=== PATIENT | male | born 1955 | race Caucasian/White ===

== ENCOUNTER → 2017-05-25 10:06 | Outpatient (CLI) | payer BC, SELFPAY ==
[2017-05-25 10:15] LABS: Microscopic, Urine URINE MICROSCOPIC (MICROSCOPIC)
[2017-05-25 10:36] LABS: Appearance,Urine CLEAR (Clear); Bilirubin,Urine Negative (Negative); Blood, Urine Negative (Negative); Color,Urine YELLOW (Yellow); Glucose,Urine (UA) Negative (Negative); Ketones,Urine Negative (Negative); Leukocyte Esterase,Urine Negative (Negative); Nitrate,Urine Negative (Negative); Protein,Urine Negative (Negative); Urobilinogen,Urine 0.2 EU/dl (0.2)
[2017-05-25 10:52] LABS: Basophils % 0.6 % (0.1-2.0); Eosinophils # 0.1 K/mm3 (0.0-0.4); Eosinophils % 3.3 % (0.1-12.0); Hematocrit 44.5 % (42.0-52.0); Hemoglobin 15.4 g/dL (14.1-18.0); Lymphocytes # 1.2 K/mm3 (0.7-4.5); Lymphocytes % 27.1 K/mm3 (10-50); Mean Corpuscular HGB Conc 34.7 g/dL (31.8-35.4); Mean Corpuscular Volume 98.1 fl (80-94); Mean Platelet Volume 8.1 fl (7.4-10.4); Monocytes # 0.3 K/mm3 (0.1-1.0); Monocytes % 7.6 % (1.7-9.3); Neutrophils # 2.6 K/mm3 (1.8-7.8); Neutrophils % 61.5 % (37.0-80.0); Platelet Count 156 K/mm3 (142-424); Red Blood Count 4.54 M/mm3 (4.60-6.20); Red Cell Distribution Width 12.3 % (11.5-17.5); White Blood Count 4.3 K/mm3 (4.8-10.8)
[2017-05-25 10:59] LABS: Hemoglobin A1C 5.3 % (0.0-7.0)
[2017-05-25 11:39] LABS: Alanine Aminotransferase 41 U/L (12-78); Albumin Level 4.3 gm/dL (3.4-5.0); Albumin/Globulin Ratio 1.4 (1.1-1.8); Alkaline Phosphatase 67 U/L (46-116); Anion Gap 12.2 mEq/L (5-15); Aspartate Amino Transferase 35 U/L (15-37); Bilirubin,Total 0.7 mg/dL (0.2-1.0); Blood Urea Nitrogen 18 mg/dL (7-18); Calcium 9.1 mg/dL (8.5-10.1); Carbon Dioxide 30 mmol/L (21.0-32.0); Chloride 103 mmol/L (98-107); Creatinine,Serum 0.76 mg/dL (0.70-1.30); Estimated Glomerular Filt Rate 104 ml/min (>60); GFR (African American) 126 ML/MIN (>60); Glucose 99 mg/dL (74-106); Potassium 4.2 mmoL/L (3.5-5.1); Sodium 141 mmol/L (136-145); Thyroid Stimulating Hormone 5.26 uIU/ml (0.358-3.740); Total Protein,Serum 7.3 gm/dL (6.4-8.2)
== END ==
PROVIDERS: PCP Family Medicine; Visit Provider Family Medicine
DX: R19.7 Diarrhea, unspecified (principal); R73.01 Impaired fasting glucose; R63.5 Abnormal weight gain; R10.30 Lower abdominal pain, unspecified
CPT/HCPCS: 36415; 80053; 81001; 83036; 84443; 85025

== ENCOUNTER → 2017-05-27 12:00 | Outpatient (CLI) | payer BC, SELFPAY ==
[2017-05-28 13:45] LABS: Adenovirus F 40/41, stool Not Detected (NotDetected); Astrovirus Not Detected (NotDetected); Campylobacter Not Detected (NotDetected); Clostridium Difficile A/B, PCR Not Detected (NotDetected); Cryptosporidium Not Detected (NotDetected); Cyclospora Cayetanesis Not Detected (NotDetected); Entamoeba histolytica Not Detected (NotDetected); Enteroaggregative E coli Not Detected (NotDetected); Enterotoxigenic E coli Not Detected (NotDetected); Giardia lamblia Not Detected (NotDetected); Norovirus Not Detected (NotDetected); Plesimonas Shigalloides, PCR Not Detected (NotDetected); Rotavirus A Not Detected (NotDetected); Salmonella, PCR Not Detected (NotDetected); Sapovirus Not Detected (NotDetected); Shiga-like toxin E coli Not Detected (NotDetected); Shigella Enterovasive E coli Not Detected (NotDetected); Vibrio Cholerae Not Detected (NotDetected); Vibrio, PCR Not Detected (NotDetected); Yersinia Entercolitica, PCR Not Detected (NotDetected)
[2017-05-28 14:16] LABS: Occult Blood,Stool Negative (Negative)
[2017-05-28 17:53] LABS: Enteropathogenic E coli Detected (NotDetected)
== END ==
PROVIDERS: PCP Family Medicine; Visit Provider Family Medicine
DX: R19.7 Diarrhea, unspecified (principal); R73.01 Impaired fasting glucose; R63.5 Abnormal weight gain; R10.30 Lower abdominal pain, unspecified
CPT/HCPCS: 82272; 87205; 87507; G0328

== ENCOUNTER → 2017-09-03 10:25 | Outpatient (CLI) | payer BC, SELFPAY ==
[2017-09-03 11:39] LABS: Erythrocyte Sedimentation Rate 15 mm/hr (0-20)
[2017-09-05 06:18] LABS: Endomysial IgA Antibody Negative (Negative); RA Latex Turbid. 41.2 IU/mL (0.0-13.9); Tissue Transglutaminase IgA Ab <2 U/mL (0-3)
[2017-09-06 14:48] LABS: Fats, Neutral Normal (.); Fats, Total Increased (.)
== END ==
PROVIDERS: Visit Provider Family Medicine
DX: R19.7 Diarrhea, unspecified (principal); M25.50 Pain in unspecified joint
CPT/HCPCS: 36415; 82705; 83516; 84550; 85651; 86038; 86255; 86431; 87045; 87177

== ENCOUNTER → 2018-11-27 07:01 | Outpatient (CLI) | payer OTHER, SELFPAY ==
[2018-11-27 10:01] LABS: Alanine Aminotransferase 47 U/L (12-78); Albumin Level 4.1 gm/dL (3.4-5.0); Albumin/Globulin Ratio 1.4 (1.1-1.8); Alkaline Phosphatase 63 U/L (46-116); Anion Gap 13.4 mEq/L (5-15); Aspartate Amino Transferase 35 U/L (15-37); Bilirubin,Total 0.8 mg/dL (0.2-1.0); Blood Urea Nitrogen 17 mg/dL (7-18); Calcium 9.5 mg/dL (8.5-10.1); Carbon Dioxide 29 mmol/L (21.0-32.0); Chloride 104 mmol/L (98-107); Chol/HDL Ratio 3.8 (1-3.5); Cholesterol 206 mg/dL (140-200); Creatinine,Serum 0.85 mg/dL (0.70-1.30); Estimated Glomerular Filt Rate 91 ml/min (>60); Free T4 (Free Thyroxine) 0.98 ng/dl (0.76-1.46); GFR (African American) 110 ML/MIN (>60); Glucose 99 mg/dL (74-106); HDL Cholesterol 54 mg/dL (27-67); LDL Cholesterol 125 mg/dL (0-130); Potassium 4.4 mmoL/L (3.5-5.1); Sodium 142 mmol/L (136-145); Total Protein,Serum 7.1 gm/dL (6.4-8.2); Triglycerides 133 mg/dL (30-200); VLDL Cholesterol 27 mg/dL (0-40)
== END ==
PROVIDERS: Visit Provider Family Medicine
DX: E03.9 Hypothyroidism, unspecified (principal); R73.01 Impaired fasting glucose; E78.1 Pure hyperglyceridemia; M54.31 Sciatica, right side
CPT/HCPCS: 36415; 80053; 80061; 83036; 84439; 84443

== ENCOUNTER → 2018-12-13 09:55 | Outpatient (CLI) | payer OTHER, SELFPAY ==
--- NOTE | 2018-12-13 10:06 | XR_ITS ---
EXAM: XR lumbar spine min 4V HISTORY: ITS.REASON: RT SIDE SCIATICA PAIN ORDERING PHYSICIAN: Jr Guevara MD PATIENT AGE: 63 years COMPARISON: None FINDINGS: There is mild lumbar scoliosis convex right. Degenerative disc disease is present from T12 to S1 especially at L3-L4 L4-5 and L5-S1. Normal alignment. No acute fracture or dislocation. Facet sclerosis is present at L3-L4 and L5 and S1. Incidental vascular calcification is noted. There is a calcific density to the right of L1 transverse process measuring 4 mm nonspecific. IMPRESSION: 1. Lumbar scoliosis with degenerative changes 2. Nonspecific right upper quadrant calcification. This is somewhat more medial than what one expected for a renal stone or gallstone.
== END ==
PROVIDERS: PCP Family Medicine; Visit Provider Family Medicine
DX: M54.31 Sciatica, right side (principal); R73.01 Impaired fasting glucose; E78.1 Pure hyperglyceridemia; E03.9 Hypothyroidism, unspecified
CPT/HCPCS: 72110

== ENCOUNTER 2018-12-17 08:30 | Outpatient (RCR) | payer OTHER, SELFPAY ==
--- NOTE | 2018-11-14 09:12 | HMH.PTOPEV ---
PT Outpatient Evaluation Rehab PT Outpatient Evaluation Start: 11/14/18 08:51 Freq: Status: Active Protocol: Document 11/14/18 08:51 AVIVA (Rec: 11/14/18 09:09 AVIVA [id number]) Electronically Signed By Toni Owen, PT 11/14/18 08:51 Outpatient Therapy Subjective History Subjective History Patient is a 63 year old male presenting to outpatient PT with reports of chronic low back with RLE radicular symptoms to the L5 dermatome. Pt reports LBP consistent for approx 1 year that has progressively gotten worse over the past 4 months. Increased radicular symptoms with lumbar extension. Relief noted with lumbar flexion and manual traction. No particular mechanism of injury to report. No recent diagnostics to report. Special tests also indicate L upslip of the innominant. Comorbidities include OA, HTN, Raynauds and hypothyroidism. Chief Complaint Pain,Stiff,Paresthesia Symptom Type Ache,Sharp,Numbness,Tingling Symptoms Relieved By Rest/Positioning Symptoms Aggravated By Standing,Walking,Lifting Prior Functional Limitations None Current Functional Limitations Lifting,Housework Level of pain today (0-10) 3 Pain scale - at its best (0-10) 2 Pain scale - at its worst (0-10) 7 Lumbopelvic Eval Posture Thoracic Spine Posture Standing Position Increased Kyphosis Lumbar Spine Posture Standing Position Decreased Lordosis Assistive device Assistive Devices None / NA Palapation tenderness right paraspinal tenderness Yes: 2/4 buttock tenderness Yes: 3/4 Lumbar/Sacral Palpation Findings Tenderness Lumbar/Sacral Palpation Overall Comment R PSIS 3/4 Accessory Movement L4 right L5 right S1 right Range of Motion Lumbar Spine Active Flexion Range of 66 Motion (degrees) Lumbar Spine Active Extension Range of 25 Motion (degrees) Left Lumbar Spine Lateral Flexion Active 25 Range of Motion (degrees) Right Lumbar Spine Lateral Flexion 33 Active Range of Motion (degrees) Lumbar Spine ROM Limitations Soft Tissue Tightness,Bony Restriction Manual Muscle Test Bilateral Knee Extension Strength Grade 5
== END 2018-12-17 08:35 | disposition home or self-care (01) ==
LOC: PT 08:30
PROVIDERS: Visit Provider Emergency Medicine
DX: M54.31 Sciatica, right side (principal)
CPT/HCPCS: 97010; 97012; 97014; 97035; 97110; 97140; 97163; G0283

== ENCOUNTER → 2018-12-31 14:13 | Outpatient (CLI) | payer OTHER, SELFPAY ==
--- NOTE | 2018-12-31 14:16 | MR_ITS ---
PROCEDURE: MR LUMBAR SPINE WO CON CLINICAL INDICATION: SCIATICA OF RIGHT SIDE Low back pain with right leg pain numbness and tingling radiating into the right foot COMPARISON: No exams were available for comparison TECHNIQUE: Standard multiplanar multiecho sequences are performed without contrast. 3-D MIP and myelographic images are also rendered and reviewed FINDINGS: Normal alignment. The spinal cord ends at the T12-L1 level. There is somewhat heterogeneous T1 and T2 intensity of the generalized bony structures and may be related to red marrow replacement. L1-L2: Unremarkable. L2-L3: Mild facet ligamentum hypertrophy with mild bilateral lateral recess narrowing and mild bilateral foraminal narrowing. L3-L4: Degenerate disc disease with bulging disc along with moderate to severe facet and ligamentum hypertrophy with moderate to severe bilateral lateral recess and foraminal narrowing. There is borderline canal stenosis at this level. L4-5: Degenerate disc disease with bulging disc along with severe facet and ligamentum hypertrophy with severe bilateral lateral recess and foraminal narrowing with canal stenosis. The canal is approximately 9 mm centrally. L5-S1: Degenerate disc disease with bulging disc which is eccentric toward the right with severe facet ligamentum hypertrophy causing severe lateral recess and foraminal narrowing. This is more severe on the right compared to the left. There is canal stenosis at this level. No extruded herniated disc evident. IMPRESSION: 1. L3-L4: Degenerate disc disease with bulging disc along with moderate to severe facet and ligamentum hypertrophy with moderate to severe bilateral lateral recess and foraminal narrowing. There is borderline canal stenosis at this level. 2. L4-5: Degenerate disc disease with bulging disc along with severe facet and ligamentum hypertrophy with severe bilateral lateral recess and foraminal narrowing with canal stenosis. 3. L5-S1: Degenerate disc disease with bulging disc which is eccentric toward the right with severe facet ligamentum hypertrophy causing severe lateral recess and foraminal narrowing. This is more severe on the right compared to the left. There is canal stenosis at this level Dictated by: Diomedes Esteves MD 01/01/2019 07:12 Signed by: <Electronically signed by Diomedes Esteves MD in [place]> 01/01/2019 07:12
== END ==
PROVIDERS: PCP Family Medicine; Visit Provider Family Medicine
DX: M54.31 Sciatica, right side (principal)
CPT/HCPCS: 72148; 76376

== ENCOUNTER → 2019-01-30 09:31 | Outpatient (POV) | payer OTHER, SELFPAY ==
[2019-01-30 09:56] VITALS: BP 183/94; O2SAT 97; BMI 23.7
--- NOTE | 2019-01-30 13:04 | HMH.PMCON ---
Assessment and Plan (1) Lumbar back pain Current visit: Yes Status: Chronic Category: Medical Code(s): M54.5 - Low back pain (2) Degenerative disc disease, lumbar Current visit: Yes Status: Chronic Category: Medical Code(s): M51.36 - Other intervertebral disc degeneration, lumbar region (3) Lumbar radiculopathy Current visit: Yes Status: Chronic Category: Medical Code(s): M54.16 - Radiculopathy, lumbar region (4) Spinal stenosis Current visit: Yes Status: Chronic Category: Medical Code(s): M48.00 - Spinal stenosis, site unspecified - Assessment and plan all Dx Assessment and Plan for all problems:: Patient does have extensive degeneration and disc bulging according to his MRI report. Given his imaging and his symptoms, patient would greatly benefit from a lumbar epidural steroid injection. He has not had injective therapy in the past. He has tried conservative therapies of physical therapy, home stretching program, oral medications, anti-inflammatories, and ice and heat therapies. He has got little to no relief with these therapies. We will schedule the patient for a lumbar epidural steroid injection at L4-L5 and see him back in following his procedure to reassess his symptoms. Patient is not on anticoagulation therapy. He has been encouraged to contact the clinic if he has any concerns. Dr. Cheney has reviewed this note and agrees with this plan of care. This note was dictated using voice recognition software and make contain errors or omissions. HPI - Data of Consult Patient: new to practice Consult date: 01/30/19 Requesting Physician: Susan Liu APRN Primary Care Provider: Jr Guevara MD - Consult Narrative Reason for consult: Back pain History of present illness: Mr. Munroe is a 63 year old male who presents today for consultation for low back pain. Patient was referred by Dr. Guevara. Patient complains of low back pain with radiating pain to his right buttock and into his right leg with severe numbness and tingling to his bilateral lower extremities patient says this pain has been ongoing for greater than a year. He says that he has had physical therapy which is giving him some relief. He says that he currently takes meloxicam which is also giving him some patient was prescribed oral opiates, but he states I did not like how it may be feel so stopped taking it . Patient has had 2 rounds of Medrol Dosepaks in August and September of this year. He said that it gave him about 20% relief. The patient says physical therapy did give him about 20% relief. He is continuing with a home stretching program, as well as his anti-inflammatory. Patient has tried using ice and heat therapies he is got little to no relief. Patient does have MRI imaging with him today. Patient is interested only and interventional therapies as he is not able to tolerate oral opiates. Patient does rate his pain 10 today. CC: Susan Liu APRN [facility] History I have reviewed the patient's past medical history: Yes *Have you ever received a pneumonia vaccine?: No *Have you received a flu vaccine this season?: No Other Medical History: Reports: Hypothyroidism Other Surgeries: Yes: Appendectomy, Hernia Repair - *Social History Smoking Status: Former smoker Alcohol Intake: current Alcohol Intake Frequency:: 3 or more drinks per day *Occupational Status:: other *Travel in the last 8 weeks: None Family Hx:: Unable to obtain Review of Systems - Review of Systems Review of Systems General: No recent weight changes, no fever, no sleep disturbances Respiratory: No cough, no shortness of air, no recurring pulmonary infections Cardiovascular/peripheral vascular: No chest pain, no palpitations, no edema, no shortness of breath Gastrointestinal: No new onset incontinence, normal bowel movements reported Genitourinary: No new onset incontinence Musculoskeletal: Back pain, right buttock pain, right leg
--- NOTE | 2019-01-30 13:08 | P.CONS_ITS ---
Assessment and Plan (1) Lumbar back pain Current visit: Yes Status: Chronic Category: Medical Code(s): M54.5 - Low back pain (2) Degenerative disc disease, lumbar Current visit: Yes Status: Chronic Category: Medical Code(s): M51.36 - Other intervertebral disc degeneration, lumbar region (3) Lumbar radiculopathy Current visit: Yes Status: Chronic Category: Medical Code(s): M54.16 - Radiculopathy, lumbar region (4) Spinal stenosis Current visit: Yes Status: Chronic Category: Medical Code(s): M48.00 - Spinal stenosis, site unspecified - Assessment and plan all Dx Assessment and Plan for all problems:: Patient does have extensive degeneration and disc bulging according to his MRI report. Given his imaging and his symptoms, patient would greatly benefit from a lumbar epidural steroid injection. He has not had injective therapy in the past. He has tried conservative therapies of physical therapy, home stretching program, oral medications, anti-inflammatories, and ice and heat therapies. He has got little to no relief with these therapies. We will schedule the patient for a lumbar epidural steroid injection at L4-L5 and see him back in following his procedure to reassess his symptoms. Patient is not on anticoagulation the rapy. He has been encouraged to contact the clinic if he has any concerns. Dr. Cheney has reviewed this note and agrees with this plan of care. This note was dictated using voice recognition software and make contain errors or omissions. HPI - Data of Consult Patient: new to practice Consult date: 01/30/19 Requesting Physician: Susan Liu APRN Primary Care Provider: Jr Guevara MD - Consult Narrative Reason for consult: Back pain History of present illness: Mr. Munroe is a 63 year old male who presents today for consultation for low back pain. Patient was referred by Dr. Guevara. Patient complains of low back pain with radiating pain to his right buttock and into his right leg with severe numbness and tingling to his bilateral lower extremities patient says this pain has been ongoing for greater than a year. He says that he has had physical therapy which is giving him some relief. He says that he currently takes meloxicam which is also giving him some patient was prescribed oral opiates, but he states I did not like how it may be feel so stopped taking it . Patient has had 2 rounds of Medrol Dosepaks in August and September of this year. He said that it gave him about 20% relief. The patient says physical therapy did give him about 20% relief. He is continuing with a home stretching program, as well as his anti-inflammatory. Patient has tried using ice and heat therapies he is got little to no relief. Patient does have MRI imaging with him today. Patient is interested only and interventional therapies as he is not able to tolerate oral opiates. Patient does rate his pain 10 today. CC: Susan Liu APRN [facility] History I have reviewed the patient's past medical history: Yes *Have you ever received a pneumonia vaccine?: No *Have you received a flu vaccine this season?: No Other Medical History: Reports: Hypothyroidism Other Surgeries: Yes: Appendectomy, Hernia Repair - *Social History Smoking Status: Former smoker Alcohol Intake: current Alcohol Intake Frequency:: 3 or more drinks per day *Occupational Status:: other *Travel in the last 8 weeks: None Family Hx:: Unable to obtain Review of Systems - Review of Systems Review of Systems General: No recent weight changes, no fever, no sleep disturbances Respiratory: No cough,
== END ==
PROVIDERS: PCP Family Medicine; Visit Provider Clinical Nurse Specialist Family Health
DX: M51.16 Intervertebral disc disorders with radiculopathy, lumbar region (principal); M48.00 Spinal stenosis, site unspecified
CPT/HCPCS: 99202

== ENCOUNTER → 2019-08-12 08:37 | Outpatient (CLI) | payer SELFPAY ==
--- NOTE | 2019-08-12 08:42 | CT_ITS ---
PROCEDURE: CT HEART W CALCIUM SCORE CLINICAL HISTORY: FHX CAD The COMPARISON: No exams were available for comparison TECHNIQUE: Axial images obtained with sagittal and coronal reformats. All CT scans at the facility use one or more dose reduction, viz: automated exposure control, ma/kV adjustment per patient size (including targeted exams where dose is matched to indication, i.e. head), or iterative reconstruction technique. FINDINGS: Coronary artery calcium score is 727 indicating extensive calcific plaque burden with very high cardiovascular disease risk. Incidental note is made of mild thickening of the pericardium anteriorly. There is mild fusiform dilatation the celiac artery measuring up to 1.4 cm IMPRESSION: Extensive calcific plaque burden with very high cardiovascular disease risk Dictated by: Diomedes Esteves MD 08/12/2019 11:54 Electronically signed by Diomedes Esteves MD in [place] 08/12/2019 11:54
== END ==
PROVIDERS: PCP Family Medicine; Visit Provider Family Medicine
DX: Z13.6 Encounter for screening for cardiovascular disorders (principal)
CPT/HCPCS: 75571

== ENCOUNTER → 2019-08-12 08:45 | Outpatient (CLI) | payer MEDICARE, OTHER, SELFPAY ==
--- NOTE | 2019-08-12 | CA_ITS ---
APPROVED REPORT Exam: Exercise Treadmill Technologist: Alfreda Nino Ht: 5 ft 10 in Wt: 180 lbs BSA: 2.00 m2 HR: 73 bpm BP: 157/90 mmHg Indications: Chest pain Medical History Medications: Levothyroxine,,,,, MeLOXICAM,,,,, Stress Test Details Test: Sergey HR Resting HR: 79 bpm Max Heart Rate (APMHR): 156 bpm Max HR Achieved: 142 bpm Target HR (85% APMHR): 132 bpm % of APMHR: 91 Recovery HR: 85 bpm BP Resting BP: 157.0/90.0 mmHg Max BP: 184.0/106.0 mmHg Recovery BP: 168.0/92.0 mmHg ECG Clinical Exercise duration: 06:24 min Highest Stage Achieved: Exercise capacity: 7.0 METs Stress ECG Conclusion Resting ECG: Sinus rhythm Sergey protocol completed. Exercised 6:24. Test stopped due to shortness of breath. Symptoms: Shortness of breath at peak exercise. Resolved in recovery. No chest pain. Arrhythmias/Ectopy: Occasional PVC. ST-T Changes: Less than 1.[address] depression. Changes noted in leads II, III, and AvF Conclusion: GXT only. ST changes in leads II, III, and AvF, Occasional PVC, Hypertensive response, Positive shortness of breath, No chest pain. Test Summary RECOVERY 08:00 0.0 0.0 87 . 183/ 97 . . REST 07:19 0.0 0.0 79 . 157/ 90 . . Stage 1 01:00 10.0 1.7 97 . . . . Stage 1 02:00 10.0 1.7 102 . . . . Stage 1 03:00 10.0 1.7 105 . 163/ 96 . . Stage 2 01:00 12.0 2.5 120 . . . . Stage 2 02:00 12.0 2.5 126 . . . . Stage 2 03:00 12.0 2.5 132 . 178/ 92 . . Stage 3 00:24 14.0 3.4 141 . . . Stop exercise at 06:24 RECOVERY 01:00 0.0 0.0 116 . 184/106 . . RECOVERY 02:00 0.0 0.0 109 . 184/106 . . RECOVERY 03:00 0.0 0.0 97 . 184/106 . . RECOVERY 04:00 0.0 0.0 89 . 180/ 96 . . RECOVERY 05:00 0.0 0.0 83 . 180/ 96 . . RECOVERY 06:00 0.0 0.0 87 . 183/ 97 . . RECOVERY 07:00 0.0 0.0 88 . 183/ 97 . . RECOVERY 08:00 0.0 0.0 87 . 183/ 97 . . RECOVERY 08:19 0.0 0.0 89 . 168/ 92 . . Electronically signed by : Pernell Rowell, 08/12/2019 16:22:00
== END ==
PROVIDERS: PCP Family Medicine; Visit Provider Family Medicine
DX: R07.9 Chest pain, unspecified (principal)
CPT/HCPCS: 93017

== ENCOUNTER → 2019-08-20 10:59 | Outpatient (CLI) | payer MEDICARE, OTHER, SELFPAY ==
[2019-08-20 12:11] LABS: Chloride 102 mmol/L (98-107); Sodium 140 mmol/L (136-145)
[2019-08-20 12:14] LABS: Blood Urea Nitrogen 18 mg/dl (9-20); Calcium 9.8 mg/dl (8.4-10.2); Carbon Dioxide 29 mmol/L (22.0-30.0); Estimated Glomerular Filt Rate 85 ml/min (>60); GFR (African American) 103 ML/MIN (>60); Glucose 125 mg/dl (74-100)
== END ==
PROVIDERS: Visit Provider Internal Medicine Cardiovascular Disease
DX: E78.5 Hyperlipidemia, unspecified (principal); I10 Essential (primary) hypertension; I65.23 Occlusion and stenosis of bilateral carotid arteries; K21.9 Gastro-esophageal reflux disease without esophagitis; R07.89 Other chest pain; R93.1 Abnormal findings on diagnostic imaging of heart and coronary circulation; R94.31 Abnormal electrocardiogram [ECG] [EKG]; Z87.891 Personal history of nicotine dependence
CPT/HCPCS: 36415; 80048

== ENCOUNTER → 2019-09-12 08:43 | Outpatient (CLI) | payer MEDICARE, OTHER, SELFPAY ==
--- NOTE | 2019-09-12 08:45 | CA_ITS ---
APPROVED REPORT EXAM: Comprehensive 2D, Doppler, and color-flow Echocardiogram Barker Peeler: Marilyn Gambino RVT Ht: 6 ft 1 in Wt: 192lbs BSA: 2.11 BP: 146/99 mmHg Indications: CP,EX SMOKER,HTN,HLD,INCREASED CALCIUM SCORE ON CT, HX HI,STACIE,ALCOHOL USE 2D Dimensions LVOT 2.14 cm (M/F) 1.5-2.5 M-Mode Dimensions RVDd 3.31 cm (0.9-2.6) LVDd 4.71 cm (3.5-5.7) LVDs 3.38 cm (3.5-5.7) IVSd 1.14 cm (0.6-1.1) PWd 0.80 cm (0.6-1.1) EF (Teich) 54.50% FS 28.20% EDV (Teich) 102.90 mL ESV (Teich) 46.80 mL LV Diastology E/A Ratio 0.62 Mitral Valve MV A Velocity 80.00 (40-130 cm/s) Left Ventricle Left atrium is mildly enlarged, left ventricle is normal size, mild concentric left ventricular hypertrophy, visually estimated ejection fraction 55% with no regional wall motion abnormality, grade 1 diastolic dysfunction seen without tissue Doppler evidence of raise left atrial pressure. Right Ventricle Right atrium and right ventricular normal size and contractility. Aortic Valve Aortic valve is minimally thickened and calcified leaflet chordae display good mobility, there is no aortic stenosis or aortic insufficiency, ascending aorta appears to be mildly enlarged. Mitral Valve Mitral valve leaflets are minimally thickened, there is no mitral stenosis, there is mild mitral regurgitation. Tricuspid Valve Tricuspid valve grossly normal, there is mild tricuspid regurgitation, tricuspid regurgitation jet velocity is inadequate for calculation of the right ventricular systolic pressure. Pulmonic Valve Pulmonic valve is poorly visualized. Great Vessels Aortic root is normal size., Ascending aorta is mildly enlarged. Pericardium No significant pericardial effusion noted. Conclusion 1. Mildly enlarged left atrium, normal left ventricular size, mild concentric left ventricular hypertrophy, visually estimated ejection fraction 55% with no regional wall motion abnormality grade 1 diastolic dysfunction seen without tissue Doppler evidence of raise left atrial pressure. 2. Thickened and calcified aortic valve without aortic stenosis or aortic insufficiency, ascending aorta is mildly enlarged. 3. Mild mitral and tricuspid regurgitation. 4. No significant pericardial effusion noted. Electronically signed by : Sandro Monet, 09/12/2019 13:57:20
== END ==
PROVIDERS: PCP Family Medicine; Visit Provider Internal Medicine Cardiovascular Disease
DX: E78.5 Hyperlipidemia, unspecified (principal); I10 Essential (primary) hypertension; I65.23 Occlusion and stenosis of bilateral carotid arteries; K21.9 Gastro-esophageal reflux disease without esophagitis; R07.89 Other chest pain; R93.1 Abnormal findings on diagnostic imaging of heart and coronary circulation; R94.31 Abnormal electrocardiogram [ECG] [EKG]; Z87.891 Personal history of nicotine dependence
CPT/HCPCS: 93306

== ENCOUNTER → 2019-10-03 11:11 | Outpatient (CLI) | payer MEDICARE, OTHER, SELFPAY ==
[2019-10-03 13:39] LABS: Chloride 104 mmol/L (98-107); Sodium 142 mmol/L (136-145)
[2019-10-03 13:40] LABS: Potassium 4.1 mmoL/L (3.5-5.1)
[2019-10-03 13:42] LABS: Blood Urea Nitrogen 21 mg/dl (9-20)
[2019-10-03 13:43] LABS: Anion Gap 12.1 mEq/L (5-15); Calcium 9.8 mg/dl (8.4-10.2); Carbon Dioxide 30 mmol/L (22.0-30.0); Estimated Glomerular Filt Rate 85 ml/min (>60); GFR (African American) 102 ML/MIN (>60); Glucose 108 mg/dl (74-100)
== END ==
PROVIDERS: Visit Provider Urology
DX: I10 Essential (primary) hypertension (principal); K21.9 Gastro-esophageal reflux disease without esophagitis
CPT/HCPCS: 36415; 80048

== ENCOUNTER 2020-03-30 09:00 | Outpatient (RCR) | payer MEDICARE, OTHER, SELFPAY ==
--- NOTE | 2020-03-10 14:40 | HMH.PTOPEV ---
PT Outpatient Evaluation Rehab PT Outpatient Evaluation Start: 03/10/20 14:07 Freq: Status: Active Protocol: Document 03/10/20 14:30 AVIVA (Rec: 03/10/20 14:39 AVIVA [id number]) Electronically Signed By Toni Owen, PT 03/10/20 14:30 Outpatient Therapy Subjective History Subjective History Patient is a 64 year old male presenting to outpatient PT with reports of chronic LBP with intermittent RLE radicular symptoms. Pain specific to R PSIS to lateral thigh, but often radiates to R foot. Most recent MRI indicates L 3/4,3/4,5S1 DDD/ disc bulges. Previous episode of PT provided some significant relief. Comorbidities include hx of HTN, OA and appendectomy. Chief Complaint Pain,Stiff,Paresthesia Symptom Type Ache,Dull Symptoms Relieved By Rest/Positioning,Ice Symptoms Aggravated By Bending/Stooping,Physical Activity,Lifting Prior Functional Limitations None Current Functional Limitations Reaching,Lifting,Housework, Squatting,Recreation Activity, Bending/Stooping Symptom Description Intermittent Level of pain today (0-10) 1 Pain scale - at its best (0-10) 0 Pain scale - at its worst (0-10) 5 Lumbopelvic Eval Posture Thoracic Spine Posture Standing Position Neutral Lumbar Spine Posture Standing Position Neutral Assistive device Assistive Devices None / NA Palapation tenderness right Lumbar/Sacral Palpation Findings Tenderness Lumbar/Sacral Palpation Overall Comment R PSIS and glute med 2/4 Range of Motion Lumbar Spine ROM Reason Not Measured Within Functional Limits Manual Muscle Test Bilateral Knee Extension Strength Grade 5 Normal Knee Flexion Strength Grade 5 Normal Hip Flexion Strength Grade 5 Normal Extensor Hallucis Longus Strength Grade 5 Normal Ankle Dorsiflexion Strength Grade 5 Normal Gastronemius/Soleus Strength Grade 5 Normal DTR Rt Patellar 2+ Lt Patellar 2+ Rt Gastroc/Soleus 2+ Lt Gastroc/Soleus 2+ Special Tests Lumbar Spine Screen Positive Hip Osmar (AMY) Test Positive Left,Positive Right Hip Ji Test Positive Left,Positive Right Hip Piriformis Test Positive Left,Positive Right Sciatic Nerve Tension Test Negative Left,Negative Right Tyler Test Positive
== END 2020-03-30 09:05 | disposition home or self-care (01) ==
LOC: PT 09:00
PROVIDERS: PCP Family Medicine; Visit Provider Family Medicine
DX: M54.41 Lumbago with sciatica, right side (principal)
CPT/HCPCS: 97012; 97014; 97110; 97163; G0283

== ENCOUNTER → 2020-05-24 10:18 | Outpatient (CLI) | payer MEDICARE, OTHER, SELFPAY ==
[2020-05-24 11:19] LABS: Coronavirus 19 IgG Antibody Negative (Negative); Coronavirus 19 IgM Antibody Negative (Negative)
== END ==
PROVIDERS: Visit Provider Surgery
DX: Z01.812 Encounter for preprocedural laboratory examination (principal); Z11.52 Encounter for screening for COVID-19; Z12.11 Encounter for screening for malignant neoplasm of colon; Z86.010 Personal history of colon polyps
CPT/HCPCS: 36415; 86328

== ENCOUNTER 2020-05-25 06:36 | Day surgery (SDC) | payer MEDICARE, OTHER, SELFPAY ==
[2020-04-27 09:12] VITALS: BMI 27.2
[2020-05-25 06:49] VITALS: BP 176/81; PULSE 81; RESP 18; TEMP 36.6; O2SAT 97
--- NOTE | 2020-05-25 06:57 | HMH.GSHP ---
HPI HPI: Patient presents for follow-up colonoscopy. He is a 64-year-old male. He is primarily under the care of Jr Guevara. I had performed several previous surgeries on the patient. I did perform colonoscopy on him on 01/18/2016. He had a periappendiceal polypoid lesion which required injection of methylene blue submucosally to raise the lesion and then it was removed with hot snare. This returned as tubular adenoma. He did have some random colon biopsies obtained and had a hyperplastic polyp. He also had a tubular adenoma in the sigmoid colon which only measured a few millimeters. I had recommended a repeat colonoscopy within 3 years. Patient has no significant complaints. He does take some fiber supplementation. He asks about prostate examination. [facility] History I have reviewed the patient's past medical history: Yes Medical History: Reports:: Carotid Stenosis, Gastroesophageal Reflux Disease(GERD), Hyperlipidemia, Hypertension Denies:: Cancer, Diabetes Mellitus Type 1, Diabetes Mellitus Type 2, Internal Pacemaker, MRSA *Have you ever received a pneumonia vaccine?: Yes *Have you received a flu vaccine this season?: No Other Medical History: Reports: Hypothyroidism Other Surgeries: Yes: Appendectomy, Colonoscopy, Hernia Repair. No: Pacemaker Amputation: No Fractures: Yes - *Social History Last grade of school completed: Advanced degree Smoking Status: Former smoker Alcohol Intake: current Alcohol Intake Frequency:: 3 or more drinks per day *Occupational Status:: other Housing: house Household Members: spouse *Travel in the last 8 weeks: None Family Hx:: Unable to obtain Review of Systems - Review of Systems Review of systems:: pertinent systems reviewed and negative unless documented below Meds Home Medications Medication Instructions Recorded Confirmed Type levothyroxine 50 mcg capsule 50 mcg PO DAILY 06/24/18 05/24/20 History Losartan/Hydrochlorothiazide 1 tab PO DAILY 04/27/20 05/24/20 History [Losartan-Hctz 100-12.5 mg Tab] Rosuvastatin Calcium 20 mg PO DAILY 04/27/20 05/24/20 History omeprazole 40 mg capsule,delayed 40 mg PO DAILY PRN #90 cap 04/28/20 05/25/20 Rx release Aspirin [Lo-Dose Aspirin EC] 81 mg PO DAILY 05/25/20 05/25/20 History Meloxicam 15 mg PO DAILY 05/25/20 05/25/20 History Allergies Allergy/AdvReac Type Severity Reaction Status Date / Time No Known Allergies Allergy Verified 05/25/20 06:51 Exam - *Routine HEENT Exam Head: Present: normocephalic Eye: Present: EOMI, PERRL ENT: Present: mucous membranes moist - *Routine Neck Exam Present: supple. Absent: lymphadenopathy - *Routine Respiratory Exam Present: CTA bilaterally - *Routine Cardiovascular Exam Present: RRR - *Routine Abdominal Exam Present: soft, normoactive bowel sounds. Absent: tenderness - *Routine Extremities Exam Absent: cyanosis, clubbing, edema - *Routine Skin Exam Present: warm. Absent: rash - *Routine Neurological Exam Present: alert, oriented X3 Assessment and Plan - Assessment and plan all Dx Assessment and Plan for all problems:: Colonoscopy
--- NOTE | 2020-05-25 07:12 | P.PN_ITS ---
[facility] Anesthesia Checklist - Structural Data Admitted From: Home Planned Operative Procedure/s: colonoscopy Consent for Planned Operative Procedure(s) Verified: Yes - Airway Assessment C-Spine Mobility Assessed: Yes TMJ Mobility Assessed: Yes Dentition: Good Dentition - Neurological Assessment Level of Consciousness: Awake, Alert, Appropriate - Anesthesia Plan Anesthesia Risk discussed: Yes Anesthesia Plan: Verified ASA Class: II Anesthesia Type: MAC [facility] History I have reviewed the patient's past medical history: Yes Medical History: Reports:: Carotid Stenosis, Gastroesophageal Reflux Disease(GERD), Hyperlipidemia, Hypertension Denies:: Cancer, Diabetes Mellitus Type 1, Diabetes Mellitus Type 2, Internal Pacemaker, MRSA, Seizures *Have you ever received a pneumonia vaccine?: Yes *Have you received a flu vaccine this season?: No Other Medical History: Reports: Hypothyroidism Anesthesia experience/problems:: none Other Surgeries: Yes: Appendectomy, Colonoscopy, Hernia Repair. No: Pacemaker Amputation: No Fractures: Yes - *Social History Last grade of school completed: Advanced degree Smoking Status: Former smoker Alcohol Intake: current Alcohol Intake Frequency:: 3 or more drinks per day Substance Use Type: denies use *Occupational Status:: other Housing: house Household Members: spouse *Travel in the last 8 weeks: None Family Hx:: Unable to obtain
[2020-05-25 07:17] VITALS: O2SAT 97
[2020-05-25 08:04] VITALS: BP 93/59; PULSE 55; RESP 18; TEMP 36.6; O2SAT 99
--- NOTE | 2020-05-25 08:05 | HMH.SCOPE ---
- Procedure: Date: 05/25/20 Patient Date of :: 1955 Procedure Performed:: Total colonoscopy with polypectomy by snare and biopsy forceps Indications:: Patient presents for follow-up colonoscopy. He is a 64-year-old male. He is primarily under the care of Jr Guevara. I had performed several previous surgeries on the patient. I did perform colonoscopy on him on 01/18/2016. He had a periappendiceal polypoid lesion which required injection of methylene blue submucosally to raise the lesion and then it was removed with hot snare. This returned as tubular adenoma. He did have some random colon biopsies obtained and had a hyperplastic polyp. He also had a tubular adenoma in the sigmoid colon which only measured a few millimeters. I had recommended a repeat colonoscopy within 3 years. Patient has no significant complaints. He does take some fiber supplementation. He asks about prostate examination. Performing Provider:: Luis Villegas MD Referring Provider:: Jr Guevara MD Sedation:: MAC sedation Procedure:: Patient was taken to endoscopy procedure room and positioned in a lateral decubitus position. Adequate intravenous sedation was achieved. Digital examination was performed which revealed normal sphincter tone and no obvious prostate masses or nodules. Variable stiffness Olympus colonoscope was inserted via the anus. It was advanced to the cecum. He did have some floppiness and redundancy of the sigmoid colon. Ileocecal valve and appendiceal orifice were identified. Colonoscope was slowly withdrawn through the colon with careful surveillance. He had a nonbleeding AVM in the cecum. In the transverse colon there was a sessile 8 to 10 mm polyp removed with cold cutting snare. In the sigmoid colon there was a tiny diminutive polyp removed with cold cutting snare. In the rectum he had several hyperplastic appearing polyps removed with cold biopsy forceps. In the distal rectum there was a more adenomatous appearing polyp removed with cold biopsy forceps. Retroflexion revealed no evidence of any pathologic internal hemorrhoids. He did have sigmoid diverticulosis. Colonoscope was withdrawn. Findings:: Sigmoid diverticulosis Nonbleeding AVM in the cecum Polyps, most notable transverse polyp measuring 8 to 10 mm, sessile Recommendations:: Likely repeat colonoscopy 2 to 3 years pending the pathology Complications:: None immediately apparent Estimated blood obtained (mL): 2
[2020-05-25 08:14] VITALS: BP 102/67; PULSE 54; RESP 18; O2SAT 97
[2020-05-25 08:24] VITALS: BP 133/82; PULSE 64; RESP 18; O2SAT 99
[2020-05-25 08:34] VITALS: BP 153/79; PULSE 61; RESP 18; TEMP 36.6; O2SAT 97
== END 2020-05-25 08:34 | disposition home or self-care (01) ==
LOC: OUTP 06:37
PROVIDERS: PCP Family Medicine; Visit Provider Surgery
PROC: 0DJD8ZZ Inspection of Lower Intestinal Tract, Via Natural or Artificial Opening Endoscopic (ICD-10-PCS; CPT 45380; principal; 2020-05-25 07:30)
DX: Z12.11 Encounter for screening for malignant neoplasm of colon (principal); Q27.33 Arteriovenous malformation of digestive system vessel; K57.30 Diverticulosis of large intestine without perforation or abscess without bleeding; K63.5 Polyp of colon; Z87.19 Personal history of other diseases of the digestive system; I65.29 Occlusion and stenosis of unspecified carotid artery; K21.9 Gastro-esophageal reflux disease without esophagitis; E78.5 Hyperlipidemia, unspecified; I10 Essential (primary) hypertension; E03.9 Hypothyroidism, unspecified; Z90.49 Acquired absence of other specified parts of digestive tract; Z87.891 Personal history of nicotine dependence
CPT/HCPCS: 45380; 45385; 88300; 88305

== ENCOUNTER → 2020-08-05 07:41 | Outpatient (CLI) | payer MEDICARE, OTHER, SELFPAY ==
[2020-08-05 08:05] LABS: Hemoglobin A1C 4.9 % (4.0-6.0)
[2020-08-05 08:52] LABS: Chloride 109 mmol/L (98-107)
[2020-08-05 08:53] LABS: Potassium 4.3 mmoL/L (3.5-5.1); Sodium 143 mmol/L (136-145)
[2020-08-05 08:55] LABS: Alanine Aminotransferase 69 U/L (12-78); Anion Gap 12.3 mEq/L (5-15); Aspartate Amino Transferase 68 U/L (17-59); Blood Urea Nitrogen 19 mg/dl (9-20); Carbon Dioxide 26 mmol/L (22.0-30.0); Estimated Glomerular Filt Rate 75 ml/min (>60); GFR (African American) 91 ML/MIN (>60)
[2020-08-05 08:56] LABS: Albumin Level 4.9 g/dl (3.5-5.0); Albumin/Globulin Ratio 1.9 (1.1-1.8); Alkaline Phosphatase 68 U/L (38-126); Bilirubin,Total 0.6 mg/dl (0.2-1.3); Calcium 9.6 mg/dl (8.4-10.2); Chol/HDL Ratio 2.6 (1-3.5); Cholesterol 151 mg/dl (140-200); Globulin 2.6 g/dL (1.3-3.2); Glucose 104 mg/dl (74-100); HDL Cholesterol 59 mg/dl (40-60); Total Protein,Serum 7.5 g/dl (6.3-8.2); Triglycerides 184 mg/dl (30-150); VLDL Cholesterol 37 mg/dL (0-40)
[2020-08-05 09:07] LABS: Direct LDL Cholesterol 57.04 mg/dL (100-129)
[2020-08-05 09:13] LABS: Free T4 (Free Thyroxine) 1.05 ng/dl (0.78-2.19)
[2020-08-05 09:55] LABS: Thyroid Stimulating Hormone 2.97 uIU/mL (0.465-4.68)
== END ==
PROVIDERS: Visit Provider Family Medicine
DX: R73.01 Impaired fasting glucose (principal); E03.9 Hypothyroidism, unspecified; I10 Essential (primary) hypertension; R79.89 Other specified abnormal findings of blood chemistry; E78.1 Pure hyperglyceridemia
CPT/HCPCS: 36415; 80053; 80061; 83036; 84439; 84443

== ENCOUNTER → 2021-03-23 07:22 | Outpatient (CLI) | payer MEDICARE, OTHER, SELFPAY ==
--- NOTE | 2021-03-23 | CA_ITS ---
APPROVED REPORT Exam: Pharmacologic Technologist: Enma Dotson, Ht: 5 ft 10 in Wt: 198 lbs BSA: 2.08 m2 HR: 56 bpm BP: 177/87 mmHg Rhythm: SINUS RODO, OLD ANTERIOR RI Indications: CP Medical History Medical History: HTN, Hyperlipidemia Medications: Omeprazole,,,,, Levothyroxine,,,,, Aspirin,,,,, MeLOXICAM,,,,, BisOPROLOL,,,,, RoSUVASTATIN,,,,, Losartan-HCTZ,,,,, Allergies: No known drug allergies Cardiac Risk Factors: HTN, Hyperlipidemia, FHX of CAD, Smoking Stress Test Details Test: LEXISCAN HR Resting HR: 58 bpm Max Heart Rate (APMHR): 154.161770 bpm Max HR Achieved: 85 bpm Target HR (85% APMHR): 130.669235 bpm % of APMHR: 55.19 Recovery HR: 68 bpm BP Resting BP: 177/87 mmHg Max BP: 198/96 mmHg Recovery BP: 177.0/90.0 mmHg ECG Resting ECG: SINUS RODO, OLD ANTERIOR RI Clinical Exercise duration: 04:10 min Highest Stage Achieved: Exercise capacity: 1.0 METs Stress ECG Conclusion PT HAD MILD SOA, LIGHT HEADED, STOMACH DISCOMFORT, NO CP. NO SIGNIFICANT ST-T CHANGES. UNREMARKABLE LEXISCAN STRESS. MYOVIEW IMAGES REPORTED [place]. Electronically signed by : Sandro Monet MD 03/24/2021 04:46:21
--- NOTE | 2021-03-23 07:22 | NM_ITS ---
APPROVED REPORT Exam: Nuclear Stress Test Indication: Chest pain, HTN, High cholesterol, Family history, Abnormal EKG Patient Location: Outpatient Stress Tech: Enma Dotson NM Tech:Rachelle Padron, ARRT, RT (R)(N) Ht: 5 ft 10 in Wt: 190 lbs HR: 56 bpm BP: 177/87 mmHg BSA: 2.04 m2 BMI: 27.2 History: Chest pain, HTN, High cholesterol, Family history, Abnormal EKG Procedure: Patient received a 0.4 mg of intravenous Lexiscan, resting heart rate 56 bpm, resting blood pressure 177/87 mmHg, with Lexiscan maximum heart rate achived was 82 bpm which is Less than 85 % of the maximum predicted heart rate and blood pressure was 179/92 mmHg. With Lexiscan, patient denied any complaint of chest pain. Electrocardiogram Resting electrocardiogram shows sinus rhythm, with Lexiscan there is less than 1.[address] segment depression noted from the baseline EKG. The EKG portion of the Lexiscan is nondiagnostic. Cardiac Stress and Resting SPECT Images: Cardiac Stress and Resting SPECT images were obtained using technetium 99m Myoview 31.2 mCi stress and 10.39 mCi at rest. Gated SPECT for analysis of segmental wall motion and calculation of the ejection fraction also done. Prone images were also obtained. Cardiac stress and resting SPECT images show uniform myocardial activity without segmental perfusion abnormality, computer derived ejection fraction is 49% with no regional wall motion abnormality, right ventricle is normal size and contractility. Conclusion: 1. The EKG portion of the Lexiscan is nondiagnostic. 2. No scintigraphic evidence of reversible ischemia seen, compared right ejection fraction is 49% with no regional wall motion abnormality, right ventricle is normal size and contractility. 3. Normal Lexiscan Myoview study. Electronically signed by : Sandro Monet MD 03/24/2021 05:18:47
--- NOTE | 2021-03-23 09:37 | HMH.ITSHM ---
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 []ASA LEVOTHYROXINE ROSUVASTATIN MELOXICAM OMEPRAZOLE LOSARTAN SILDENFAFIL BISOPROLOL VITAMINS
== END ==
PROVIDERS: PCP Family Medicine; Visit Provider Internal Medicine Cardiovascular Disease
DX: E78.2 Mixed hyperlipidemia (principal); I10 Essential (primary) hypertension; I25.10 Atherosclerotic heart disease of native coronary artery without angina pectoris; I65.23 Occlusion and stenosis of bilateral carotid arteries; R07.9 Chest pain, unspecified; R93.1 Abnormal findings on diagnostic imaging of heart and coronary circulation; R94.31 Abnormal electrocardiogram [ECG] [EKG]
CPT/HCPCS: 78452; 93017; A9502; J2785

== ENCOUNTER → 2021-05-13 08:13 | Outpatient (CLI) | payer MEDICARE, OTHER, SELFPAY ==
--- NOTE | 2021-05-13 08:24 | XR_ITS ---
FINAL REPORT CLINICAL HISTORY: Intermittent Lt hip pain Nki FINDINGS: An AP view of the pelvis and AP and lateral views of the left hip were obtained. There is no prior exam for comparison. There is no acute fracture or dislocation. There is degenerative disease in the hips bilaterally which is asymmetric to the left. Remaining osseous pelvis is within normal limits. Soft tissues are within normal limits. IMPRESSION: Degenerative disease with no acute osseous abnormality of the left hip. If pain persists, consider MR. Reviewed, Interpreted and Dictated by Carmelina Perez MD Transcribed by Gia Pedro Authenticated by Carmelina Perez MD on 05/13/2021 09:35:36 AM [facility]
--- NOTE | 2021-05-13 08:24 | XR_ITS ---
FINAL REPORT CLINICAL HISTORY: Chronic Lt lateral wrist pain Nki Hx of cortisone injections with relief FINDINGS: AP, oblique, and lateral views of the left wrist were obtained. There is no prior exam for comparison. There is no acute fracture or dislocation. There is advanced degenerative disease at the radiocarpal joint. There is increased density in the proximal pole of the scaphoid which could represent AVN. The soft tissues are normal. IMPRESSION: Increased density in the proximal pole of the scaphoid, could represent AVN. Advanced degenerative disease at the radiocarpal joint. Reviewed, Interpreted and Dictated by Carmelina Perez MD Transcribed by Gia Pedro Authenticated by Carmelina Perez MD on 05/13/2021 09:33:[address] [facility]
--- NOTE | 2021-05-13 08:24 | XR_ITS ---
FINAL REPORT CLINICAL HISTORY: BL knee pain, Lt medial pain Hx of meniscus repair FINDINGS: LEFT KNEE Four views demonstrate no acute fracture or dislocation. There is degenerative joint disease which is most pronounced in the medial compartment. The visualized bony structures are well aligned. There is a small joint effusion. There are vascular calcifications. IMPRESSION: Degenerative joint disease. Small joint effusion. Reviewed, Interpreted and Dictated by Carmelina Perez MD Transcribed by Gia Pedro Authenticated by Carmelina Perez MD on 05/13/2021 09:33:03 AM [facility]
--- NOTE | 2021-05-13 08:24 | XR_ITS ---
FINAL REPORT CLINICAL HISTORY: BL knee pain FINDINGS: RIGHT KNEE Four views demonstrate no acute fracture or dislocation. The joint spaces appear normal. The visualized bony structures are well aligned. There is a small calcification anterior to the patella which could be in the proximal patellar tendon. There are vascular calcifications. IMPRESSION: No acute bony abnormality. Reviewed, Interpreted and Dictated by Carmelina Perez MD Transcribed by Gia Pedro Authenticated by Carmelina Perez MD on 05/13/2021 09:35:44 AM [facility]
== END ==
PROVIDERS: PCP Family Medicine; Visit Provider Orthopaedic Surgery
DX: M25.532 Pain in left wrist (principal); M25.561 Pain in right knee; M25.562 Pain in left knee; M25.552 Pain in left hip
CPT/HCPCS: 73110; 73502; 73564

== ENCOUNTER 2021-05-13 10:20 | Outpatient (RCR) | payer MEDICARE, OTHER, SELFPAY | END 2021-05-13 11:30 | disposition home or self-care (01) | LOC: PT 10:20 | PROVIDERS: Visit Provider Orthopaedic Surgery | DX: M17.12 Unilateral primary osteoarthritis, left knee (principal) | CPT/HCPCS: 97760 ==

== ENCOUNTER 2021-05-31 11:00 | Outpatient (RCR) | payer MEDICARE, OTHER, SELFPAY | END 2021-05-31 11:05 | disposition home or self-care (01) | LOC: PT 11:00 | PROVIDERS: PCP Family Medicine; Visit Provider Orthopaedic Surgery | DX: M70.62 Trochanteric bursitis, left hip (principal); M17.12 Unilateral primary osteoarthritis, left knee | CPT/HCPCS: 97110; 97163 ==

== ENCOUNTER → 2021-07-22 07:55 | Outpatient (CLI) | payer MEDICARE, OTHER, SELFPAY ==
[2021-07-22 08:35] LABS: Basophils # 0.1 K/mm3 (0-0.2); Basophils % 1.4 % (0.1-2.0); Eosinophils # 0.1 K/mm3 (0.0-0.4); Eosinophils % 2.5 % (0.1-12.0); Hemoglobin 14.2 g/dL (14.1-18.0); Lymphocytes # 1.4 K/mm3 (0.7-4.5); Lymphocytes % 31.8 % (10-50); Mean Corpuscular HGB Conc 33.7 g/dL (31.8-35.4); Mean Platelet Volume 9.2 fl (7.4-10.4); Monocytes # 0.3 K/mm3 (0.1-1.0); Monocytes % 6.7 % (1.7-9.3); Neutrophils # 2.4 K/mm3 (1.8-7.8); Neutrophils % 57.6 % (37.0-80.0); Platelet Count 181 K/mm3 (142-424); Red Blood Count 4.04 M/mm3 (4.60-6.20); Red Cell Distribution Width 13.5 % (11.5-17.5); White Blood Count 4.2 K/mm3 (4.8-10.8)
[2021-07-22 09:13] LABS: Alanine Aminotransferase 47 U/L (12-78); Albumin Level 4.7 g/dl (3.5-5.0); Alkaline Phosphatase 57 U/L (38-126); Anion Gap 12.4 mEq/L (5-15); Aspartate Amino Transferase 49 U/L (17-59); Bilirubin,Total 0.9 mg/dl (0.2-1.3); Blood Urea Nitrogen 21 mg/dl (9-20); Calcium 9.4 mg/dl (8.4-10.2); Carbon Dioxide 28 mmol/L (22.0-30.0); Chloride 106 mmol/L (98-107); Chol/HDL Ratio 3.1 (1-3.5); Cholesterol 134 mg/dl (140-200); Estimated Glomerular Filt Rate 84 ml/min (>60); GFR (African American) 102 ML/MIN (>60); Globulin 2.4 g/dL (1.3-3.2); Glucose 104 mg/dl (74-100); HDL Cholesterol 43 mg/dl (40-60); Potassium 4.4 mmoL/L (3.5-5.1); Sodium 142 mmol/L (136-145); Total Protein,Serum 7.1 g/dl (6.3-8.2); Triglycerides 195 mg/dl (30-150); VLDL Cholesterol 39 mg/dL (0-40)
[2021-07-22 09:24] LABS: Direct LDL Cholesterol 50.66 mg/dL (100-129)
[2021-07-22 09:30] LABS: Free T4 (Free Thyroxine) 1.15 ng/dl (0.78-2.19)
[2021-07-22 09:44] LABS: Prostate Specific Ag Screen 2.5 ng/ml (0.0-4.0); Thyroid Stimulating Hormone 2.47 uIU/mL (0.465-4.68)
[2021-07-22 12:05] LABS: Creatinine,Urine Random 148 mg/dL (Not Estab.)
[2021-07-22 12:08] LABS: Microalbumin < 6.000 mg/L (0-16.7)
[2021-07-22 12:37] LABS: Hemoglobin A1C 5.1 % (4.0-6.0)
== END ==
PROVIDERS: Visit Provider Family Medicine
DX: E03.9 Hypothyroidism, unspecified (principal); E78.1 Pure hyperglyceridemia; R73.01 Impaired fasting glucose; I10 Essential (primary) hypertension; Z12.5 Encounter for screening for malignant neoplasm of prostate
CPT/HCPCS: 36415; 80053; 80061; 82043; 82570; 83036; 84439; 84443; 85025; G0103

== ENCOUNTER 2021-10-11 11:00 | Outpatient (RCR) | payer MEDICARE, OTHER, SELFPAY ==
--- NOTE | 2021-07-19 10:45 | HMH.PTOPEV ---
PT Outpatient Evaluation Rehab PT Outpatient Evaluation Start: 07/19/21 10:34 Freq: Status: Active Protocol: Document 07/19/21 10:34 AVIVA (Rec: 07/19/21 10:45 AVIVA [id number]) Electronically Signed By Toni Owen, PT 07/19/21 10:34 Outpatient Therapy Subjective History Subjective History Patient is a 65 year old female presenting to outpatient PT with reports of chronic R sided LBP with intermittent BLE radicular symptoms to L 4 dermatomes. Most recent lumbar imaging indicates multi-level DDD/ bulging discs. Comorbidities include hx of L hip/knee pain, L knee scope and HTN. Chief Complaint Pain Symptom Type Throb,Numbness Symptoms Relieved By Rest/Positioning,Prescription Meds Symptoms Aggravated By Standing,Bending/Stooping, Physical Activity,Walking, Lifting Prior Functional Limitations Lifting,Housework,Standing, Walking,Bending/Stooping Current Functional Limitations Lifting,Housework,Standing, Walking,Bending/Stooping Symptom Description Intermittent Level of pain today (0-10) 3 Pain scale - at its best (0-10) 0 Pain scale - at its worst (0-10) 5 Lumbopelvic Eval Posture Thoracic Spine Posture Standing Position Increased Kyphosis Lumbar Spine Posture Standing Position Decreased Lordosis Assistive device Assistive Devices None / NA Palapation tenderness right paraspinal tenderness Yes: 2/4 Range of Motion Lumbar Spine Active Flexion Range of 81 Motion (degrees) Lumbar Spine Active Extension Range of 20 Motion (degrees) Left Lumbar Spine Lateral Flexion Active 22 Range of Motion (degrees) Right Lumbar Spine Lateral Flexion 28 Active Range of Motion (degrees) Manual Muscle Test Bilateral Knee Extension Strength Grade 5 Normal Knee Flexion Strength Grade 5 Normal Hip Flexion Strength Grade 5 Normal Extensor Hallucis Longus Strength Grade 5 Normal Ankle Dorsiflexion Strength Grade 5 Normal Gastronemius/Soleus Strength Grade 5 Normal Altered Sensation LE Dermatome Level L4 Comment NT intermittent Special Tests Lumbar Spine Screen Positive Hip Osmar (AMY) Test Positive Left,Positive Right Hip Ji Test Positive Left,Positive Right Hip Piriformis Test Positive Left,Positive Right Reverse Scia
== END 2021-10-11 11:05 | disposition home or self-care (01) ==
LOC: PT 11:00
PROVIDERS: PCP Family Medicine; Visit Provider Family Medicine
DX: M54.41 Lumbago with sciatica, right side (principal)
CPT/HCPCS: 97010; 97012; 97014; 97110; 97163; G0283

== ENCOUNTER → 2022-03-28 10:00 | Outpatient (CLI) | payer MEDICARE, OTHER, SELFPAY ==
--- NOTE | 2022-03-28 10:01 | CA_ITS ---
FINAL REPORT TECHNIQUE: Color Doppler, duplex Doppler and julian scale sonography of the bilateral neck arterial vasculature was performed. Velocities were measured in the carotid arteries. Stenosis evaluation based on the validated velocity criteria. CLINICAL HISTORY: hx of moderate disease, HTN.. FINDINGS: The peak systolic velocity of the right common carotid artery is 97 cm/s. The peak systolic velocity of the right internal carotid artery is 89 cm/s and end diastolic velocity 25 cm/s. The ICA/CCA ratio is 1.25. A small amount of plaque is present. The right external carotid artery is patent. The right vertebral artery is patent with antegrade flow. The peak systolic velocity of the left common carotid artery is 123 cm/s. The peak systolic velocity of the left internal carotid artery is 83 cm/s and end diastolic velocity 20 cm/s. The ICA/CCA ratio is 0.86. A small amount of plaque is present. The left external carotid artery is patent.The left vertebral artery is patent with antegrade flow. IMPRESSION: Less than 50% bilateral carotid stenoses. Bilateral patent vertebral arteries with antegrade flow. If indicated, CTA or MRA could further evaluate. Reviewed, Interpreted and Dictated by Luis Sykes III, MD Transcribed by Sushma Griffin Authenticated and [facility]
== END ==
PROVIDERS: PCP Family Medicine; Visit Provider Physician Assistant
DX: I65.23 Occlusion and stenosis of bilateral carotid arteries (principal)
CPT/HCPCS: 93880

== ENCOUNTER → 2022-06-08 09:33 | Outpatient (CLI) | payer MEDICARE, OTHER, SELFPAY ==
--- NOTE | 2022-06-08 09:36 | CT_ITS ---
FINAL REPORT TECHNIQUE: Axial CT images of the abdomen and pelvis were obtained before and after the administration of IV contrast. Oral contrast was administered.This study was performed with techniques to keep radiation doses as low as reasonably achievable (ALARA). Individualized dose reduction techniques using automated exposure control or adjustment of mA and/or kV according to the patient's size were employed. CLINICAL HISTORY: R SIDED ABDOMINAL PAIN FINDINGS: Abdomen: There is mild bibasilar atelectasis. The heart is normal in size. The liver is fatty infiltrated. There is no evidence of mass or biliary duct dilatation. The gallbladder is present. The spleen is unremarkable. No adrenal masses present. The pancreas has an unremarkable appearance. The kidneys enhance normally. The aorta is normal in caliber. There is no free fluid or adenopathy. No mass or abnormal fluid collection is seen. Precontrast images demonstrate no evidence of nephrolithiasis. Pelvis: The appendix is not well visualized. The urinary bladder is unremarkable. No inflammatory process is seen. There is no evidence of mass or adenopathy. There is no evidence of bowel obstruction. There are multiple diverticula in the descending and sigmoid colon without evidence of diverticulitis. IMPRESSION: No evidence of acute intra-abdominal process. Fatty liver. Multiple diverticula in the descending and sigmoid colon without evidence of diverticulosis. Reviewed, Interpreted and Dictated by Luis Sykes III, MD Transcribed by Gia Pedro Authenticated and [facility]
== END ==
PROVIDERS: PCP Family Medicine; Visit Provider Family Medicine
DX: R10.9 Unspecified abdominal pain (principal)
CPT/HCPCS: 74178; Q9967

== ENCOUNTER → 2023-03-22 08:25 | Outpatient (CLI) | payer MEDICARE, OTHER, SELFPAY ==
--- NOTE | 2023-03-22 08:32 | XR_ITS ---
FINAL REPORT CLINICAL HISTORY: Rt Wrist pain no known trauma knot on lateral side of hand COMPARISON: None FINDINGS: RIGHT WRIST Three views demonstrate no acute fracture or dislocation. There are moderate hypertrophic changes at the basilar joint consistent with osteoarthritis. There is a tiny density over the dorsal aspect of the proximal carpal row measuring 2 mm, probably related to old triquetral fracture. The soft tissues are unremarkable. IMPRESSION: Degenerative and chronic changes without acute bony abnormality. Reviewed, Interpreted and Dictated by Arturo Minor MD Transcribed by Nelia Miner Authenticated and [facility]
== END ==
PROVIDERS: PCP Family Medicine; Visit Provider Orthopaedic Surgery
DX: M25.531 Pain in right wrist (principal)
CPT/HCPCS: 73110

== ENCOUNTER 2023-04-28 09:27 | Emergency (ER) | payer MEDICARE, OTHER, SELFPAY ==
[2023-04-28 10:50] VITALS: BP 129/74; PULSE 63; RESP 19; TEMP 36.9; O2SAT 98; BMI 28.5
[2023-04-28 11:38] VITALS: BP 129/74; PULSE 63; RESP 19; TEMP 36.9; O2SAT 98
--- NOTE | 2023-04-28 11:41 | EXP.UTC ---
Discharge Plan Disposition Patient Disposition: Home, Self-Care Condition: Good Prescriptions Prescriptions: New doxycycline hyclate 100 mg capsule 100 mg PO BID Qty: 20 0RF No Action levothyroxine 50 mcg capsule 50 mcg PO DAILY bisoprolol fumarate 5 mg tablet 5 mg PO DAILY Qty: 90 3RF losartan-hydrochlorothiazide 100-12.5 mg tablet 1 tab PO DAILY Qty: 90 3RF aspirin 81 mg tablet,delayed release (DR/EC) 81 mg PO DAILY Rx Instructions: TAKE ONE TABLET BY MOUTH EVERY DAY rosuvastatin 20 mg tablet 20 mg PO DAILY Rx Instructions: TAKE ONE TABLET BY MOUTH EVERY DAY Referrals Follow up/Referrals: Jr Guevara MD [Primary Care Provider] - See instructions Activity Restrictions/Add. Instructions Additional Instructions/Restrictions: Follow up with PCP next week. Clinical Impressions Clinical Impression: Tick bite Qualifiers: Encounter type: initial encounter Site of tick bite: head Site of tick bite of head: other part of head Qualified Code(s): S00.86XA - Insect bite (nonvenomous) of other part of head, initial encounter Instructions Patient Instructions: Protect Yourself from Tickborne Illnesses Discharge ED Provider: Winifred Whitehead [facility] HPI General Stated complaint: lump behind left ear, painful Mode of Arrival: Ambulatory Source of Information: Patient Limitations: No Limitations Time Seen by Provider: 04/28/23 11:14 Description of Symptoms (Recalled from Triage Doc. by RN): PATIENT C/O SORE KNOT TO LEFT SIDE OF NECK THAT HE NOTICED A COUPLE OF DAYS AGO HEENT Symptoms (Recalled from RN notes): Yes Resp Symptoms (Recalled from RN notes): No Skin Symptoms (Recalled from RN notes): No MS Symptoms (Recalled from RN notes): No Functional Status (Recalled from RN notes): WNL History of Present Illness Provider Complaint: Pt relates that he just got back from [place] and noticed a hard sore place on the back of his head. He reports that he seems to develop more areas and his told him that the original site was red. He reports that the area is sore to touch. He states that they did walk out in the farmer in [place]. Related Data Home Medications Medication Instructions Recorded Confirmed levothyroxine 50 mcg capsule 50 mcg PO DAILY thyroid 06/24/18 04/28/23 aspirin 81 mg tablet,delayed 81 mg PO DAILY 04/28/23 04/28/23 release rosuvastatin 20 mg tablet 20 mg PO DAILY 04/28/23 04/28/23 Previous Rx's Medication Instructions Recorded bisoprolol fumarate 5 mg tablet 5 mg PO DAILY #90 tabs 02/26/23 losartan 100 1 tab PO DAILY #90 tabs 02/26/23 mg-hydrochlorothiazide 12.5 mg tablet doxycycline hyclate 100 mg capsule 100 mg PO BID #20 caps 04/28/23 Allergies Allergy/AdvReac Type Severity Reaction Status Date / Time No Known Allergies Allergy Verified 03/14/23 09:18 Worker's Comp Is this a Worker's Comp case?: No [facility] Disclaimer: The information contained in this section may have been updated after the patient was seen, as this information can be updated by other users. Medical History Abnormal EKG Carotid artery stenosis Elevated coronary artery calcium score Ex-smoker Gastroesophageal reflux disease HLD (hyperlipidemia) HTN (hypertension) Social History Smoking Status: Former smoker alcohol intake: current substance use type: denies use current occupational status: other Travel in the last 8 weeks: Inside the [place] household members: spouse housing: house current occupational exposures/hazards: No caffeine: Yes ROS Obtained: Yes All systems reviewed & no additional complaints except as documented Constitutional Constitutional: Reports system reviewed and no additional complaints, except as documented Eyes Eyes: Reports system reviewed and no additional complaints, except as docume
== END 2023-04-28 11:46 | disposition home or self-care (01) ==
PROVIDERS: Emergency Provider Nurse Practitioner Family; PCP Family Medicine
DX: S00.86XA Insect bite (nonvenomous) of other part of head, initial encounter (principal); R59.9 Enlarged lymph nodes, unspecified; W57.XXXA Bitten or stung by nonvenomous insect and other nonvenomous arthropods, initial encounter; I65.23 Occlusion and stenosis of bilateral carotid arteries; I10 Essential (primary) hypertension; E78.5 Hyperlipidemia, unspecified; K21.9 Gastro-esophageal reflux disease without esophagitis; Z87.891 Personal history of nicotine dependence
CPT/HCPCS: 99204; 99212; G0463

== ENCOUNTER 2023-09-27 12:38 | Outpatient (CLI) | payer MEDICARE, OTHER, SELFPAY ==
--- NOTE | 2023-09-27 12:41 | XR_ITS ---
FINAL REPORT CLINICAL HISTORY: right hand pain FINDINGS: RIGHT WRIST Three views demonstrate no acute fracture or dislocation. The visualized joint spaces are normally aligned. There are moderate hypertrophic changes of the basilar joint as well as the second through fourth MCP joints. The soft tissues are unremarkable. IMPRESSION: Changes of osteoarthritis without acute bony abnormality. Reviewed, Interpreted and Dictated by Arturo Minor MD Transcribed by Yen Lincoln Authenticated and [facility]
--- NOTE | 2023-09-27 12:41 | XR_ITS ---
FINAL REPORT CLINICAL HISTORY: left hand pain FINDINGS: LEFT WRIST Three views demonstrate no acute fracture or dislocation. There is advanced radial compartment joint space narrowing. Indentation is seen of the distal radius by the overlying carpal scaphoid. There is abnormal sclerosis consistent with advanced changes of osteoarthritis. Mild hypertrophic changes are seen of the dorsal wrist. Soft tissues are unremarkable. IMPRESSION: Advanced changes of osteoarthritis without acute bony abnormality. Reviewed, Interpreted and Dictated by Arturo Minor MD Transcribed by Yen Lincoln Authenticated and [facility]
== END 2023-09-27 23:59 | disposition home or self-care (01) ==
LOC: RAD 12:39
PROVIDERS: PCP Family Medicine; Visit Provider Orthopaedic Surgery
DX: M79.641 Pain in right hand (principal); M79.642 Pain in left hand
CPT/HCPCS: 73110

== ENCOUNTER 2024-03-14 09:00 | Outpatient (CLI) | payer MEDICARE, OTHER, SELFPAY ==
--- NOTE | 2024-03-14 09:15 | US_ITS ---
FINAL REPORT CLINICAL HISTORY: CLAUDICATION,EX SMOKER,HTN,HLD,REST PAIN COMPARISON: None FINDINGS: ANKLE-BRACHIAL PRESSURE INDICES Pressure indices are as follows: RIGHT LOWER EXTREMITY: Ankle-brachial pressure index: 0.81 Comments: Mild vascular disease LEFT LOWER EXTREMITY: Ankle-brachial pressure index: 1.0 Comments: Normal CONCLUSION: No evidence of arterial disease in the left lower extremity. Mild arterial disease in the right lower extremity. Reviewed, Interpreted and Dictated by Luis Sykes III, MD Transcribed by Odalys Foley Authenticated and [facility]
== END 2024-03-14 23:59 | disposition home or self-care (01) ==
LOC: RT 09:01
PROVIDERS: PCP Family Medicine; Visit Provider Family Medicine
DX: I73.9 Peripheral vascular disease, unspecified (principal)
CPT/HCPCS: 93923

== ENCOUNTER 2024-04-01 08:46 | Outpatient (CLI) | payer MEDICARE, OTHER, SELFPAY ==
--- NOTE | 2024-04-01 08:53 | CT_ITS ---
APPROVED REPORT Wire Drawer: CLINICAL INDICATION Chest Pain TECHNIQUE Image Acquisition: A 128 slice MDCT scanner ([employer]opping[employer] View) was used for data acquisition. A noncontrast coronary calcium scan was performed. A CT attenuation threshold of 130 Hounsfield units (HU) was used for the detection of calcium in contiguous voxels of 1 sq mm in area to be counted as individual lesions. Bolus tracking in the ascending aorta with a threshold of 180 HU was performed. Immediately afterwards, ECG synchronized cardiac CT was then performed from the cardiac base to apex using retrospective gating with ECG tube current modulation. A total of 85 mL of Isovue 370 mg/mL contrast medium was administered at 5 mL/sec followed by a saline flush using a biphasic injection protocol. A tube voltage of 120 KVp was used. The patient received the following medications prior to the cardiac CT. 25 mg of oral metoprolol 0.8 mg of sublingual nitroglycerin The average heart rate at the time of acquisition was 58 bpm and regular. Image Reconstruction Transaxial images were reconstructed at 0.67 mm slide thickness. Data was reviewed interactively on an advanced workstation capable of 2 and 3-dimensional displays in all conventional reconstruction formats, including multiplanar reformations, maximum intensity projections, curved multiplanar reformations, and volume rendered reconstructions. When applicable, selected routine images describing the relevant coronary anatomy and pathology were saved and sent to PACS. Complications None Technical Quality Overall image quality was fair. Coronary artery opacification was fair. Total DLP (Dose-Length Product) is 1960.5 mGy-cm. The reported value represents the total of one or more individual components during the CT acquisition of this date and at this time, and as such, the same value may appear in more than one CT report depending on the interpreting/reporting physicians. COMPARISON None FINDINGS CT Coronary Calcium Scoring LMA (Left Main Artery) = 211 LAD (Left Anterior Descending) = 323 LCX (Left Coronary Circumflex) = 107 RCA (Right Coronary Artery) = 259 Total Calcium Score = 900 using the AJ-130 method. The observed calcium score of 900 is at 84th percentile for subjects of the same age, sex, and race/ethnicity. The interpretation of the calcium heart score is based on the following continuum*: 0 = no calcified plaque detected (risk of coronary artery disease is very low ??? less than 5%) 1-10 = calcium detected in extremely minimal levels (risk of coronary diseases is still low ??? less than 10%) 11-100 = mild levels of plaque detected with certainty (mild or minimal narrowing of heart arteries is likely) 101-400 = definite,at least moderate levels of plaque detected (relatively high risk of a heart attack within 3-5 years) >401-999 = extensive levels of plaque detected (high risk of heart attack, high levels of vascular disease are present, high likelihood of at least one significant coronary narrowing) *The calcium heart score quantifies the burden of coronary calcification/plaque in the coronary arteries. The calcium heart score is not able to evaluate the presence or burden of non-calcified (i.e. soft) plaque. There is also identifiable calcification in the aortic valve and ascending and descending thoracic aorta. Coronary CT Angiography The coronary arterial system is right dominant. Quantitative Stenosis Grading: Left Main (LM): The left main originates normally from the left sinus of Valsalva. The LM bifurcates into the left anterior descending artery and left circumflex artery. There is mixed calcified/noncalcified plaque in the mid to distal LM segment, with up to 50% luminal stenosis. Left Anterior Descending (LAD) and Diagonal Branches: The LAD gives off 3 diagonal branch(es). There is mixed calcified/noncalcified plaque in the proximal LAD and first diagonal branch, with up to 70-90% luminal stenosis. There is no evidence of LAD-myocardial bridge. Left Circumflex (LCX) and Obtuse Marginals (OM): The LCX gives off 2 Obtuse Marginal (OM) branch(es). There is mixed calcified/noncalcified plaque in the proximal LCx segment with up to 50 to 70% luminal stenosis. Right Coronary Artery (RCA): The RCA originates normally from the right sinus of Valsalva. The RCA gives off a posterior descending artery (PDA) and posterolateral (PL) branches. There is mixed calcified/noncalcified plaque in the proximal RCA segment, with up to 50 to 70% luminal stenosis. Non-Coronary Cardiac Findings: Analysis of the left ventricular (LV) structure and function was performed after 3-D reconstruction of the LV from axial images, with user-corrected automatic contouring for assessment of LV volumes and user-defined reconstruction from oblique planes for measurement of 3-D cardiac structure and function. -The left ventricle systolic function is normal. -There is no left atrial appendage filling defect. Two right pulmonary veins and two left pulmonary veins drain normally into the left atrium. -No pericardial thickening or calcification. -Central and branch pulmonary arteries in the [id number] are unremarkable. -Dilated ascending aorta, measuring approximately 4.5 cm in diameter. Extracardiac Structures No significant extra-cardiac findings. Note, however, that this study is focused on the cardiac findings. IMPRESSION -Technically difficult study due to early image acquisition after contrast administration. Coronary opacification is suboptimal. -Presence of coronary calcification with an Agatston score = 900 using the AJ-130 method. -The observed calcium score of 900 is at 84th percentile for subjects of the same age, sex, and race/ethnicity. -Multivessel atherosclerotic coronary disease, (notably in the LM and proximal LAD segments), with possible evidence of significant flow-limiting atherosclerosis of the coronary arteries. -CAD-RADS 4B. Management recommendations per ACC/AHA guidelines*, as clinically appropriate. -Incidental finding of dilated ascending aorta, measuring 4.5 cm in diameter. Serial evaluations are recommended. *Recommendations: CAD RADS 0: Reassurance. Consider non-atherosclerotic causes of chest pain. CAD RADS 1: Consider non-atherosclerotic causes of chest pain. Consider preventive therapy and risk factor modification. CAD RADS 2: Consider non-atherosclerotic causes of chest pain. Consider preventive therapy and risk factor modification, particularly for patients with nonobstructive plaque in multiple segments. CAD RADS 3: Consider further functional testing. Consider symptom-guided anti-ischemic and preventive pharmacotherapy as well as risk factor modification per published guideline statements. CAD RADS 4A: Consider further functional testing or invasive coronary angiography with revascularization per published guideline statements. Consider symptom-guided anti-ischemic and preventive pharmacotherapy as well as risk factor modification per published guideline statements. CAD RADS 4B: Invasive coronary angiography recommended with revascularization per published guideline statements. Consider symptom-guided anti-ischemic and preventive pharmacotherapy as well as risk factor modification per published guideline statements. CAD RADS 5: Consider invasive angiography and/or viability assessment with revascularization per published guideline statements. Consider symptom-guided anti-ischemic and preventive pharmacotherapy as well as risk factor modification per published guideline statements. CRITICAL RESULT None COMMUNICATION Per this written report The coronary and cardiac findings of this CCTA were reviewed, reported, and signed by Eric Sanchez MD (Dietary Aide Cook) Conclusion Electronically signed by : Stella Sanchez MD 04/01/2024 12:05:07
--- NOTE | 2024-04-01 08:55 | CT_ITS ---
FINAL REPORT CLINICAL HISTORY: RT LEG CLAUDICATION COMPARISON: None FINDINGS: Post contrast axial imaging of the aorta and bilateral lower extremity was obtained and reviewed. This study was performed with techniques to keep radiation doses as low as reasonably achievable (ALARA). Individualized dose reduction techniques using automated exposure control or adjustment of mA and/or kV according to the patient's size were employed. There is no evidence of aortic aneurysm or aortic dissection. There is no evidence of aortic stenosis. There is atherosclerotic change in the abdominal aorta. The celiac axis, superior mesenteric artery and inferior mesenteric artery are patent without significant stenosis. Note is made of a replaced right hepatic artery. The renal arteries are patent bilaterally with calcifications at the origin of the left renal artery which produces 40 to 50% stenosis. There is atherosclerotic disease in the bilateral common iliac arteries, with 50% stenosis of the left common iliac artery. The internal and external iliac arteries are patent. Right: The right common femoral artery, deep femoral artery and superficial femoral artery are all patent, without stenosis. There is no stenosis of the popliteal artery. The anterior and posterior tibial and peroneal arteries are patent to the lower leg. The anterior and posterior tibial arteries are patent to the foot. Left: The left common femoral artery, deep femoral artery and superficial femoral artery are all patent, without stenosis. There is no stenosis of the popliteal artery. The anterior and posterior tibial and peroneal arteries are patent to the lower leg. The anterior and posterior tibial arteries are patent to the foot. Review of the remaining abdomen and pelvis demonstrates no evidence of acute abnormalities. The gallbladder is present. No acute gastrointestinal abnormality is identified. There is no adenopathy or ascites. There is no fluid collection or acute inflammatory process. IMPRESSION: Left renal artery stenosis of approximately 40 to 50% luminal diameter. The right renal artery is patent. Atherosclerotic disease in the left common iliac artery producing 50% luminal diameter stenosis. No significant stenoses in the leg vessels, with three-vessel runoff bilaterally. Reviewed, Interpreted and Dictated by Carmelina Perez MD Transcribed by Odalys Foley Authenticated and . [facility]
[2024-04-01 09:20] VITALS: BMI 29.4
[2024-04-01 09:29] VITALS: BP 158/92; PULSE 66; RESP 18; TEMP 36.6; O2SAT 96
[2024-04-01] MEDS: METOPROLOL TARTRATE 25MG TABLET 25 MG (09:37)
[2024-04-01 09:43] LABS: Chloride 102 mmol/L (98-107); Potassium 4.2 mmoL/L (3.5-5.1); Sodium 139 mmol/L (136-145)
[2024-04-01 09:46] LABS: Blood Urea Nitrogen 20 mg/dl (9-20); Creatinine Clearance Estimated 92 mL/min (50-200); Estimated Glomerular Filt Rate 74 ml/min (>60); GFR (African American) 90 ML/MIN (>60)
[2024-04-01 09:47] LABS: Anion Gap 14.2 mEq/L (5-15); Calcium 9.4 mg/dl (8.4-10.2); Carbon Dioxide 27 mmol/L (22.0-30.0); Glucose 108 mg/dl (74-100)
--- NOTE | 2024-04-01 09:58 | CA_ITS ---
APPROVED REPORT EXAM: Comprehensive 2D, Doppler, and color-flow Echocardiogram Creative Writing Teacher: Daria Bledsoe, ILANA, RVS Ht: 5 ft 10 in Wt: 198lbs BSA: 2.08 BP: 145/75 mmHg Indications: CAD-Hx-ND, STACIE, ETOH use, ABN EKG, SOA, HTN, HLD, Ex-smoker 2D Dimensions IVSd 1.13 cm M: 0.6-1.2 LVEF (Visual) 66.30 % PWd 1.16 cm M: 0.6 - 1.2 LA Volume 77.30 mL LVDd 4.73 cm M: 4.2 - 5.9 LA Volume Index 37.320392 mL/m2 (M/F) 16-34 LVDs 3.00 cm M: 2.5 - 4.0 Left Atrium 3.72 cm M: 3.0 - 4.0 Ascending Aorta 4.15 cm M: 2.6 - 3.4 M-Mode Dimensions RVDd 3.25 cm (0.9-2.6) LA Diam 3.55 cm (1.9-4.0) LVDd 4.43 cm (3.5-5.7) LVDs 2.97 cm (3.5-5.7) IVSd 1.29 cm (0.6-1.1) PWd 0.89 cm (0.6-1.1) EF (Teich) 61.60% EPSs 0.54 cm FS 33.00% EDV (Teich) 89.10 mL TAPSE 2.60 (<1.7) ESV (Teich) 34.20 mL LV Diastology E Decel Time 220 (160-240 msec) E/A Ratio 1.14 MED A' 10.80 cm/s LAT A' 8.50 cm/s Aortic Valve KEANU Index 1.11 cm2/m2 AoV Peak Julian. 123.0 (50-130 cm/s) AO Peak GR. 6.00 mmHg AO Mean GR. 2.90 (<5 mmHg) AO VTI 27.6 (18-25 cm) KEANU (VTI) 2.37 (2.5-4.5 cm2) Mitral Valve MV A Velocity 80.0 (40-130 cm/s) E/A Ratio 1.14 Pulmonary Valve PV Peak Velocity 93.0 (50-150 cm/s) ND End VMAX 144.0 cm/s Tricuspid Valve TR P. Velocity 215.00 cm/s RAP Estimate 10.00 mmHg RVSP 28.50 mmHg Left Ventricle The left ventricle is normal size. The left ventricular systolic function is normal. The left ventricular ejection fraction is within the normal range. There is increased LV wall thickness. There is normal LV segmental wall motion. Transmitral Doppler flow pattern suggests impaired LV relaxation. LVEF is 55%. Right Ventricle The right ventricle is normal size. The right ventricular systolic function is normal. Atria Left atrium is mildly dilated. Right atrium is mildly dilated. There is no Doppler evidence of interatrial shunt. Aortic Valve The aortic valve is mildly thickened. There is no aortic valvular stenosis. Trace aortic regurgitation. Mitral Valve The mitral valve is normal in structure. No evidence of mitral valve stenosis. Trace mitral regurgitation. Tricuspid Valve Tricuspid valve is grossly normal in structure and function. Trace tricuspid regurgitation. There is insufficient TR jet to estimate RVSP. Pulmonic Valve The pulmonary valve is normal in structure. Trace pulmonic regurgitation. Great Vessels The aortic root is normal in size. The The ascending aorta is moderately dilated, measuring 4.6 cm in diameter. IVC is normal in size and collapses >50% with inspiration. Pericardium There is no pericardial effusion. Other Information Study Quality: Fair Conclusion Normal biventricular systolic function. Biatrial dilation. Mild PI. The ascending aorta is moderately dilated, measuring 4.6 cm in diameter. In the setting of moderate ascending aorta dilation, serial follow-up and correlation with CTA chest is recommended. Electronically signed by : Stella Sanchez MD 04/13/2024 23:04:32
[2024-04-01 10:00] VITALS: BP 142/73; PULSE 61; RESP 18; O2SAT 97
[2024-04-01] MEDS: NITROGLYCERIN 0.4MG SL TABLET SL (10:01)
[2024-04-01 10:03] VITALS: BP 123/70; PULSE 60; RESP 18; O2SAT 100
[2024-04-01 10:06] VITALS: BP 140/84; PULSE 59; RESP 18; O2SAT 100
[2024-04-01] MEDS: IOPAMIDOL-370 (76%);100ML BOTTLE 100 ML IV ×2 (10:09)
[2024-04-01] MEDS: 0.9 % SODIUM CHLORIDE 50 ML VIAL IV ×2 (10:09)
[2024-04-01] MEDS: SODIUM CHLORIDE 0.9% 10ML SYR (RAD ONLY) 10 ML IV ×2 (10:09)
== END 2024-04-01 10:30 | disposition still patient (30) ==
LOC: RAD 08:47
PROVIDERS: Physician Assistant; PCP Family Medicine; Visit Provider Family Medicine
DX: M79.604 Pain in right leg (principal); I73.9 Peripheral vascular disease, unspecified; I25.10 Atherosclerotic heart disease of native coronary artery without angina pectoris; R06.09 Other forms of dyspnea; R68.89 Other general symptoms and signs
CPT/HCPCS: 73706; 75574; 75635; 80048; 93306; Q9967

== ENCOUNTER 2024-05-14 07:50 | Day surgery (SDC) | payer MEDICARE, OTHER, SELFPAY ==
[2024-05-14] VITALS (11 sets, daily range): BP systolic 113–175; BP diastolic 50–96; PULSE 56–72; RESP 16–18; TEMP 36.9; O2SAT 91–99; BMI 29.0
--- NOTE | 2024-05-14 07:15 | IR_ITS ---
APPROVED REPORT Patient Location: Outpatient PROCEDURES Selective coronary angiogram Drug-eluting stent deployment to the ostial proximal mid and distal dominant right coronary contiguous manner Drug-eluting stent deployment to the mid circumflex artery INDICATION Abnormal CCTA, Coronary artery disease, Angina pectoris Informed consent was obtained prior to the procedure. COMPLICATIONS NONE Estimated Blood Loss: LESS THAN 10 ML TECHNIQUE One percent lidocaine used to anesthetize the right anterior aspect of the wrist. The right radial artery was accessed via the Seldinger technique. A 6 Kazakh sheath was placed in the right radial artery. 2.5 mg of Verapamil, 800 mcg of nitroglycerin, 1mg Lidocaine and 5000 U Heparin were given through the arterial sheath. The 6 Kazakh JL 3 guide catheter was used to perform selective coronary angiogram. At the end the diagnostic angiogram therapeutic heparin was administered giving a therapeutic ACT and the guide catheter was placed in the right coronary followed by Choice PT extra-support wire. The guide liner was advanced and predilatation follow-up in the proximal LAD was performed using a 2.5 x 27 mm noncompliant balloon. A 3 mm x 38 mm Nicola frontier stent was deployed at 16 bobby in the distal right coronary artery followed by an additional 3 mm x 38 mm Nicola frontier stent placed proximal to the for stent yet still overlapping and deployed at 20 bobby. An additional 3 mm x 12 mm Nicola frontier stent was then placed in the ostial segment overlapping the second drug-eluting stent and then deployed at 24 bobby. The balloon was advanced and deployed from the midportion back proximally at 24 bobby. JOSEPH-3 flow was present before and after the procedure. After achieving excellent angiographic results 800 mcg of intracoronary nitroglycerin was administered into the right coronary artery. The apparatus was removed and used to cannulate the left main artery. A Choice PT extra-support wire was placed into the distal circumflex artery where the guide liner was advanced. A 2.25 x 38 mm [place] frontier stent was deployed at 20 bobby in the proximal portion of the terminal obtuse marginal artery reducing the severe stenosis to 0%. JOSEPH-3 flow was present before and after the procedure. At the end the procedure the apparatus was removed the sheath was removed and hemostasis was achieved using TR banding patient was transferred to the postop putting in stable condition ANGIOGRAPHIC RESULTS The left main artery Normal The left anterior descending artery Has proximal calcified 10 to 20% stenoses with a mid vessel eccentric 30% calcified stenosis. The circumflex artery Is large and codominant and gives rise to a moderate to large ramus intermedius which has proximal and mid vessel 40% stenoses. The high first obtuse marginal artery has a mid vessel 60% followed by 40% stenosis. The terminal obtuse marginal artery is large and has a proximal concentric 90% stenosis followed by a concentric 60% stenosis The right coronary artery Is codominant and has a proximal concentric calcified 80% stenosis with mid vessel and distal 70 to 80% calcified stenosis The MULLER ventriculogram reveals Not performed The left ventricular end-diastolic pressure Not measured IMPRESSION Calcified coronary disease as described above Successful stenting of the ostial proximal mid and distal codominant right coronary artery severe disease reduced to 0% with 3 contiguous drug-eluting stents Successful stenting of the proximal portion of the terminal obtuse marginal artery severe disease reduced to 0% with 1 drug-eluting stent Persistent moderate disease as described above PLAN 1. Effient and aspirin 2. LDL less than 55 to achieve that high intensity statin 3. Avoidance of tobacco products 4. Risk factor modification 5. Cardiac rehabilitation Electronically signed by : Yuval Sierra MD 05/14/2024 16:26:26
[2024-05-14 08:26] LABS: Basophils % 0.5 % (0.1-2.0); Eosinophils % 0.6 % (0.1-12.0); Hematocrit 38.3 % (42.0-52.0); Hemoglobin 13.6 g/dL (14.1-18.0); Lymphocytes # 1.5 K/mm3 (0.7-4.5); Lymphocytes % 23.1 % (10-50); Mean Corpuscular HGB Conc 35.5 g/dL (31.8-35.4); Mean Corpuscular Hemoglobin 36.5 pg (27.0-31.2); Mean Corpuscular Volume 102.7 fl (80-94); Mean Platelet Volume 10.1 fl (7.4-10.4); Monocytes # 0.6 K/mm3 (0.1-1.0); Monocytes % 9.4 % (1.7-9.3); Neutrophils # 4.4 K/mm3 (1.8-7.8); Neutrophils % 65.8 % (37.0-80.0); Platelet Count 165 K/mm3 (142-424); Red Blood Count 3.73 M/mm3 (4.60-6.20); Red Cell Distribution Width 12.7 % (11.5-17.5); White Blood Count 6.6 K/mm3 (4.8-10.8)
[2024-05-14 08:39] LABS: Chloride 104 mmol/L (98-107); Sodium 140 mmol/L (136-145)
[2024-05-14 08:40] LABS: Potassium 3.7 mmoL/L (3.5-5.1)
[2024-05-14 08:42] LABS: Blood Urea Nitrogen 19 mg/dl (9-20); Creatinine Clearance Estimated 90 mL/min (50-200); Estimated Glomerular Filt Rate 84 ml/min (>60); GFR (African American) 101 ML/MIN (>60)
[2024-05-14 08:43] LABS: Anion Gap 14.7 mEq/L (5-15); Calcium 9.6 mg/dl (8.4-10.2); Carbon Dioxide 25 mmol/L (22.0-30.0); Glucose 102 mg/dl (74-100)
[2024-05-14] MEDS: diphenhydrAMINE 50MG/ML VIAL 50 MG IV (10:11)
[2024-05-14] MEDS: HEPARIN 1,000 UNITS/ML 10ML VIAL (CATH LAB) 10000 UNIT IV (10:11)
[2024-05-14] MEDS: VERAPAMIL 2.5MG/ML 2ML VIAL 2.5 MG IV (10:12)
[2024-05-14] MEDS: LIDOCAINE 1% 10ML MDV 20 ML IJ (10:12)
[2024-05-14] MEDS: 0.9 % SODIUM CHLORIDE 500 ML 25 ML IV (10:12)
[2024-05-14] MEDS: HEPARIN 1,000 UNITS/500ML NS (CATH LAB) 3000 UNIT IV (10:13)
[2024-05-14] MEDS: MIDAZOLAM HCL 1MG/ML 5ML VIAL 1 MG IV (11:21)
[2024-05-14] MEDS: NITROGLYCERIN 800MCG/8ML SYR (CATH LAB) 800 MCG IA (11:21)
[2024-05-14] MEDS: FENTANYL 100MCG/2ML VIAL 25 MCG IV (11:22)
[2024-05-14] MEDS: PRASUGREL 10MG TAB 60 MG PO (11:24)
[2024-05-14] MEDS: IOPAMIDOL-370 (76%);100ML BOTTLE 110 ML IV (16:31)
[2024-05-14 16:36] LABS: CATHL Activated Clotting Time > 400 SEC (74-125)
== END 2024-05-14 14:27 | disposition home or self-care (01) ==
PROVIDERS: PCP Family Medicine; Visit Provider Internal Medicine
DX: I25.118 Atherosclerotic heart disease of native coronary artery with other forms of angina pectoris (principal); I70.1 Atherosclerosis of renal artery; I77.810 Thoracic aortic ectasia; I77.1 Stricture of artery; R93.1 Abnormal findings on diagnostic imaging of heart and coronary circulation; R06.09 Other forms of dyspnea; M35.3 Polymyalgia rheumatica; I65.23 Occlusion and stenosis of bilateral carotid arteries; I73.9 Peripheral vascular disease, unspecified; K21.9 Gastro-esophageal reflux disease without esophagitis; I10 Essential (primary) hypertension; E78.2 Mixed hyperlipidemia; R94.31 Abnormal electrocardiogram [ECG] [EKG]; Z87.891 Personal history of nicotine dependence; Z95.5 Presence of coronary angioplasty implant and graft; Z79.899 Other long term (current) drug therapy
CPT/HCPCS: 80048; 85025; 85347; 92928; 99152; 99153; C1725; C1769; C1874; C9600; J1200; J1644; J2250; J3010; Q9967

== ENCOUNTER 2024-05-16 09:30 | Outpatient (CLI) | payer MEDICARE, OTHER, SELFPAY ==
[2024-05-16 09:56] LABS: Basophils % 0.5 % (0.1-2.0); Eosinophils # 0.1 K/mm3 (0.0-0.4); Eosinophils % 0.6 % (0.1-12.0); Hematocrit 40.3 % (42.0-52.0); Hemoglobin 14.2 g/dL (14.1-18.0); Lymphocytes # 1.5 K/mm3 (0.7-4.5); Lymphocytes % 18.6 % (10-50); Mean Corpuscular HGB Conc 35.2 g/dL (31.8-35.4); Mean Corpuscular Hemoglobin 36.8 pg (27.0-31.2); Mean Corpuscular Volume 104.4 fl (80-94); Mean Platelet Volume 10.4 fl (7.4-10.4); Monocytes # 0.5 K/mm3 (0.1-1.0); Monocytes % 6.7 % (1.7-9.3); Neutrophils # 5.7 K/mm3 (1.8-7.8); Neutrophils % 73.1 % (37.0-80.0); Platelet Count 189 K/mm3 (142-424); Red Blood Count 3.86 M/mm3 (4.60-6.20); Red Cell Distribution Width 12.9 % (11.5-17.5); White Blood Count 7.8 K/mm3 (4.8-10.8)
[2024-05-16 10:54] LABS: Chloride 102 mmol/L (98-107)
[2024-05-16 10:55] LABS: Potassium 4.1 mmoL/L (3.5-5.1); Sodium 137 mmol/L (136-145)
[2024-05-16 10:57] LABS: Blood Urea Nitrogen 20 mg/dl (9-20); Estimated Glomerular Filt Rate 74 ml/min (>60); GFR (African American) 90 ML/MIN (>60)
[2024-05-16 10:58] LABS: Anion Gap 12.1 mEq/L (5-15); Calcium 9.8 mg/dl (8.4-10.2); Carbon Dioxide 27 mmol/L (22.0-30.0); Glucose 91 mg/dl (74-100)
== END 2024-05-16 23:59 | disposition home or self-care (01) ==
LOC: LAB 09:32
PROVIDERS: PCP Family Medicine; Visit Provider Internal Medicine
DX: I25.10 Atherosclerotic heart disease of native coronary artery without angina pectoris (principal); Z95.5 Presence of coronary angioplasty implant and graft
CPT/HCPCS: 36415; 80048; 85025

== ENCOUNTER 2024-05-29 10:09 | Outpatient (RCR) | payer MEDICARE, OTHER, SELFPAY | END 2024-09-26 11:00 | disposition home or self-care (01) | LOC: CR 10:09 | PROVIDERS: Visit Provider Internal Medicine | DX: I77.810 Thoracic aortic ectasia (principal); I70.1 Atherosclerosis of renal artery; M35.3 Polymyalgia rheumatica; I25.10 Atherosclerotic heart disease of native coronary artery without angina pectoris; K21.9 Gastro-esophageal reflux disease without esophagitis; I10 Essential (primary) hypertension; E78.2 Mixed hyperlipidemia; I65.23 Occlusion and stenosis of bilateral carotid arteries; Z87.891 Personal history of nicotine dependence; R94.31 Abnormal electrocardiogram [ECG] [EKG]; Z95.5 Presence of coronary angioplasty implant and graft | CPT/HCPCS: 93798 ==

== ENCOUNTER 2024-06-24 09:55 | Outpatient (CLI) | payer MEDICARE, OTHER, SELFPAY ==
--- NOTE | 2024-06-24 10:08 | CT_ITS ---
FINAL REPORT TECHNIQUE: Axial imaging of the chest is obtained after the administration of contrast. 3-D MIP reformatted images were also obtained and reviewed per PE protocol. CLINICAL HISTORY: ascending aorta dilatation FINDINGS: The ascending aorta measures 45 mm. Descending aorta is normal in caliber. There is no dissection or central pulmonary embolism. Heart is normal in size. There is no axillary lymphadenopathy. There are several, mildly prominent mediastinal lymph nodes. There is no hilar adenopathy. There is no pleural or pericardial effusion. There is no suspicious pulmonary nodule or mass. Limited evaluation of the upper abdomen demonstrates fatty infiltration of the liver. There is no acute osseous abnormality. IMPRESSION: Ascending aortic aneurysm. Mildly prominent mediastinal lymph nodes, favor reactive. Reviewed, Interpreted and Dictated by Carmelina Perez MD Transcribed by Yen Lincoln Authenticated and . [facility]
[2024-06-24 10:37] LABS: Blood Urea Nitrogen 17 mg/dl (9-20); Estimated Glomerular Filt Rate 74 ml/min (>60); GFR (African American) 90 ML/MIN (>60)
[2024-06-24] MEDS: SODIUM CHLORIDE 0.9% 10ML SYR (RAD ONLY) 10 ML IV (11:02)
[2024-06-24] MEDS: IOPAMIDOL-370 (76%);100ML BOTTLE 100 ML IV (11:02)
[2024-06-24] MEDS: 0.9 % SODIUM CHLORIDE 50 ML VIAL IV (11:02)
== END 2024-06-24 23:59 | disposition home or self-care (01) ==
PROVIDERS: Physician Assistant; PCP Family Medicine; Visit Provider Nurse Practitioner Family
DX: I25.10 Atherosclerotic heart disease of native coronary artery without angina pectoris (principal); I77.810 Thoracic aortic ectasia
CPT/HCPCS: 36415; 71275; 82565; 84520; Q9967

== ENCOUNTER 2024-07-26 11:47 | Emergency (ER) | payer MEDICARE, OTHER, SELFPAY ==
[2024-07-26 12:00] VITALS: BP 126/69; PULSE 69; RESP 18; O2SAT 98
[2024-07-26 12:04] VITALS: BP 134/78; PULSE 78; RESP 18; TEMP 36.7; O2SAT 98; BMI 29.5
[2024-07-26 12:30] VITALS: BP 103/61; PULSE 64; RESP 18; O2SAT 98
[2024-07-26 13:00] VITALS: BP 142/83; PULSE 59; RESP 18; O2SAT 98
[2024-07-26] MEDS: LIDOCAINE 1% W/EPI 1:100,000 20ML VIAL 10 ML SQ (13:22)
[2024-07-26] MEDS: TETANUS-DIPHTH TOXOID, ADULT 0.5ML SYR 0.5 ML IM (13:22)
--- NOTE | 2024-07-26 13:22 | ED_ITS ---
<Statement entered by Papito Jung MD - 07/26/24 13:42> I was consulted by the SHARON, and we discussed the complexity of the problems being addressed. I approved the treatment and management plan for this patient's care in the emergency department, thus performing a substantive portion of the medical decision making. Papito Jung MD, CLYDE, FACEP Discharge Plan Disposition Patient Disposition: Home, Self-Care Prescriptions Prescriptions: No Action folic acid 1 mg tablet 1 mg PO DAILY Patient Comments: TAKE ONE TABLET BY MOUTH EVERY DAY prasugrel HCl [Effient] 10 mg tablet 10 mg PO DAILY Qty: 90 3RF bisoprolol fumarate 10 mg tablet 10 mg PO DAILY Qty: 90 3RF irbesartan-hydrochlorothiazide 300-12.5 mg tablet 1 tab PO DAILY Qty: 90 3RF levothyroxine 50 mcg tablet 50 mcg PO ONCE Patient Comments: TAKE ONE TABLET BY MOUTH EVERY DAY prednisone 10 mg tablet 10 mg PO ONCE Patient Comments: TAKE ONE TABLET BY MOUTH EVERY DAY --TAKE WITH FOOD-- Kevzara 200 mg/1.14 mL syringe 200 mg SQ Q2W Patient Comments: inject 200 MG SUBCUTANEOUSLY every 2 WEEKS omeprazole 40 mg capsule,delayed release(DR/EC) 40 mg PO DAILY 90 Days Qty: 90 3RF rosuvastatin 20 mg tablet See Rx Instructions .ROUTE .COMPLEX Qty: 90 1RF Dose Instruction: TAKE ONE TABLET BY MOUTH EVERY DAY Rx Instructions: TAKE ONE TABLET BY MOUTH EVERY DAY aspirin 81 mg tablet,delayed release (DR/EC) 81 mg PO DAILY Rx Instructions: TAKE ONE TABLET BY MOUTH EVERY DAY doxycycline hyclate 100 mg capsule 100 mg PO BID Qty: 20 0RF Referrals Follow up/Referrals: Jr Guevara MD [Primary Care Provider] - See instructions Activity Restrictions/Add. Instructions Additional Instructions/Restrictions: Keep sutures dry. Have them removed in 7 days. Clinical Impressions Clinical Impression: Laceration Instructions Patient Instructions: DI for Laceration Repair Print Language Print Language: Japanese Discharge ED Provider: Papito Jung General Adult HPI General Chief complaint: Wound/Laceration Stated complaint: AO 07/26 1045 Left wrist cut Time Seen by Provider: 07/26/24 12:19 Mode of Arrival: Ambulatory Source of Information: Patient Description of Symptoms (Recalled from ER Triage Doc. by RN): LACERATION TO LEFT WRIST ABOUT 1 1/2 INCH LONG. CUT ON GLASS History of Present Illness HPI narrative: 68-year-old male presents to the ED today after cleaning up from a construction site and cut in his left wrist on glass. He is unsure about his tetanus status. He has no other injury or problem. Related Data Home Medications ?Medication ?Instructions ?Recorded ?Confirmed aspirin 81 mg tablet,delayed 81 mg PO DAILY 04/28/23 06/25/24 release folic acid 1 mg tablet 1 mg PO DAILY 03/18/24 06/25/24 levothyroxine 50 mcg tablet 50 mcg PO ONCE 06/25/24 06/25/24 prednisone 10 mg tablet 10 mg PO ONCE 06/25/24 06/25/24 sarilumab 200 mg/1.14 mL 200 mg SQ Q2W 06/25/24 06/25/24 subcutaneous syringe (Raheem) Previous Rx's ?Medication ?Instructions ?Recorded doxycycline hyclate 100 mg capsule 100 mg PO BID #20 caps 04/28/23 omeprazole 40 mg capsule,delayed 40 mg PO DAILY 90 days #90 caps 07/24/23 release rosuvastatin 20 mg tablet See Rx Instructions .Route 04/18/24 .COMPLEX #90 tabs bisoprolol fumarate 10 mg tablet 10 mg PO DAILY #90 tabs 05/21/24 irbesartan 300 1 tab PO DAILY #90 tabs 05/21/24 mg-hydrochlorothiazide 12.5 mg tablet prasugrel HCl 10 mg tablet 10 mg PO DAILY #90 tabs 05/21/24 (Effient) Allergies Allergy/AdvReac Type Severity Reaction Status Date / Time No Known Allergies Allergy Verified 06/25/24 09:02 [facility] Disclaimer: The information contained in this section may have been updated after the patient was seen, as this information can be updated by other users. Medical History Abnormal findings on diagnostic imaging of heart and coronary circulation Ascending aorta dilatation Renal artery stenosis Claudication Agatston coronary artery calcium score greater than 400 Raynaud disease Gastroesophageal reflux disease Elevated coronary artery calcium score Ex-smoker Carotid artery stenosis Abnormal EKG HLD (hyperlipidemia) HTN (hypertension) Family History Other No significant family history Social History (Updated 07/26/24 @ 12:13 by Marion Hannah RN) Smoking Status: Former smoker alcohol intake: current alcohol intake frequency: 3 or more drinks per day substance use type: denies use current occupational status: other Travel in the last 8 weeks: None household members: spouse housing: house current occupational exposures/hazards: No caffeine: Yes Have you lived/traveled outside US in past 30 days?: No Contact w/someone who lives/traveled outside US past 30 days?: No Exposure to someone with infectious disease in past 14 days?: No Do you have a fever (greater than 100.4 F or 38 C)?: No Have you tested positive for COVID-19: No Exposed to someone with COVID-19 in past 14 days?: No Do you have a sore throat?: No Do you have a cough?: No Do you have any weakness?: No Do you have any diarrhea?: No Are you experiencing any unusual bleeding?: No Do you have any muscle aches/pain?: No Do you have any abdominal pain?: No Are you experiencing loss of taste or smell?: No Other Medical History Have you received the Flu Vaccine for this season: No Have you received the Pneumonia Vaccine: No ROS Obtained: Yes Systems reviewed as appropriate & no additional complaints except as documented Constitutional Constitutional: Reports as per HPI Physical Exam General General appearance: alert and in no apparent distress Head Head exam: atraumatic and normocephalic Eye Eye exam: Present normal appearance, PERRL and EOMI Neck Neck exam: Present normal inspection, full ROM and trachea midline Respiratory Respiratory exam: Present normal lung sounds bilaterally Cardiovascular Cardiovascular exam: Present regular rate Extremities Exam Extremities exam: Present normal inspection, full ROM, normal capillary refill and other (Left wrist with laceration) Neurological Exam Neurological exam: Present alert and oriented X3 Skin Skin exam: Present warm, dry and other (Laceration to left wrist) Medical Decision Making Medical Records Screening: Per USPSTF and CDC recommendations, given the prevalence of disease in our region, it is our hospital?s policy to screen for HIV and viral Hepatitis for all patients aged 18 and over and those with ongoing risk factors. Anthony Inquiry Pt receiving controlled substance: No Anthony was queried for this patient: No Vital Signs: 07/26/24 12:00 07/26/24 12:04 07/26/24 12:30 Temperature 98.0 F Temperature Source Oral Pulse Rate 69 64 Pulse Rate [Radial] 78 Respiratory Rate 18 18 18 Blood Pressure 126/69 103/61 L Blood Pressure [Right Arm] 134/78 Blood Pressure Mean 88 75 Blood Pressure Mean [Right Arm] 96 Blood Pressure Source [Right Arm] Automatic Cuff Blood Pressure Position [Right Arm] Sitting 02 Sat by Pulse Oximetry 98 98 98 Oxygen Delivery Method Room Air 07/26/24 13:00 Temperature Temperature Source Pulse Rate 59 L Pulse Rate [Radial] Respiratory Rate 18 Blood Pressure 142/83 H Blood Pressure [Right Arm] Blood Pressure Mean 102 Blood Pressure Mean [Right Arm] Blood Pressure Source [Right Arm] Blood Pressure Position [Right Arm] 02 Sat by Pulse Oximetry 98 Oxygen Delivery Method Orders (Tests/Meds): ED MEDICATIONS Discontinued Medications Generic Name Dose Route Start Last Admin Trade Name Freq PRN Reason Stop Dose Admin Lidocaine/Epinephrine 10 ml 07/26/24 12:23 Lidocaine 1% W/Epi 1:100,000 20ml Vial SQ 07/26/24 12:24 ONCE ONE Tetanus/Diphtheria Toxoids 0.5 ml 07/26/24 12:23 Tetanus-Diphth Toxoid, Adult 0.5ml Syr IM 07/26/24 12:24 .ONCE ONE Medical Decision Narrative: Insert review patient is a 68-year-old male presenting to the emergency department for evaluation of laceration to left wrist. Patient is hemodynamically stable and nontoxic-appearing upon arrival, afebrile. Differential diagnosis includes laceration to left wrist. Upon repeat evaluation patient's laceration sewn with 5 sutures placed. No workup necessary. Patient educated on sutures and sutures need to be removed in 7 days by PCP. Patient safe for discharge home. Procedures Laceration Laceration 1: Site: upper extremity Side (If applicable): left Size (cm): 4.5 Description: linear Depth: simple, single layer Local Anesthetic: lidocaine 2% and with epi Amount of anesthesia used (mL): 3 Pre-repair: irrigated extensively Size (cm): 3-0 Number of sutures: 5 Critical Care Critical Care Time Critical Care Time: No
[2024-07-26 13:23] VITALS: BP 142/83; PULSE 53; RESP 20; TEMP 36.9; O2SAT 97
== END 2024-07-26 13:24 | disposition home or self-care (01) ==
PROVIDERS: Emergency Provider Student in an Organized Health Care Education/Training Program; PCP Family Medicine
DX: S61.512A Laceration without foreign body of left wrist, initial encounter (principal); X58.XXXA Exposure to other specified factors, initial encounter; Y93.H3 Activity, building and construction; Z23 Encounter for immunization; Z02.89 Encounter for other administrative examinations
CPT/HCPCS: 12002; 90471; 90714; 99282; 99283

== ENCOUNTER 2024-08-21 09:56 | Outpatient (CLI) | payer MEDICARE, OTHER, SELFPAY ==
--- OUTSIDE RECORDS SUMMARY | 2024-08-21 09:59 | XMS_ITS | Continuity of Care Document ---
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 Currently being treated for polymyalgia rheumatica and inflammatory arthritis RS3PE. He has started Kevzara and has done 4 injections thus far with good results. Off the methotrexate but still on prednisone 10 mg once a day. Further history significant for coronary artery disease is post coronary stents x 4. Doing good. No chest pain or shortness of breath. My impression plan as follows: [email or web address] Not available 07/23/2024 11:12:46 Plan of Treatment Reminders Order Date Submit Date Provider Last Modified By Organization Details Last Modified Time Details Appointments RHEUM RECHECK 2024 09:00A M PARMINDER PEÑA MD Not available Not available Not available Lab ESR (erythroc yte sedimenta tion rate), blood 2024 025 [facility], [address] [place] [address], [phone], 07/22/2024 11:14:57 Mycobacte rium tuberculo sis stimulate d gamma interfero n, qual, blood 2024 025 [facility], [address] [place] [address], [phone], 07/24/2024 14:18:28 CBC w/ auto diff 2024 025 [facility], [facility] [place], [phone], 07/22/2024 11:36:43 Referral None recorded. Procedures None recorded. Surgeries None recorded. Imaging None recorded. Medication Orders None recorded. Patient TargetsNo targets recorded. Patient InstructionsNo instructions recorded. Reason for Referral None Reported. Problems Name Problem SNOMED Code Status Onset Date Resolution Date Notes Provider Name and Address Organization Details Recorded Time Joint pain 29094742 Active 2014 From Automated Load;Provi lori: Sanchez, Traci;Stat us: Active Not Available [facility] 6 04:55:54 High antibody titer 959398644 Active 2014 From Automated Load;Provi lori: Sanchez, Traci;Stat us: Active Not Available [facility] 6 04:55:54 Idiopathi c osteoarth ritis 931770748 Active 2014 From Automated Load;Provi lori: Sanchez, Traci;Stat us: Active Not Available [facility] 6 04:55:54 Radial styloid tenosynov itis 99506899 Active 2014 From Automated Load;Provi lori: Sanchez, Traci;Stat us: Active Not Available [facility] 6 04:56:32 Synovitis /tenosyno vitis - wrist 108091561 Active 2014 From Automated Load;Provi lori: Sanchez, Traci;Stat us: Active Not Available [facility] 6 04:56:32 Problem Notes None recorded. Procedures Surgical History Date Name Laterality Status Provider Name and Address Organization Details Recorded Time 05/14/19 25 placement of stent in pulmonary artery completed Nic Mercado [facility] 06/03/2024 09:13:18 07/08/19 22 Dupuytren's Contracture [place] [address] [place] [address], [phone], [place] [facility] 07/07/2021 18:22:27 07/06/19 22 Xiaflex/Dupuytre n's Contracture Injection completed Sofi Cannon [facility] 07/19/2021 16:23:51 05/27/19 22 Injection Joint/Bursa, Interm completed JUAN MATHIS MD [address] [place], [phone], [facility] 05/27/2021 12:01:33 Appendectomy completed Larisa Nino [facility] 11/15/2023 07:55:33 Imaging Results None recorded. Procedure Notes None recorded. Medical Equipment None Reported. Allergies No known drug allergies Medications Name Sig Start Date Stop Date Status Note LastModified by Organization Details LastModified Time celecoxib 200 mg capsule Take 2 capsules every day by oral route. 11/14 completed Not Available Not Available Not Available Multiple Vitamin capsule Daily 11/14 completed Duration : 30 days;Mark quency: daily;Me dication Descript ion: multivit castelan; Dosage:1 ; Route:or al; refills: 3; Quantity :100 capsule Not Available Not Available Not Available meloxicam 15 mg tablet Take 1 tablet every day by oral route. 11/14 completed Not Available Not Available Not Available prednison e 5 mg tablet 2 po qd 2024 active Not Available Not Available Not Avai lable bisoprolo l 5 mg-hydroc hlorothia zide 6.25 mg tablet Take 1 tablet every day by oral route. 11/14 completed Not Available Not Available Not Available omeprazol e 40 mg capsule,d elayed release Take 1 capsule every day by oral route. active Not Available Not Available No t Available tramadol 50 mg tablet Take 3 tablets every day by oral route for 7 days. active Not Available Not Available No t Available bisoprolo l fumarate 5 mg tablet Take 1 tablet every day by oral route. active Not Available Not Available No t Available methotrex ate sodium 2.5 mg tablet TAKE FOUR TABLETS BY MOUTH every WEEK DIRECTED 2024 active Not Available Not Available Not Avai lable levothyro xine 50 mcg tablet Take 1 tablet every day by oral route. active Not Available Not Available No t Available irbesarta n 300 mg-hydroc hlorothia zide 12.5 mg tablet Take 1 tablet every day by oral route. active Not Available Not Available No t Available folic acid 1 mg tablet Take 1 tablet every day by oral route. 2023 active Not Available Not Available Not Avai lable losartan 100 mg tablet Take 1 tablet every day by oral route. 11/14 completed Not Available Not Available Not Available Metamucil (sugar) oral powder Take by oral route. active Not Available Not Available No t Available rosuvasta tin 20 mg tablet Take 1 tablet every day by oral route. active Not Available Not Available No t Available vitamin E active Not Available Not Allison ilable Not Available vitamin B complex active Not Available Not Available Not Available Fish Oil active Not Available Not Avai lable Not Available nifedipin e 11/14 completed Duration : 10 days;Med ication Descript ion: nifedipi ne; refills: 0; Quantity :30 Not Available Not Available Not Available Centrum Silver active Not Available Not Available Not Available prasugrel HCl 10 mg tablet Take 1 tablet every day by oral route. active Not Available Not Available No t Available Kevzara 200 mg/1.14 mL subcutane ous syringe INJECT 200MG SUBCUTAN EOUSLY EVERY 2 WEEKS 2024 active Not Available Not Available Not Avai lable Kevzara 200 mg/1.14 mL subcutane ous pen injector Inject 200 mg every 2 weeks by subcutan eous route. 2024 active approved from 02/19/24 until further notice Not Available Not Available Not Available Glucosami ne Chondroit in 1000mg/8 00mg active Not Available Not Available No t Available aspirin 81 mg capsule Take by oral route. active Not Available Not Available No t Available Vitals Date Recorded Body height Respiratory rate Body mass index (BMI) Body weight Heart rate Oxygen saturation Oxygen saturation in Arterial blood by Pulse oximetry Systolic blood pressure Diastolic blood pressure Provider Name and Address Organization Details Last Updated DateTime 5 177.8 cm 16 /min 28.4 kg/m2 98651.2 9 g 63 /min 98 % 98 % 118 mm[Hg] 72 mm[Hg] Nic Mercado [facility] 5 09:00:09 Social History Question Answer Notes LastModified by Organizat ion Details LastModified Time Tobacco Smoking Status Former Smoker Larisa arana, [facility] 11/15/2023 07:55:19 What Is Your Level Of Alcohol Consumption? Moderate [email or web address] Information not available 11/15/2023 What Was The Date Of Your Most Recent Tobacco Screening? 07/22/2024 [email or web address] Information not available 07/22/2024 Sex: Male Functional Status None recorded. Mental Status None recorded. Family History Nothing Reported. 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 For details please see initial consultati on dated 11/15/2023. Lab studies 11/02/23CRP 1.06CMP 115 glucose, BUN 24CCP antibodies normalCBC RBC 3.87ANA negativeTB negativeRF 41.2 (2018) CRP 14.85 mg per DL and ESR 59 mm/h dated 11/15/2023. Currently on the combinatio n of prednisone and Kevzara. Doing very well since starting Kevzara. Started Kevzara 200mg q. 2 weeks on Jun 07 2024 tolerating it very well I want him to reduce the dose of prednisone to 5 mg once a day. Suggested to lower the prednisone to 10 mg alternate with 5 mg every other day for the next 3 to 4 weeks and then go down to 5 mg once a day. Start date 11/15/2023. He is off methotrexa te. He does have anemia and thrombocyt openia which is currently investigat ed by his PCP.Colono scopy is scheduled for September. Encouraged to follow-up with the colonoscop y. on account of his cardiac issues, we will work on lowering his prednisone . Do not increase the steroids without discussion with me Side effect profile reviewed in detail. f/u in 6 weeks.High risk decision making Polymyalgi a rheumatica 76706121 M35.3 Currently on the combinatio n of methotrexa te and prednisone . Prednisone still on 10mg once a day.Howeve r clinically he remains asymptomat ic , significan t improvemen t after starting Kevzara. I encouraged him to load on the prednisone as detailed above. He will maintain the Kevzara 200 mg subcu every 2 weeks As mentioned before, low positive rheumatoid factor can be seen in patients with PMR/RS3PE. He does not have any clear evidence of rheumatoid arthritis. The anti-CCP antibodies were negative October 30, 2023 He is comfortabl e with the discussion .f/u in october Dupuytren' s contracture of finger 156878848 M72.0 Does have chronic Dupuytren contractur es involving ring and middle fingers.ch ronic.Cont inue with range of motion exercisesc an consider hand surgery eval, if symptoms get worse. Long-term current use of immunosuppressive drug [id number] Z79.60 I have talked about the methotrexa te and is monitoring . We also talked about alcohol use and methotrexa te. Increased risk of liver failure and cytopenias discussed. 01/02/24 labsESR, CRP normalCBC normalLFT normal. Labs 02/19/24 reviewed.H igh risk medication steroids and MTX. normal LFTS and normal Hep panel. He is being investigat ed for anemia currently. Is being scheduled for a colonoscop y. Any further decrease in blood count will require a consult with hematology . Tuberculos is screening [id number] Z11.7 Follow-up on TB screening every 12 months Health Concerns Section Related Observation LastModified by Organization Detai ls LastModified Time None Recorded Concern Status LastModified by Organization Details LastModified Time None Recorded Payers Encounter Date Sequence Insurance Name Policy Number Policy Muller Covered Member ID Muller Member ID Guarantor Name 07/22/2024 1 [place] Rishi Keys Shaneka [id number] Rishi Keys Shaneka 07/22/2024 2 [employer] (MEDICARE SUPPLEMENT) Rishi Keys Shaneka [id number] Rishi W Shaneka Notes Date Note Type Note Provider Name and Address Organization Details Recorded Time 07/22/2024 text/html Rishi is a 68yr old male here in our rheumatology clinic for a follow up. He has polymyalgia rheumatica along with inflammatory arthritis, RS3PE. Further has severe degenerative process in the wrist and hands He is Currently on prednisone 10 daily. Despite us wanting to lower it.! Is on Kevzara. Has done very well since the addition. Best he has ever felt. Has done 4 doses. Rating it very well Minimal discomfort right knee and left hip Colonoscopy in September. He is off methotrexate. Denies side effects of the medicine He is accompanied by his . PARMINDER PEÑA MD [facility] [place], [address], [facility] 07/23/2024 11:25:05
--- OUTSIDE RECORDS SUMMARY | 2024-08-21 09:59 | XMS_ITS ---
Author Organization Unknown TREATMENT PLAN [facility] Start Date Provider Encounter for Check-up [id number] [facility]
--- NOTE | 2024-08-21 10:00 | XR_ITS ---
FINAL REPORT CLINICAL HISTORY: lt hip pain FINDINGS: LEFT HIP: Two views of the left hip demonstrate no acute fracture or dislocation. The joint spaces appear normal. The visualized bony structures are well aligned. No soft tissue abnormality is seen. IMPRESSION: No acute bony abnormality. Reviewed, Interpreted and Dictated by Arturo Minor MD Transcribed by Skyla Guerra Authenticated and [facility]
--- NOTE | 2024-08-21 10:00 | XR_ITS ---
FINAL REPORT CLINICAL HISTORY: lt medial knee pain FINDINGS: LEFT KNEE Three views demonstrate no acute fracture or dislocation. There is moderate narrowing the medial compartment joint space. There is subchondral sclerosis. There are osteophytes at the medial joint margin. A small joint effusion is noted. IMPRESSION: Degenerative changes and a small joint effusion. Reviewed, Interpreted and Dictated by Arturo Minor MD Transcribed by Skyla Guerra Authenticated and [facility]
== END 2024-08-21 23:59 | disposition home or self-care (01) ==
LOC: RAD 09:58
PROVIDERS: PCP Family Medicine; Visit Provider Orthopaedic Surgery
DX: M25.552 Pain in left hip (principal); M25.562 Pain in left knee
CPT/HCPCS: 73502; 73562

== ENCOUNTER 2024-09-12 06:22 | Day surgery (SDC) | payer MEDICARE, OTHER, SELFPAY ==
[2024-09-09 13:21] VITALS: BMI 28.7
--- NOTE | 2024-09-12 06:19 | P.HP_ITS ---
HPI HPI HPI: Patient is a 69-year-old male with history of cerebrovascular disease status post coronary artery stenting, polymyalgia rheumatica, coronary artery disease, spinal stenosis, disc disease, renal artery stenosis, chronic arterial occlusive disease, hyperlipidemia, hypertension. He presents for follow-up colonoscopy. I have performed previous surgeries on him. I did colonoscopy on 01/18/2016 at which time he had periappendiceal tubular adenoma which required complex removal and a tubular adenoma in the sigmoid colon. Follow-up colonoscopy 05/26/2020 revealed 10 mm tubular adenoma in the transverse colon, tiny minuscule sigmoid polyp which was removed but unable to be retrieved, and a distal rectal tubular adenoma. Recommendations were for follow-up colonoscopy in 2 to 3 years. [facility] Disclaimer: The information contained in this section may have been updated after the patient was seen, as this information can be updated by other users. Medical History (Updated 09/12/24 @ 08:02 by Luis Villegas MD) History of COVID-19 Hypothyroid Encounter for preoperative assessment Abnormal findings on diagnostic imaging of heart and coronary circulation Ascending aorta dilatation Renal artery stenosis Claudication Agatston coronary artery calcium score greater than 400 Raynaud disease Gastroesophageal reflux disease Elevated coronary artery calcium score Ex-smoker Carotid artery stenosis Abnormal EKG HLD (hyperlipidemia) HTN (hypertension) Surgical History Hx of knee surgery Hx of cardiac cath History of appendectomy Family History Other Cancer Heart disease Social History Smoking Status: Former smoker alcohol intake: current alcohol intake frequency: 3 or more drinks per day substance use type: denies use current occupational status: employed Travel in the last 8 weeks?: None household members: spouse housing: house current occupational exposures/hazards: No caffeine: Yes Have you lived/traveled outside US in past 30 days?: No Contact w/someone who lives/traveled outside US past 30 days?: No Exposure to someone with infectious disease in past 14 days?: No Do you have a fever (greater than 100.4 F or 38 C)?: No Have you tested positive for COVID-19?: No Exposed to someone with COVID-19 in past 14 days?: No Do you have a sore throat?: No Do you have a cough?: No Do you have any weakness?: No Do you have any diarrhea?: No Are you experiencing any unusual bleeding?: No Do you have any muscle aches/pain?: No Do you have any abdominal pain?: No Are you experiencing loss of taste or smell?: No Other Medical History Have you received the Flu Vaccine for this season: No Have you received the Pneumonia Vaccine: No Meds Home Medications and Allergies Home Medications ?Medication ?Instructions ?Recorded ?Confirmed ?Type aspirin 81 mg tablet,delayed 81 mg PO DAILY 04/28/23 09/12/24 History release omeprazole 40 mg capsule,delayed 40 mg PO DAILY 90 days #90 caps 07/24/23 09/12/24 Rx release folic acid 1 mg tablet 1 mg PO DAILY 03/18/24 09/12/24 History rosuvastatin 20 mg tablet See Rx Instructions .Route 04/18/24 09/12/24 Rx .COMPLEX #90 tabs bisoprolol fumarate 10 mg tablet 10 mg PO DAILY #90 tabs 05/21/24 09/12/24 Rx irbesartan 300 1 tab PO DAILY #90 tabs 05/21/24 09/12/24 Rx mg-hydrochlorothiazide 12.5 mg tablet prasugrel HCl 10 mg tablet 10 mg PO DAILY #90 tabs 05/21/24 09/12/24 Rx (Effient) levothyroxine 50 mcg tablet 50 mcg PO ONCE 06/25/24 09/12/24 History sarilumab 200 mg/1.14 mL 200 mg SQ Q2W 06/25/24 09/12/24 History subcutaneous syringe (Kevzara) prednisone 5 mg tablet 5 mg PO DAILY 09/09/24 09/12/24 History New Prescriptions to Start Prescriptions: Allergies Allergy/AdvReac Type Severity Reaction Status Date / Time No Known Allergies Allergy Verified 09/09/24 13:11 Exam Data for Last 24 hours I & O for Last 24 hours: Intake & Output 09/09/24 09/10/24 09/11/24 09/12/24 11:59 11:59 11:59 11:59 Weight 200 lb Constitutional Constitutional: no acute distress *Routine HEENT Exam Head: Present normocephalic Eye: Present EOMI and PERRL ENT: Present mucous membranes moist *Routine Neck Exam Neck: Present supple; Absent lymphadenopathy *Routine Respiratory Exam Respiratory: Present CTA bilaterally *Routine Cardiovascular Exam Cardiovascular: Present RRR *Routine Abdominal Exam Abdominal: Present soft and normoactive bowel sounds; Absent tenderness *Routine Rectal Exam Rectal:: deferred *Routine Genitalia Exam Genitalia:: deferred *Routine Extremities Exam Extremities: Absent cyanosis, clubbing or edema *Routine Skin Exam Skin: Present warm; Absent rash *Routine Neurological Exam Neurological: Present alert and oriented X3 Assessment and Plan *Assessment and plan (1) Tubular adenoma of colon: Status: Acute Category: Medical Code(s): D12.6 - Benign neoplasm of colon, unspecified Plan Plan to proceed with colonoscopy
[2024-09-12 07:00] VITALS: BP 148/75; PULSE 49; RESP 18; TEMP 36.2; O2SAT 100
--- NOTE | 2024-09-12 07:18 | EXP.ANES.CKL ---
[facility] Disclaimer: The information contained in this section may have been updated after the patient was seen, as this information can be updated by other users. Medical History History of COVID-19 Hypothyroid Encounter for preoperative assessment Abnormal findings on diagnostic imaging of heart and coronary circulation Ascending aorta dilatation Renal artery stenosis Claudication Agatston coronary artery calcium score greater than 400 Raynaud disease Gastroesophageal reflux disease Elevated coronary artery calcium score Ex-smoker Carotid artery stenosis Abnormal EKG HLD (hyperlipidemia) HTN (hypertension) Surgical History Hx of knee surgery Hx of cardiac cath History of appendectomy Family History Other Cancer Heart disease Social History Smoking Status: Former smoker alcohol intake: current alcohol intake frequency: 3 or more drinks per day substance use type: denies use current occupational status: employed Travel in the last 8 weeks?: None household members: spouse housing: house current occupational exposures/hazards: No caffeine: Yes Have you lived/traveled outside US in past 30 days?: No Contact w/someone who lives/traveled outside US past 30 days?: No Exposure to someone with infectious disease in past 14 days?: No Do you have a fever (greater than 100.4 F or 38 C)?: No Have you tested positive for COVID-19?: No Exposed to someone with COVID-19 in past 14 days?: No Do you have a sore throat?: No Do you have a cough?: No Do you have any weakness?: No Do you have any diarrhea?: No Are you experiencing any unusual bleeding?: No Do you have any muscle aches/pain?: No Do you have any abdominal pain?: No Are you experiencing loss of taste or smell?: No [facility] Anesthesia Checklist Patient Identification Patient Identification: Arm Band Structural Data Admitted From: Home Planned Operative Procedure/s: Colonoscopy Consent for Planned Operative Procedure(s) Verified: Yes Verified Documents: Surgical Consent and History and Physical NPO Status Verified Time NPO: 04:30 (finished prep) Additional verifications Anesthesia Reactions: No Hx Blood Transfusions: No Blood Transfusion Reaction: No Airway Assessment Mallampati Score:: Class II C-Spine Mobility Assessed: Yes TMJ Mobility Assessed: Yes Dentition: Edentulous Neurological Assessment Level of Consciousness: Awake, Alert and Appropriate Anesthesia Plan Anesthesia Risk discussed: Yes Anesthesia Plan: Verified ASA Class: III Anesthesia Type: MAC
[2024-09-12 07:24] VITALS: O2SAT 100
--- NOTE | 2024-09-12 08:02 | P.PCN_ITS ---
Procedure: Date: 09/12/24 Patient Date of :: 1955 Procedure Performed:: Total colonoscopy with polypectomy Indications:: Patient is a 69-year-old male with history of cerebrovascular disease status post coronary artery stenting, polymyalgia rheumatica, coronary artery disease, spinal stenosis, disc disease, renal artery stenosis, chronic arterial occlusive disease, hyperlipidemia, hypertension. He presents for follow-up colonoscopy. I have performed previous surgeries on him. I did colonoscopy on 01/18/2016 at which time he had periappendiceal tubular adenoma which required complex removal and a tubular adenoma in the sigmoid colon. Follow-up colonoscopy 05/26/2020 revealed 10 mm tubular adenoma in the transverse colon, tiny minuscule sigmoid polyp which was removed but unable to be retrieved, and a distal rectal tubular adenoma. Recommendations were for follow-up colonoscopy in 2 to 3 years. Patient states that he had been noted to have low blood count. He denies any obvious rectal bleeding. Performing Provider:: Luis Villegas MD Referring Provider:: Jr Guevara MD Sedation:: MAC sedation Procedure:: Patient history was obtained and appropriate physical examination was performed. Patient's medications and allergies were reviewed. Informed consent was obtained after explaining the benefits, alternatives, and risks of the procedure including, but not limited to, bleeding, perforation, missed lesions, and adverse reaction to anesthesia medications. Patient was transported to endoscopy procedure room. Patient was connected to monitoring devices. Throughout the procedure the patient's blood pressure, pulse, and oxygen saturations were monitored continuously. Patient identification and planned procedure were verified by the staff. Patient was positioned in lateral decubitus position. Digital anorectal exam was performed. Variable stiffness Olympus colonoscope was inserted and advanced under direct visualization to the cecum. Adequacy of the colonic prepa ration was noted. The colonoscope was advanced a short distance into the terminal ileum. The colonoscope was then slowly withdrawn while carefully examining the color, texture, anatomy, and integrity of the mucosoa circumferentially. Within the rectum retroflexion was performed. Colonoscope was then withdrawn. Impression: Colonic preparation was fair as there was some particulate liquid stool throughout the colon. However this was able to be cleared with high-volume trans colonoscopic irrigation and suctioning. In the cecum there was a singular nonbleeding AVM. In the ascending colon near the ileocecal valve there was a moderate adenomatous polyp measuring about 8 to 10 mm removed with hot snare. He had some appreciable left-sided diverticulosis. At the sigmoid colon there was a moderate adenomatous approximately 4 to 6 mm polyp removed with cold snare. Residual tissue at the base was removed with biopsy forceps. There were several hyperplastic appearing rectosigmoid polyps. 2 of these which appeared more prominent were removed with biopsy forceps. He had internal nonbleeding hemorrhoids. . Findings:: Polyps as noted Significant diverticulosis Cecal nonbleeding AVM Recommendations:: Repeat colonoscopy pending pathology. Likely within 3 years Complications:: None immediately apparent Estimated blood obtained (mL): 2 Colonoscopy Component Colonoscopy Component Was a colonoscopy performed during today's procedure?: Yes Recommended follow up colonoscopy of at least 10 years?: No If no, follow up colonoscopy recommended in ___ years?: See above Reason for not recommending >/= 10 yr follow-up interval?: See above
[2024-09-12 08:05] VITALS: BP 88/48; PULSE 55; RESP 16; TEMP 36.3; O2SAT 97
[2024-09-12 08:15] VITALS: BP 95/54; PULSE 72; RESP 16; O2SAT 96
[2024-09-12 08:25] VITALS: BP 95/54; PULSE 72; RESP 16; O2SAT 96
[2024-09-12 08:35] VITALS: BP 143/76; PULSE 68; RESP 18; O2SAT 96
== END 2024-09-12 08:36 | disposition home or self-care (01) ==
PROVIDERS: PCP Family Medicine; Visit Provider Surgery
PROC: 0DJD8ZZ Inspection of Lower Intestinal Tract, Via Natural or Artificial Opening Endoscopic (ICD-10-PCS; CPT 45380; principal; 2024-09-12 07:30)
DX: Z12.11 Encounter for screening for malignant neoplasm of colon (principal); Z86.0101 Personal history of adenomatous and serrated colon polyps; Q27.33 Arteriovenous malformation of digestive system vessel; K57.30 Diverticulosis of large intestine without perforation or abscess without bleeding; K63.5 Polyp of colon
CPT/HCPCS: 45380; 45385; J2704

== ENCOUNTER 2024-09-12 21:46 | Inpatient (IN) | payer MEDICARE, OTHER, SELFPAY ==
[2024-09-12 21:57] VITALS: BP 161/91; PULSE 65; RESP 20; TEMP 36.6; O2SAT 97; BMI 28.7
--- NOTE | 2024-09-12 21:59 | CT_ITS ---
PROCEDURE INFORMATION: Exam: CT Abdomen And Pelvis With Contrast Exam date and time: 09/12/2024 10:27 PM Age: 69 years old Clinical indication: Abdominal pain; Additional info: Recent colonoscopy, distention, peritonitis rlq TECHNIQUE: Imaging protocol: Computed tomography of the abdomen and pelvis with contrast. Radiation optimization: All CT scans at this facility use at least one of these dose optimization techniques: automated exposure control; mA and/or kV adjustment per patient size (includes targeted exams where dose is matched to clinical indication); or iterative reconstruction. Contrast material: ISOVUE; Contrast volume: 75 ml; Contrast route: IV; COMPARISON: CT ABDOMEN PELVIS WO/W CON 06/08/2022 10:12 AM FINDINGS: Lungs: Dependent atelectasis in the lung bases. Heart: Mild cardiomegaly. Coronary arteries: Severe coronary artery calcification. Diaphragm: Small hiatal hernia, with a small amount of the pneumoperitoneum tracking along the hiatal hernia. Liver: Normal contour. No mass lesions. No intrahepatic biliary ductal dilatation. Gallbladder and biliary ducts: Normal. No calcified stones. No ductal dilation. Pancreas: Normal. No inflammatory changes or ductal dilation. Spleen: Mild splenomegaly measuring 14.0 cm. Granulomatous calcification in the spleen. Adrenal glands: Normal. No adrenal mass. Kidneys and ureters: No acute abnormalities. No hydronephrosis or hydroureter. No urinary tract stones are identified. Small renal vascular calcifications in both renal ronnie. Stomach and bowel: The small bowel is nondilated with no gross abnormality. Question localized wall thickening of the anterior cecum at the level of the ileocecal valve measuring 3.5 x 1.5 x 1.7 cm, possibly a small mass lesion or localized swelling if there was a biopsy in this region, correlate with recent colonoscopy findings. There is a central air tract through the middle of the thickening which could represent a biopsy site and is felt to be the most likely potential site of perforation. Moderate distal colonic diverticulosis without diverticulitis. Appendix: Prior appendectomy. Intraperitoneal space: Moderate volume intraperitoneal free air concerning for bowel perforation. No peritoneal free fluid. Vasculature: Mild aortic valvular calcification with mild aneurysmal dilatation of the aortic root and isthmus partially visualized reaching 4.2 cm diameter. Correlate clinically for aortic stenosis. Moderate-severe calcific atherosclerosis. 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 Question moderate 60-70% stenosis of the post ostial celiac artery where it passes around the median arcuate ligament, correlate clinically for MALS. Lymph nodes: No adenopathy. Urinary bladder: Unremarkable as visualized. Reproductive: Moderately enlarged prostate. Small bilateral hydroceles. Bones/joints: No acute osseous abnormalities. Soft tissues: No acute soft tissue abnormalities. IMPRESSION: 1. Moderate peritoneal free air consistent with bowel perforation. 2. Suspected perforation site is in the anterior cecal wall where there is localized wall thickening which could represent post procedural swelling if there was a biopsy in this region. A small mass lesion is not excluded, correlate with colonoscopy findings. 3. Aneurysmal dilatation of the proximal thoracic aorta with mild aortic valvular calcification, correlate clinically for aortic stenosis. 4. Mild cardiomegaly with severe coronary artery calcification. 5. Suspected moderate 60-70% post ostial stenosis of the celiac artery, consider MALS. 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 6. Mild splenomegaly. 7. Additional nonemergent findings detailed above. The findings were verbally communicated via telephone conference with Mainor Durham at 10:58 PM EDT on 09/12/2024. The findings were acknowledged and understood.
--- OUTSIDE RECORDS SUMMARY | 2024-09-12 22:03 | XMS_ITS | Continuity of Care Document ---
Author Organization [facility], RHEUMATOLOGY [place] Address [address] [place] [address] Care Team Providers Care Chief Compressor Station Engineer Name Role Phone JORDON RUSSO Primary Care Provider PARMINDER PEÑA Chief Radiation Therapist Assessment Encounter Date Assessment Date Assessment LastModified [...] yte sedimenta tion rate), blood 2024 025 [facility], [address] [place] [address], [id number], 07/22/2024 11:14:57 Mycobacte rium tuberculo sis stimulate d gamma interfero n, qual, blood 2024 025 [facility], [address] [place] [address], [id number], 07/24/2024 14:18:28 CBC w/ auto diff 2024 025 [facility], [address] [place] [address], [id number], 07/22/2024 11:36:43 Referral None recorded. Procedures None recorded. Surgeries None recorded. Imaging None recorded. Medication Orders None recorded. Patient TargetsNo targets recorded. Patient InstructionsNo instructions recorded. Reason for Referral None Reported. Problems Name Problem SNOMED Code Status Onset Date Resolution Date Notes Provider Name and Address Organization Details Recorded Time Pain of joint 03687147 Active 2014 From Automated Load;Provi lori: Sanchez, Traci;Stat us: Active Not Available [facility] 6 04:55:54 High antibody titer 758094283 Active 2014 From Automated Load;Provi lori: Sanchez, Traci;Stat us: Active Not Available [facility] 6 04:55:54 Idiopathi c osteoarth ritis 592073560 Active 2014 From Automated Load;Provi lori: Sanchez, Traci;Stat us: Active Not Available [facility] 6 04:55:54 Radial styloid tenosynov itis 15699102 Active 2014 From Automated Load;Provi lori: Sanchez, Traci;Stat us: Active Not Available [facility] 6 04:56:32 Synovitis /tenosyno vitis - wrist 165472252 Active 2014 From Automated Load;Provi lori: Sanchez, Traci;Stat us: Active Not Available [facility] 6 04:56:32 Problem Notes None recorded. Procedures Surgical History Date Name Laterality Status Provider Name and Address Organization Details Recorded Time 05/14/19 25 placement of stent in pulmonary artery completed Nic Mercado [facility] 06/03/2024 09:13:18 07/08/19 22 Dupuytren's Contracture Manipulation completed JUAN MATHIS MD [address] [place] [address], [phone], [place] [facility] 07/07/2021 18:22:27 07/06/19 22 Xiaflex/Dupuytre n's Contracture Injection completed Sofi Cannon [facility] 07/19/2021 16:23:51 05/27/19 22 Injection Joint/Bursa, Interm completed JUAN MATHIS MD [facility] [place], [address], [facility] 05/27/2021 12:01:33 Appendectomy completed Larisa Nino [facility] 11/15/2023 07:55:33 Imaging Results None recorded. [...] 5 177.8 cm 16 /min 28.4 kg/m2 06492.2 9 g 63 /min 98 % 98 % 118 mm[Hg] 72 mm[Hg] Nic Mercado [facility] 5 09:00:09 Social History Question Answer Notes LastModified by Organizat ion Details LastModified Time Tobacco Smoking Status Former Smoker Larisa arana, [facility] 11/15/2023 07:55:19 What Is Your Level Of Alcohol Consumption? Moderate [email or web address] Information not available 11/15/2023 What Was The Date Of Your Most Recent Tobacco Screening? 07/22/2024 [email or web address] Information not available 07/22/2024 Sex: Male Functional Status None recorded. Mental Status None recorded. Family History Nothing Reported. 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 For [...] weeks.High risk decision making Polymyalgi a rheumatica 38803416 M35.3 Currently on the combinatio n of [...] in october Dupuytren' s contracture of finger 345584968 M72.0 Does have chronic Dupuytren contractur es involving ring and middle fingers.ch ronic.Cont inue with range of motion exercisesc an consider hand surgery eval, if symptoms get worse. Long-term current use of immunosuppressive drug 240259519 Z79.60 I have talked about the methotrexa [...] consult with hematology . Tuberculos is screening 800561854 Z11.7 Follow-up on TB screening every 12 months Health Concerns Section Related Observation LastModified by Organization Detai ls LastModified Time None Recorded Concern Status LastModified by Organization Details LastModified Time None Recorded Payers Encounter Date Sequence Insurance Name Policy Number Policy Muller Covered Member ID Muller Member ID Guarantor Name 07/22/2024 1 [place] Rishi Keys Shaneka [id number] Rishi Keys Shaneka 07/22/2024 2 [employer] (MEDICARE SUPPLEMENT) Rishi Keys Shaneka [id number] Rishi Keys Shaneka Notes Date Note Type Note Provider [...] accompanied by his . PARMINDER PEÑA MD [address] [place], [address], [facility] 07/23/2024 11:25:05
[2024-09-12 22:04] LABS: Basophils % 0.2 % (0.1-2.0); Eosinophils % 0.2 % (0.1-12.0); Hematocrit 39.5 % (42.0-52.0); Hemoglobin 14.2 g/dL (14.1-18.0); Immature Granulocytes # 0.07 10^3uL; Immature Granulocytes % 0.5 %; Lymphocytes # 0.9 K/mm3 (0.7-4.5); Lymphocytes % 6.7 % (10-50); Mean Corpuscular HGB Conc 35.9 g/dL (31.8-35.4); Mean Corpuscular Hemoglobin 38.3 pg (27.0-31.2); Mean Corpuscular Volume 106.5 fl (80-94); Mean Platelet Volume 10.1 fl (7.4-10.4); Monocytes # 0.7 K/mm3 (0.1-1.0); Monocytes % 5.2 % (1.7-9.3); Neutrophils # 11.2 K/mm3 (1.8-7.8); Neutrophils % 87.2 % (37.0-80.0); Nucleated Red Blood Cells # 0 10^3/uL; Nucleated Red Blood Cells % 0 %; Platelet Count 129 K/mm3 (142-424); Red Blood Count 3.71 M/mm3 (4.60-6.20); Red Cell Distribution Width 12.7 % (11.5-17.5); Red Cell Distribution Width-SD 49.4 fL; White Blood Count 12.8 K/mm3 (4.8-10.8)
--- OUTSIDE RECORDS SUMMARY | 2024-09-12 22:04 | XMS_ITS | Data Portability ---
Author Organization LARON ALEIDA Johnson [facility] Address [address] [facility] [address] [place] [address] Care Team Providers Care Network Associate Name Role Phone JORDON RUSSO Primary Care Provider [phone] PARMINDER PEÑA Facet[facility] Assessment Encounter Date Assessment Date Assessment LastModified by Organization Details LastModified Time 01/02/2024 01/02/2024 68-year-old gentleman seen today for follow-up visit. My impression plan as follows: Not available 01/02/2024 09:22:58 02/19/2024 02/19/2024 68-year-old gentleman seen today for follow-up visit. Currently being treated for polymyalgia rheumatica and inflammatory arthritis RS3PE. My impression plan as follows: Not available 02/19/2024 09:52:56 03/28/2024 03/28/2024 68-year-old gentleman seen today for follow-up visit. Currently being treated for polymyalgia rheumatica and inflammatory arthritis RS3PE. On Steroids, MTX and will be starting Kevzara soon. My impression plan as follows: Not available 03/30/2024 18:21:23 06/03/2024 06/03/2024 68-year-old gentleman seen today for follow-up visit. Currently being treated for polymyalgia rheumatica and inflammatory arthritis RS3PE. On Steroids, MTX and will be starting Kevzara soon. Interval cardiac event and received coronary stents x 4. Doing good. No chest pain or shortness of breath. My impression plan as follows: Not available 06/03/2024 11:01:28 07/22/2024 07/22/2024 68-year-old gentleman seen today for [...] of breath. My impression plan as follows: Not available 07/23/2024 11:12:46 Plan of Treatment Reminders Order Date Submit Date Provider Last Modified By Organization Details Last Modified Time Details Appointments RHEUM RECHECK 2024 09:00A M PARMINDER PEÑA MD Not available Not available Not available Lab ESR (erythroc yte sedimenta tion rate), blood 2024 025 [facility], [address] [place] [address], [id number], 07/22/2024 11:14:57 Mycobacte rium tuberculo sis stimulate d gamma interfero n, qual, blood 2024 025 [facility], [address] [place] [address], [address], 07/24/2024 14:18:28 CBC w/ auto diff 2024 025 [facility], [address] [place] [address], [id number], 07/22/2024 11:36:43 CBC w/ auto diff 2024 025 [facility], [address] [place] [address], [id number], 06/03/2024 10:54:54 ESR (erythroc yte sedimenta tion rate), blood 2024 025 [facility], [address] [place] [address], [id number], 06/03/2024 11:08:29 ALT (alanine aminotran sferase), serum or plasma 2024 025 [facility], [address] [place] [address], [id number], 06/03/2024 10:26:23 AST/SGOT (aspartat e aminotran sferase), serum or plasma 2024 025 [facility], [address] [place] [address], [id number], 06/03/2024 10:26:22 ESR (erythroc yte sedimenta tion rate), blood 2023 024 [facility], [address] [place] [address], [address], 02/19/2024 11:56:58 CBC w/ auto diff 2023 024 [facility], [address] [place] [address], [id number], 02/19/2024 11:02:43 hepatic function panel, serum 2023 024 [facility], [address] [place] [address], [address], 02/19/2024 10:59:09 hepatitis (A+B+C) panel, serum 2023 024 [facility], [address] [place] [address], [id number], 02/19/2024 11:01:33 C reactive protein, QN, serum or plasma 2023 024 [facility], [address] [place] [address], [id number], 01/02/2024 10:11:59 CBC w/ auto diff 2023 024 [facility], [address] [place] [address], [id number], 01/02/2024 10:20:26 ESR (erythroc yte sedimenta tion rate), blood 2023 [facility], [address] [place] [address], [id number], 01/02/2024 12:19:58 hepatic function panel, serum 2023 [facility], [address] [place] [address], [id number], 01/02/2024 10:12:01 ccp (cyclic citrullin ated peptide) iga+igg, serum 2023 [facility], [address] [place] [address], [id number], 01/04/2024 19:21:58 Referral None recorded. Procedures None recorded. Surgeries None recorded. Imaging XR, hand, 3 or more view 2023 [facility], [address] [place] [address], [id number], 03/28/2024 09:52:18 XR, chest, 2 view 2023 [facility], [address] [place] [address], [id number], 02/19/2024 10:03:55 Medication Orders prednison e 5 mg tablet 2023 [facility], [address] [place] [address] [address] [place], [place], [id number], 03/28/2024 14:44:26 prednison e 5 mg tablet 2023 [facility], [address] [place] [address] [address] [place], [place], [id number], 02/19/2024 11:48:34 Kevzara 200 mg/1.14 mL subcutane ous pen injector [address] [facility], [address] [place] [address] [address] [place] [place], [id number], 06/03/2024 09:14:52 methotrex ate sodium 2.5 mg tablet 2023 024 [facility], [address] [place] [address] [address] [place] [place], [id number], 04/19/2024 11:53:35 folic acid 1 mg tablet 2023 [facility], [address] [place] [address] [address] [place], [id number], 07/17/2024 09:50:20 Patient TargetsNo targets recorded. Patient InstructionsNo instructions recorded. Reason for Referral None Reported. Results Created Date Observation Date Name Description Value Unit Range Abnormal Flag Note LastModifiedBy Organization Detail LastModifiedTime 01/02/2001/02/2024 C REACT DENAE PROTE IN C reactive protein 0.22 mg/dL 0.00-0 .49 normal Not Available [facility] [address] [place] [address], [address], 01/02/2024 10:11:59 01/02/20 24 01/02/2024 HEPAT IC (LIVE R) PANEL AST 31 U/L 0-40 normal Not Available [facility] [address] [place] [address], [address], 01/02/2024 10:12:01 01/02/20 24 01/02/2024 HEPAT IC (LIVE R) PANEL ALT 32 U/L 0-41 normal Not Available [facility] [address] [place] [address], [address], 01/02/2024 10:12:01 01/02/20 24 01/02/2024 HEPAT IC (LIVE R) PANEL alkaline phosphatase 68 U/L 40-129 normal Not Available [facility] [address] [place] [address], [address], 01/02/2024 10:12:01 01/02/20 24 01/02/2024 HEPAT IC (LIVE R) PANEL total protein 7.7 g/dL 6.4-8. 3 normal Not Available [facility] [address] [place] [address], [address], 01/02/2024 10:12:01 01/02/20 24 01/02/2024 HEPAT IC (LIVE R) PANEL albumin 4.5 g/dL 3.5-5. 2 normal Not Available [facility] [address] [place] [address], [address], 01/02/2024 10:12:01 01/02/20 24 01/02/2024 HEPAT IC (LIVE R) PANEL bilirubin, total 0.6 mg/dL 0.1-1. 2 normal Not Available [facility] [address] [place] [address], [address], 01/02/2024 10:12:01 01/02/20 24 01/02/2024 HEPAT IC (LIVE R) PANEL bilirubin, direct 0.2 mg/dL 0.0-0. 3 normal Not Available [facility] [address] [place] [address], [address], 01/02/2024 10:12:01 01/02/20 24 01/02/2024 HEPAT IC (LIVE R) PANEL bilirubin, indirect 0.4 mg/dL _(mark c) 0.0-1. 0 normal Not Available [facility] [address] [place] [address], [address], 01/02/2024 10:12:01 01/02/20 24 01/02/2024 COMPL ETE BLOOD COUNT white blood cells 8.0 10*3/ uL 3.8-10 .8 normal Not Available [facility] [address] [place] [address], [address], 01/02/2024 10:20:26 01/02/20 24 01/02/2024 COMPL ETE BLOOD COUNT red blood cells 3.95 10*6/ uL 4.20-5 .80 low Not Available [facility] [address] [place] [address], [address], 01/02/2024 10:20:26 01/02/20 24 01/02/2024 COMPL ETE BLOOD COUNT hemoglobin 13.9 g/dL 14.0-1 8.0 low Not Available [facility] [address] [place] [address], [address], 01/02/2024 10:20:26 01/02/20 24 01/02/2024 COMPL ETE BLOOD COUNT hematocrit 39.4 % 40.0-5 2.0 low Not Available [facility] [address] [place] [address], [address], 01/02/2024 10:20:26 01/02/20 24 01/02/2024 COMPL ETE BLOOD COUNT MCV 100 fL 80-100 normal Not Available [facility] [address] [place] [address], [address], 01/02/2024 10:20:26 01/02/20 24 01/02/2024 COMPL ETE BLOOD COUNT MCH 35 pg 26-35 normal Not Available [facility] [address] [place] [address], [address], 01/02/2024 10:20:26 01/02/20 24 01/02/2024 COMPL ETE BLOOD COUNT MCHC 35 g/dL 32-36 normal Not Available [facility] [address] [place], [address], 01/02/2024 10:20:26 01/02/20 24 01/02/2024 COMPL ETE BLOOD COUNT RDW 15.5 % 11.0-1 5.0 high Not Available [facility] [address] [place] [address], [address], 01/02/2024 10:20:26 01/02/20 24 01/02/2024 COMPL ETE BLOOD COUNT MPV 8.7 fL 6.2-10 .5 normal Not Available [facility] [address] [place] [address], [address], 01/02/2024 10:20:26 01/02/20 24 01/02/2024 COMPL ETE BLOOD COUNT platelet count 189 10*3/ uL 150-40 0 normal Not Available [facility] [address] [place] [address], [address], 01/02/2024 10:20:26 01/02/20 24 01/02/2024 COMPL ETE BLOOD COUNT neutrophil,a bsolute 6.7 10*3/ uL 1.6-8. 4 normal Not Available [facility] [address] [place] [address], [address], 01/02/2024 10:20:26 01/02/20 24 01/02/2024 COMPL ETE BLOOD COUNT lymphocyte,a bsolute 0.9 10*3/ uL 0.4-5. 1 normal Not Available [facility] [address] [place] [address], [address], 01/02/2024 10:20:26 01/02/20 24 01/02/2024 COMPL ETE BLOOD COUNT monocyte,abs olute 0.4 10*3/ uL 0.0-1. 2 normal Not Available [facility] [address] [place] [address], [address], 01/02/2024 10:20:26 01/02/20 24 01/02/2024 COMPL ETE BLOOD COUNT eosinophil,a bsolute 0.0 10*3/ uL 0.0-0. 8 normal Not Available [facility] [address] [place] [address], [address], 01/02/2024 10:20:26 01/02/20 24 01/02/2024 COMPL ETE BLOOD COUNT basophil,abs olute 0.0 10*3/ uL 0.0-0. 3 normal Not Available [facility] [address] [place] [address], [address], 01/02/2024 10:20:26 01/02/20 24 01/02/2024 COMPL ETE BLOOD COUNT % neutrophils 82.8 % 42.0-7 8.0 high Not Available [facility] [address] [place] [address], [address], 01/02/2024 10:20:26 01/02/20 24 01/02/2024 COMPL ETE BLOOD COUNT % lymphocytes 11.2 % 11.0-4 7.0 normal Not Available [facility] [address] [place] [address], [address], 01/02/2024 10:20:26 01/02/20 24 01/02/2024 COMPL ETE BLOOD COUNT % monocytes 5.2 % 0.0-11 .0 normal Not Available [facility] [address] [place] [address], [address], 01/02/2024 10:20:26 01/02/20 24 01/02/2024 COMPL ETE BLOOD COUNT % eosinophils 0.4 % 0.0-7. 0 normal Not Available [facility] [address] [place] [address], [address], 01/02/2024 10:20:26 01/02/20 24 01/02/2024 COMPL ETE BLOOD COUNT % basophils 0.4 % 0.0-3. 0 normal Not Available [facility] [address] [place] [address], [address], 01/02/2024 10:20:26 01/02/20 24 01/02/2024 COMPL ETE BLOOD COUNT nucleated red cells 0.0 % 0.0-0. 9 normal Not Available [facility] [address] [place] [address], [address], 01/02/2024 10:20:26 01/02/20 24 01/02/2024 COMPL ETE BLOOD COUNT nucleated RBCs, absolute 0.00 10*3/ uL not estab. normal Not Available [facility] [address] [place] [address], [address], 01/02/2024 10:20:26 01/02/20 24 01/02/2024 ESR, AUTOM ATED ESR, automated 13 mm 0-19 normal Not Available [facility] [address] [place] [address], [address], 01/02/2024 12:19:58 01/02/20 24 01/04/2024 ANTI- CCP anti-ccp <16 units normal Refer ence Range Negat denae: <20 Weak Posit denae: 20-39 Moder ate Posit denae: 40-59 Stron g Posit denae: >59 Not Available [facility] [address] [place] [address], [address], 01/04/2024 19:21:58 02/19/20 24 02/19/2024 HEPAT IC (LIVE R) PANEL AST 34 U/L 0-40 normal Not Available [facility] [address] [place] [address], [address], 02/19/2024 10:59:08 02/19/20 24 02/19/2024 HEPAT IC (LIVE R) PANEL ALT 35 U/L 0-41 normal Not Available [facility] [address] [place] [address], [address], 02/19/2024 10:59:08 02/19/20 24 02/19/2024 HEPAT IC (LIVE R) PANEL alkaline phosphatase 60 U/L 40-129 normal Not Available [facility] [address] [place] [address], [address], 02/19/2024 10:59:08 02/19/20 24 02/19/2024 HEPAT IC (LIVE R) PANEL total protein 7.0 g/dL 6.4-8. 3 normal Not Available [facility] [address] [place] [address], [address], 02/19/2024 10:59:08 02/19/20 24 02/19/2024 HEPAT IC (LIVE R) PANEL albumin 4.4 g/dL 3.5-5. 2 normal Not Available [facility] [address] [place] [address], [address], 02/19/2024 10:59:08 02/19/20 24 02/19/2024 HEPAT IC (LIVE R) PANEL bilirubin, total 0.7 mg/dL 0.1-1. 2 normal Not Available [facility] [address] [place] [address], [address], 02/19/2024 10:59:08 02/19/20 24 02/19/2024 HEPAT IC (LIVE R) PANEL bilirubin, direct 0.2 mg/dL 0.0-0. 3 normal Not Available [facility] [address] [place] [address], [address], 02/19/2024 10:59:08 02/19/20 24 02/19/2024 HEPAT IC (LIVE R) PANEL bilirubin, indirect 0.5 mg/dL _(mark c) 0.0-1. 0 normal Not Available [facility] [address] [place] [address], [address], 02/19/2024 10:59:08 02/19/20 24 02/19/2024 HEPAT ITIS PANEL hepatitis A Ab, IgM NONREA CTIVE nonrea ctive normal Not Available [facility] [address] [place] [address], [address], 02/19/2024 11:01:33 02/19/2002/19/2024 HEPAT ITIS PANEL hepatitis B surface Ag NONREA CTIVE nonrea ctive normal Not Available [facility] [address] [place] [address], [address], 02/19/2024 11:01:33 02/19/2002/19/2024 HEPAT ITIS PANEL hepatitis B core Ab,IgM NONREA CTIVE nonrea ctive normal Not Available [facility] [address] [place] [address], [address], 02/19/2024 11:01:33 02/19/20 24 02/19/2024 HEPAT ITIS PANEL hcab, reflex viral RNA qt NONREA CTIVE nonrea ctive normal Antib odies to HCV were not detec hue; does not exclu de the possi bilit y of expos ure to HCV. Not Available [facility] [address] [place] [address], [address], 02/19/2024 11:01:33 02/19/20 24 02/19/2024 COMPL ETE BLOOD COUNT white blood cells 7.4 10*3/ uL 3.8-10 .8 normal RESUL TS RECHE CKED Hemog hayley obtai heike after warmi ng to 37 C. Not Available [facility] [address] [place] [address], [address], 02/19/2024 11:02:43 02/19/20 24 02/19/2024 COMPL ETE BLOOD COUNT red blood cells 3.28 10*6/ uL 4.20-5 .80 low Not Available [facility] [address] [place] [address], [address], 02/19/2024 11:02:43 02/19/20 24 02/19/2024 COMPL ETE BLOOD COUNT hemoglobin 12.4 g/dL 14.0-1 8.0 low Not Available [facility] [address] [place] [address], [address], 02/19/2024 11:02:43 02/19/20 24 02/19/2024 COMPL ETE BLOOD COUNT hematocrit 34.2 % 40.0-5 2.0 low Not Available [facility] [address] [place] [address], [address], 02/19/2024 11:02:43 02/19/20 24 02/19/2024 COMPL ETE BLOOD COUNT MCV 104 fL 80-100 high Not Available [facility] [address] [place] [address], [address], 02/19/2024 11:02:43 02/19/2002/19/2024 COMPL ETE BLOOD COUNT MCH 38 pg 26-35 high Not Available [facility] [address] [place] [address], [address], 02/19/2024 11:02:43 02/19/2002/19/2024 COMPL ETE BLOOD COUNT MCHC 36 g/dL 32-36 normal Not Available [facility] [address] [place] [address], [address], 02/19/2024 11:02:43 02/19/2002/19/2024 COMPL ETE BLOOD COUNT RDW 16.5 % 11.0-1 5.0 high Not Available [facility] [address] [place] [address], [address], 02/19/2024 11:02:43 02/19/2002/19/2024 COMPL ETE BLOOD COUNT MPV 7.7 fL 6.2-10 .5 normal Not Available [facility] [address] [place] [address], [address], 02/19/2024 11:02:43 02/19/2002/19/2024 COMPL ETE BLOOD COUNT platelet count 149 10*3/ uL 150-40 0 low Not Available [facility] [address] [place] [address], [address], 02/19/2024 11:02:43 02/19/2002/19/2024 COMPL ETE BLOOD COUNT neutrophil,a bsolute 6.4 10*3/ uL 1.6-8. 4 normal Not Available [facility] [address] [place] [address], [address], 02/19/2024 11:02:43 02/19/20 24 02/19/2024 COMPL ETE BLOOD COUNT lymphocyte,a bsolute 0.6 10*3/ uL 0.4-5. 1 normal Not Available [facility] [address] [place] [address], [address], 02/19/2024 11:02:43 02/19/20 24 02/19/2024 COMPL ETE BLOOD COUNT monocyte,abs olute 0.4 10*3/ uL 0.0-1. 2 normal Not Available [facility] [address] [place] [address], [address], 02/19/2024 11:02:43 02/19/2002/19/2024 COMPL ETE BLOOD COUNT eosinophil,a bsolute 0.0 10*3/ uL 0.0-0. 8 normal Not Available [facility] [address] [place] [address], [address], 02/19/2024 11:02:43 02/19/20 24 02/19/2024 COMPL ETE BLOOD COUNT basophil,abs olute 0.0 10*3/ uL 0.0-0. 3 normal Not Available [facility] [address] [place] [address], [address], 02/19/2024 11:02:43 02/19/20 24 02/19/2024 COMPL ETE BLOOD COUNT % neutrophils 86.4 % 42.0-7 8.0 high Not Available [facility] [address] [place] [address], [address], 02/19/2024 11:02:43 02/19/20 24 02/19/2024 COMPL ETE BLOOD COUNT % lymphocytes 8.1 % 11.0-4 7.0 low Not Available [facility] [address] [place] [address], [address], 02/19/2024 11:02:43 02/19/20 24 02/19/2024 COMPL ETE BLOOD COUNT % monocytes 5.0 % 0.0-11 .0 normal Not Available [facility] [address] [place] [address], [address], 02/19/2024 11:02:43 02/19/20 24 02/19/2024 COMPL ETE BLOOD COUNT % eosinophils 0.2 % 0.0-7. 0 normal Not Available [facility] [address] [place] [address], [address], 02/19/2024 11:02:43 02/19/20 24 02/19/2024 COMPL ETE BLOOD COUNT % basophils 0.3 % 0.0-3. 0 normal Not Available [facility] [address] [place] [address], [address], 02/19/2024 11:02:43 02/19/2002/19/2024 COMPL ETE BLOOD COUNT nucleated red cells 0.0 % 0.0-0. 9 normal Not Available [facility] [address] [place] [address], [address], 02/19/2024 11:02:43 02/19/20 24 02/19/2024 COMPL ETE BLOOD COUNT nucleated RBCs, absolute 0.00 10*3/ uL not estab. normal Not Available [facility] [address] [place] [address], [address], 02/19/2024 11:02:43 02/19/2002/19/2024 MORPH OLOGY platelet morphology NORMAL normal Not Available [facility] [address] [place] [address], [address], 02/19/2024 11:02:45 02/19/2002/19/2024 MORPH OLOGY anisocytosis MODERA TE abnormal Not Available [facility] [address] [place] [address], [address], 02/19/2024 11:02:45 02/19/20 24 02/19/2024 MORPH OLOGY macrocytosis SLIGHT abnormal Not Available [facility] [address] [place] [address], [address], 02/19/2024 11:02:45 02/19/20 24 02/19/2024 ESR, AUTOM ATED ESR, automated 10 mm 0-19 normal Not Available [facility] [address] [place] [address], [address], 02/19/2024 11:56:58 06/03/19 25 06/03/2024 AST AST 28 U/L 0-40 normal Not Available [facility] [address] [place] [address], [address], 06/03/2024 10:26:21 06/03/19 25 06/03/2024 ALT ALT 35 U/L 0-41 normal Not Available [facility] [address] [place] [address], [address], 06/03/2024 10:26:23 06/03/19 25 06/03/2024 COMPL ETE BLOOD COUNT white blood cells 13.0 10*3/ uL 3.8-10 .8 high Not Available [facility] [address] [place] [address], [address], 06/03/2024 10:54:54 06/03/19 25 06/03/2024 COMPL ETE BLOOD COUNT red blood cells 3.82 10*6/ uL 4.20-5 .80 low Not Available [facility] [address] [place] [address], [address], 06/03/2024 10:54:54 06/03/19 25 06/03/2024 COMPL ETE BLOOD COUNT hemoglobin 13.9 g/dL 14.0-1 8.0 low Not Available [facility] [address] [place] [address], [address], 06/03/2024 10:54:54 06/03/19 25 06/03/2024 COMPL ETE BLOOD COUNT hematocrit 39.5 % 40.0-5 2.0 low Not Available [facility] [address] [place] [address], [address], 06/03/2024 10:54:54 06/03/19 25 06/03/2024 COMPL ETE BLOOD COUNT MCV 103 fL 80-100 high Not Available [facility] [address] [place] [address], [address], 06/03/2024 10:54:54 06/03/19 25 06/03/2024 COMPL ETE BLOOD COUNT MCH 36 pg 26-35 high Not Available [facility] [address] [place] [address], [address], 06/03/2024 10:54:54 06/03/19 25 06/03/2024 COMPL ETE BLOOD COUNT MCHC 35 g/dL 32-36 normal Not Available [facility] [address] [place] [address], [address], 06/03/2024 10:54:54 06/03/19 25 06/03/2024 COMPL ETE BLOOD COUNT RDW 14.3 % 11.0-1 5.0 normal Not Available [facility] [address] [place] [address], [address], 06/03/2024 10:54:54 06/03/19 25 06/03/2024 COMPL ETE BLOOD COUNT MPV 9.0 fL 6.2-10 .5 normal Not Available [facility] [address] [place] [address], [address], 06/03/2024 10:54:54 06/03/19 25 06/03/2024 COMPL ETE BLOOD COUNT platelet count 180 10*3/ uL 150-40 0 normal Not Available [facility] [address] [place] [address], [address], 06/03/2024 10:54:54 06/03/19 25 06/03/2024 COMPL ETE BLOOD COUNT neutrophil,a bsolute 11.3 10*3/ uL 1.6-8. 4 high Not Available [facility] [address] [place] [address], [address], 06/03/2024 10:54:54 06/03/19 25 06/03/2024 COMPL ETE BLOOD COUNT lymphocyte,a bsolute 1.2 10*3/ uL 0.4-5. 1 normal Not Available [facility] [address] [place] [address], [address], 06/03/2024 10:54:54 06/03/19 25 06/03/2024 COMPL ETE BLOOD COUNT monocyte,abs olute 0.4 10*3/ uL 0.0-1. 2 normal Not Available [facility] Laboratory [address] [place] [address], [address], 06/03/2024 10:54:54 06/03/19 25 06/03/2024 COMPL ETE BLOOD COUNT eosinophil,a bsolute 0.1 10*3/ uL 0.0-0. 8 normal Not Available [facility] [address] [place] [address], [address], 06/03/2024 10:54:54 06/03/19 25 06/03/2024 COMPL ETE BLOOD COUNT basophil,abs olute 0.0 10*3/ uL 0.0-0. 3 normal Not Available [facility] [address] [place] [address], [address], 06/03/2024 10:54:54 06/03/19 25 06/03/2024 COMPL ETE BLOOD COUNT % neutrophils 75.0 % 42.0-7 8.0 normal Not Available [facility] [address] [place] [address], [address], 06/03/2024 10:54:54 06/03/19 25 06/03/2024 COMPL ETE BLOOD COUNT % lymphocytes 9.0 % 11.0-4 7.0 low Not Available [facility] [address] [place] [address], [address], 06/03/2024 10:54:54 06/03/19 25 06/03/2024 COMPL ETE BLOOD COUNT % monocytes 3.0 % 0.0-11 .0 normal Not Available [facility] [address] [place] [address], [address], 06/03/2024 10:54:54 06/03/19 25 06/03/2024 COMPL ETE BLOOD COUNT % eosinophils 1.0 % 0.0-7. 0 normal Not Available [facility] [address] [place] [address], [address], 06/03/2024 10:54:54 06/03/19 25 06/03/2024 COMPL ETE BLOOD COUNT % basophils 0.0 % 0.0-3. 0 normal Not Available [facility] [address] [place] [address], [address], 06/03/2024 10:54:54 06/03/19 25 06/03/2024 COMPL ETE BLOOD COUNT nucleated red cells 0.1 % 0.0-0. 9 normal Not Available [facility] [address] [place] [address], [address], 06/03/2024 10:54:54 06/03/19 25 06/03/2024 COMPL ETE BLOOD COUNT nucleated RBCs, absolute 0.01 10*3/ uL not estab. normal Not Available [facility] [address] [place] [address], [address], 06/03/2024 10:54:54 06/03/19 25 06/03/2024 MANUA L DIFFE RENTI AL % band neutrophils 12.0 % 0.0-7. 0 high Not Available [facility] [address] [place] [address], [address], 06/03/2024 10:54:56 06/03/19 25 06/03/2024 MANUA L DIFFE RENTI AL % atypical lymphocytes 0 % 0-1 normal Not Available [facility] Laboratory [address] [place] [address], [address], 06/03/2024 10:54:56 06/03/19 25 06/03/2024 MANUA L DIFFE RENTI AL % metamyelocyt es 0 % 0-1 normal Not Available [facility] Laboratory [address] [place] [address], [address], 06/03/2024 10:54:56 06/03/19 25 06/03/2024 MANUA L DIFFE RENTI AL % myelocytes 0 % 0-1 normal Not Available [facility] Laboratory [address] [place] [address], [address], 06/03/2024 10:54:56 06/03/19 25 06/03/2024 MANUA L DIFFE RENTI AL % promyelocyte s 0 % 0 normal Not Available [facility] [address] [place] [address], [address], 06/03/2024 10:54:56 06/03/19 25 06/03/2024 MANUA L DIFFE RENTI AL % blast 0 % 0 normal Not Available [facility] [address] [place] [address], [address], 06/03/2024 10:54:56 06/03/19 25 06/03/2024 MANUA L DIFFE RENTI AL nucleated red cells 0 /100{ WBC} 0-1 normal Not Available [facility] [address] [place] [address], [address], 06/03/2024 10:54:56 06/03/19 25 06/03/2024 MANUA L DIFFE RENTI AL smudge cells 0 /100{ WBC} 0 normal Not Available [facility] [address] [place] [address], [address], 06/03/2024 10:54:56 06/03/19 25 06/03/2024 MANUA L DIFFE RENTI AL platelet morphology NORMAL normal Not Available [facility] [address] [place] [address], [address], 06/03/2024 10:54:56 06/03/19 25 06/03/2024 MANUA L DIFFE RENTI AL macrocytosis SLIGHT abnormal Not Available [facility] [address] [place] [address], [address], 06/03/2024 10:54:56 06/03/19 25 06/03/2024 MANUA L DIFFE RENTI AL polychromasi a SLIGHT abnormal Not Available [facility] [address] [place] [address], [address], 06/03/2024 10:54:56 06/03/19 25 06/03/2024 MANUA L DIFFE RENTI AL stomatocytes SLIGHT abnormal Not Available [facility] [address] [place] [address], [address], 06/03/2024 10:54:56 06/03/19 25 06/03/2024 ESR, AUTOM ATED ESR, automated 9 mm 0-19 normal Not Available [facility] [address] [place] [address], [address], 06/03/2024 11:08:29 07/23/19 25 07/22/2024 ESR, AUTOM ATED ESR, automated <1 mm 0-19 normal RESUL TS RECHE CKED Not Available [facility] [address] [place] [address], [address], 07/22/2024 11:14:57 07/23/19 25 07/22/2024 COMPL ETE BLOOD COUNT white blood cells 4.3 10*3/ uL 3.8-10 .8 normal RESUL TS RECHE CKED Hemog hayley obtai heike after warmi ng to 37 C. Not Available [facility] [address] [place] [address], [address], 07/22/2024 11:36:43 07/23/19 25 07/22/2024 COMPL ETE BLOOD COUNT red blood cells 3.59 10*6/ uL 4.20-5 .80 low Not Available [facility] [address] [place] [address], [address], 07/22/2024 11:36:43 07/23/19 25 07/22/2024 COMPL ETE BLOOD COUNT hemoglobin 13.0 g/dL 14.0-1 8.0 low Not Available [facility] [address] [place] [address], [address], 07/22/2024 11:36:43 07/23/19 25 07/22/2024 COMPL ETE BLOOD COUNT hematocrit 37.2 % 40.0-5 2.0 low Not Available [facility] [address] [place] [address], [address], 07/22/2024 11:36:43 07/23/19 25 07/22/2024 COMPL ETE BLOOD COUNT MCV 103 fL 80-100 high Not Available [facility] [address] [place] [address], [address], 07/22/2024 11:36:43 07/23/19 25 07/22/2024 COMPL ETE BLOOD COUNT MCH 36 pg 26-35 high Not Available [facility] [address] [place] [address], [address], 07/22/2024 11:36:43 07/23/19 25 07/22/2024 COMPL ETE BLOOD COUNT MCHC 35 g/dL 32-36 normal Not Available [facility] [address] [place] [address], [address], 07/22/2024 11:36:43 07/23/19 25 07/22/2024 COMPL ETE BLOOD COUNT RDW 14.3 % 11.0-1 5.0 normal Not Available [facility] [address] [place] [address], [address], 07/22/2024 11:36:43 07/23/19 25 07/22/2024 COMPL ETE BLOOD COUNT MPV 9.8 fL 6.2-10 .5 normal Not Available [facility] [address] [place] [address], [address], 07/22/2024 11:36:43 07/23/19 25 07/22/2024 COMPL ETE BLOOD COUNT platelet count 150 10*3/ uL 150-40 0 normal Not Available [facility] [address] [place] [address], [address], 07/22/2024 11:36:43 07/23/19 25 07/22/2024 COMPL ETE BLOOD COUNT neutrophil,a bsolute 3.0 10*3/ uL 1.6-8. 4 normal Not Available [facility] [address] [place] [address], [address], 07/22/2024 11:36:43 07/23/19 25 07/22/2024 COMPL ETE BLOOD COUNT lymphocyte,a bsolute 0.7 10*3/ uL 0.4-5. 1 normal Not Available [facility] [address] [place] [address], [address], 07/22/2024 11:36:43 07/23/19 25 07/22/2024 COMPL ETE BLOOD COUNT monocyte,abs olute 0.5 10*3/ uL 0.0-1. 2 normal Not Available [facility] [address] [place] [address], [address], 07/22/2024 11:36:43 07/23/19 25 07/22/2024 COMPL ETE BLOOD COUNT eosinophil,a bsolute 0.0 10*3/ uL 0.0-0. 8 normal Not Available [facility] [address] [place] [address], [address], 07/22/2024 11:36:43 07/23/19 25 07/22/2024 COMPL ETE BLOOD COUNT basophil,abs olute 0.0 10*3/ uL 0.0-0. 3 normal Smear revie wed to confi rm cell morph ology . Not Available [facility] [address] [place] [address], [address], 07/22/2024 11:36:43 07/23/19 25 07/22/2024 COMPL ETE BLOOD COUNT % neutrophils 70.7 % 42.0-7 8.0 normal Not Available [facility] [address] [place] [address], [address], 07/22/2024 11:36:43 07/23/19 25 07/22/2024 COMPL ETE BLOOD COUNT % lymphocytes 17.4 % 11.0-4 7.0 normal Not Available [facility] [address] [place] [address], [address], 07/22/2024 11:36:43 07/23/19 25 07/22/2024 COMPL ETE BLOOD COUNT % monocytes 10.5 % 0.0-11 .0 normal Not Available [facility] [address] [place] [address], [address], 07/22/2024 11:36:43 07/23/19 25 07/22/2024 COMPL ETE BLOOD COUNT % eosinophils 0.8 % 0.0-7. 0 normal Not Available [facility] [address] [place] [address], [address], 07/22/2024 11:36:43 07/23/19 25 07/22/2024 COMPL ETE BLOOD COUNT % basophils 0.6 % 0.0-3. 0 normal Not Available [facility] [address] [place] [address], [address], 07/22/2024 11:36:43 07/23/19 25 07/22/2024 COMPL ETE BLOOD COUNT nucleated red cells 0.2 % 0.0-0. 9 normal Not Available [facility] [address] [place] [address], [address], 07/22/2024 11:36:43 07/23/19 25 07/22/2024 COMPL ETE BLOOD COUNT nucleated RBCs, absolute 0.01 10*3/ uL not estab. normal Not Available [facility] [address] [place] [address], [address], 07/22/2024 11:36:43 07/23/19 25 07/22/2024 MORPH OLOGY platelet morphology NORMAL normal Not Available [facility] [address] [place] [address], [address], 07/22/2024 11:36:45 07/23/19 25 07/22/2024 MORPH OLOGY macrocytosis SLIGHT abnormal Not Available [facility] [address] [place] [address], [address], 07/22/2024 11:36:45 07/23/19 25 07/22/2024 MORPH OLOGY polychromasi a SLIGHT abnormal Not Available [facility] [address] [place] [address], [address], 07/22/2024 11:36:45 07/23/19 25 07/22/2024 MORPH OLOGY dacryocytes SLIGHT abnormal Not Available [facility] [address] [place] [address], [address], 07/22/2024 11:36:45 07/23/19 25 07/24/2024 QUANT IFERO N TB GOLD qtb gold NEGATI VE negati ve normal Negat denae test resul t. M. tuber culos is compl ex infec tion unlik pinky. Not Available [facility] [address] [place] [address], [address], 07/24/2024 14:18:28 07/23/19 25 07/24/2024 QUANT IFERO N TB GOLD nil 0.01 IU/mL normal Not Available [facility] [address] [place] [address], [address], 07/24/2024 14:18:28 07/23/19 25 07/24/2024 QUANT IFERO N TB GOLD mitogen nil 3.55 IU/mL normal Not Available [facility] [address] [place], [address], 07/24/2024 14:18:28 07/23/19 25 07/24/2024 QUANT IFERO N TB GOLD TB1 nil 0.00 IU/mL normal Not Available [facility] [address] [place], [address], 07/24/2024 14:18:28 07/23/19 25 07/24/2024 QUANT IFERO N TB GOLD TB2 nil 0.00 IU/mL normal The Nil tube value refle cts the backg round inter feron gamma immun e respo nse of the patie nt's blood sampl e. This value has been subtr acted from the patie nt's displ ayed TB and Mitog en resul ts. Lower than expec hue resul ts with the Mitog en tube preve nt false -nega tive Quant ifero n readi ngs by detec ting a patie nt with a poten tial immun e suppr essiv e condi tion and/o r subop timal pre-a nalyt ical speci men handl ing. The TB1 Antig en tube is coate d with the M. tuber culos is-sp ecifi c antig ens desig hekie to elici t respo nses from TB antig en prime d CD4+ helpe r T-lym phocy jossy. The TB2 Antig en tube is coate d with the M. tuber culos is-sp ecifi c antig ens desig heike to elici t respo nses from TB antig en prime d CD4+ helpe r and CD8+ cytot oxic T-lym phocy jossy. For addit ional infor holly xiong e refer to https ://ed alyxati on.qu rebecca [employer]. com/f aq/FA Q204 (This link is being provi ded for infor carisa hartman/ educa bianca l purpo ses only. ) Not Available [facility] [address] [place], [address], 07/24/2024 14:18:28 10/15/20 24 02/19/2024 XR, chest , 2 view [place] [address] [place] [address] Misty melendez Name: TRUE melendez : 955 Misty melendez Orderi ng Provid er: NANY ALAN EXAM DATE: 2023 EXAM: XR CHEST PA/LAT CLINIC AL INFORM ATION: Evalua tion after starti ng new medica tion. IMAGES PROVID ED: PA and latera l views of the chest. COMPAR CORY: None. FINDIN GS: Heart size is within normal limits . Lung murphy are clear. IMPRES KATE: No acute cardio pulmon carole change s. Interp reted By: Enrique esquivel MD Electr onical ly Signed By: Enrique esquivel MD on 2023 9:58 AM [facility] Radiology [facility] [address] [place], [address], 02/19/2024 16:27:26 03/28/20 24 03/28/2024 XR, hand, 3 or more view [facility] [address] [place] [address] Misty melendez Name: TRUE melendez : 955 Misty melendez Orderi ng Provid er: [facility] EXAM DATE: 2023 EXAM: XR ZACH HANDS 3VWS HISTOR Y: Bilate ral hand pain COMPAR CORY: 2014 FINDIN GS: There are severe degene rative change s in both hands. There are modera te to severe degene rative change s in the interp halang eal joints and metaca rpopha langea l joints . There are severe degene rative change s in the first carpom etacar pal joint bilate rally. There are modera te degene rative change s in the trisca phe joints . There are severe degene rative change s in the left radioc arpal joint with remode ling of the articu lar surfac es, and modera te to severe degene rative change s in the distal radiou lnar joint on the left. No fractu re is identi fied. IMPRES KATE: 1. There are severe degene rative change s of both hands. Interp reted By: Carmne villanueva MD Electr onical ly Signed By: Carmen villanueva MD on 2023 9:47 AM [facility] Radiology [facility] [address] [place], [address], 03/28/2024 15:43:56 Result Notes None recorded. 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 Active 2014 From Automated Load;Provi lori: Sanchez, Traci;Stat us: Active Not Available [facility] 6 04:55:54 Idiopathi c osteoarth ritis 094792054 Active 2014 From Automated Load;Provi lori: Sanchez, Traci;Stat us: Active Not Available [facility] 6 04:55:54 Radial styloid tenosynov itis 57399307 Active 2014 From Automated Load;Provi lori: Sanchez, Traci;Stat us: Active Not Available [facility] 6 04:56:32 Synovitis /tenosyno vitis - wrist 531389022 Active 2014 From Automated Load;Provi lori: Sanchez, Traci;Stat us: Active Not Available [facility] 6 04:56:32 Problem Notes None recorded. Procedures Surgical History Date Name Laterality Status Provider Name and Address Organization Details Recorded Time 05/14/19 25 placement of stent in pulmonary artery completed Nic Mercado [facility] 06/03/2024 09:13:18 07/08/19 22 Dupuytren's Contracture Manipulation completed JUAN MATHIS MD [address] [place], [address], [facility] 07/07/2021 18:22:27 07/06/19 Xiaflex/Dupuytre n's Contracture Injection completed Sofi Cannon [facility] 07/19/2021 16:23:51 05/27/19 22 Injection Joint/Bursa, Interm completed JUAN MATHIS MD [address] [place], [address], [facility] 05/27/2021 12:01:33 Appendectomy completed Larisa Trung [facility] 11/15/2023 07:55:33 Imaging Results Imaging Date Name Status LastModified by Organiz ation Details LastModified Time 02/19/2024 XR, chest, 2 view completed [facility] Radiology [facility] [address] [place], [address], 02/19/2024 16:27:26 03/28/2024 XR, hand, 3 or more view completed [facility] Radiology [facility] [address] [place], [address], 03/28/2024 15:43:56 Procedure Notes None recorded. Medical Equipment None [...] t Available Vitals Date Recorded Body height Body mass index (BMI) Body weight Respiratory rate Heart rate Oxygen saturation Oxygen saturation in Arterial blood by Pulse oximetry Systolic blood pressure Diastolic blood pressure Provider Name and Address Organization Details Last Updated DateTime 4 177.8 cm 28.6 kg/m2 74176.2 8 g 16 /min 71 /min 97 % 97 % 121 mm[Hg] 72 mm[Hg] Larisa Nino [facility] 4 08:40:07 Date Recorded Body height Body mass index (BMI) Body weight Heart rate Respiratory rate Oxygen saturation Oxygen saturation in Arterial blood by Pulse oximetry Systolic blood pressure Diastolic blood pressure Provider Name and Address Organization Details Last Updated DateTime 4 177.8 cm 29.4 kg/m2 51897.4 4 g 78 /min 16 /min 97 % 97 % 124 mm[Hg] 72 mm[Hg] Nic [facility] 4 09:19:35 Date Recorded Body height Respiratory rate Body mass index (BMI) Body weight Heart rate Oxygen saturation Oxygen saturation in Arterial blood by Pulse oximetry Systolic blood pressure Diastolic blood pressure Provider Name and Address Organization Details Last Updated DateTime 4 177.8 cm 16 /min 29.4 kg/m2 85812.4 4 g 78 /min 97 % 97 % 118 mm[Hg] 72 mm[Hg] Nic [facility] 4 09:06:50 Date Recorded Body height Respiratory rate Body mass index (BMI) Body weight Heart rate Oxygen saturation Oxygen saturation in Arterial blood by Pulse oximetry Systolic blood pressure Diastolic blood pressure Provider Name and Address Organization Details Last Updated DateTime 5 177.8 cm 16 /min 29.4 kg/m2 70468.4 4 g 68 /min 98 % 98 % 118 mm[Hg] 74 mm[Hg] Nic [facility] 5 09:15:50 Date Recorded Body height Respiratory rate Body mass index (BMI) Body weight Heart rate Oxygen saturation Oxygen saturation in Arterial blood by Pulse oximetry Systolic blood pressure Diastolic blood pressure Provider Name and Address Organization Details Last Updated DateTime 5 177.8 cm 16 /min 28.4 kg/m2 07484.2 9 g 63 /min 98 % 98 % 118 mm[Hg] 72 mm[Hg] Nic Mercado [facility] 09:00:09 Social History Question Answer Notes LastModified by Organizat ion Details LastModified Time Tobacco Smoking Status Former Smoker Larisa arana, [facility] 11/15/2023 07:55:19 What Is Your Level Of Alcohol Consumption? Moderate [email or web address] Information not available 11/15/2023 What Was The Date Of Your Most Recent Tobacco Screening? 07/22/2024 [email or web address] Information not available 07/22/2024 Sex: Male Functional [...] SNOMED-CT Code Diagnosis ICD10 Code Diagnosis Note [id number] JUAN MATHIS MD [facility]TH[facility] [address] [place] [address] 05/27/2021 10:30:10 05/27/2021 14:02:47 Osteoarthritis of wrist 184480172 M19.032 Left stage III SLAC wrist with severe erosive arthritic changes throughout the radioscaph oid joint space (CSI: 05/27/2021) Dupuytren' s disease of palm and finger, with contracture 706670648 M72.0 Left small finger: 60?? MP contractur e [id number] JUAN MATHIS MD [facility] [address] [address] 07/05/2021 10:26:19 07/05/2021 12:56:11 Osteoarthritis of wrist 956352172 M19.032 Left stage III SLAC wrist with severe erosive arthritic changes throughout the radioscaph oid joint space (CSI: 05/27/2021) Dupuytren' s disease of palm and finger, with contracture 764999508 M72.0 Left small finger: 60?? MP contractur e [id number] JUAN MATHIS MD ORTHOPEDI [facility] [address] [place] [address] 07/07/2021 10:55:46 07/07/2021 13:01:41 Dupuytren's disease of palm and finger, with contracture 895643124 M72.0 Left small finger: 60?? MP contractur e Osteoarthr itis of wrist 757284033 M19.032 Left stage III SLAC wrist with severe erosive arthritic changes throughout the radioscaph oid joint space (CSI: 05/27/2021) [id number] JUAN MATHIS MD [facility] [address] [place] [address] 09/06/2021 10:40:34 09/06/2021 13:01:38 Dupuytren's disease of palm and finger, with contracture 830412298 M72.0 Left small finger (status post Xiaflex manipulati on on 07/07/2021): 60?? MP contractur e - corrected to 0?? Osteoarthr itis of wrist 860419287 M19.032 Left stage III SLAC wrist with severe erosive arthritic changes throughout the radioscaph oid joint space (CSI: 05/27/2021) [id number] PARMINDER PEÑA MD RHE[facility]AT[facility] [address] [place] [address] 11/15/2023 07:29:36 11/16/2023 04:30:00 Dupuytren's contracture of finger 892614365 M72.0 Does have chronic Dupuytren contractur es involving ring and middle fingers. Hopefully once the acute inflammato ry process is under control, we will start him on the occupation al therapy program. 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 Further sudden onset. Currently has diffuse edema bilateral hands and wrist along with significan t stiffness and pain in the shoulders and hips. 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 It can be seen as a primary process or in associatio n with polymyalgi a rheumatica . Needs to be watched for any paraneopla stic process. Discussed with the patient and his Sharifa who was on the phone from [place] in detail. Suggested trial of prednisone 15 mg once a day with a gradual taper. Trial of methotrexa te 10 mg once a week along with folic acid 1 mg once a day. Discontinu e tramadol and Celebrex. Obtain serum protein electropho resis along with immunofixa tion beside acute phase reactants. Reassess in 4 to 6 weeks. Will consider occupation al therapy once the acute inflammato ry process is under control. The side effect profile of the medication s reviewed in detail. All questions answered. High risk decision making Long-term current use of immunosuppressive drug [id number] Z79.60 I have talked about the methotrexa te and is monitoring . He will follow-up with the labs initially every 4 to 6 weeks or by every 3 months. tary modificati ons reviewed. Alcohol avoidance discussed. Polymyalgi a rheumatica 74685300 M35.3 Clinical features of PMR in associatio n with RS3PEA low positive rheumatoid factor can be seen in patients with PMR/RS3PE. He does not have any evidence of rheumatoid arthritis. Details as above. Trial of the combinatio n of prednisone along with methotrexa te. He is comfortabl e with the discussion . 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 For details please see initial consultati on dated 11/15/2023. Recent lab studies 11/02/23CRP 1.06CMP 115 glucose, BUN 24CCP antibodies normalCBC RBC 3.87ANA negativeTB negativeRF 41.2 (2017) CRP 14.85 mg per DL and ESR 59 mm/h dated 11/15/2023. We discussed about adjusting the dose of prednisone with a plan to taper it down to the minimum effective dose such as 5 mg/day or less and titrate methotrexa te to the effective dose which is currently at 10 mg once a week and folic acid 1 mg once a day. We also reviewed anti-TNF therapy especially Raheem with her current PMR diagnosis. The side effect profile of these medication s reviewed. High risk decision making Polymyalgi a rheumatica [id number] M35.3 Clinical features of PMR in associatio n with RS3PEA low positive rheumatoid factor can be seen in patients with PMR/RS3PE. He does not have any clear evidence of rheumatoid arthritis. Details as above. Trial of the combinatio n of prednisone along with methotrexa te. He is comfortabl e with the discussion . Repeated the inflammato ry markers today Dupuytren' s contracture of finger [id number] M72.0 Does have chronic Dupuytren contractur es involving ring and middle fingers. Hopefully once the acute inflammato ry process is under control, we will start him on the occupation al therapy program. Long-term current use of immunosuppressive drug [id number] Z79.60 I have talked about the methotrexa te and is monitoring . We also talked about alcohol use and methotrexa te. Increased risk of liver failure and cytopenias discussed. Repeated the CBC and LFTs today. 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 For details please see initial consultati on dated 11/15/2023. Lab studies 11/02/23CRP 1.06CMP 115 glucose, BUN 24CCP antibodies normalCBC RBC 3.87ANA negativeTB negativeRF 41.2 (2018) CRP 14.85 mg per DL and ESR 59 mm/h dated 11/15/2023. Currently on the combinatio n of prednisone and methotrexa te. Prednisone is at 10 mg once a day, was at 15 mg once a day. Start date 11/15/2023. Methotrexa te is 10 mg once a week along with folic acid 1 mg once a day. Started 11/15/2023. Repeat ESR and CRP 01/02/2024 are now back to normal. However he remains symptomati c with complaints of stiffness pain in bilateral hands and wrist. Recently received steroid injection bilateral wrist joints. At this point we talked about adding Kevzara to control both PMR as well as inflammato ry arthritis. Side effect profile reviewed in detail. If Kevzara is denied we will consider raising the dose of methotrexa te to 20 mg once a week and still maintainin g slow drop of the prednisone till he is on a maintenanc e dose of 5 mg once a day. Of note: [place]f/u mid march.[facility] risk decision making Polymyalgi a rheumatica [id number] M35.3 Currently on the combinatio n of methotrexa te and prednisone . Prednisone is at 10 mg once a day. There is a remarkable improvemen t in the inflammato ry markers with the most recent markers on 01/02/2024 including ESR and CRP are back to normal. However clinically he remains symptomati c pain and stiffness in his joints especially the hands and wrist. There is a strong component of inflammato ry arthritis, with positive rheumatoid factor. At this point will initiate the prior authorizat ion for Kevzara 20 mg subcu every 2 weeks and continue with the methotrexa te at 10 mg once a week as a steroid sparing medication and prednisone 10 mg once a day with a plan to taper down the prednisone to a maintenanc e dose of 5 mg once a day. As mentioned before, low positive rheumatoid factor can be seen in patients with PMR/RS3PE. He does not have any clear evidence of rheumatoid arthritis. The anti-CCP antibodies were - October 30, 2023 He is comfortabl e with the discussion . Repeated the inflammato ry markers today Dupuytren' s contracture of finger [id number] M72.0 Does have chronic Dupuytren contractur es involving ring and middle fingers.Co ntinue with range of motion exercises Long-term current use of immunosuppressive drug [id number] Z79.60 I have talked about the methotrexa te and is monitoring . We also talked about alcohol use and methotrexa te. Increased risk of liver failure and cytopenias discussed. 01/02/24 labsESR, CRP normalCBC normalLFT normal. Long-term drug therapy [id number] Z79.891 In anticipati on of systemic immunosupp ressive therapy chest x-ray obtained Malaise and fatigue [id number] R53.81 R53.83 Rather nonspecifi c.Chronic without any clinical evidence of infectious or malignancy . 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 For details please see initial consultati on dated 11/15/2023. Lab studies 11/02/23CRP 1.06CMP 115 glucose, BUN 24CCP antibodies normalCBC RBC 3.87ANA negativeTB negativeRF 41.2 (2018) CRP 14.85 mg per DL and ESR 59 mm/h dated 11/15/2023. Currently on the combinatio n of prednisone and methotrexa te. symptomati c, waiting to start Kevzara! Maintain low dose Prednisone 5mg daily for now, has come down overtime, Start date 11/15/2023. Maintain the methotrexa te and in 2 weeks, start kevzara 200mg q 2 weeks.Role of Kevzara to control both PMR as well as inflammato ry arthritis discussed in detail Side effect profile reviewed in detail. f/u in 6 weeks.High risk decision making Polymyalgi a rheumatica [id number] M35.3 Currently on the combinatio n of methotrexa te and prednisone . Prednisone is now at 5mg once a day.Monserrat thakkar clinically he remains symptomati c , pain and stiffness in his joints especially the hands and wrist. There is a strong component of inflammato ry arthritis, with positive rheumatoid factor. At this point will initiate the Kevzara 20 mg subcu every 2 weeks and discontinu e the methotrexa te in 2 weeks.main tain the prednisone dose of 5 mg once a day. As mentioned before, low positive rheumatoid factor can be seen in patients with PMR/RS3PE. He does not have any clear evidence of rheumatoid arthritis. The anti-CCP antibodies were - October 30, 2023 He is comfortabl e with the discussion . Repeated the labs in 2 weeks, then q 4 weeks. Dupuytren' s contracture of finger [id number] M72.0 Does have chronic Dupuytren contractur es involving ring and middle fingers.ch ronic.Cont inue with range of motion exercisesc an consider hand surgery eval, if symptoms get worse. Long-term current use of immunosuppressive drug [id number] Z79.60 I have talked about the methotrexa te and is monitoring . We also talked about alcohol use and methotrexa te. Increased risk of liver failure and cytopenias discussed. 01/02/24 labsESR, CRP normalCBC normalLFT normal. Labs 02/19/24 reviewed.H igh risk medication steroids and MTX. normal LFTS and normal Hep panel. 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 For details please see initial consultati on dated 11/15/2023. Lab studies 11/02/23CRP 1.06CMP 115 glucose, BUN 24CCP antibodies normalCBC RBC 3.87ANA negativeTB negativeRF 41.2 (2018) CRP 14.85 mg per DL and ESR 59 mm/h dated 11/15/2023. Currently on the combinatio n of prednisone and methotrexa te. He will be starting Kevzara from 07 June at 200 mg every 2 weeks as a steroid sparing drug. I want him to reduce the dose of prednisone to 5 mg once a day.Start date 11/15/2023. Once on Kevzara I want him to stop the methotrexa te. He does have anemia and thrombocyt openia which is currently investigat ed by his PCP. on account of his cardiac issues, we will work on lowering his prednisone . Do not increase the steroids without discussion with me Side effect profile reviewed in detail. f/u in 6 weeks.High risk decision making Polymyalgi a rheumatica [id number] M35.3 Currently on the combinatio n of methotrexa te and prednisone . Prednisone is now at 10mg once a day.Monserrat thakkar clinically he remains symptomati c , pain and stiffness in his joints especially the hands and wrist. There is a strong component of mechanical pains especially in the hands. At this point will initiate the Kevzara 200 mg subcu every 2 weeks and discontinu e the methotrexa te in 2 weeks.main tain the prednisone dose of 5 mg once a day. My plan is to eventually reduce the prednisone dose to 2 mg once a day As mentioned before, low positive rheumatoid factor can be seen in patients with PMR/RS3PE. He does not have any clear evidence of rheumatoid arthritis. The anti-CCP antibodies were negative October 30, 2023 He is comfortabl e with the discussion . Dupuytren' s contracture of finger [id number] M72.0 Does have chronic Dupuytren contractur es involving ring and middle fingers.ch ronic.Cont inue with range of motion exercisesc an consider hand surgery eval, if symptoms get worse. Long-term current use of immunosuppressive drug [id number] Z79.60 I have talked about the methotrexa [...] will require a consult with hematology . 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 For details please see initial consultati on dated 11/15/2023. Lab studies 11/02/23CRP 1.06CMP 115 glucose, BUN 24CCP antibodies normalCBC RBC 3.87ANA negativeTB negativeRF 41.2 (2017) CRP 14.85 mg per DL and ESR [...] weeks.High risk decision making Polymyalgi a rheumatica [id number] M35.3 Currently on the combinatio n of methotrexa te and prednisone . Prednisone still on 10mg once a day.Shaneevbeth thakkar clinically he remains asymptomat ic , significan [...] in october Dupuytren' s contracture of finger [id number] M72.0 Does have chronic Dupuytren contractur es involving ring and middle fingers.ch ronic.Cont inue with range of motion exercisesc an consider hand surgery eval, if symptoms get worse. Long-term current use of immunosuppressive drug [id number] Z79.60 I have talked about the methotrexa [...] consult with hematology . Tuberculos is screening [id number] Z11.7 Follow-up on TB screening every 12 months Health Concerns Section Related Observation LastModified by Organization Detai ls LastModified Time None Recorded Concern Status LastModified by Organization Details LastModified Time None Recorded Advance Directives Directive None Recorded Payers Insurance Date Sequence Insurance Name Policy Number Policy Muller Covered Member ID Muller Member ID Guarantor Name 05/27/2021 1 [place] NIKHIL GONZALEZ OF [place] (PPO) [id number] True Munroe [id number] True Munroe 07/29/2024 2 [employer] (MEDICARE SUPPLEMENT) True Conkliney [id number] True Conkliney 07/19/2024 1 [place] True Conkliney [id number] True Munroe Notes Date Note Type Note Provider Name and Address Organization Details Recorded Time 01/02/2024 text/html True is a 68yr old male here in our rheumatology clinic for a follow up. I saw him initially on 11/15/2023. Clinical evidence of RS3PE, polymyalgia rheumatica and a very active inflammatory arthritis. On the combination of prednisone since 11/15/2023 starting at 15 mg once a day which is now reduced to 10 mg once a day along with methotrexate 10 mg weekly and folic acid 1 mg daily. Has noticed significant improvement in his symptoms. He is now able to get up from a sitting position and can feed himself and brush his teeth which she was not able to do before starting these medications. He does have chronic deformities though of bilateral hands and wrist. He is accompanied by his . PARMINDER PEÑA MD [facility] [place], [address], [facility] 01/02/2024 09:23:13 02/19/2024 text/html True is a 68yr old male here in our rheumatology clinic for a follow up. I saw him initially on 11/15/2023. He has polymyalgia rheumatica along with inflammatory arthritis, RS3PE. Further has severe degenerative process in the wrist and hands. Currently is on the combination of prednisone since 11/15/2023 starting at 15 mg once a day which is now reduced to 10 mg once a day along with methotrexate 10 mg weekly and folic acid 1 mg daily. Received steroid injection bilateral wrist through his orthopedic surgeon. His ESR and CRP are now back to normal. He does remain symptomatic with complaints of pain and stiffness in both hands and wrist. Denies side effects of the medicine We did try to reduce the dose of prednisone to 7.5 mg once a day but he had to go back to 10 mg once a day due to worsening stiffness and pain in the hands. He is accompanied by his . PARMINDER PEÑA MD [address] [place] [address], [phone], [facility] 02/19/2024 10:03:07 03/28/2024 text/html True is a 68yr old male here in our rheumatology clinic for a follow up. He has polymyalgia rheumatica along with inflammatory arthritis, RS3PE. Further has severe degenerative process in the wrist and hands. in the interval, evaluated for DVT.Negative venous Doppler's. He is Currently on prednisone 5 mg po qd. Remains on low dose methotrexate at 10mg a week along with folic acid. He does remain symptomatic with chronic complaints of pain and stiffness in both hands and wrist. Denies side effects of the medicine We did try to reduce the dose of prednisone to 5 mg once a day in the past but he had to go back to higher doses. He is accompanied by his . PARMINDER PEÑA MD [address] [place] [address], [phone], [facility] 03/30/2024 18:24:02 06/03/2024 text/html True is a 68yr old male here in our rheumatology clinic for a follow up. He has polymyalgia rheumatica along with inflammatory arthritis, RS3PE. Further has severe degenerative process in the wrist and hands He is Currently on prednisone 5 mg po qd. although, has increased the steroids to 10 mg a day. Also on methotrexate as a steroid sparing drug and is going to start the Kevzara from the first of next month. In the interval had 4 stents placed in his coronaries. He does have anemia that is being investigated. Remains on low dose methotrexate at 10mg a week along with folic acid. Still complaining of pain and stiffness in the hands Denies side effects of the medicine He is accompanied by his . PARMINDER PEÑA MD [facility] [place], [address], [facility] 06/03/2024 11:03:54 07/22/2024 text/html True is a 68yr old male here in [...] by his . PARMINDER PEÑA MD [address] [place], [address], [facility] 07/23/2024 11:25:05
[2024-09-12 22:05] VITALS: BP 173/92; PULSE 63; O2SAT 98
[2024-09-12 22:06] LABS: VBG Base Excess -2.8 mmol/L (-2.4-2.3); VBG PCO2 43.9 mmol/L (35-51); VBG PH 7.34 mmol/L (7.31-7.41); VBG PO2 25.8 mmol/L (28-40); VBG Total CO2 24.3 mmol/L (23-27)
[2024-09-12 22:07] LABS: Albumin Level 5.1 g/dl (3.5-5.0); Chloride 103 mmol/L (98-107); Potassium 4.1 mmoL/L (3.5-5.1); Sodium 137 mmol/L (136-145)
[2024-09-12 22:10] LABS: Blood Urea Nitrogen 31 mg/dl (9-20); Creatinine Clearance Estimated 68 mL/min (50-200); Estimated Glomerular Filt Rate 55 ml/min (>60); GFR (African American) 66 ML/MIN (>60)
[2024-09-12 22:11] LABS: Alanine Aminotransferase 66 U/L (12-78); Alkaline Phosphatase 65 U/L (38-126); Anion Gap 10.1 mEq/L (5-15); Aspartate Amino Transferase 52 U/L (17-59); Calcium 9.7 mg/dl (8.4-10.2); Carbon Dioxide 28 mmol/L (22.0-30.0); Globulin 2.5 g/dL (1.3-3.2); Glucose 109 mg/dl (74-100); Lipase 159 U/L (23-300); Total Protein,Serum 7.6 g/dl (6.3-8.2)
[2024-09-12 22:13] LABS: Activated Partial Thrombo Time 23.4 seconds (22.8-30.6); INR 0.94 (0.9-1.1); Prothrombin Time 10.6 seconds (10.1-12.5)
--- NOTE | 2024-09-12 22:14 | ED_ITS ---
Discharge Plan Disposition Patient Disposition: Admitted Chief Complaint: Abdominal Pain Prescriptions Prescriptions: No Action folic acid 1 mg tablet 1 mg PO DAILY Patient Comments: TAKE ONE TABLET BY MOUTH EVERY DAY prasugrel HCl [Effient] 10 mg tablet 10 mg PO DAILY Qty: 90 3RF bisoprolol fumarate 10 mg tablet 10 mg PO DAILY Qty: 90 3RF irbesartan-hydrochlorothiazide 300-12.5 mg tablet 1 tab PO DAILY Qty: 90 3RF levothyroxine 50 mcg tablet 50 mcg PO ONCE Patient Comments: TAKE ONE TABLET BY MOUTH EVERY DAY Kevzara 200 mg/1.14 mL syringe 200 mg SQ Q2W Patient Comments: inject 200 MG SUBCUTANEOUSLY every 2 WEEKS omeprazole 40 mg capsule,delayed release(DR/EC) 40 mg PO DAILY 90 Days Qty: 90 3RF rosuvastatin 20 mg tablet See Rx Instructions .ROUTE .COMPLEX Qty: 90 1RF Dose Instruction: TAKE ONE TABLET BY MOUTH EVERY DAY Rx Instructions: TAKE ONE TABLET BY MOUTH EVERY DAY aspirin 81 mg tablet,delayed release (DR/EC) 81 mg PO DAILY Rx Instructions: TAKE ONE TABLET BY MOUTH EVERY DAY prednisone 5 mg tablet 5 mg PO DAILY Referrals Follow up/Referrals: Jr Guevara MD [Primary Care Provider] - See instructions Clinical Impressions Clinical Impression: Bowel perforation Instructions Patient Instructions: DI for Acute Abdominal Pain Print Language Print Language: Bermudian Discharge ED Provider: Mainor Durham General Adult HPI General Chief complaint: Abdominal Pain Stated complaint: Abdominal pain from colonoscopy today Time Seen by Provider: 09/12/24 21:52 Mode of Arrival: Wheelchair Source of Information: Patient Description of Symptoms (Recalled from ER Triage Doc. by RN): Pt presents to ED for RLQ pain after a cholonoscopy today. Pt states it's been painful all day however it's just continued to get worse. Pt rates pain 10/10 at this time. MD is bedside. Spouse is bedside. IV access obtained, VSS. History of Present Illness HPI narrative: Please note that above description of symptoms, in this electronic medical record under categorization of recalled from ER triage doctor by RN are reflective of an initial nursing assessment, however, is not reflective of my full history and physical exam that was personally taken and clarified. Consequentially, this preceding description of symptoms, which may include the patient's categorized chief complaint in the EMR, do not reflect my personal clinical impression, and the ultimate description of history of present illness and patient stated complaints should be deferred to this section of the note. Unless stated otherwise or congruent with this section of the note, additional signs, symptoms, or incongruence should be interpreted as inaccurate with my clinical impression. Related Data Home Medications ?Medication ?Instructions ?Recorded ?Confirmed aspirin 81 mg tablet,delayed 81 mg PO DAILY 04/28/23 09/12/24 release folic acid 1 mg tablet 1 mg PO DAILY 03/18/24 09/12/24 levothyroxine 50 mcg tablet 50 mcg PO ONCE 06/25/24 09/12/24 sarilumab 200 mg/1.14 mL 200 mg SQ Q2W 06/25/24 09/12/24 subcutaneous syringe (Elliotzara) prednisone 5 mg tablet 5 mg PO DAILY 09/09/24 09/12/24 Previous Rx's ?Medication ?Instructions ?Recorded omeprazole 40 mg capsule,delayed 40 mg PO DAILY 90 days #90 caps 07/24/23 release rosuvastatin 20 mg tablet See Rx Instructions .Route 04/18/24 .COMPLEX #90 tabs bisoprolol fumarate 10 mg tablet 10 mg PO DAILY #90 tabs 05/21/24 irbesartan 300 1 tab PO DAILY #90 tabs 05/21/24 mg-hydrochlorothiazide 12.5 mg tablet prasugrel HCl 10 mg tablet 10 mg PO DAILY #90 tabs 05/21/24 (Effient) Allergies Allergy/AdvReac Type Severity Reaction Status Date / Time No Known Allergies Allergy Verified 09/09/24 13:11 [facility] Disclaimer: The information contained in this section may have been updated after the patient was seen, as this information can be updated by other users. Medical History (Updated 09/12/24 @ 22:54 by Mainor Durham MD) History of COVID-19 Hypothyroid Encounter for preoperative assessment Abnormal findings on diagnostic imaging of heart and coronary circulation Ascending aorta dilatation Renal artery stenosis Claudication Agatston coronary artery calcium score greater than 400 Raynaud disease Gastroesophageal reflux disease Elevated coronary artery calcium score Ex-smoker Carotid artery stenosis Abnormal EKG HLD (hyperlipidemia) HTN (hypertension) Surgical History Hx of knee surgery Hx of cardiac cath History of appendectomy Family History Other Cancer Heart disease Social History Smoking Status: Unknown if ever smoked alcohol intake: current alcohol intake frequency: 3 or more drinks per day substance use type: denies use current occupational status: employed Travel in the last 8 weeks?: None household members: spouse housing: house current occupational exposures/hazards: No caffeine: Yes Have you lived/traveled outside US in past 30 days?: No Contact w/someone who lives/traveled outside US past 30 days?: No Exposure to someone with infectious disease in past 14 days?: No Do you have a fever (greater than 100.4 F or 38 C)?: No Have you tested positive for COVID-19?: No Exposed to someone with COVID-19 in past 14 days?: No Do you have a sore throat?: No Do you have a cough?: No Do you have any weakness?: No Do you have any diarrhea?: No Are you experiencing any unusual bleeding?: No Do you have any muscle aches/pain?: No Do you have any abdominal pain?: No Are you experiencing loss of taste or smell?: No Other Medical History Have you received the Flu Vaccine for this season: No Have you received the Pneumonia Vaccine: No ROS Obtained: Yes All systems reviewed & no additional complaints except as documented Physical Exam General General appearance: alert and in distress (Secondary to pain) Head Head exam: atraumatic and normocephalic Eye Eye exam: Present normal appearance, PERRL and EOMI Neck Neck exam: Present normal inspection, full ROM and trachea midline Respiratory Respiratory exam: Present normal lung sounds bilaterally; Absent respiratory distress, wheezes, stridor, accessory muscle use or prolonged expiratory phase Cardiovascular Cardiovascular exam: Present regular rate, normal rhythm and other (Pulses equal symmetric in upper and lower extremities) Abdominal Exam Abdominal exam: Present soft, distention, tenderness, guarding and rigidity; Absent rebound or pulsatile mass Abdominal tenderness: Present severe Extremities Exam Extremities exam: Absent edema Neurological Exam Neurological exam: Present alert, oriented X3 and CN II-XII intact; Absent motor sensory deficit Skin Skin exam: Present warm and dry; Absent diaphoresis or erythema Medical Decision Making Medical Records Medical records reviewed: Yes I reviewed the patient's medical records. Screening: Per USPSTF and CDC recommendations, given the prevalence of disease in our region, it is our hospital?s policy to screen for HIV and viral Hepatitis for all patients aged 18 and over and those with ongoing risk factors. Anthony Inquiry Pt receiving controlled substance: No Anthony was queried for this patient: No Vital Signs: 09/12/24 21:57 Temperature 97.9 F Temperature Source Oral Pulse Rate [Left] 65 Respiratory Rate 20 Blood Pressure [Right Arm] 161/91 H Blood Pressure Mean [Right Arm] 114 02 Sat by Pulse Oximetry 97 Oxygen Delivery Method Room Air Lab Data Lab Results 09/12/24 21:56: PT 10.6, INR 0.94, APTT 23.4 09/12/24 21:59: WBC 12.8 H, RBC 3.71 L, Hgb 14.2, Hct 39.5 L, MCV 106.5 H, MCH 38.3 H, MCHC 35.9 H, RDW 12.7, Plt Count 129 L, MPV 10.1, Neut % (Auto) 87.2 H, Lymph % (Auto) 6.7 L, [place] % (Auto) 5.2, Eos % (Auto) 0.2, Baso % (Auto) 0.2, N eut # (Auto) 11.2 H, Lymph # (Auto) 0.9, [place] # (Auto) 0.7, Eos # (Auto) 0.0, Baso # (Auto) 0.0, VBG pH 7.34, VBG pCO2 43.9, VBG pO2 25.8 L, VBG HCO3 23.0, VBG Total CO2 24.3, VBG O2 Saturation 43.0 L, VBG Base Excess -2.8 L, VBG Lactic Acid 2.0, Sodium 137, Potassium 4.1, Chloride 103, Carbon Dioxide 28, Anion Gap 10.1, BUN 31 H, Creatinine 1.30 H, Estimated Creat Clear 68, Estimated GFR 55 L, Est GFR ( Amer) 66, Glucose 109 H, Calcium 9.7, Total Bilirubin 1.0, AST 52, ALT 66, Alkaline Phosphatase 65, Troponin I 0.02, Total Protein 7.6, Albumin 5.1 H, Globulin 2.5, Albumin/Globulin Ratio 2.0 H, Lipase 159 09/12/24 21:59 09/12/24 21:59 Orders (Tests/Meds): ED MEDICATIONS Generic Name Dose Route Start Last Admin Trade Name Viky PRN Reason Stop Dose Admin Piperacillin Sod/Tazobactam 100 mls @ 200 mls/hr 09/12/24 22:42 Sod 4.5 gm/ Sodium Chloride IV 09/12/24 23:11 ONCE ONE Discontinued Medications Generic Name Dose Route Start Last Admin Trade Name Viky PRN Reason Stop Dose Admin Hydromorphone HCl 0.5 mg 09/12/24 21:58 09/12/24 22:33 Hydromorphone 2mg/Ml Syringe IV 09/12/24 21:59 0.5 mg ONCE ONE Administration Iopamidol 75 ml 09/12/24 22:27 09/12/24 22:28 Iopamidol-370 (76%);100ml Bottle IV 09/12/24 22:28 75 ml ONCE ONE Administration Ondansetron HCl 4 mg 09/12/24 21:58 09/12/24 22:18 Ondansetron 4mg/2ml Vial IV 09/12/24 21:59 4 mg ONCE ONE Administration Sodium Chloride 10 ml 09/12/24 22:27 09/12/24 22:28 Sodium Chloride 0.9% 10ml Syr (Rad Only) IV 09/12/24 22:28 10 ml ONCE ONE Administration ORDERS Category Date Time Status CT abdomen pelvis w con Stat Cat Scan 09/12/24 21:59 Taken Complete Blood Count Auto Diff Stat Lab 09/12/24 21:59 Completed Comprehensive Metabolic Panel Stat Lab 09/12/24 21:59 Completed HIV Combo Stat Lab 09/12/24 21:56 Received Hepatitis C Ab Qual. W/ RFX Stat Lab 09/12/24 21:56 Received Lactic Acid Stat Lab 09/12/24 21:59 Ordered Lipase Stat Lab 09/12/24 21:59 Completed PT INR [Prothrombin Time INR] Stat Lab 09/12/24 21:56 Completed PTT [Activated Partial Thrombo Time] Stat Lab 09/12/24 21:56 Completed Troponin I Q3H Lab 09/13/24 01:00 Ordered Troponin I Q3H Lab 09/13/24 04:00 Ordered Troponin I Stat Lab 09/12/24 21:59 Completed Urinalysis and Microscopic Stat Lab 09/12/24 21:59 Ordered Blood Culture Stat Micro 09/12/24 22:42 Ordered Venous Blood Gas Stat RT 09/12/24 21:59 Completed Medical Decision Narrative: 69-year-old male presenting with abdominal pain. He states that he had colonoscopy today, 5/9 earlier in the morning. Has had progressive, crescendo severe abdominal pain in his right lower quadrant primarily since that time. Has not been able to have a bowel movement and does not believe he is been passing gas, has not been vomiting. No fevers or chills, but is having 10 out of 10, intermittently radiating pain that starts in his right lower quadrant goes around to his right side. Has not noticed anything that makes it any better or worse. Came in for further evaluation. History was obtained via conversation with patient. On arrival, patient hemodynamically stable, alert, oriented x4, appropriate, GCS 15, moving all extremities spontaneously, pupils equal and reactive to light. Full physical exam performed and significant for very uncomfortable appearing male who is in mild distress secondary to pain. Intermittently having flareups of pain and grabbing his abdomen. His abdomen is firm, distended, peritonitic because patient high risk for clinical decompensation, deemed appropriate for inpatient admission. Results were relayed to patient who voiced understanding and patient was agreeable to inpatient admission and management. Patient was admitted to the hospital for further definitive management. Significantly tender in his right lower quadrant, but generally tender everywhere. Differential includes hollow viscus perforation, peritonitis, intra-abdominal sepsis, diverticulitis, pancreatitis, among others. Patient placed on continuous cardiac monitoring and continuous pulse ox with initial blood pressure 161/91, heart rate 65, saturation 97% on room air. Patient was given Dilaudid, Zofran for symptomatic management and correction of underlying abnormalities. Workup independently interpreted and significant for leukocytosis on CBC. Patient's chemistry with mild ARACELIS, given fluids for this. On independent interpretation of imaging, patient has bowel perforation that appears to originate in the cecum. See radiology read for full review of final results. Patient was given Zosyn as well as fluids. Surgery was consulted and case was discussed at length. Patient to be taken to the operating room emergently for exploratory laparotomy. Hospital medicine was contacted and case was discussed at length for admission. Agreeable to admission and perioperative management. Client Associate disclaimer Much of this encounter note is an electronic wad blanking press adjuster spoken language to printed text. Electronic wad blanking press adjuster of the spoken language may permit errors. Although I have reviewed the note, some errors may still exist. Critical Care Critical Care Time Critical Care Time: Yes (GI) Attestation: On 09/12/24, the high probability of a clinically significant, sudden or life threatening deterioration of the following system(s) required my full and direct attention, intervention and personal management. The time I documented below is in addition to time spent performing reported procedures but includes the following listed in this critical care notation. Total Time Total Critical Care Time: 35
[2024-09-12] MEDS: ONDANSETRON 4MG/2ML VIAL 4 MG IV (22:18)
[2024-09-12 22:23] LABS: Troponin I 0.02 ng/ml (0.00-0.034)
[2024-09-12] MEDS: IOPAMIDOL-370 (76%);100ML BOTTLE 75 ML IV (22:28)
[2024-09-12] MEDS: SODIUM CHLORIDE 0.9% 10ML SYR (RAD ONLY) 10 ML IV (22:28)
[2024-09-12] MEDS: HYDROMORPHONE 2MG/ML SYRINGE 0.5 MG IV (22:33)
[2024-09-12] MEDS: LACTATED RINGERS 1000ML 1,000 ML 999 ML IV (22:54)
[2024-09-12] MEDS: PIPERACILLIN/TAZO 4.5 GM in 0.9 % SODIUM CHLORIDE 100 ML IV (22:55)
--- NOTE | 2024-09-12 22:56 | PC.NURSE ---
antibiotics began after Blood cultures sent to the lab
[2024-09-12 23:05] VITALS: BP 146/81; PULSE 62; RESP 20; O2SAT 95
[2024-09-12 23:06] LABS: HIV Combo NEGATIVE (Negative)
[2024-09-12 23:13] LABS: Hepatitis C Ab Qual. W/ RFX NEGATIVE (Negative)
--- NOTE | 2024-09-12 23:34 | PC.NURSE ---
report given to Linsey ALBRIGHT on the floor.
[2024-09-12 23:35] VITALS: BP 135/69; PULSE 61; O2SAT 94
--- NOTE | 2024-09-12 23:51 | EXP.HP ---
History of Present Illness *Admission Date: 09/12/24 *Reason for visit:: Abdominal pain *History of present illness: Mr. Munroe is a 69 year old patient of [facility] who had a screening colonoscopy this morning at [facility] with polyp removal. He states that after getting home from the procedure he began to have intense right lower quadrant abdominal pain. He ate a small amount of food and did not get sick, but he was unable to get relief from the pain. This evening his pain became worse and was described as 10/10 in intensity. At that point, he came to the ER for further evaluation. [facility] Disclaimer: The information contained in this section may have been updated after the patient was seen, as this information can be updated by other users. Medical History (Updated 09/12/24 @ 23:54 by Jr Guevara MD) Tubular adenoma of colon CAD (coronary artery disease) History of COVID-19 Hypothyroid Encounter for preoperative assessment Abnormal findings on diagnostic imaging of heart and coronary circulation Ascending aorta dilatation Renal artery stenosis Claudication Agatston coronary artery calcium score greater than 400 Raynaud disease Gastroesophageal reflux disease Elevated coronary artery calcium score Ex-smoker Carotid artery stenosis Abnormal EKG HLD (hyperlipidemia) HTN (hypertension) Surgical History Hx of knee surgery Hx of cardiac cath History of appendectomy Family History Heart disease Cancer Social History Smoking Status: Unknown if ever smoked alcohol intake: current alcohol intake frequency: 3 or more drinks per day substance use type: denies use current occupational status: employed Travel in the last 8 weeks?: None household members: spouse housing: house current occupational exposures/hazards: No caffeine: Yes Have you lived/traveled outside US in past 30 days?: No Contact w/someone who lives/traveled outside US past 30 days?: No Exposure to someone with infectious disease in past 14 days?: No Do you have a fever (greater than 100.4 F or 38 C)?: No Have you tested positive for COVID-19?: No Exposed to someone with COVID-19 in past 14 days?: No Do you have a sore throat?: No Do you have a cough?: No Do you have any weakness?: No Do you have any diarrhea?: No Are you experiencing any unusual bleeding?: No Do you have any muscle aches/pain?: No Do you have any abdominal pain?: No Are you experiencing loss of taste or smell?: No Other Medical History Have you received the Flu Vaccine for this season: No Have you received the Pneumonia Vaccine: No Review of Systems Constitutional Constitutional: Denies chills and Denies fever(s) ENT Ears, Nose, Mouth, and Throat: Denies dizziness *Cardiovascular Cardiovascular: Denies chest pain and Denies dyspnea *Respiratory Respiratory: Denies cough and Denies dyspnea *Gastrointestinal Gastrointestinal: Reports as per HPI and Reports abdominal pain *Genitourinary Genitourinary: Denies difficulty urinating *Musculoskeletal Musculoskeletal: Denies arthralgias *Neurologic Neurologic: Denies dizziness Meds Home Medications and Allergies Home Medications ?Medication ?Instructions ?Recorded ?Confirmed ?Type aspirin 81 mg tablet,delayed 81 mg PO DAILY 04/28/23 09/12/24 History release omeprazole 40 mg capsule,delayed 40 mg PO DAILY 90 days #90 caps 07/24/23 09/12/24 Rx release folic acid 1 mg tablet 1 mg PO DAILY 03/18/24 09/12/24 History rosuvastatin 20 mg tablet See Rx Instructions .Route 04/18/24 09/12/24 Rx .COMPLEX #90 tabs bisoprolol fumarate 10 mg tablet 10 mg PO DAILY #90 tabs 05/21/24 09/12/24 Rx irbesartan 300 1 tab PO DAILY #90 tabs 05/21/24 09/12/24 Rx mg-hydrochlorothiazide 12.5 mg tablet prasugrel HCl 10 mg tablet 10 mg PO DAILY #90 tabs 05/21/24 09/12/24 Rx (Effient) levothyroxine 50 mcg tablet 50 mcg PO ONCE 06/25/24 09/12/24 History sarilumab 200 mg/1.14 mL 200 mg SQ Q2W 06/25/24 09/12/24 History subcutaneous syringe (Kevzara) prednisone 5 mg tablet 5 mg PO DAILY 09/09/24 09/12/24 History New Prescriptions to Start Prescriptions: Allergies Allergy/AdvReac Type Severity Reaction Status Date / Time No Known Allergies Allergy Verified 09/09/24 13:11 Exam Data for Last 24 hours Vital signs and Labs for Last 24 Hours: Temp Pulse Resp BP Pulse Ox O2 Del Method 97.9 F 62 20 146/81 H 95 Room Air 09/12/24 21:57 09/12/24 23:05 09/12/24 23:05 09/12/24 23:05 09/12/24 23:05 09/12/24 23:05 Laboratory Results - last 24 hr 09/12/24 21:56: PT 10.6, INR 0.94, APTT 23.4, HCV Ab JANE w/Rflx PCR Qn Negative, HIV Ag/Ab Combo Qual Negative 09/12/24 21:59: WBC 12.8 H, RBC 3.71 L, Hgb 14.2, Hct 39.5 L, MCV 106.5 H, MCH 38.3 H, MCHC 35.9 H, RDW 12.7, Plt Count 129 L, MPV 10.1, Neut % (Auto) 87.2 H, Lymph % (Auto) 6.7 L, [place] % (Auto) 5.2, Eos % (Auto) 0.2, Baso % (Auto) 0.2, Neut # (Auto) 11.2 H, Lymph # (Auto) 0.9, [place] # (Auto) 0.7, Eos # (Auto) 0.0, Baso # (Auto) 0.0, VBG pH 7.34, VBG pCO2 43.9, VBG pO2 25.8 L, VBG HCO3 23.0, VBG Total CO2 24.3, VBG O2 Saturation 43.0 L, VBG Base Excess -2.8 L, VBG Lactic Acid 2.0, Sodium 137, Potassium 4.1, Chloride 103, Carbon Dioxide 28, Anion Gap 10.1, BUN 31 H, Creatinine 1.30 H, Estimated Creat Clear 68, Estimated GFR 55 L, Est GFR ( Amer) 66, Glucose 109 H, Calcium 9.7, Total Bilirubin 1.0, AST 52, ALT 66, Alkaline Phosphatase 65, Troponin I 0.02, Total Protein 7.6, Albumin 5.1 H, Globulin 2.5, Albumin/Globulin Ratio 2.0 H, Lipase 159 I & O for Last 24 hours: Intake & Output 09/09/24 09/10/24 09/11/24 09/12/24 23:59 23:59 23:59 23:59 Weight 200 lb Constitutional Constitutional: no acute distress *Routine HEENT Exam Head: Present normocephalic Eye: Present EOMI and PERRL ENT: Present mucous membranes moist *Routine Neck Exam Neck: Present supple; Absent lymphadenopathy *Routine Respiratory Exam Respiratory: Present CTA bilaterally *Routine Cardiovascular Exam Cardiovascular: Present RRR *Routine Abdominal Exam Abdominal: Present normoactive bowel sounds, tenderness (RLQ), distended and guarding *Routine Rectal Exam Rectal:: deferred *Routine Genitalia Exam Genitalia:: deferred *Routine Extremities Exam Extremities: Absent cyanosis, clubbing or edema *Routine Skin Exam Skin: Present warm; Absent rash *Routine Neurological Exam Neurological: Present alert and oriented X3 Assessment and Plan *Assessment and plan (1) Bowel perforation: Status: Acute Category: Medical Code(s): K63.1 - Perforation of intestine (nontraumatic) (2) Tubular adenoma of colon: Status: Acute Category: Medical Code(s): D12.6 - Benign neoplasm of colon, unspecified (3) CAD (coronary artery disease): Status: Chronic Qualifiers: Associated angina: without angina Coronary Disease-Associated Artery/Lesion type: [place] artery [place] vs. transplanted heart: [place] heart Qualified Code(s): I25.10 - Atherosclerotic heart disease of [place] coronary artery without angina pectoris Category: Medical Code(s): I25.10 - Atherosclerotic heart disease of [place] coronary artery without angina pectoris (4) Gastroesophageal reflux disease: Status: Chronic Qualifiers: Esophagitis presence: esophagitis presence not specified Qualified Code(s): K21.9 - Gastro-esophageal reflux disease without esophagitis Category: Medical Code(s): K21.9 - Gastro-esophageal reflux disease without esophagitis (5) HLD (hyperlipidemia): Status: Chronic Qualifiers: Hyperlipidemia type: mixed hyperlipidemia Qualified Code(s): E78.2 - Mixed hyperlipidemia Category: Medical Code(s): E78.5 - Hyperlipidemia, unspecified (6) HTN (hypertension): Status: Chronic Qualifiers: Hypertension type: essential hypertension Qualified Code(s): I10 - Essential (primary) hypertension Category: Medical Code(s): I10 - Essential (primary) hypertension Plan Patient to be admitted to [facility], surgery consuted by the ER physician. Spoke to Dr. Villegas, he is taking patient to the OR [facility].
--- NOTE | 2024-09-12 23:55 | P.HP_ITS ---
HPI HPI HPI: Patient is a 69-year-old male. I had seen him in the past for previous appendectomy. He had colonoscopy which I performed on 01/18/2016 at which time he had a periappendiceal tubular adenoma which required complex polypectomy as well as a tubular adenoma in the sigmoid colon. Colonoscopy performed on 05/26/2020 revealed a 10 mm tubular adenoma in the transverse colon and minuscule polyp unable to be retrieved as well as a distal rectal tubular adenoma. After his colonoscopy on 05/26/2020 I recommended follow-up colonoscopy in 2 to 3 years. He present for colonoscopy which was performed this morning on 09/12/2024. In the ascending colon just distal to the cecum there was a moderate adenomato us polyp removed with cold snare. However, most notable was a moderate sessile adenomatous polyp measuring up to about 10 mm which required removal with hot snare. Initially postprocedure patient was doing well. However later in the afternoon he began to develop right lower quadrant pain. This became progressively severe and he presented to the emergency department. He was found to have findings consistent with peritonitis on exam. He had a white blood cell count of 12,800. He underwent CT scan which revealed moderate peritoneal free air with suspected site in the anterior cecum where there was localized wall thickening. Surgical consultation was obtained. [facility] Disclaimer: The information contained in this section may have been updated after the patient was seen, as this information can be updated by other users. Medical History (Updated 09/12/24 @ 23:54 by Jr Guevara MD) Tubular adenoma of colon CAD (coronary artery disease) History of COVID-19 Hypothyroid Encounter for preoperative assessment Abnormal findings on diagnostic imaging of heart and coronary circulation Ascending aorta dilatation Renal artery stenosis Claudication Agatston coronary artery calcium score greater than 400 Raynaud disease Gastroesophageal reflux disease Elevated coronary artery calcium score Ex-smoker Carotid artery stenosis Abnormal EKG HLD (hyperlipidemia) HTN (hypertension) Surgical History Hx of knee surgery Hx of cardiac cath History of appendectomy Family History Heart disease Cancer Social History Smoking Status: Unknown if ever smoked alcohol intake: current alcohol intake frequency: 3 or more drinks per day substance use type: denies use current occupational status: employed Travel in the last 8 weeks?: None household members: spouse housing: house current occupational exposures/hazards: No caffeine: Yes Have you lived/traveled outside [place] in past 30 days?: No Contact w/someone who lives/traveled outside US past 30 days?: No Exposure to someone with infectious disease in past 14 days?: No Do you have a fever (greater than 100.4 F or 38 C)?: No Have you tested positive for COVID-19?: No Exposed to someone with COVID-19 in past 14 days?: No Do you have a sore throat?: No Do you have a cough?: No Do you have any weakness?: No Do you have any diarrhea?: No Are you experiencing any unusual bleeding?: No Do you have any muscle aches/pain?: No Do you have any abdominal pain?: No Are you experiencing loss of taste or smell?: No Other Medical History Have you received the Flu Vaccine for this season: No Have you received the Pneumonia Vaccine: No Review of Systems ENT Ears, Nose, Mouth, and Throat: Denies dizziness *Neurologic Neurologic: Denies dizziness Meds Home Medications and Allergies Home Medications ?Medication ?Instructions ?Recorded ?Confirmed ?Type aspirin 81 mg tablet,delayed 81 mg PO DAILY 04/28/23 09/12/24 History release omeprazole 40 mg capsule,delayed 40 mg PO DAILY 90 days #90 caps 07/24/23 09/12/24 Rx release folic acid 1 mg tablet 1 mg PO DAILY 03/18/24 09/12/24 History rosuvastatin 20 mg tablet See Rx Instructions .Route 04/18/24 09/12/24 Rx .COMPLEX #90 tabs bisoprolol fumarate 10 mg tablet 10 mg PO DAILY #90 tabs 05/21/24 09/12/24 Rx irbesartan 300 1 tab PO DAILY #90 tabs 05/21/24 09/12/24 Rx mg-hydrochlorothiazide 12.5 mg tablet prasugrel HCl 10 mg tablet 10 mg PO DAILY #90 tabs 05/21/24 09/12/24 Rx (Effient) levothyroxine 50 mcg tablet 50 mcg PO ONCE 06/25/24 09/12/24 History sarilumab 200 mg/1.14 mL 200 mg SQ Q2W 06/25/24 09/12/24 History subcutaneous syringe (Raheem) prednisone 5 mg tablet 5 mg PO DAILY 09/09/24 09/12/24 History New Prescriptions to Start Prescriptions: Allergies Allergy/AdvReac Type Severity Reaction Status Date / Time No Known Allergies Allergy Verified 09/09/24 13:11 Exam Data for Last 24 hours Vital signs and Labs for Last 24 Hours: Temp Pulse Resp BP Pulse Ox O2 Del Method 97.9 F 62 20 146/81 H 95 Room Air 09/12/24 21:57 09/12/24 23:05 09/12/24 23:05 09/12/24 23:05 09/12/24 23:05 09/12/24 23:05 Laboratory Results - last 24 hr 09/12/24 21:56: PT 10.6, INR 0.94, APTT 23.4, HCV Ab JANE w/Rflx PCR Qn Negative, HIV Ag/Ab Combo Qual Negative 09/12/24 21:59: WBC 12.8 H, RBC 3.71 L, Hgb 14.2, Hct 39.5 L, MCV 106.5 H, MCH 38.3 H, MCHC 35.9 H, RDW 12.7, Plt Count 129 L, MPV 10.1, Neut % (Auto) 87.2 H, Lymph % (Auto) 6.7 L, [place] % (Auto) 5.2, Eos % (Auto) 0.2, Baso % (Auto) 0.2, Neut # (Auto) 11.2 H, Lymph # (Auto) 0.9, [place] # (Auto) 0.7, Eos # (Auto) 0.0, Baso # (Auto) 0.0, VBG pH 7.34, VBG pCO2 43.9, VBG pO2 25.8 L, VBG HCO3 23.0, VBG Total CO2 24.3, VBG O2 Saturation 43.0 L, VBG Base Excess -2.8 L, VBG Lactic Acid 2.0, Sodium 137, Potassium 4.1, Chloride 103, Carbon Dioxide 28, Anion Gap 10.1, BUN 31 H, Creatinine 1.30 H, Estimated Creat Clear 68, Estimated GFR 55 L, Est GFR ( Amer) 66, Glucose 109 H, Calcium 9.7, Total Bilirubin 1.0, AST 52, ALT 66, Alkaline Phosphatase 65, Troponin I 0.02, Total Protein 7.6, Albumin 5.1 H, Globulin 2.5, Albumin/Globulin Ratio 2.0 H, Lipase 159 I & O for Last 24 hours: Intake & Output 09/10/24 09/11/24 09/12/24 09/13/24 11:59 11:59 11:59 11:59 Weight 200 lb Constitutional Constitutional: no acute distress *Routine HEENT Exam Head: Present normocephalic Eye: Present EOMI and PERRL ENT: Present mucous membranes moist *Routine Neck Exam Neck: Present supple; Absent lymphadenopathy *Routine Respiratory Exam Respiratory: Present CTA bilaterally *Routine Cardiovascular Exam Cardiovascular: Present RRR *Routine Abdominal Exam Abdominal: Present tenderness, distended, rebound, guarding, firm and rigid *Routine Rectal Exam Rectal:: deferred *Routine Genitalia Exam Genitalia:: deferred *Routine Extremities Exam Extremities: Absent cyanosis, clubbing or edema *Routine Skin Exam Skin: Present warm; Absent rash *Routine Neurological Exam Neurological: Present alert and oriented X3 Results Results Lab Results Last 24 Hours:: Laboratory Results - last 24 hr 09/12/24 21:56: PT 10.6, INR 0.94, APTT 23.4, HCV Ab JANE w/Rflx PCR Qn Negative, HIV Ag/Ab Combo Qual Negative 09/12/24 21:59: WBC 12.8 H, RBC 3.71 L, Hgb 14.2, Hct 39.5 L, MCV 106.5 H, MCH 38.3 H, MCHC 35.9 H, RDW 12.7, Plt Count 129 L, MPV 10.1, Neut % (Auto) 87.2 H, Lymph % (Auto) 6.7 L, [place] % (Auto) 5.2, Eos % (Auto) 0.2, Baso % (Auto) 0.2, Neut # (Auto) 11.2 H, Lymph # (Auto) 0.9, [place] # (Auto) 0.7, Eos # (Auto) 0.0, Baso # (Auto) 0.0, VBG pH 7.34, VBG pCO2 43.9, VBG pO2 25.8 L, VBG HCO3 23.0, VBG Total CO2 24.3, VBG O2 Saturation 43.0 L, VBG Base Excess -2.8 L, VBG Lactic Acid 2.0, Sodium 137, Potassium 4.1, Chloride 103, Carbon Dioxide 28, Anion Gap 10.1, BUN 31 H, Creatinine 1.30 H, Estimated Creat Clear 68, Estimated GFR 55 L, Est GFR ( Amer) 66, Glucose 109 H, Calcium 9.7, Total Bilirubin 1.0, AST 52, ALT 66, Alkaline Phosphatase 65, Troponin I 0.02, Total Protein 7.6, Albumin 5.1 H, Globulin 2.5, Albumin/Globulin Ratio 2.0 H, Lipase 159 Assessment and Plan *Assessment and plan (1) Bowel perforation: Status: Acute Category: Medical Code(s): K63.1 - Perforation of intestine (nontraumatic) Plan Plan is to proceed with emergent laparotomy with probable ileocecal resection. Nature and details of the proposed procedure along the associated risks and expected outcome were explained to the patient. He understands and agrees to proceed
[2024-09-13] VITALS (27 sets, daily range): BP systolic 130–163; BP diastolic 70–92; PULSE 63–108; RESP 14–24; TEMP 36.2–43; O2SAT 91–98; BMI 28.6
[2024-09-13 00:29] LABS: Microscopic, Urine URINE MICROSCOPIC (MICROSCOPIC)
[2024-09-13 00:30] LABS: Appearance,Urine CLEAR (Clear); Bilirubin,Urine Negative (Negative); Blood, Urine Negative (Negative); Color,Urine YELLOW (Yellow); Glucose,Urine (UA) Negative (Negative); Ketones,Urine Negative (Negative); Leukocyte Esterase,Urine Negative (Negative); Nitrate,Urine Negative (Negative); PH,Urine 5.5 (5.0-8.5); Protein,Urine Negative (Negative); Urobilinogen,Urine 0.2 EU/dl (0.2)
[2024-09-13 00:41] LABS: Bacteria,Urine Trace /lpf; Squamous Epithelial Cell,Urine Occasional #/hpf (0-5); WBC,Urine Occasional #/hpf (0-3)
--- NOTE | 2024-09-13 01:05 | P.PNANES_ITS ---
[facility] Disclaimer: The information contained in this section may have been updated after the patient was seen, as this information can be updated by other users. Medical History (Updated 09/12/24 @ 23:54 by Jr Guevara MD) Tubular adenoma of colon CAD (coronary artery disease) History of COVID-19 Hypothyroid Encounter for preoperative assessment Abnormal findings on diagnostic imaging of heart and coronary circulation Ascending aorta dilatation Renal artery stenosis Claudication Agatston coronary artery calcium score greater than 400 Raynaud disease Gastroesophageal reflux disease Elevated coronary artery calcium score Ex-smoker Carotid artery stenosis Abnormal EKG HLD (hyperlipidemia) HTN (hypertension) Surgical History Hx of knee surgery Hx of cardiac cath History of appendectomy Family History Other Cancer Heart disease Social History Smoking Status: Unknown if ever smoked alcohol intake: current alcohol intake frequency: 3 or more drinks per day substance use type: denies use current occupational status: employed Travel in the last 8 weeks?: None household members: spouse housing: house current occupational exposures/hazards: No caffeine: Yes Have you lived/traveled outside US in past 30 days?: No Contact w/someone who lives/traveled outside US past 30 days?: No Exposure to someone with infectious disease in past 14 days?: No Do you have a fever (greater than 100.4 F or 38 C)?: No Have you tested positive for COVID-19?: No Exposed to someone with COVID-19 in past 14 days?: No Do you have a sore throat?: No Do you have a cough?: No Do you have any weakness?: No Do you have any diarrhea?: No Are you experiencing any unusual bleeding?: No Do you have any muscle aches/pain?: No Do you have any abdominal pain?: No Are you experiencing loss of taste or smell?: No [facility] Anesthesia Checklist Patient Identification Patient Identification: Arm Band Structural Data Admitted From: Emergency Dept Planned Operative Procedure/s: Exploratory Laparotomy Consent for Planned Operative Procedure(s) Verified: Yes Verified Documents: Surgical Consent and History and Physical NPO Status Verified Time NPO: 18:30 (09/12/24) Additional verifications Anesthesia Reactions: No Hx Blood Transfusions: No Blood Transfusion Reaction: No Airway Assessment Mallampati Score:: Class II C-Spine Mobility Assessed: Yes TMJ Mobility Assessed: Yes Dentition: Edentulous Neurological Assessment Level of Consciousness: Awake, Alert and Appropriate Anesthesia Plan Anesthesia Risk discussed: Yes Anesthesia Plan: Verified ASA Class: III (E) Anesthesia Type: General
--- NOTE | 2024-09-13 03:50 | P.OP_ITS ---
Date of procedure: 09/13/24 Pre-op Diagnosis:: Peritonitis and free air Post-op Diagnosis:: Same Procedure performed:: Exploratory laparotomy, right hemicolectomy with ileocolic anastomosis Surgeon:: Luis Villegas MD Director Of Field Coordination(s):: Katty Muñoz DO Anesthesia: CAMERON Estimated blood loss (mL): 50 Clinical Note:: Patient is a 69-year-old male. I had seen him in the past for previous appendectomy. He had colonoscopy which I performed on 01/18/2016 at which time he had a periappendiceal tubular adenoma which required complex polypectomy as well as a tubular adenoma in the sigmoid colon. Colonoscopy performed on 05/26/2020 revealed a 10 mm tubular adenoma in the transverse colon and minuscule polyp unable to be retrieved as well as a distal rectal tubular adenoma. After his colonoscopy on 05/26/2020 I recommended follow-up colonoscopy in 2 to 3 years. He present for colonoscopy which was performed this morning on 09/12/2024. In the ascending colon just distal to the cecum there was a moderate adenomatous polyp removed with cold snare. However, most notable was a moderate sessile adenomatous polyp measuring up to about 10 mm which required removal with hot snare. Initially postprocedure patient was doing well. However later in the afternoon he began to develop right lower quadrant pain. This became progressively severe and he presented to the emergency department. He was found to have findings consistent with peritonitis on exam. He had a white blood cell count of 12,800. He underwent CT scan which revealed moderate peritoneal free air with suspected site in the anterior cecum where there was localized wall thickening. Surgical consultation was obtained. Patient was seen expeditiously in the emergency department. He was found to have findings consistent with peritonitis with firm rigid abdomen on exam. Arrangements were made for emergent laparotomy with probable ileocolic resection versus right colon resection. Operative findings:: There was evidence of a perforation in the ascending colon distal to the cecum anteriorly. There was minuscule if any significant intraperitoneal contamination. Operative note:: Consent was obtained patient was taken to the operating room. He was positioned in a supine position. General anesthesia was induced via endotracheal tube. Bustillo catheter was placed. Abdomen was prepped and draped in the standard surgical fashion. Limited midline incision was made. Dissection was carried out the subcutaneous tissues. Fascia was incised. Peritoneal cavity was entered. There was some air within the abdomen. Attempt was made to identify a site of perforation. However given his anatomy with: Deep in the retroperitoneum he ultimately required extension of the incision superiorly and inferiorly. After some dissection mobilizing the cecum by dividing the peritoneum laterally along the white line of [place] he was found to have anterior perforation in the ascending colon distal to the cecum. This did not result in any appreciable amount of intraperitoneal contamination fortunately. Exposure was achieved and it was determined that he would require essentially right colon resection. Further mobilization of the right colon was made by dividing the peritoneal attachments and elevating the peritoneum. The hepatic flexure was mobilized by dividing attachments with the Enseal device. Once right colon and ileum were mobilized the distal ascending colon just proximal to the hepatic flexure was divided with NILES 75 linear cutting stapling device. Terminal ileum was divided proximal to the ileocecal valve with NILES 75 stapling device. The colonic mesentery was then divided with the Enseal device. However ileocolic vessels were clamped divided and multiply ligated with 0 Surgilon ties. Colon was then passed off as a specimen. A [id number] ileocolic anastomosis was created with a NILES 75 stapling device. Common enterotomy was closed with a TX 60B stapling device. A couple of 3 oh Surgilon seromuscular sutures were placed at the staple line angle of sorrow. 3 oh Surgilon seromuscular suture was used to invert the confluence of staple lines. Anastomosis. Patent and staple line hemostatic. Limited mesenteric defect was closed with running 2-0 Vicryl. Thorough irrigation was carried out until clear. Enteric contents were returned to the normal anatomic position. There appeared to be good hemostasis. Fascia was closed with #2 Novafil and #2 Prolene. Skin was closed with kim. Clean dry sterile dressing was applied. . Condition: stable Disposition: PACU Complications:: None immediately apparent
--- NOTE | 2024-09-13 03:59 | P.PNANES_ITS ---
[facility] Anesthesia Record Part I Anesthesia Record I Intake, IV Amount: 1,500 Hydration: Adequate Estimated blood loss (mL): 0 Urine output (mL): 500 Blood Pressure: 150/88 SaO2: 93 Pulse Rate: 82 Airway Patency: Patent Respiratory Rate: 18 Temperature: 97.2 F Patient is:: Awake and Stable Stable to PACU at:: 03:45
[2024-09-13] MEDS: MORPHINE 2MG/ML SYRINGE 2 MG IV (04:10)
--- NOTE | 2024-09-13 04:29 | PC.NURSE ---
contacted and updated on patient condition and POC.
[2024-09-13] MEDS: HYDROMORPHONE 2MG/ML SYRINGE 0.5 MG IV ×5 (04:40→19:18)
[2024-09-13] MEDS: LACTATED RINGERS 1000ML 1,000 ML 125 ML IV ×3 (04:42→21:54)
[2024-09-13] MEDS: PIPERCILLIN/TAZO 3.375 GM in 0.9 % SODIUM CHLORIDE 50 ML IV ×4 (04:44→21:51)
--- NOTE | 2024-09-13 05:51 | PC.NURSE ---
pt arrived to floor from PACU via bed at 0422.
--- NOTE | 2024-09-13 06:35 | EXP.SURG.PN ---
Subjective Narrative: Patient resting comfortably after surgery with administration of 0.5 mg Dilaudid for pain relief. Making good urine. Nasogastric tube functioning. Exam Data for Last 24 hours Vital signs and Labs for Last 24 Hours: Temp Pulse Resp BP Pulse Ox O2 Del Method O2 Flow Rate 98.4 F 87 16 149/83 H 98 Nasal Cannula 2 09/13/24 06:00 09/13/24 06:00 09/13/24 06:00 09/13/24 06:00 09/13/24 06:00 09/13/24 06:00 09/13/24 06:00 Laboratory Results - last 24 hr 09/12/24 00:26: Urine Color Yellow, Urine Appearance Clear, Urine pH 5.5, Ur Specific Bimble 1.020, Urine Protein Negative, Urine Glucose (UA) Negative, Urine Ketones Negative, Urine Blood Negative, Urine Nitrate Negative, Urine Bilirubin Negative, Urine Urobilinogen 0.2, Ur Leukocyte Esterase Negative, Urine RBC None, Urine WBC Occasional, Ur Squamous Epith Cells Occasional, Urine Bacteria Trace 09/12/24 21:56: PT 10.6, INR 0.94, APTT 23.4, HCV Ab JANE w/Rflx PCR Qn Negative, HIV Ag/Ab Combo Qual Negative 09/12/24 21:59: WBC 12.8 H, RBC 3.71 L, Hgb 14.2, Hct 39.5 L, MCV 106.5 H, MCH 38.3 H, MCHC 35.9 H, RDW 12.7, Plt Count 129 L, MPV 10.1, Neut % (Auto) 87.2 H, Lymph % (Auto) 6.7 L, [place] % (Auto) 5.2, Eos % (Auto) 0.2, Baso % (Auto) 0.2, Neut # (Auto) 11.2 H, Lymph # (Auto) 0.9, [place] # (Auto) 0.7, Eos # (Auto) 0.0, Baso # (Auto) 0.0, VBG pH 7.34, VBG pCO2 43.9, VBG pO2 25.8 L, VBG HCO3 23.0, VBG Total CO2 24.3, VBG O2 Saturation 43.0 L, VBG Base Excess -2.8 L, VBG Lactic Acid 2.0, Sodium 137, Potassium 4.1, Chloride 103, Carbon Dioxide 28, Anion Gap 10.1, BUN 31 H, Creatinine 1.30 H, Estimated Creat Clear 68, Estimated GFR 55 L, Est GFR ( Amer) 66, Glucose 109 H, Calcium 9.7, Total Bilirubin 1.0, AST 52, ALT 66, Alkaline Phosphatase 65, Troponin I 0.02, Total Protein 7.6, Albumin 5.1 H, Globulin 2.5, Albumin/Globulin Ratio 2.0 H, Lipase 159 I & O for Last 24 hours: Intake & Output 09/10/24 09/11/24 09/12/24 09/13/24 11:59 11:59 11:59 11:59 Intake Total 1500 / 1500 Output Total 750 / 750 Balance 750 / 750 Weight 200 lb Constitutional Constitutional: no acute distress *Routine Abdominal Exam Comments: Dressing intact Progress Note: A&P Assessment and plan (1) Bowel perforation: Status: Acute Assessment and plan: Continue current care at this time. As his pain seems controlled with minimal Dilaudid I will discontinue morphine [employer] order and give intermittent Dilaudid. Continue Zosyn.
--- NOTE | 2024-09-13 06:52 | PC.NURSE ---
Weaned patient to room air, did well for some time, pt snoring and asleep, dropped to 88%, placed back on 1L NC.
--- NOTE | 2024-09-13 07:12 | XR_ITS ---
PROCEDURE INFORMATION: Exam: XR Abdomen Exam date and time: 09/13/2024 7:11 AM Age: 69 years old Clinical indication: Device placement; Gi device; Nasogastric tube; Prior surgery; Surgery date: Post-operative (0-2 days); Surgery type: Colonoscopy; Additional info: Ng placement TECHNIQUE: Imaging protocol: Radiologic exam of the abdomen. Views: Frontal supine view of the abdomen. 1 View. COMPARISON: CT ABDOMEN PELVIS W CON 09/12/2024 10:27 PM FINDINGS: Tubes, catheters and devices: An enteric feeding tube is present, with its tip located in the stomach in good position.. [place] in the midline consistent with recent surgery Gastrointestinal tract: A few loops of dilated bowel may represent obstruction or ileus. Bones/joints: Unremarkable. IMPRESSION: 1. An enteric feeding tube is present, with its tip located in the stomach in good position.. 2. A few loops of dilated bowel may represent obstruction or ileus.
[2024-09-13 07:48] LABS: Microscopic,Cath URINE MICROSCOPIC (MICROSCOPIC)
[2024-09-13 08:00] LABS: Appearance,Urine/Cath CLEAR (Clear); Bilirubin,Cath Negative (Negative); Blood, Urine/Cath Negative (Negative); Color,Urine/Cath YELLOW (Yellow); Glucose,Urine/Cath (UA) Negative (Negative); Ketones,Urine/Cath Negative (Negative); Leukocyte Esterase,Cath Negative (Negative); Nitrate,Cath Negative (Negative); Protein,Urine/Cath Negative (Negative); Urobilinogen,Cath 0.2 EU/dl (0.2)
--- NOTE | 2024-09-13 08:49 | P.PN_ITS ---
Subjective *Date: 09/13/24 *Time: 08:49 Interval history: Patient id a few hours post op. Operative note reviewed. Patient is sleeping quietly now. Nurses noted some drainage from his right eye. Medical Exam Vital signs and Labs for Last 24 Hours: Vital Signs Temp Pulse Pulse Resp BP BP Pulse Ox 09/13/24 08:00 99.3 F 92 H 16 150/79 H 98 09/13/24 07:51 97 09/13/24 07:30 93 H 18 158/81 H 96 09/13/24 07:00 98.4 F 95 H 19 160/92 H 97 09/13/24 06:51 09/13/24 06:30 98.2 F 94 H 19 147/83 H 91 L 09/13/24 06:00 98.4 F 87 16 149/83 H 98 09/13/24 05:30 98.4 F 87 15 158/82 H 98 09/13/24 05:15 98.4 F 87 14 141/78 H 97 09/13/24 05:00 97.8 F 95 H 15 136/82 97 09/13/24 05:00 09/13/24 04:45 97.5 F L 93 H 15 147/88 H 97 09/13/24 04:00 97.2 F L 82 18 150/88 H 09/13/24 00:37 98.9 F 63 14 130/70 09/13/24 00:05 63 133/70 94 L 09/12/24 23:35 61 135/69 94 L 09/12/24 23:30 09/12/24 23:05 62 146/81 H 95 09/12/24 23:05 62 20 146/81 H 95 09/12/24 22:05 63 173/92 H 98 09/12/24 21:57 97.9 F 65 20 161/91 H 97 O2 Del Method O2 Flow Rate 09/13/24 08:00 Room Air 09/13/24 07:51 Nasal Cannula 1 09/13/24 07:30 Nasal Cannula 1 09/13/24 07:00 Nasal Cannula 1 09/13/24 06:51 Nasal Cannula 1 09/13/24 06:30 Room Air 09/13/24 06:00 Nasal Cannula 2 09/13/24 05:30 Nasal Cannula 2 09/13/24 05:15 Nasal Cannula 2 09/13/24 05:00 Nasal Cannula 2 09/13/24 05:00 Nasal Cannula 2 09/13/24 04:45 Nasal Cannula 2 09/13/24 04:00 09/13/24 00:37 Room Air 09/13/24 00:05 09/12/24 23:35 09/12/24 23:30 Nasal Cannula 2 09/12/24 23:05 Room Air 09/12/24 23:05 Room Air 09/12/24 22:05 09/12/24 21:57 Room Air Intake and Output 09/12/24 09/13/24 09/13/24 23:59 07:59 15:59 Intake Total 1500 / 1500 Output Total 750 / 750 Balance 750 / 750 Intake: Intake, Total IV Amount 1500 / 1500 Output: Output, Urine Amount 750 / 750 Other: Number of Unmeasured Voids 0 Weight 200 lb 200 lb Patient Weight 09/13/24 23:59 Weight 200 lb Laboratory Results - last 24 hr 09/12/24 00:26: Urine Color Yellow, Urine Appearance Clear, Urine pH 5.5, Ur Specific [place] 1.020, Urine Protein Negative, Urine Glucose (UA) Negative, Urine Ketones Negative, Urine Blood Negative, Urine Nitrate Negative, Urine Bilirubin Negative, Urine Urobilinogen 0.2, Ur Leukocyte Esterase Negative, Urine RBC None, Urine WBC Occasional, Ur Squamous Epith Cells Occasional, Urine Bacteria Trace 09/12/24 21:56: PT 10.6, INR 0.94, APTT 23.4, HCV Ab JANE w/Rflx PCR Qn Negative, HIV Ag/Ab Combo Qual Negative 09/12/24 21:59: WBC 12.8 H, RBC 3.71 L, Hgb 14.2, Hct 39.5 L, MCV 106.5 H, MCH 38.3 H, MCHC 35.9 H, RDW 12.7, Plt Count 129 L, MPV 10.1, Neut % (Auto) 87.2 H, Lymph % (Auto) 6.7 L, [place] % (Auto) 5.2, Eos % (Auto) 0.2, Baso % (Auto) 0.2, Neut # (Auto) 11.2 H, Lymph # (Auto) 0.9, [place] # (Auto) 0.7, Eos # (Auto) 0.0, Baso # (Auto) 0.0, VBG pH 7.34, VBG pCO2 43.9, VBG pO2 25.8 L, VBG HCO3 23.0, V BG Total CO2 24.3, VBG O2 Saturation 43.0 L, VBG Base Excess -2.8 L, VBG Lactic Acid 2.0, Sodium 137, Potassium 4.1, Chloride 103, Carbon Dioxide 28, Anion Gap 10.1, BUN 31 H, Creatinine 1.30 H, Estimated Creat Clear 68, Estimated GFR 55 L, Est GFR ( Amer) 66, Glucose 109 H, Calcium 9.7, Total Bilirubin 1.0, AST 52, ALT 66, Alkaline Phosphatase 65, Troponin I 0.02, Total Protein 7.6, Albumin 5.1 H, Globulin 2.5, Albumin/Globulin Ratio 2.0 H, Lipase 159 09/13/24 00:50: Urine Color Yellow, Urine Appearance Clear, Urine pH 6.0, Ur Specific [place] 1.020, Urine Protein Negative, Urine Glucose (UA) Negative, Urine Ketones Negative, Urine Blood Negative, Urine Nitrate Negative, Urine Bilirubin Negative, Urine Urobilinogen 0.2, Ur Leukocyte Esterase Negative I & O for Labs for Last 24 Hours: Intake & Output 09/10/24 09/11/24 09/12/24 09/13/24 23:59 23:59 23:59 23:59 Intake Total 1500 / 1500 Output Total 750 / 750 Balance 750 / 750 Weight 200 lb 200 lb Constitutional: Present no acute distress (sleeping) Respiratory: Present CTA bilaterally Cardiac: Present Reg Rate and Rhythm Assessment and Plan *Assessment and plan (1) Bowel perforation: Status: Acute Category: Medical Code(s): K63.1 - Perforation of intestine (nontraumatic) (2) Tubular adenoma of colon: Status: Acute Category: Medical Code(s): D12.6 - Benign neoplasm of colon, unspecified (3) CAD (coronary artery disease): Status: Chronic Qualifiers: Coronary Disease-Associated Artery/Lesion type: [place] artery [place] vs. transplanted heart: [place] heart Associated angina: without angina Qualified Code(s): I25.10 - Atherosclerotic heart disease of [place] coronary artery without angina pectoris Category: Medical Code(s): I25.10 - Atherosclerotic heart disease of [place] coronary artery without angina pectoris (4) Gastroesophageal reflux disease: Status: Chronic Qualifiers: Esophagitis presence: esophagitis presence not specified Qualified Code(s): K21.9 - Gastro-esophageal reflux disease without esophagitis Category: Medical Code(s): K21.9 - Gastro-esophageal reflux disease without esophagitis (5) HLD (hyperlipidemia): Status: Chronic Qualifiers: Hyperlipidemia type: mixed hyperlipidemia Qualified Code(s): E78.2 - Mixed hyperlipidemia Category: Medical Code(s): E78.5 - Hyperlipidemia, unspecified (6) HTN (hypertension): Status: Chronic Qualifiers: Hypertension type: essential hypertension Qualified Code(s): I10 - Essential (primary) hypertension Category: Medical Code(s): I10 - Essential (primary) hypertension Plan Continue routine post op care, add Naphcon-A drops for eye irritation. Check labs tomorrow morning.
[2024-09-13] MEDS: PHENIRAMINE OP (09:13)
[2024-09-13] MEDS: NAPHAZOLINE OP (09:13)
[2024-09-13 09:17] LABS: RBC,Urine/Cath Occasional # /hpf (0-3); WBC,Urine/Cath Occasional #/hpf (0-3)
[2024-09-13 09:18] LABS: Bacteria,Urine/Cath TRACE /lpf
[2024-09-13 09:20] LABS: Uric Acid Crystals,Ur/Cath 1+ /lpf
--- NOTE | 2024-09-13 14:03 | EXP.SURG.PN ---
Subjective Narrative: Patient has had some sharp colicky abdominal pain. Somewhat relieved with Dilaudid. Has the sensation of the need to void. Nursing reports catheter functional and patent. Exam Data for Last 24 hours Vital signs and Labs for Last 24 Hours: Temp Pulse Resp BP Pulse Ox O2 Del Method O2 Flow Rate 99.0 F 87 18 145/86 H 98 Nasal Cannula 1 09/13/24 12:00 09/13/24 12:00 09/13/24 12:00 09/13/24 12:00 09/13/24 12:00 09/13/24 13:00 09/13/24 13:00 Laboratory Results - last 24 hr 09/12/24 00:26: Urine Color Yellow, Urine Appearance Clear, Urine pH 5.5, Ur Specific [place] 1.020, Urine Protein Negative, Urine Glucose (UA) Negative, Urine Ketones Negative, Urine Blood Negative, Urine Nitrate Negative, Urine Bilirubin Negative, Urine Urobilinogen 0.2, Ur Leukocyte Esterase Negative, Urine RBC None, Urine WBC Occasional, Ur Squamous Epith Cells Occasional, Urine Bacteria Trace 09/12/24 21:56: PT 10.6, INR 0.94, APTT 23.4, HCV Ab JANE w/Rflx PCR Qn Negative, HIV Ag/Ab Combo Qual Negative 09/12/24 21:59: WBC 12.8 H, RBC 3.71 L, Hgb 14.2, Hct 39.5 L, MCV 106.5 H, MCH 38.3 H, MCHC 35.9 H, RDW 12.7, Plt Count 129 L, MPV 10.1, Neut % (Auto) 87.2 H, Lymph % (Auto) 6.7 L, [place] % (Auto) 5.2, Eos % (Auto) 0.2, Baso % (Auto) 0.2, Neut # (Auto) 11.2 H, Lymph # (Auto) 0.9, [place] # (Auto) 0.7, Eos # (Auto) 0.0, Baso # (Auto) 0.0, VBG pH 7.34, VBG pCO2 43.9, VBG pO2 25.8 L, VBG HCO3 23.0, VBG Total CO2 24.3, VBG O2 Saturation 43.0 L, VBG Base Excess -2.8 L, VBG Lactic Acid 2.0, Sodium 137, Potassium 4.1, Chloride 103, Carbon Dioxide 28, Anion Gap 10.1, BUN 31 H, Creatinine 1.30 H, Estimated Creat Clear 68, Estimated GFR 55 L, Est GFR ( Amer) 66, Glucose 109 H, Calcium 9.7, Total Bilirubin 1.0, AST 52, ALT 66, Alkaline Phosphatase 65, Troponin I 0.02, Total Protein 7.6, Albumin 5.1 H, Globulin 2.5, Albumin/Globulin Ratio 2.0 H, Lipase 159 09/13/24 00:50: Urine Color Yellow, Urine Appearance Clear, Urine pH 6.0, Ur Specific [place] 1.020, Urine Protein Negative, Urine Glucose (UA) Negative, Urine Ketones Negative, Urine Blood Negative, Urine Nitrate Negative, Urine Bilirubin Negative, Urine Urobilinogen 0.2, Ur Leukocyte Esterase Negative, Urine RBC Occasional, Urine WBC Occasional, Ur Squamous Epith Cells None, Uric Acid Crystals 1+, Urine Bacteria Trace I & O for Last 24 hours: Intake & Output 09/11/24 09/12/24 09/13/24 09/14/24 11:59 11:59 11:59 11:59 Intake Total 2231 / 2231 Output Total 1150 / 1150 Balance 1081 / 1081 Weight 200 lb *Routine Abdominal Exam Abdominal: Present distended Comments: Dressing intact Progress Note: A&P Assessment and plan (1) Bowel perforation: Status: Acute Assessment and plan: Continue current care at this time. (2) Tubular adenoma of colon: Status: Acute (3) CAD (coronary artery disease): Status: Chronic (4) Gastroesophageal reflux disease: Status: Chronic (5) HLD (hyperlipidemia): Status: Chronic (6) HTN (hypertension): Status: Chronic
[2024-09-13 14:22] LABS: Basophils % 0.2 % (0.1-2.0); Hematocrit 35.7 % (42.0-52.0); Immature Granulocytes # 0.08 10^3uL; Immature Granulocytes % 0.7 %; Lymphocytes # 0.5 K/mm3 (0.7-4.5); Lymphocytes % 3.9 % (10-50); Mean Corpuscular Hemoglobin 37.8 pg (27.0-31.2); Mean Corpuscular Volume 107.9 fl (80-94); Mean Platelet Volume 9.9 fl (7.4-10.4); Monocytes # 0.5 K/mm3 (0.1-1.0); Monocytes % 4.3 % (1.7-9.3); Neutrophils # 10.9 K/mm3 (1.8-7.8); Neutrophils % 90.9 % (37.0-80.0); Nucleated Red Blood Cells # 0 10^3/uL; Nucleated Red Blood Cells % 0 %; Platelet Count 131 K/mm3 (142-424); Red Blood Count 3.31 M/mm3 (4.60-6.20); Red Cell Distribution Width 13.2 % (11.5-17.5); Red Cell Distribution Width-SD 52.5 fL
[2024-09-13 14:24] LABS: MANUAL DIFFERENTIAL MANUAL DIFFERENTIAL (MANUAL DIFF)
[2024-09-13 14:34] LABS: Chloride 106 mmol/L (98-107); Potassium 4.4 mmoL/L (3.5-5.1); Sodium 135 mmol/L (136-145)
[2024-09-13 14:37] LABS: Anion Gap 8.4 mEq/L (5-15); Blood Urea Nitrogen 16 mg/dl (9-20); Calcium 8.5 mg/dl (8.4-10.2); Carbon Dioxide 25 mmol/L (22.0-30.0); Creatinine Clearance Estimated 88 mL/min (50-200); Estimated Glomerular Filt Rate 74 ml/min (>60); GFR (African American) 89 ML/MIN (>60); Glucose 159 mg/dl (74-100)
[2024-09-13 14:58] LABS: Macrocytosis 1+; Platelet Estimate Normal; RBC Morphology Normal; Total Cells Counted 100
[2024-09-13 14:59] LABS: Band Neutrophils % 3 (0-8); Lymphocytes % 8 % (10-50); Monocytes % 4 % (2-9); Neutrophils % 85 % (42-76)
[2024-09-13 15:14] LABS: Hemoglobin 12.4 g/dL (14.1-18.0)
--- NOTE | 2024-09-13 18:09 | PC.NURSE ---
PT HAS DONE FAIR THIS SHIFT. MEDICATED PER JUL FOR PAIN. DID HAVE ONE EPISODE OF SHARP STABBING PAIN IN LOWER ABDOMEN. BOTH MD'S INVOLVED IN PT CARE WERE CONTACTED AND ORDERS WERE CARRIED OUT. NG TUBE REMANS IN PLACE TO THE RIGHT NARE AT 62. ASCENCIO REMAINS IN PLACE. URINE IS DARKER THIS EVENING THAN THIS AM. ABD DRESSING REMAINS IN PLACE WITH NO NEW DRAINAGE FROM THIS AM.
--- NOTE | 2024-09-13 21:40 | P.PN_ITS ---
Subjective *Date: 09/13/24 *Time: 21:40 Interval history: Patient had some episodes of increased abd pain earlier today that improved with Dilaudid. He states the pain medication only lasts about 2 hours. Labs were ordered. Medical Exam Vital signs and Labs for Last 24 Hours: Vital Signs Temp Pulse Pulse Resp BP BP Pulse Ox 09/13/24 20:00 98.7 F 09/13/24 20:00 09/13/24 20:00 106 H 24 144/89 H 97 09/13/24 18:38 09/13/24 18:22 09/13/24 18:00 97 H 17 140/79 97 09/13/24 17:00 09/13/24 16:00 90 09/13/24 16:00 98.6 F 91 H 19 150/86 H 97 09/13/24 15:00 09/13/24 14:02 93 H 16 142/86 H 96 09/13/24 14:00 97 H 18 142/86 H 97 09/13/24 14:00 09/13/24 13:00 09/13/24 12:00 90 09/13/24 12:00 99.0 F 87 18 145/86 H 98 09/13/24 11:00 09/13/24 10:00 93 H 18 159/90 H 96 09/13/24 09:00 09/13/24 08:00 90 09/13/24 08:00 99.3 F 92 H 16 150/79 H 98 09/13/24 07:51 97 09/13/24 07:30 93 H 18 158/81 H 96 09/13/24 07:00 98.4 F 95 H 19 160/92 H 97 09/13/24 06:51 09/13/24 06:30 98.2 F 94 H 19 147/83 H 91 L 09/13/24 06:00 98.4 F 87 16 149/83 H 98 09/13/24 05:30 98.4 F 87 15 158/82 H 98 09/13/24 05:15 98.4 F 87 14 141/78 H 97 09/13/24 05:00 97.8 F 95 H 15 136/82 97 09/13/24 05:00 09/13/24 04:45 97.5 F L 93 H 15 147/88 H 97 09/13/24 04:29 80 09/13/24 04:00 97.2 F L 82 18 150/88 H 09/13/24 00:37 98.9 F 63 14 130/70 09/13/24 00:05 63 133/70 94 L 09/12/24 23:35 61 135/69 94 L 09/12/24 23:30 09/12/24 23:05 62 146/81 H 95 09/12/24 23:05 62 20 146/81 H 95 09/12/24 22:05 63 173/92 H 98 09/12/24 21:57 97.9 F 65 20 161/91 H 97 O2 Del Method O2 Flow Rate 09/13/24 20:00 09/13/24 20:00 Nasal Cannula 1 09/13/24 20:00 Nasal Cannula 1 09/13/24 18:38 Nasal Cannula 1 09/13/24 18:22 Nasal Cannula 1 09/13/24 18:00 Nasal Cannula 1 09/13/24 17:00 Nasal Cannula 1 09/13/24 16:00 09/13/24 16:00 Nasal Cannula 1 09/13/24 15:00 Nasal Cannula 1 09/13/24 14:02 Nasal Cannula 1 09/13/24 14:00 Nasal Cannula 1 09/13/24 14:00 Nasal Cannula 1 09/13/24 13:00 Nasal Cannula 1 09/13/24 12:00 09/13/24 12:00 Nasal Cannula 1 09/13/24 11:00 Nasal Cannula 1 09/13/24 10:00 Room Air 09/13/24 09:00 Nasal Cannula 1 09/13/24 08:00 09/13/24 08:00 Room Air 09/13/24 07:51 Nasal Cannula 1 09/13/24 07:30 Nasal Cannula 1 09/13/24 07:00 Nasal Cannula 1 09/13/24 06:51 Nasal Cannula 1 09/13/24 06:30 Room Air 09/13/24 06:00 Nasal Cannula 2 09/13/24 05:30 Nasal Cannula 2 09/13/24 05:15 Nasal Cannula 2 09/13/24 05:00 Nasal Cannula 2 09/13/24 05:00 Nasal Cannula 2 09/13/24 04:45 Nasal Cannula 2 09/13/24 04:29 09/13/24 04:00 09/13/24 00:37 Room Air 09/13/24 00:05 09/12/24 23:35 09/12/24 23:30 Nasal Cannula 2 09/12/24 23:05 Room Air 09/12/24 23:05 Room Air 09/12/24 22:05 09/12/24 21:57 Room Air Intake and Output 09/13/24 09/13/24 09/13/24 07:59 15:59 23:59 Intake Total 1500 / 3016 731 / 3016 785 / 3016 Output Total 750 / 1900 400 / 1900 750 / 1900 Balance 750 / 1116 331 / 1116 35 / 1116 Intake: Intake, Total IV Amount 1500 / 3016 731 / 3016 785 / 3016 Lactated Ringers 1000ML 1,000 684 / 1419 735 / 1419 ml @ 125 mls/hr IV .Q8H IRMA Rx# :[id number] Pipercillin/Tazo 3.375 gm In 0. 47 / 97 50 / 97 9 % Sodium Chloride 50 ml @ 100 mls/hr IV Q6H IRMA Rx#:[id number] Output: Output, Urine Amount 750 / 1900 400 / 1900 750 / 1900 Other: Number of Unmeasured Voids 0 0 Weight 200 lb Patient Weight 09/13/24 23:59 Weight 200 lb Laboratory Results - last 24 hr 09/12/24 00:26: Urine Color Yellow, Urine Appearance Clear, Urine pH 5.5, Ur Specific [place] 1.020, Urine Protein Negative, Urine Glucose (UA) Negative, Urine Ketones Negative, Urine Blood Negative, Urine Nitrate Negative, Urine Bilirubin Negative, Urine Urobilinogen 0.2, Ur Leukocyte Esterase Negative, Urine RBC None, Urine WBC Occasional, Ur Squamous Epith Cells Occasional, Urine Bacteria Trace 09/12/24 21:56: PT 10.6, INR 0.94, APTT 23.4, HCV Ab JANE w/Rflx PCR Qn Negative, HIV Ag/Ab Combo Qual Negative 09/12/24 21:59: WBC 12.8 H, RBC 3.71 L, Hgb 14.2, Hct 39.5 L, MCV 106.5 H, MCH 38.3 H, MCHC 35.9 H, RDW 12.7, Plt Count 129 L, MPV 10.1, Neut % (Auto) 87.2 H, Lymph % (Auto) 6.7 L, [place] % (Auto) 5.2, Eos % (Auto) 0.2, Baso % (Auto) 0.2, Neut # (Auto) 11.2 H, Lymph # (Auto) 0.9, [place] # (Auto) 0.7, Eos # (Auto) 0.0, Baso # (Auto) 0.0, VBG pH 7.34, VBG pCO2 43.9, VBG pO2 25.8 L, VBG HCO3 23.0, VBG Total CO2 24.3, VBG O2 Saturation 43.0 L, VBG Base Excess -2.8 L, VBG Lactic Acid 2.0, Sodium 137, Potassium 4.1, Chloride 103, Carbon Dioxide 28, Anion Gap 10.1, BUN 31 H, Creatinine 1.30 H, Estimated Creat Clear 68, Estimated GFR 55 L, Est GFR ( Amer) 66, Glucose 109 H, Calcium 9.7, Total Bilirubin 1.0, AST 52, ALT 66, Alkaline Phosphatase 65, Troponin I 0.02, Total Protein 7.6, Albumin 5.1 H, Globulin 2.5, Albumin/Globulin Ratio 2.0 H, Lipase 159 09/13/24 00:50: Urine Color Yellow, Urine Appearance Clear, Urine pH 6.0, Ur Specific [place] 1.020, Urine Protein Negative, Urine Glucose (UA) Negative, Urine Ketones Negative, Urine Blood Negative, Urine Nitrate Negative, Urine Bilirubin Negative, Urine Urobilinogen 0.2, Ur Leukocyte Esterase Negative, Urine RBC Occasional, Urine WBC Occasional, Ur Squamous Epith Cells None, Uric Acid Crystals 1+, Urine Bacteria Trace 09/13/24 14:10: WBC 12.0 H, RBC 3.31 L, Hgb 12.4 L D, Hct 35.7 L, MCV 107.9 H, MCH 37.8 H, MCHC 35.0, RDW 13.2, Plt Count 131 L, MPV 9.9, Neut % (Auto) 90.9 H, Lymph % (Auto) 3.9 L, [place] % (Auto) 4.3, Eos % (Auto) 0.0 L, Baso % (Auto) 0.2, Neut # (Auto) 10.9 H, Lymph # (Auto) 0.5 L, [place] # (Auto) 0.5, Eos # (Auto) 0.0, Baso # (Auto) 0.0, Total Counted 100, Neutrophils % (Manual) 85 H, Band Neutrophils % 3, Lymphocytes % (Manual) 8 L, Monocytes % (Manual) 4, Platelet Estimate Normal, RBC Morphology Normal, Macrocytosis 1+, Sodium 135 L, Potassium 4.4, Chloride 106, Carbon Dioxide 25, Anion Gap 8.4, BUN 16 D, Creatinine 1.00 D, Estimated Creat Clear 88, Estimated GFR 74, Est GFR ( Amer) 89 D, Glucose 159 H D, Calcium 8.5 I & O for Labs for Last 24 Hours: Intake & Output 09/10/24 09/11/24 09/12/24 09/13/24 23:59 23:59 23:59 23:59 Intake Total 3016 / 3016 Output Total 1900 / 1900 Balance 1116 / 1116 Weight 200 lb 200 lb Constitutional: Present no acute distress Comment:: NG tube in place Assessment and Plan *Assessment and plan (1) Bowel perforation: Status: Acute Category: Medical Code(s): K63.1 - Perforation of intestine (nontraumatic) (2) Tubular adenoma of colon: Status: Acute Category: Medical Code(s): D12.6 - Benign neoplasm of colon, unspecified (3) CAD (coronary artery disease): Status: Chronic Qualifiers: Coronary Disease-Associated Artery/Lesion type: [place] artery [place] vs. transplanted heart: [place] heart Associated angina: without angina Qualified Code(s): I25.10 - Atherosclerotic heart disease of [place] coronary artery without angina pectoris Category: Medical Code(s): I25.10 - Atherosclerotic heart disease of [place] coronary artery without angina pectoris (4) Gastroesophageal reflux disease: Status: Chronic Qualifiers: Esophagitis presence: esophagitis presence not specified Qualified Code(s): K21.9 - Gastro-esophageal reflux disease without esophagitis Category: Medical Code(s): K21.9 - Gastro-esophageal reflux disease without esophagitis (5) HLD (hyperlipidemia): Status: Chronic Qualifiers: Hyperlipidemia type: mixed hyperlipidemia Qualified Code(s): E78.2 - Mixed hyperlipidemia Category: Medical Code(s): E78.5 - Hyperlipidemia, unspecified (6) HTN (hypertension): Status: Chronic Qualifiers: Hypertension type: essential hypertension Qualified Code(s): I10 - Essential (primary) hypertension Category: Medical Code(s): I10 - Essential (primary) hypertension Plan Plan to increase Diluadid dose to 1 mg IV Q4H as needed.
[2024-09-13] MEDS: HYDROMORPHONE 2MG/ML SYRINGE 1 MG IV (21:50)
[2024-09-14] VITALS (18 sets, daily range): BP systolic 114–164; BP diastolic 63–89; PULSE 80–107; RESP 15–22; TEMP 36.8–37.3; O2SAT 91–98; BMI 295546.9
[2024-09-14] MEDS: HYDROMORPHONE 2MG/ML SYRINGE 1 MG IV ×5 (02:04→20:01)
[2024-09-14] MEDS: PIPERCILLIN/TAZO 3.375 GM in 0.9 % SODIUM CHLORIDE 50 ML IV ×4 (04:55→21:05)
[2024-09-14] MEDS: LACTATED RINGERS 1000ML 1,000 ML 125 ML IV ×3 (04:56→23:06)
[2024-09-14 08:06] LABS: Basophils % 0.3 % (0.1-2.0); Eosinophils % 0.2 % (0.1-12.0); Hematocrit 29.4 % (42.0-52.0); Immature Granulocytes # 0.05 10^3uL; Immature Granulocytes % 0.6 %; Lymphocytes # 0.7 K/mm3 (0.7-4.5); Lymphocytes % 8.2 % (10-50); Mean Corpuscular HGB Conc 34.7 g/dL (31.8-35.4); Mean Corpuscular Hemoglobin 37.6 pg (27.0-31.2); Mean Corpuscular Volume 108.5 fl (80-94); Mean Platelet Volume 10.8 fl (7.4-10.4); Monocytes # 0.6 K/mm3 (0.1-1.0); Monocytes % 7.2 % (1.7-9.3); Neutrophils # 7.5 K/mm3 (1.8-7.8); Neutrophils % 83.5 % (37.0-80.0); Nucleated Red Blood Cells # 0.02 10^3/uL; Nucleated Red Blood Cells % 0.2 %; Platelet Count 133 K/mm3 (142-424); Red Blood Count 2.71 M/mm3 (4.60-6.20); Red Cell Distribution Width 13.2 % (11.5-17.5); Red Cell Distribution Width-SD 52.6 fL; White Blood Count 8.9 K/mm3 (4.8-10.8)
[2024-09-14 08:22] LABS: Hemoglobin 10.3 g/dL (14.1-18.0)
[2024-09-14 08:30] LABS: Chloride 106 mmol/L (98-107); Sodium 137 mmol/L (136-145)
--- NOTE | 2024-09-14 08:30 | PC.NURSE ---
Addendum entered by Nay Weston RN 09/14/24 08:37: Pt educated on use of pillow for splinting when coughing or w/ movement. Verbalized understanding. Original Note: Reviewed IS use w/ pt and educated on importance of hourly use while awake. @ bedside during this. Pt demonstrated appropriate use. IS max = 750. Will continue to educate and encourage.
[2024-09-14 08:31] LABS: Potassium 3.9 mmoL/L (3.5-5.1)
[2024-09-14 08:34] LABS: Anion Gap 6.9 mEq/L (5-15); Blood Urea Nitrogen 15 mg/dl (9-20); Calcium 8.2 mg/dl (8.4-10.2); Carbon Dioxide 28 mmol/L (22.0-30.0); Creatinine Clearance Estimated 83 mL/min (50-200); Estimated Glomerular Filt Rate 66 ml/min (>60); GFR (African American) 80 ML/MIN (>60); Glucose 151 mg/dl (74-100)
--- NOTE | 2024-09-14 09:32 | EXP.ACUTE.PN ---
Subjective *Date: 09/14/24 *Time: 09:32 Interval history: Patient feels a little better this morning. No new complaints. Medical Exam Vital signs and Labs for Last 24 Hours: Vital Signs Temp Pulse Pulse Resp BP Pulse Ox O2 Del Method 09/14/24 08:00 94 L Room Air 09/14/24 08:00 95 H 17 158/88 H 97 Nasal Cannula 09/14/24 06:00 101 H 18 164/84 H 96 Nasal Cannula 09/14/24 04:00 104 H 09/14/24 04:00 98.5 F 102 H 21 159/88 H 97 Nasal Cannula 09/14/24 02:00 100 H 18 159/89 H 98 Room Air 09/14/24 00:15 97 H 09/14/24 00:00 98.5 F 09/14/24 00:00 95 H 18 145/86 H 96 Nasal Cannula 09/13/24 22:00 103 H 19 139/81 96 Nasal Cannula 09/13/24 20:00 108 H 09/13/24 20:00 98.7 F 09/13/24 20:00 Nasal Cannula 09/13/24 20:00 106 H 24 144/89 H 97 Nasal Cannula 09/13/24 18:38 Nasal Cannula 09/13/24 18:22 Nasal Cannula 09/13/24 18:00 97 H 17 140/79 97 Nasal Cannula 09/13/24 17:00 Nasal Cannula 09/13/24 16:00 90 09/13/24 16:00 98.6 F 91 H 19 150/86 H 97 Nasal Cannula 09/13/24 15:00 Nasal Cannula 09/13/24 14:02 93 H 16 142/86 H 96 Nasal Cannula 09/13/24 14:00 97 H 18 142/86 H 97 Nasal Cannula 09/13/24 14:00 Nasal Cannula 09/13/24 13:00 Nasal Cannula 09/13/24 12:00 90 09/13/24 12:00 99.0 F 87 18 145/86 H 98 Nasal Cannula 09/13/24 11:00 Nasal Cannula 09/13/24 10:00 93 H 18 159/90 H 96 Room Air O2 Flow Rate 09/14/24 08:00 09/14/24 08:00 1 09/14/24 06:00 1 09/14/24 04:00 09/14/24 04:00 1 09/14/24 02:00 09/14/24 00:15 09/14/24 00:00 09/14/24 00:00 1 09/13/24 22:00 1 09/13/24 20:00 09/13/24 20:00 09/13/24 20:00 1 09/13/24 20:00 09/13/24 18:38 1 09/13/24 18:22 1 09/13/24 18:00 09/13/24 17:00 1 09/13/24 16:00 09/13/24 16:00 1 09/13/24 15:00 09/13/24 14:02 1 09/13/24 14:00 09/13/24 14:00 09/13/24 13:00 1 09/13/24 12:00 09/13/24 12:00 1 09/13/24 11:00 1 09/13/24 10:00 Intake and Output 09/13/24 09/14/24 09/14/24 23:59 07:59 15:59 Intake Total 785 / 3016 1541 / 1541 Output Total 750 / 2150 1020 / 1020 Balance 35 / 866 521 / 521 Intake: Intake, Oral Amount 0 / 0 Intake, Total IV Amount 785 / 1516 1541 / 1541 Lactated Ringers 1000ML 1,000 735 / 1419 1441 / 1441 ml @ 125 mls/hr IV .Q8H [facility] Rx# :[id number] Pipercillin/Tazo 3.375 gm In 0. 50 / 97 100 / 100 9 % Sodium Chloride 50 ml @ 100 mls/hr IV Q6H IRMA Rx#:[id number] Output: Output, Urine Amount 750 / 2150 850 / 850 Output, Gastric Drainage Amount 170 / 170 Right Nare 170 / 170 Other: Number of Unmeasured Voids 0 0 0 Weight 206 lb Patient Weight 09/14/24 23:59 Weight 206 lb Laboratory Results - last 24 hr 09/13/24 14:10: WBC 12.0 H, RBC 3.31 L, Hgb 12.4 L D, Hct 35.7 L, MCV 107.9 H, MCH 37.8 H, MCHC 35.0, RDW 13.2, Plt Count 131 L, MPV 9.9, Neut % (Auto) 90.9 H, Lymph % (Auto) 3.9 L, [place] % (Auto) 4.3, Eos % (Auto) 0.0 L, Baso % (Auto) 0.2, Neut # (Auto) 10.9 H, Lymph # (Auto) 0.5 L, [place] # (Auto) 0.5, Eos # (Auto) 0.0, Baso # (Auto) 0.0, Total Counted 100, Neutrophils % (Manual) 85 H, Band Neutrophils % 3, Lymphocytes % (Manual) 8 L, Monocytes % (Manual) 4, Platelet Estimate Normal, RBC Morphology Normal, Macrocytosis 1+, Sodium 135 L, Potassium 4.4, Chloride 106, Carbon Dioxide 25, Anion Gap 8.4, BUN 16 D, Creatinine 1.00 D, Estimated Creat Clear 88, Estimated GFR 74, Est GFR ( Amer) 89 D, Glucose 159 H D, Calcium 8.5 09/14/24 06:20: WBC 8.9 D, RBC 2.71 L, Hgb 10.3 L D, Hct 29.4 L, MCV 108.5 H, MCH 37.6 H, MCHC 34.7, RDW 13.2, Plt Count 133 L, MPV 10.8 H, Neut % (Auto) 83.5 H, Lymph % (Auto) 8.2 L, [place] % (Auto) 7.2, Eos % (Auto) 0.2, Baso % (Auto) 0.3, Neut # (Auto) 7.5, Lymph # (Auto) 0.7, [place] # (Auto) 0.6, Eos # (Auto) 0.0, Baso # (Auto) 0.0, Sodium 137, Potassium 3.9, Chloride 106, Carbon Dioxide 28, Anion Gap 6.9, BUN 15, Creatinine 1.10, Estimated Creat Clear 83, Estimated GFR 66, Est GFR ( Amer) 80, Glucose 151 H, Calcium 8.2 L I & O for Labs for Last 24 Hours: Intake & Output 09/11/24 09/12/24 09/13/24 09/14/24 23:59 23:59 23:59 23:59 Intake Total 3016 / 3016 1541 / 1541 Output Total 1900 / 2150 1020 / 1020 Balance 1116 / 866 521 / 521 Weight 200 lb 200 lb 206 lb Microbiology Reports for the Last 24 Hours: Microbiology 09/12/24 22:55 Blood Blood Culture - Preliminary NO GROWTH AFTER 24 HOURS 09/12/24 22:40 Blood Blood Culture - Preliminary NO GROWTH AFTER 24 HOURS Constitutional: Present no acute distress Respiratory: Present normal respiratory effort Cardiac: Present Reg Rate and Rhythm Comments:: few bowel sounds Extremities: Present normal inspection and full ROM Skin: Present intact; Absent erythema Neuro: Present Grossly Intact and moves all extremities Assessment and Plan *Assessment and plan (1) Bowel perforation: Status: Acute Category: Medical Code(s): K63.1 - Perforation of intestine (nontraumatic) (2) Tubular adenoma of colon: Status: Acute Category: Medical Code(s): D12.6 - Benign neoplasm of colon, unspecified (3) CAD (coronary artery disease): Status: Chronic Qualifiers: Coronary Disease-Associated Artery/Lesion type: [place] artery [place] vs. transplanted heart: [place] heart Associated angina: without angina Qualified Code(s): I25.10 - Atherosclerotic heart disease of [place] coronary artery without angina pectoris Category: Medical Code(s): I25.10 - Atherosclerotic heart disease of [place] coronary artery without angina pectoris (4) Gastroesophageal reflux disease: Status: Chronic Qualifiers: Esophagitis presence: esophagitis presence not specified Qualified Code(s): K21.9 - Gastro-esophageal reflux disease without esophagitis Category: Medical Code(s): K21.9 - Gastro-esophageal reflux disease without esophagitis (5) HLD (hyperlipidemia): Status: Chronic Qualifiers: Hyperlipidemia type: mixed hyperlipidemia Qualified Code(s): E78.2 - Mixed hyperlipidemia Category: Medical Code(s): E78.5 - Hyperlipidemia, unspecified (6) HTN (hypertension): Status: Chronic Qualifiers: Hypertension type: essential hypertension Qualified Code(s): I10 - Essential (primary) hypertension Category: Medical Code(s): I10 - Essential (primary) hypertension (7) Anemia: Status: Acute Category: Medical Code(s): D64.9 - Anemia, unspecified Plan Cont. routine post op care, start IS today, have patient sit up today. Cont. antibiotics
--- NOTE | 2024-09-14 10:31 | EXP.SURG.PN ---
Subjective Narrative: Patient still has some abdominal pain. Has not noticed passage of any flatus. No nausea. Nasogastric tube with relatively minimal output however functioning well. He feels his abdomen may be somewhat less distended. Exam Data for Last 24 hours Vital signs and Labs for Last 24 Hours: Temp Pulse Resp BP Pulse Ox O2 Del Method O2 Flow Rate 99.2 F 97 H 16 131/74 96 Nasal Cannula 1 09/14/24 09:47 09/14/24 10:00 09/14/24 10:00 09/14/24 10:00 09/14/24 10:00 09/14/24 10:00 09/14/24 10:00 Laboratory Results - last 24 hr 09/13/24 14:10: WBC 12.0 H, RBC 3.31 L, Hgb 12.4 L D, Hct 35.7 L, MCV 107.9 H, MCH 37.8 H, MCHC 35.0, RDW 13.2, Plt Count 131 L, MPV 9.9, Neut % (Auto) 90.9 H, Lymph % (Auto) 3.9 L, [place] % (Auto) 4.3, Eos % (Auto) 0.0 L, Baso % (Auto) 0.2, Neut # (Auto) 10.9 H, Lymph # (Auto) 0.5 L, [place] # (Auto) 0.5, Eos # (Auto) 0.0, Baso # (Auto) 0.0, Total Counted 100, Neutrophils % (Manual) 85 H, Band Neutrophils % 3, Lymphocytes % (Manual) 8 L, Monocytes % (Manual) 4, Platelet Estimate Normal, RBC Morphology Normal, Macrocytosis 1+, Sodium 135 L, Potassium 4.4, Chloride 106, Carbon Dioxide 25, Anion Gap 8.4, BUN 16 D, Creatinine 1.00 D, Estimated Creat Clear 88, Estimated GFR 74, Est GFR ( Amer) 89 D, Glucose 159 H D, Calcium 8.5 09/14/24 06:20: WBC 8.9 D, RBC 2.71 L, Hgb 10.3 L D, Hct 29.4 L, MCV 108.5 H, MCH 37.6 H, MCHC 34.7, RDW 13.2, Plt Count 133 L, MPV 10.8 H, Neut % (Auto) 83.5 H, Lymph % (Auto) 8.2 L, [place] % (Auto) 7.2, Eos % (Auto) 0.2, Baso % (Auto) 0.3, Neut # (Auto) 7.5, Lymph # (Auto) 0.7, [place] # (Auto) 0.6, Eos # (Auto) 0.0, Baso # (Auto) 0.0, Sodium 137, Potassium 3.9, Chloride 106, Carbon Dioxide 28, Anion Gap 6.9, BUN 15, Creatinine 1.10, Estimated Creat Clear 83, Estimated GFR 66, Est GFR ( Amer) 80, Glucose 151 H, Calcium 8.2 L I & O for Last 24 hours: Intake & Output 09/11/24 09/12/24 09/13/24 09/14/24 11:59 11:59 11:59 11:59 Intake Total 2231 / 2231 2326 / 2326 Output Total 1150 / 1150 1770 / 1770 Balance 1081 / 1081 556 / 556 Weight 200 lb 206 lb Microbiology Reports for the Last 24 Hours: Microbiology 09/12/24 22:55 Blood Blood Culture - Preliminary NO GROWTH AFTER 24 HOURS 09/12/24 22:40 Blood Blood Culture - Preliminary NO GROWTH AFTER 24 HOURS *Routine Abdominal Exam Comments: Abdomen is distended and tender. Dressings dry. Progress Note: A&P Assessment and plan (1) Bowel perforation: Status: Acute Assessment and plan: Continue antibiotics. Likely DC Bustillo. Tachycardia and tenderness is concerning. (2) Tubular adenoma of colon: Status: Acute (3) CAD (coronary artery disease): Status: Chronic (4) Gastroesophageal reflux disease: Status: Chronic (5) HLD (hyperlipidemia): Status: Chronic (6) HTN (hypertension): Status: Chronic (7) Anemia: Status: Acute
[2024-09-14] MEDS: KETOROLAC 30MG/ML VIAL 30 MG IV ×3 (11:09→23:05)
--- NOTE | 2024-09-14 11:48 | PC.NURSE ---
Pt assisted to side of bed w/ minimal assistance. Reports 5/10 pain w/ movement. Pt sat on side of bed for about an hour. Noted that pt's HR increased to 120-130's while sitting on side of bed. Of note Dr. Villegas was at bedside to assess pt for daily rounds during this time. Pt tolerated sitting on the side of the bed well and was able to perform some of his own ADL's. remained @ bedside while pt was sitting up. Pt now lying in bed resting. HR is noted to be back to baseline prior to activity (currently 99). Call serrato w/in reach. No needs/complaints voiced.
[2024-09-15] VITALS (24 sets, daily range): BP systolic 122–166; BP diastolic 63–90; PULSE 70–102; RESP 14–27; TEMP 36.2–37.1; O2SAT 90–100; BMI 30.1
[2024-09-15] MEDS: KETOROLAC 30MG/ML VIAL 30 MG IV (04:11)
[2024-09-15] MEDS: PIPERCILLIN/TAZO 3.375 GM in 0.9 % SODIUM CHLORIDE 50 ML IV ×4 (04:14→21:35)
[2024-09-15] MEDS: LACTATED RINGERS 1000ML 1,000 ML 125 ML IV (06:40)
[2024-09-15 06:59] LABS: Basophils % 0.2 % (0.1-2.0); Hematocrit 22.2 % (42.0-52.0); Hemoglobin 7.5 g/dL (14.1-18.0); Immature Granulocytes # 0.04 10^3uL; Lymphocytes # 0.6 K/mm3 (0.7-4.5); Lymphocytes % 14.9 % (10-50); Mean Corpuscular HGB Conc 33.8 g/dL (31.8-35.4); Mean Corpuscular Hemoglobin 37.3 pg (27.0-31.2); Mean Corpuscular Volume 110.4 fl (80-94); Mean Platelet Volume 10.1 fl (7.4-10.4); Monocytes # 0.3 K/mm3 (0.1-1.0); Monocytes % 8.2 % (1.7-9.3); Neutrophils # 3.1 K/mm3 (1.8-7.8); Neutrophils % 74.7 % (37.0-80.0); Nucleated Red Blood Cells # 0 10^3/uL; Nucleated Red Blood Cells % 0 %; Platelet Count 90 K/mm3 (142-424); Red Blood Count 2.01 M/mm3 (4.60-6.20); Red Cell Distribution Width 13.5 % (11.5-17.5); Red Cell Distribution Width-SD 54.3 fL; White Blood Count 4.2 K/mm3 (4.8-10.8)
[2024-09-15 07:06] LABS: Alanine Aminotransferase 44 U/L (12-78); Albumin/Globulin Ratio 1.4 (1.1-1.8); Alkaline Phosphatase 44 U/L (38-126); Anion Gap 3.6 mEq/L (5-15); Aspartate Amino Transferase 41 U/L (17-59); Bilirubin,Total 0.9 mg/dl (0.2-1.3); Blood Urea Nitrogen 24 mg/dl (9-20); Calcium 8.3 mg/dl (8.4-10.2); Carbon Dioxide 30 mmol/L (22.0-30.0); Chloride 109 mmol/L (98-107); Creatinine Clearance Estimated 84 mL/min (50-200); Estimated Glomerular Filt Rate 66 ml/min (>60); GFR (African American) 80 ML/MIN (>60); Globulin 2.1 g/dL (1.3-3.2); Glucose 105 mg/dl (74-100); Potassium 3.6 mmoL/L (3.5-5.1); Sodium 139 mmol/L (136-145); Total Protein,Serum 5.1 g/dl (6.3-8.2)
--- NOTE | 2024-09-15 07:52 | EXP.PN ---
Subjective *Date: 09/15/24 *Time: 08:57 Interval history: Patient states he slept about an hour at a time. Unable to sleep due to frequent checks and pain. He states Toradol does not work as well as Dilaudid. He did sit on the side of the bed yesterday. He states he is passing gas. He is not nauseated. He denies difficulty with breathing and chest pain. Laboratory data this morning with a CBC showing a hemoglobin of 7.5 hematocrit of 22.2. White blood cell count is 4200. Blood chemistries show sodium of 139 and potassium of 3.6. BUN is 24 creatinine is 1.1.Patient continues with Bustillo catheter and NG tube. He has had an adequate urinary output and minimal out of NG tube. Exam Data for Last 24 hours Vital signs and Labs for Last 24 Hours: Temp Pulse Resp BP Pulse Ox O2 Del Method O2 Flow Rate 98.6 F 73 20 130/74 98 Nasal Cannula 1 09/15/24 04:00 09/15/24 06:00 09/15/24 06:00 09/15/24 06:00 09/15/24 06:00 09/15/24 06:00 09/15/24 06:00 Laboratory Results - last 24 hr 09/14/24 06:20: WBC 8.9 D, RBC 2.71 L, Hgb 10.3 L D, Hct 29.4 L, MCV 108.5 H, MCH 37.6 H, MCHC 34.7, RDW 13.2, Plt Count 133 L, MPV 10.8 H, Neut % (Auto) 83.5 H, Lymph % (Auto) 8.2 L, [place] % (Auto) 7.2, Eos % (Auto) 0.2, Baso % (Auto) 0.3, Neut # (Auto) 7.5, Lymph # (Auto) 0.7, [place] # (Auto) 0.6, Eos # (Auto) 0.0, Baso # (Auto) 0.0, Sodium 137, Potassium 3.9, Chloride 106, Carbon Dioxide 28, Anion Gap 6.9, BUN 15, Creatinine 1.10, Estimated Creat Clear 83, Estimated GFR 66, Est GFR ( Amer) 80, Glucose 151 H, Calcium 8.2 L 09/15/24 06:38: WBC 4.2 L D, RBC 2.01 L D, Hgb 7.5 L, Hct 22.2 L, MCV 110.4 H, MCH 37.3 H, MCHC 33.8, RDW 13.5, Plt Count 90 L D, MPV 10.1, Neut % (Auto) 74.7, Lymph % (Auto) 14.9, [place] % (Auto) 8.2, Eos % (Auto) 1.0, Baso % (Auto) 0.2, Neut # (Auto) 3.1, Lymph # (Auto) 0.6 L, [place] # (Auto) 0.3, Eos # (Auto) 0.0, Baso # (Auto) 0.0, Sodium 139, Potassium 3.6, Chloride 109 H, Carbon Dioxide 30, Anion Gap 3.6 L, BUN 24 H D, Creatinine 1.10, Estimated Creat Clear 84, Estimated GFR 66, Est GFR ( Amer) 80, Glucose 105 H, Calcium 8.3 L, Total Bilirubin 0.9, AST 41, ALT 44 D, Alkaline Phosphatase 44, Total Protein 5.1 L D, Albumin 3.0 L, Globulin 2.1, Albumin/Globulin Ratio 1.4 I & O for Last 24 hours: Intake & Output 09/12/24 09/13/24 09/14/24 09/15/24 11:59 11:59 11:59 11:59 Intake Total 2231 / 2231 2326 / 2326 3202 / 3202 Output Total 1150 / 1150 1770 / 1770 1130 / 1130 Balance 1081 / 1081 556 / 556 2071 / 2072 Weight 200 lb 206 lb 210 lb 8 oz Microbiology Reports for the Last 24 Hours: Microbiology 09/12/24 22:40 Blood Blood Culture - Preliminary NO GROWTH AFTER 48 HOURS 09/12/24 22:55 Blood Blood Culture - Preliminary NO GROWTH AFTER 48 HOURS Constitutional Constitutional: no acute distress Comments: Awakened for exam *Routine Respiratory Exam Respiratory: Present CTA bilaterally *Routine Cardiovascular Exam Cardiovascular: Present RRR (Heart rate in the 80s and shows a sinus rhythm) *Routine Abdominal Exam Abdominal: Present tenderness (Postoperative) and distended; Absent normoactive bowel sounds (Diminished but audible) Comments: NG tube continues to low wall suction *Routine Extremities Exam Extremities: Present pulses intact; Absent edema or calf tenderness Comments: Scabs on lower extremities *Routine Neurological Exam Neurological: Present alert and oriented X3 Assessment and Plan *Assessment and plan (1) Bowel perforation: Status: Acute Category: Medical Code(s): K63.1 - Perforation of intestine (nontraumatic) (2) Tubular adenoma of colon: Status: Acute Category: Medical Code(s): D12.6 - Benign neoplasm of colon, unspecified (3) CAD (coronary artery disease): Status: Chronic Qualifiers: Associated angina: without angina Coronary Disease-Associated Artery/Lesion type: [place] artery [place] vs. transplanted heart: [place] heart Qualified Code(s): I25.10 - Atherosclerotic heart disease of [place] coronary artery without angina pectoris Category: Medical Code(s): I25.10 - Atherosclerotic heart disease of [place] coronary artery without angina pectoris (4) Gastroesophageal reflux disease: Status: Chronic Qualifiers: Esophagitis presence: esophagitis presence not specified Qualified Code(s): K21.9 - Gastro-esophageal reflux disease without esophagitis Category: Medical Code(s): K21.9 - Gastro-esophageal reflux disease without esophagitis (5) HLD (hyperlipidemia): Status: Chronic Qualifiers: Hyperlipidemia type: mixed hyperlipidemia Qualified Code(s): E78.2 - Mixed hyperlipidemia Category: Medical Code(s): E78.5 - Hyperlipidemia, unspecified (6) HTN (hypertension): Status: Chronic Qualifiers: Hypertension type: essential hypertension Qualified Code(s): I10 - Essential (primary) hypertension Category: Medical Code(s): I10 - Essential (primary) hypertension (7) Anemia: Status: Acute Category: Medical Code(s): D64.9 - Anemia, unspecified (8) Thrombocytopenia: Status: Acute Category: Medical Code(s): D69.6 - Thrombocytopenia, unspecified Plan Postop care as per surgeon. Continue with sitting up. Incentive spirometer encouraged. Dr. Guevara entry - Saw patient, spoke to Dr. Villegas, H/H has dropped, will give one unit of PRBCs today and stop Toradol.
--- NOTE | 2024-09-15 09:17 | P.PN_ITS ---
Subjective Narrative: Patient states that he did not sleep very well overnight due to abdominal pain. He had been given Toradol but had not received any Dilaudid overnight. He does state that he is passing some gas. No nausea. He is having minimal output from the nasogastric tube. He did have tachycardia when sitting up yesterday. Resolves as soon as lying down. Exam Data for Last 24 hours Vital signs and Labs for Last 24 Hours: Temp Pulse Resp BP Pulse Ox O2 Del Method O2 Flow Rate 98.3 F 86 27 H 142/80 H 98 Room Air 1 09/15/24 08:00 09/15/24 08:00 09/15/24 08:00 09/15/24 08:00 09/15/24 08:00 09/15/24 08:00 09/15/24 06:00 Laboratory Results - last 24 hr 09/15/24 06:38: WBC 4.2 L D, RBC 2.01 L D, Hgb 7.5 L, Hct 22.2 L, MCV 110.4 H, MCH 37.3 H, MCHC 33.8, RDW 13.5, Plt Count 90 L D, MPV 10.1, Neut % (Auto) 74.7, Lymph % (Auto) 14.9, [place] % (Auto) 8.2, Eos % (Auto) 1.0, Baso % (Auto) 0.2, Neut # (Auto) 3.1, Lymph # (Auto) 0.6 L, [place] # (Auto) 0.3, Eos # (Auto) 0.0, Baso # (Auto) 0.0, Sodium 139, Potassium 3.6, Chloride 109 H, Carbon Dioxide 30, Anion Gap 3.6 L, BUN 24 H D, Creatinine 1.10, Estimated Creat Clear 84, Estimated GFR 66, Est GFR ( Amer) 80, Glucose 105 H, Calcium 8.3 L, Total Bilirubin 0.9, AST 41, ALT 44 D, Alkaline Phosphatase 44, Total Protein 5.1 L D , Albumin 3.0 L, Globulin 2.1, Albumin/Globulin Ratio 1.4 I & O for Last 24 hours: Intake & Output 09/12/24 09/13/24 09/14/24 09/15/24 11:59 11:59 11:59 11:59 Intake Total 2231 / 2231 2326 / 2376 3202 / 3202 Output Total 1150 / 1150 1770 / 1770 1130 / 1130 Balance 1081 / 1081 556 / 606 2071 / 2071 Weight 200 lb 206 lb 210 lb 8 oz Microbiology Reports for the Last 24 Hours: Microbiology 09/12/24 22:40 Blood Blood Culture - Preliminary NO GROWTH AFTER 48 HOURS 09/12/24 22:55 Blood Blood Culture - Preliminary NO GROWTH AFTER 48 HOURS *Routine Abdominal Exam Abdominal: Present distended Comments: Dressing intact. Progress Note: A&P Assessment and plan (1) Bowel perforation: Status: Acute Assessment and plan: Continue NG for now. He has findings consistent with ongoing postoperative ileus. Transfuse 1 unit of packed red blood cells today. Monitor hemoglobin response and stability. May be able to work on removing nasogastric tube soon. (2) Tubular adenoma of colon: Status: Acute (3) CAD (coronary artery disease): Status: Chronic (4) Gastroesophageal reflux disease: Status: Chronic (5) HLD (hyperlipidemia): Status: Chronic (6) HTN (hypertension): Status: Chronic (7) Anemia: Status: Acute (8) Thrombocytopenia: Status: Acute
[2024-09-15] MEDS: HYDROMORPHONE 2MG/ML SYRINGE 1 MG IV ×3 (09:38→20:50)
[2024-09-15] MEDS: LACTATED RINGERS 1000ML 1,000 ML 75 ML IV (09:42)
[2024-09-15 15:16] LABS: Hematocrit 24.3 % (42.0-52.0)
[2024-09-15 15:19] LABS: Hemoglobin 8.4 g/dL (14.1-18.0)
--- NOTE | 2024-09-15 16:26 | EXP.ANES.II ---
[facility] Anesthesia Record Part II Anesthesia Record Part II Discharge Time: 04:15 Destination: Medical Surgical Department PACU nurse assessment reviewed?: Yes Patient Condition:: Good Anesthesia Complications:: None Swallowing reflex intact?: Yes Airway Patency: Patent Cyanosis?: No Blood Pressure: 153/87 SaO2: 94 Respiratory Rate: 18 Pulse Rate: 91 Temperature: 97.2 F Mental Status: Alert & Oriented Pain level:: 0 Nausea and/or vomitting:: None Intake, IV Amount: 0 Hydration: Adequate
[2024-09-16] VITALS (11 sets, daily range): BP systolic 143–190; BP diastolic 75–91; PULSE 67–102; RESP 15–22; TEMP 36.4–37.3; O2SAT 91–100; BMI 30.4
[2024-09-16] MEDS: LACTATED RINGERS 1000ML 1,000 ML 75 ML IV ×2 (00:37→20:30)
[2024-09-16] MEDS: HYDROMORPHONE 2MG/ML SYRINGE 1 MG IV ×5 (00:37→20:31)
[2024-09-16] MEDS: PIPERCILLIN/TAZO 3.375 GM in 0.9 % SODIUM CHLORIDE 50 ML IV ×4 (03:33→21:31)
[2024-09-16 06:53] LABS: Basophils % 0.7 % (0.1-2.0); Eosinophils % 1.3 % (0.1-12.0); Hematocrit 23.7 % (42.0-52.0); Immature Granulocytes # 0.09 10^3uL; Immature Granulocytes % 2.9 %; Lymphocytes # 0.5 K/mm3 (0.7-4.5); Lymphocytes % 16.9 % (10-50); Mean Corpuscular HGB Conc 33.8 g/dL (31.8-35.4); Mean Corpuscular Hemoglobin 35.9 pg (27.0-31.2); Mean Corpuscular Volume 106.3 fl (80-94); Mean Platelet Volume 10.1 fl (7.4-10.4); Monocytes # 0.3 K/mm3 (0.1-1.0); Monocytes % 10.1 % (1.7-9.3); Neutrophils # 2.1 K/mm3 (1.8-7.8); Neutrophils % 68.1 % (37.0-80.0); Nucleated Red Blood Cells # 0 10^3/uL; Nucleated Red Blood Cells % 0 %; Platelet Count 93 K/mm3 (142-424); Red Blood Count 2.23 M/mm3 (4.60-6.20); Red Cell Distribution Width 15.8 % (11.5-17.5); White Blood Count 3.1 K/mm3 (4.8-10.8)
[2024-09-16 06:56] LABS: MANUAL DIFFERENTIAL MANUAL DIFFERENTIAL (MANUAL DIFF)
[2024-09-16 07:09] LABS: Anion Gap 4.4 mEq/L (5-15); Blood Urea Nitrogen 21 mg/dl (9-20); Calcium 8.3 mg/dl (8.4-10.2); Carbon Dioxide 30 mmol/L (22.0-30.0); Chloride 111 mmol/L (98-107); Creatinine Clearance Estimated 94 mL/min (50-200); Estimated Glomerular Filt Rate 74 ml/min (>60); GFR (African American) 89 ML/MIN (>60); Glucose 93 mg/dl (74-100); Potassium 3.4 mmoL/L (3.5-5.1); Sodium 142 mmol/L (136-145)
--- NOTE | 2024-09-16 08:01 | P.PN_ITS ---
Subjective *Date: 09/16/24 *Time: 08:40 Interval history: Patient states he feels better this morning. He was able to sleep last night. The Dilaudid i much more help full for his pain. He denies any nausea. He feels he is passing a little gas. He remains n.p.o. with NG tube in place to low wall suction. Increase in output. Bustillo has been removed and he is voiding QS. He was able to get out of bed yesterday and did sit in the chair and tolerated well. Laboratory data this morning shows hemoglobin of 8 and hematocrit of 23.7. Platelet count is 93,000. Blood chemistries -sodium 142 potassium 3.4 BUN is 21 and creatinine is 1. Exam Data for Last 24 hours Vital signs and Labs for Last 24 Hours: Temp Pulse Resp BP Pulse Ox O2 Del Method O2 Flow Rate 99.1 F 85 20 146/81 H 100 Nasal Cannula 1 09/16/24 04:00 09/16/24 06:00 09/16/24 06:00 09/16/24 06:00 09/16/24 06:00 09/16/24 07:00 09/16/24 07:00 Laboratory Results - last 24 hr 09/15/24 06:38: Blood Type Confirm O Negative 09/15/24 09:15: Blood Type O Negative, Antibody Screen Negative, Crossmatch (AHG) See Detail 09/15/24 15:00: Hgb 8.4 L D, Hct 24.3 L 09/16/24 06:26: WBC 3.1 L D, RBC 2.23 L, Hgb 8.0 L, Hct 23.7 L, MCV 106.3 H, MCH 35.9 H, MCHC 33.8, RDW 15.8, Plt Count 93 L, MPV 10.1, Neut % (Auto) 68.1, Lymph % (Auto) 16.9, [place] % (Auto) 10.1 H, Eos % (Auto) 1.3, Baso % (Auto) 0.7, Neut # (Auto) 2.1, Lymph # (Auto) 0.5 L, [place] # (Auto) 0.3, Eos # (Auto) 0.0, Baso # (Auto) 0.0, Sodium 142, Potassium 3.4 L, Chloride 111 H, Carbon Dioxide 30, Anion Gap 4.4 L, BUN 21 H, Creatinine 1.00, Estimated Creat Clear 94, Estimated GFR 74, Est GFR ( Amer) 89, Glucose 93, Calcium 8.3 L I & O for Last 24 hours: Intake & Output 09/13/24 09/14/24 09/15/24 09/16/24 11:59 11:59 11:59 11:59 Intake Total 2231 / 2231 2326 / 2326 3202 / 3202 1116.29 / 1116.29 Output Total 1150 / 1150 1770 / 1770 1330 / 1330 1650 / 1650 Balance 1081 / 1081 556 / 556 1872 / 1872 -533.71 / -533.71 Weight 200 lb 206 lb 210 lb 8 oz 212 lb 3.2 oz Constitutional Constitutional: no acute distress Comments: Was able to assist with *Routine Respiratory Exam Respiratory: Present CTA bilaterally ( Anteriorly and posteriorly) *Routine Cardiovascular Exam Cardiovascular: Present RRR *Routine Abdominal Exam Abdominal: Present distended; Absent normoactive bowel sounds (Few audible s ounds) Comments: Midline incision dry and intact *Routine Extremities Exam Extremities: Absent edema Comments: SCUDs bilateral lower extremities *Routine Neurological Exam Neurological: Present alert and oriented X3 Assessment and Plan *Assessment and plan (1) Bowel perforation: Status: Acute Category: Medical Code(s): K63.1 - Perforation of intestine (nontraumatic) (2) Tubular adenoma of colon: Status: Acute Category: Medical Code(s): D12.6 - Benign neoplasm of colon, unspecified (3) CAD (coronary artery disease): Status: Chronic Qualifiers: Associated angina: without angina Coronary Disease-Associated Artery/Lesion type: [place] artery [place] vs. transplanted heart: [place] heart Qualified Code(s): I25.10 - Atherosclerotic heart disease of [place] coronary artery without angina pectoris Category: Medical Code(s): I25.10 - Atherosclerotic heart disease of [place] coronary artery without angina pectoris (4) Gastroesophageal reflux disease: Status: Chronic Qualifiers: Esophagitis presence: esophagitis presence not specified Qualified Code(s): K21.9 - Gastro-esophageal reflux disease without esophagitis Category: Medical Code(s): K21.9 - Gastro-esophageal reflux disease without esophagitis (5) HLD (hyperlipidemia): Status: Chronic Qualifiers: Hyperlipidemia type: mixed hyperlipidemia Qualified Code(s): E78.2 - Mixed hyperlipidemia Category: Medical Code(s): E78.5 - Hyperlipidemia, unspecified (6) HTN (hypertension): Status: Chronic Qualifiers: Hypertension type: essential hypertension Qualified Code(s): I10 - Essential (primary) hypertension Category: Medical Code(s): I10 - Essential (primary) hypertension (7) Anemia: Status: Acute Category: Medical Code(s): D64.9 - Anemia, unspecified (8) Thrombocytopenia: Status: Acute Category: Medical Code(s): D69.6 - Thrombocytopenia, unspecified (9) Hypokalemia: Status: Acute Category: Medical Code(s): E87.6 - Hypokalemia Plan Pulmonary hygiene. Postop care as per surgeon. NG aspirate for occult blood. Low potassium and will give a run of IV potassium. Dr. Guevara entry - Saw patient, agree with above note, will add IV Protonix today.
--- NOTE | 2024-09-16 08:01 | EXP.SURG.PN ---
Subjective Narrative: Patient states that he feels somewhat better. Rested better. Passing some gas. Moderate NG output. Exam Data for Last 24 hours Vital signs and Labs for Last 24 Hours: Temp Pulse Resp BP Pulse Ox O2 Del Method O2 Flow Rate 99.1 F 85 20 146/81 H 100 Nasal Cannula 1 09/16/24 04:00 09/16/24 06:00 09/16/24 06:00 09/16/24 06:00 09/16/24 06:00 09/16/24 07:00 09/16/24 07:00 Laboratory Results - last 24 hr 09/15/24 06:38: Blood Type Confirm O Negative 09/15/24 09:15: Blood Type O Negative, Antibody Screen Negative, Crossmatch (AHG) See Detail 09/15/24 15:00: Hgb 8.4 L D, Hct 24.3 L 09/16/24 06:26: WBC 3.1 L D, RBC 2.23 L, Hgb 8.0 L, Hct 23.7 L, MCV 106.3 H, MCH 35.9 H, MCHC 33.8, RDW 15.8, Plt Count 93 L, MPV 10.1, Neut % (Auto) 68.1, Lymph % (Auto) 16.9, [place] % (Auto) 10.1 H, Eos % (Auto) 1.3, Baso % (Auto) 0.7, Neut # (Auto) 2.1, Lymph # (Auto) 0.5 L, [place] # (Auto) 0.3, Eos # (Auto) 0.0, Baso # (Auto) 0.0, Sodium 142, Potassium 3.4 L, Chloride 111 H, Carbon Dioxide 30, Anion Gap 4.4 L, BUN 21 H, Creatinine 1.00, Estimated Creat Clear 94, Estimated GFR 74, Est GFR ( Amer) 89, Glucose 93, Calcium 8.3 L I & O for Last 24 hours: Intake & Output 09/13/24 09/14/24 09/15/24 09/16/24 11:59 11:59 11:59 11:59 Intake Total 2231 / 2231 2326 / 2376 3202 / 3202 1116.29 / 1116.29 Output Total 1150 / 1150 1770 / 1770 1330 / 1330 1650 / 1650 Balance 1081 / 1081 556 / 606 1872 / 1872 -533.71 / -533.71 Weight 200 lb 206 lb 210 lb 8 oz 212 lb 3.2 oz *Routine Abdominal Exam Abdominal: Present distended Progress Note: A&P Assessment and plan (1) Bowel perforation: Status: Acute Assessment and plan: Encourage ambulation. May chew gum. Monitor HH. Continue antibiotics. (2) Tubular adenoma of colon: Status: Acute (3) CAD (coronary artery disease): Status: Chronic (4) Gastroesophageal reflux disease: Status: Chronic (5) HLD (hyperlipidemia): Status: Chronic (6) HTN (hypertension): Status: Chronic (7) Anemia: Status: Acute (8) Thrombocytopenia: Status: Acute
[2024-09-16 08:31] LABS: Hypochromasia 1+; Lymphocytes % 13 % (10-50); Monocytes % 8 % (2-9); Neutrophils % 79 % (42-76); Platelet Estimate Moderate Decrease; RBC Morphology Normal; Total Cells Counted 100
--- NOTE | 2024-09-16 08:37 | EXP.PHA.PN ---
Subjective *Date: 09/16/24 *Time: 08:37 Medical Exam Vital signs and Labs for Last 24 Hours: Vital Signs Temp Pulse Pulse Resp BP BP Pulse Ox 09/16/24 08:00 82 09/16/24 08:00 84 18 152/75 H 95 09/16/24 08:00 94 L 09/16/24 07:00 09/16/24 06:00 85 20 146/81 H 100 09/16/24 04:00 67 09/16/24 04:00 99.1 F 67 16 153/75 H 99 09/16/24 02:00 70 16 144/81 H 100 09/16/24 00:45 09/16/24 00:00 67 09/16/24 00:00 98.4 F 90 18 155/77 H 100 09/15/24 22:00 73 14 140/76 100 09/15/24 20:00 93 H 09/15/24 20:00 98.4 F 78 21 166/90 H 98 09/15/24 18:00 80 15 151/74 H 99 09/15/24 17:00 09/15/24 16:27 18 09/15/24 16:00 90 09/15/24 16:00 86 20 157/85 H 95 09/15/24 15:00 09/15/24 14:32 98.7 F 93 H 17 153/83 H 98 09/15/24 14:00 86 20 157/85 H 95 09/15/24 14:00 95 09/15/24 13:32 98.6 F 75 16 122/77 97 09/15/24 13:05 98.5 F 85 15 146/76 H 97 09/15/24 13:00 09/15/24 12:05 98.6 F 73 15 136/75 99 09/15/24 12:00 70 09/15/24 12:00 98.3 F 90 23 138/71 96 09/15/24 11:50 98.7 F 73 17 138/71 98 09/15/24 11:35 97.8 F 79 17 149/78 H 98 09/15/24 11:20 98.6 F 88 16 131/73 98 09/15/24 11:15 98.5 F 88 16 128/75 98 09/15/24 11:10 98.5 F 92 H 16 133/73 97 09/15/24 11:05 98.7 F 94 H 17 140/85 90 L 09/15/24 11:00 09/15/24 10:54 98.6 F 102 H 17 127/75 95 09/15/24 10:00 77 16 127/75 97 09/15/24 09:00 O2 Del Method O2 Flow Rate 09/16/24 08:00 09/16/24 08:00 Nasal Cannula 1 09/16/24 08:00 1 09/16/24 07:00 Nasal Cannula 1 09/16/24 06:00 Nasal Cannula 1 09/16/24 04:00 09/16/24 04:00 Nasal Cannula 2 09/16/24 02:00 Nasal Cannula 2 09/16/24 00:45 Nasal Cannula 1 09/16/24 00:00 09/16/24 00:00 Nasal Cannula 2 09/15/24 22:00 Nasal Cannula 2 09/15/24 20:00 09/15/24 20:00 Nasal Cannula 2 09/15/24 18:00 Nasal Cannula 1 09/15/24 17:00 Nasal Cannula 2 09/15/24 16:27 09/15/24 16:00 09/15/24 16:00 Nasal Cannula 1 09/15/24 15:00 Nasal Cannula 2 09/15/24 14:32 09/15/24 14:00 Nasal Cannula 1 09/15/24 14:00 Nasal Cannula 2 09/15/24 13:32 09/15/24 13:05 09/15/24 13:00 Nasal Cannula 2 09/15/24 12:05 09/15/24 12:00 09/15/24 12:00 Nasal Cannula 1 09/15/24 11:50 09/15/24 11:35 09/15/24 11:20 09/15/24 11:15 09/15/24 11:10 09/15/24 11:05 09/15/24 11:00 Nasal Cannula 2 09/15/24 10:54 09/15/24 10:00 Nasal Cannula 1 09/15/24 09:00 Nasal Cannula 2 Intake and Output 09/15/24 09/16/24 09/16/24 23:59 07:59 15:59 Intake Total 850 / 2893.29 Output Total 950 / 2030 700 / 700 Balance -100 / 863.29 -700 / -700 Intake: Intake, Total IV Amount 850 / 950 Lactated Ringers 1000ML 1,000 750 / 750 ml @ 75 mls/hr IV .[id number] [facility] Rx#:[id number] Pipercillin/Tazo 3.375 gm In 0. 100 / 200 9 % Sodium Chloride 50 ml @ 100 mls/hr IV Q6H [facility] Rx#:[id number] Output: Output, Urine Amount 250 / 900 350 / 350 Output, Urine Amount (Catheter) 500 / 500 Cou[place] 500 / 500 Output, Gastric Drainage Amount 200 / 630 350 / 350 Right Nare 200 / 630 350 / 350 Other: Number of Unmeasured Voids 0 0 Weight 96.252 kg Patient Weight 09/16/24 23:59 Weight 96.252 kg Laboratory Results - last 24 hr 09/15/24 06:38: Blood Type Confirm O Negative 09/15/24 09:15: Blood Type O Negative, Antibody Screen Negative, Crossmatch (AHG) See Detail 09/15/24 15:00: Hgb 8.4 L D, Hct 24.3 L 09/16/24 06:26: WBC 3.1 L D, RBC 2.23 L, Hgb 8.0 L, Hct 23.7 L, MCV 106.3 H, MCH 35.9 H, MCHC 33.8, RDW 15.8, Plt Count 93 L, MPV 10.1, Neut % (Auto) 68.1, Lymph % (Auto) 16.9, [place] % (Auto) 10.1 H, Eos % (Auto) 1.3, Baso % (Auto) 0.7, Neut # (Auto) 2.1, Lymph # (Auto) 0.5 L, [place] # (Auto) 0.3, Eos # (Auto) 0.0, Baso # (Auto) 0.0, Total Counted 100, Neutrophils % (Manual) 79 H, Lymphocytes % (Manual) 13, Monocytes % (Manual) 8, Platelet Estimate Moderate decrease, RBC Morphology Normal, Hypochromasia 1+, Sodium 142, Potassium 3.4 L, Chloride 111 H, Carbon Dioxide 30, Anion Gap 4.4 L, BUN 21 H, Creatinine 1.00, Estimated Creat Clear 94, Estimated GFR 74, Est GFR ( Amer) 89, Glucose 93, Calcium 8.3 L I & O for Labs for Last 24 Hours: Intake & Output 09/13/24 09/14/24 09/15/24 09/16/24 23:59 23:59 23:59 23:59 Intake Total 3016 / 3016 2966 / 2966 2893.29 / 2893.29 Output Total 1900 / 2150 1670 / 1850 1630 / 2030 700 / 700 Balance 1116 / 866 1296 / 1116 1263.29 / 863.29 -700 / -700 Weight 90.718 kg 93.44 kg 95.481 kg 96.252 kg The patient's infection will respond to the chosen ABx?: Yes (BLOOD CX NO GROWTH AT 48 HR, AFEBRILE OVER 24 HR) Is the patient receiving the right drug, dose, and route?: Yes Could a more targeted ABx be ordered?: No How long ABx needed (days)?: 5
[2024-09-16] MEDS: KCl 20mEq/100ml 100 ML 50 MEQ IV (09:43)
[2024-09-16] MEDS: PANTOPRAZOLE 40MG VIAL 40 MG IV ×2 (09:45→20:30)
[2024-09-16 10:00] LABS: Occult Blood,Gastric Fluid Positive (Negative)
[2024-09-17] VITALS (7 sets, daily range): BP systolic 140–167; BP diastolic 68–82; PULSE 71–100; RESP 16–18; TEMP 36.6–37.1; O2SAT 92–97; BMI 284069.4
[2024-09-17] MEDS: HYDROMORPHONE 2MG/ML SYRINGE 1 MG IV ×4 (02:02→21:05)
[2024-09-17] MEDS: PIPERCILLIN/TAZO 3.375 GM in 0.9 % SODIUM CHLORIDE 50 ML IV ×4 (04:53→21:06)
--- NOTE | 2024-09-17 06:15 | PC.NURSE ---
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 Lung sounds clear and bowel sounds active. Midline dressing remained c/d/i. He has been medicated for pain per JUL. NG tube to right nare has remained in place with minimal output this shift. He has ambulated to the bathroom with standby assist. No complaints at this time, call light within reach.
[2024-09-17 06:47] LABS: Basophils % 0.3 % (0.1-2.0); Eosinophils % 0.6 % (0.1-12.0); Hematocrit 22.8 % (42.0-52.0); Hemoglobin 8.1 g/dL (14.1-18.0); Immature Granulocytes # 0.05 10^3uL; Immature Granulocytes % 1.6 %; Lymphocytes # 0.4 K/mm3 (0.7-4.5); Mean Corpuscular HGB Conc 35.5 g/dL (31.8-35.4); Mean Corpuscular Hemoglobin 37.5 pg (27.0-31.2); Mean Corpuscular Volume 105.6 fl (80-94); Mean Platelet Volume 10.2 fl (7.4-10.4); Monocytes # 0.4 K/mm3 (0.1-1.0); Monocytes % 12.7 % (1.7-9.3); Neutrophils # 2.2 K/mm3 (1.8-7.8); Neutrophils % 70.8 % (37.0-80.0); Nucleated Red Blood Cells # 0.02 10^3/uL; Nucleated Red Blood Cells % 0.6 %; Platelet Count 105 K/mm3 (142-424); Red Blood Count 2.16 M/mm3 (4.60-6.20); Red Cell Distribution Width 15.4 % (11.5-17.5); Red Cell Distribution Width-SD 59.9 fL; White Blood Count 3.2 K/mm3 (4.8-10.8)
[2024-09-17 07:01] LABS: MANUAL DIFFERENTIAL MANUAL DIFFERENTIAL (MANUAL DIFF)
[2024-09-17 07:05] LABS: Anion Gap 3.3 mEq/L (5-15); Blood Urea Nitrogen 20 mg/dl (9-20); Calcium 8.3 mg/dl (8.4-10.2); Carbon Dioxide 26 mmol/L (22.0-30.0); Chloride 112 mmol/L (98-107); Creatinine Clearance Estimated 87 mL/min (50-200); Estimated Glomerular Filt Rate 74 ml/min (>60); GFR (African American) 89 ML/MIN (>60); Glucose 90 mg/dl (74-100); Potassium 3.3 mmoL/L (3.5-5.1); Sodium 138 mmol/L (136-145)
--- NOTE | 2024-09-17 07:12 | EXP.SURG.PN ---
Subjective Patient reports: feels better and flatus Narrative: The patient states that he passed a lot of gas overnight . He states that he is feeling much better and that his belly is flatter . Exam Data for Last 24 hours Vital signs and Labs for Last 24 Hours: Temp Pulse Resp BP Pulse Ox O2 Del Method O2 Flow Rate 98.1 F 72 16 163/68 H 92 L Room Air 1 09/17/24 04:00 09/17/24 04:00 09/17/24 04:00 09/17/24 04:00 09/17/24 04:00 09/17/24 06:36 09/16/24 08:00 Laboratory Results - last 24 hr 09/16/24 06:26: Total Counted 100, Neutrophils % (Manual) 79 H, Lymphocytes % (Manual) 13, Monocytes % (Manual) 8, Platelet Estimate Moderate decrease, RBC Morphology Normal, Hypochromasia 1+ 09/16/24 09:15: Gastric Occult Blood Positive 09/17/24 05:58: WBC 3.2 L, RBC 2.16 L, Hgb 8.1 L, Hct 22.8 L, MCV 105.6 H, MCH 37.5 H, MCHC 35.5 H, RDW 15.4, Plt Count 105 L, MPV 10.2, Neut % (Auto) 70.8, Lymph % (Auto) 14.0, [place] % (Auto) 12.7 H, Eos % (Auto) 0.6, Baso % (Auto) 0.3, Neut # (Auto) 2.2, Lymph # (Auto) 0.4 L, [place] # (Auto) 0.4, Eos # (Auto) 0.0, Baso # (Auto) 0.0, Sodium 138, Potassium 3.3 L, Chloride 112 H, Carbon Dioxide 26, Anion Gap 3.3 L, BUN 20, Creatinine 1.00, Estimated Creat Clear 87, Estimated GFR 74, Est GFR ( Amer) 89, Glucose 90, Calcium 8.3 L I & O for Last 24 hours: Intake & Output 09/14/24 09/15/24 09/16/24 09/17/24 11:59 11:59 11:59 11:59 Intake Total 2326 / 2376 3202 / 3202 1116.29 / 1116.29 250 / 250 Output Total 1770 / 1770 1330 / 1330 1800 / 1800 470 / 470 Balance 556 / 606 1872 / 1872 -683.71 / -683.71 -220 / -220 Weight 206 lb 210 lb 8 oz 212 lb 3.119 oz 198 lb Microbiology Reports for the Last 24 Hours: Microbiology 09/12/24 22:40 Blood Blood Culture - Preliminary NO GROWTH AFTER 4 DAYS 09/12/24 22:55 Blood Blood Culture - Preliminary NO GROWTH AFTER 4 DAYS Constitutional Constitutional: no acute distress *Routine Respiratory Exam Respiratory: Absent respiratory distress *Routine Cardiovascular Exam Cardiovascular: Absent tachycardia *Routine Abdominal Exam Abdominal: Present soft Comments: Incision healing without evidence of infection. Progress Note: A&P Assessment and plan (1) Bowel perforation: Status: Acute Assessment and plan: Overall, doing fairly well postoperative day 4 status post right hemicolectomy DC NG and slowly advance diet Continue to increase ambulation Complete course of antibiotics (2) Anemia: Problem details: Postoperative blood loss Status: Acute Assessment and plan: Hemoglobin 8.1 (stable) this a.m.
[2024-09-17] MEDS: PANTOPRAZOLE 40MG VIAL 40 MG IV ×2 (07:52→20:22)
[2024-09-17 08:08] LABS: Lymphocytes % 26 % (10-50); Monocytes % 5 % (2-9); Neutrophils % 69 % (42-76); Platelet Estimate Moderate Decrease; RBC Morphology Normal; Total Cells Counted 100
--- NOTE | 2024-09-17 08:13 | P.PN_ITS ---
Subjective *Date: 09/17/24 *Time: 08:59 Interval history: Patient is feeling better this am. He had the NG tube removed and is trying clear liquids this am. He is questioning whether or not he can resume his home medications and PMR injection. Medical Exam Vital signs and Labs for Last 24 Hours: Vital Signs Temp Pulse Pulse Resp BP Pulse Ox O2 Del Method 09/17/24 08:01 Room Air 09/17/24 08:00 Room Air 09/17/24 06:36 Room Air 09/17/24 05:00 Room Air 09/17/24 04:00 98.1 F 72 16 163/68 H 92 L Room Air 09/17/24 03:00 Room Air 09/17/24 01:00 Room Air 09/17/24 00:00 98.3 F 80 17 140/78 92 L Room Air 09/16/24 23:00 Room Air 09/16/24 21:00 Room Air 09/16/24 20:00 Room Air 09/16/24 19:47 97.5 F L 86 18 143/77 H 92 L Room Air 09/16/24 19:00 Room Air 09/16/24 18:00 85 18 154/80 H 94 L Room Air 09/16/24 17:00 Room Air 09/16/24 16:00 90 09/16/24 16:00 99.1 F 93 H 21 190/91 H 95 Room Air 09/16/24 15:00 Room Air 09/16/24 14:00 89 22 158/75 H 92 L Room Air 09/16/24 13:00 Room Air 09/16/24 12:00 80 09/16/24 12:00 71 09/16/24 12:00 99.1 F 102 H 15 147/84 H 93 L Room Air 09/16/24 11:00 Room Air 09/16/24 10:00 98.5 F 81 20 173/84 H 93 L Room Air 09/16/24 10:00 80 18 173/84 H 91 L Room Air 09/16/24 09:00 Room Air Intake and Output 09/16/24 09/17/24 09/17/24 19:59 03:59 11:59 Intake Total 250 / 250 Output Total 120 / 470 250 / 470 100 / 470 Balance 130 / -220 -250 / -220 -100 / -220 Intake: Intake, Total IV Amount 250 / 250 KCl 20mEq/100ml 100 ml @ 50 mls 100 / 100 /hr IV ONCE ONE Rx#:[id number] Pipercillin/Tazo 3.375 gm In 0. 150 / 150 9 % Sodium Chloride 50 ml @ 100 mls/hr IV Q6H [facility] Rx#:[id number] Output: Output, Urine Amount 120 / 470 250 / 470 100 / 470 Other: Number of Unmeasured Voids 0 Weight 198 lb Patient Weight 09/17/24 11:59 Weight 198 lb Laboratory Results - last 24 hr 09/16/24 06:26: Total Counted 100, Neutrophils % (Manual) 79 H, Lymphocytes % (Manual) 13, Monocytes % (Manual) 8, Platelet Estimate Moderate decrease, RBC Morphology Normal, Hypochromasia 1+ 09/16/24 09:15: Gastric Occult Blood Positive 09/17/24 05:58: WBC 3.2 L, RBC 2.16 L, Hgb 8.1 L, Hct 22.8 L, MCV 105.6 H, MCH 37.5 H, MCHC 35.5 H, RDW 15.4, Plt Count 105 L, MPV 10.2, Neut % (Auto) 70.8, Lymph % (Auto) 14.0, [place] % (Auto) 12.7 H, Eos % (Auto) 0.6, Baso % (Auto) 0.3, Neut # (Auto) 2.2, Lymph # (Auto) 0.4 L, [place] # (Auto) 0.4, Eos # (Auto) 0.0, Baso # (Auto) 0.0, Total Counted 100, Neutrophils % (Manual) 69, Lymphocytes % (Manual) 26, Monocytes % (Manual) 5, Platelet Estimate Moderate decrease, RBC Morphology Normal, Sodium 138, Potassium 3.3 L, Chloride 112 H, Carbon Dioxide 26, Anion Gap 3.3 L, BUN 20, Creatinine 1.00, Estimated Creat Clear 87, Estimated GFR 74, Est GFR ( Amer) 89, Glucose 90, Calcium 8.3 L I & O for Labs for Last 24 Hours: Intake & Output 09/14/24 09/15/24 09/16/24 09/17/24 11:59 11:59 11:59 11:59 Intake Total 2326 / 2376 3202 / 3202 1116.29 / 1116.29 250 / 250 Output Total 1770 / 1770 1330 / 1330 1800 / 1800 470 / 470 Balance 556 / 606 1872 / 1872 -683.71 / -683.71 -220 / -220 Weight 206 lb 210 lb 8 oz 212 lb 3.119 oz 198 lb Microbiology Reports for the Last 24 Hours: Microbiology 09/12/24 22:40 Blood Blood Culture - Preliminary NO GROWTH AFTER 4 DAYS 09/12/24 22:55 Blood Blood Culture - Preliminary NO GROWTH AFTER 4 DAYS Constitutional: Present no acute distress Respiratory: Present normal respiratory effort Cardiac: Present Reg Rate and Rhythm GI: Present soft and tenderness (around incision site); Absent distention Comments:: few bowel sounds Extremities: Present normal inspection and full ROM Skin: Present intact; Absent erythema Neuro: Present Grossly Intact and moves all extremities Assessment and Plan *Assessment and plan (1) Bowel perforation: Status: Acute Category: Medical Code(s): K63.1 - Perforation of intestine (nontraumatic) (2) Tubular adenoma of colon: Status: Acute Category: Medical Code(s): D12.6 - Benign neoplasm of colon, unspecified (3) CAD (coronary artery disease): Status: Chronic Qualifiers: Associated angina: without angina Coronary Disease-Associated Artery/Lesion type: [place] artery [place] vs. transplanted heart: [place] heart Qualified Code(s): I25.10 - Atherosclerotic heart disease of [place] coronary artery without angina pectoris Category: Medical Code(s): I25.10 - Atherosclerotic heart disease of [place] coronary artery without angina pectoris (4) Gastroesophageal reflux disease: Status: Chronic Qualifiers: Esophagitis presence: esophagitis presence not specified Qualified Code(s): K21.9 - Gastro-esophageal reflux disease without esophagitis Category: Medical Code(s): K21.9 - Gastro-esophageal reflux disease without esophagitis (5) HLD (hyperlipidemia): Status: Chronic Qualifiers: Hyperlipidemia type: mixed hyperlipidemia Qualified Code(s): E78.2 - Mixed hyperlipidemia Category: Medical Code(s): E78.5 - Hyperlipidemia, unspecified (6) HTN (hypertension): Status: Chronic Qualifiers: Hypertension type: essential hypertension Qualified Code(s): I10 - Essential (primary) hypertension Category: Medical Code(s): I10 - Essential (primary) hypertension (7) Anemia: Problem Comment: Postoperative blood loss Status: Acute Category: Medical Code(s): D64.9 - Anemia, unspecified (8) Thrombocytopenia: Status: Acute Category: Medical Code(s): D69.6 - Thrombocytopenia, unspecified (9) Hypokalemia: Status: Acute Category: Medical Code(s): E87.6 - Hypokalemia Plan Pulmonary hygiene. Postop care as per surgeon. Will try clear liquids today. Will discuss home medications with Dr. Guevara. Dr. Guevara entry - Saw patient, agree with above note. Replace potassium, resume some home meds, will hold [place] for now.
[2024-09-17] MEDS: IRBESARTAN 75MG TABLET 75 MG PO (09:36)
[2024-09-17] MEDS: LEVOTHYROXINE 50MCG (0.05MG) TAB 50 MCG PO (09:36)
[2024-09-17] MEDS: POTASSIUM CHLORIDE 10MEQ CAPSULE.ER 10 MEQ PO ×2 (09:36→20:22)
[2024-09-17] MEDS: HYDROCODONE/APAP 5/325 MG TABLET 1 TAB PO ×2 (10:37→16:11)
[2024-09-17] MEDS: LACTATED RINGERS 1000ML 1,000 ML 75 ML IV (14:00)
--- NOTE | 2024-09-17 15:50 | PC.NURSE ---
Pt is aox 4, up with assistance times one, midline incision open to air, 20g L FA LR @ 75 ml/hr.
[2024-09-17] MEDS: ATORVASTATIN 40MG TABLET 40 MG PO (20:22)
[2024-09-18] MEDS: HYDROCODONE/APAP 5/325 MG TABLET 1 TAB PO ×4 (02:28→20:40)
[2024-09-18 03:56] VITALS: BP 133/69; PULSE 75; RESP 16; TEMP 36.5; O2SAT 94
[2024-09-18 04:00] VITALS: BMI 28.6
[2024-09-18] MEDS: PIPERCILLIN/TAZO 3.375 GM in 0.9 % SODIUM CHLORIDE 50 ML IV ×4 (04:58→21:07)
[2024-09-18] MEDS: HYDROMORPHONE 2MG/ML SYRINGE 1 MG IV (04:58)
--- NOTE | 2024-09-18 05:22 | PC.NURSE ---
Pt A&OX4 and has tolerated room air. He has been medicated for abdominal pain multiple times per MAR. He has tolerated diet with no complains of N/V. He has ambulated room with standby assist. No complaints at this time, call light within reach.
[2024-09-18] MEDS: LACTATED RINGERS 1000ML 1,000 ML 75 ML IV (05:27)
[2024-09-18] MEDS: LEVOTHYROXINE 50MCG (0.05MG) TAB 50 MCG PO (06:23)
[2024-09-18 08:00] VITALS: BP 142/67; PULSE 81; RESP 18; TEMP 36.8; O2SAT 96
--- NOTE | 2024-09-18 08:15 | P.PN_ITS ---
Subjective *Date: 09/18/24 *Time: 08:58 Interval history: Patient is feeling better today. He is tolerating his diet. He is having more pain on the right side of the abdomen. Passing gas but no BM. Medical Exam Vital signs and Labs for Last 24 Hours: Vital Signs Temp Pulse Resp BP Pulse Ox O2 Del Method 09/18/24 07:45 Room Air 09/18/24 06:34 Room Air 09/18/24 05:00 Room Air 09/18/24 03:56 97.7 F 75 16 133/69 94 L Room Air 09/18/24 03:00 Room Air 09/18/24 01:00 Room Air 09/17/24 23:51 97.8 F 71 18 159/82 H 93 L Room Air 09/17/24 23:00 Room Air 09/17/24 21:00 Room Air 09/17/24 20:00 Room Air 09/17/24 19:35 98.1 F 100 H 18 146/77 H 97 Room Air 09/17/24 18:18 Room Air 09/17/24 17:00 Room Air 09/17/24 16:00 98.7 F 73 18 154/72 H 95 Room Air 09/17/24 14:57 Room Air 09/17/24 13:00 Room Air 09/17/24 13:00 Room Air 09/17/24 12:00 98.4 F 79 18 149/77 H 95 Room Air 09/17/24 10:14 Room Air Intake and Output 09/17/24 09/18/24 09/18/24 19:59 03:59 11:59 Intake Total 270 / 2450 2180 / 2450 Output Total 0 / 0 Balance 270 / 2450 2180 / 2450 Intake: Intake, Oral Amount 270 / 270 Intake, Total IV Amount 2180 / 2180 Lactated Ringers 1000ML 1,000 2180 / 2180 ml @ 75 mls/hr IV .[id number] [facility] Rx#:[id number] Output: Output, Urine Amount 0 / 0 Other: Number of Voids 1 Number of Unmeasured Voids 1 1 Weight 200 lb 3.004 oz Patient Weight 09/18/24 11:59 Weight 200 lb 3.004 oz I & O for Labs for Last 24 Hours: Intake & Output 09/15/24 09/16/24 09/17/24 09/18/24 11:59 11:59 11:59 11:59 Intake Total 3202 / 3202 1116.29 / 1116.29 250 / 250 2450 / 2450 Output Total 1330 / 1330 1800 / 1800 470 / 470 0 / 0 Balance 1872 / 1872 -683.71 / -683.71 -220 / -220 2450 / 2450 Weight 210 lb 8 oz 212 lb 3.119 oz 198 lb 200 lb 3.004 oz Microbiology Reports for the Last 24 Hours: Microbiology 09/12/24 22:55 Blood Blood Culture - Final NO GROWTH AFTER 5 DAYS 09/12/24 22:40 Blood Blood Culture - Final NO GROWTH AFTER 5 DAYS Constitutional: Present no acute distress Respiratory: Present normal respiratory effort Cardiac: Present Reg Rate and Rhythm GI: Present soft and tenderness (around incision site and along the right side of the abdomen); Absent distention Comments:: few bowel sounds Extremities: Present normal inspection and full ROM Skin: Present intact; Absent erythema Neuro: Present Grossly Intact and moves all extremities Assessment and Plan *Assessment and plan (1) Bowel perforation: Status: Acute Category: Medical Code(s): K63.1 - Perforation of intestine (nontraumatic) (2) Tubular adenoma of colon: Status: Acute Category: Medical Code(s): D12.6 - Benign neoplasm of colon, unspecified (3) CAD (coronary artery disease): Status: Chronic Qualifiers: Associated angina: without angina Coronary Disease-Associated Artery/Lesion type: [place] artery [place] vs. transplanted heart: [place] heart Qualified Code(s): I25.10 - Atherosclerotic heart disease of [place] coronary artery without angina pectoris Category: Medical Code(s): I25.10 - Atherosclerotic heart disease of [place] coronary artery without angina pectoris (4) Gastroesophageal reflux disease: Status: Chronic Qualifiers: Esophagitis presence: esophagitis presence not specified Qualified Code(s): K21.9 - Gastro-esophageal reflux disease without esophagitis Category: Medical Code(s): K21.9 - Gastro-esophageal reflux disease without esophagitis (5) HLD (hyperlipidemia): Status: Chronic Qualifiers: Hyperlipidemia type: mixed hyperlipidemia Qualified Code(s): E78.2 - Mixed hyperlipidemia Category: Medical Code(s): E78.5 - Hyperlipidemia, unspecified (6) HTN (hypertension): Status: Chronic Qualifiers: Hypertension type: essential hypertension Qualified Code(s): I10 - Essential (primary) hypertension Category: Medical Code(s): I10 - Essential (primary) hypertension (7) Anemia: Problem Comment: Postoperative blood loss Status: Acute Category: Medical Code(s): D64.9 - Anemia, unspecified (8) Thrombocytopenia: Status: Acute Category: Medical Code(s): D69.6 - Thrombocytopenia, unspecified (9) Hypokalemia: Status: Acute Category: Medical Code(s): E87.6 - Hypokalemia Plan Patient is improving. Surgery to follow. Will discuss further care with Dr. Guevara. Dr. Guevara entry - Saw patient, agree with above note. He is doing well, continue routine post op care.
--- NOTE | 2024-09-18 08:17 | EXP.SURG.PN ---
Subjective Narrative: Patient feels better. Tolerated NG tube out. Passing gas. No bowel movements. Does have some right sided abdominal pain. Still taking some Dilaudid. He states that this works better than oral pain medication. No nausea. Taking limited amounts of full liquids. Exam Data for Last 24 hours Vital signs and Labs for Last 24 Hours: Temp Pulse Resp BP Pulse Ox O2 Del Method O2 Flow Rate 97.7 F 75 16 133/69 94 L Room Air 1 09/18/24 03:56 09/18/24 03:56 09/18/24 03:56 09/18/24 03:56 09/18/24 03:56 09/18/24 07:45 09/16/24 08:00 I & O for Last 24 hours: Intake & Output 09/15/24 09/16/24 09/17/24 09/18/24 11:59 11:59 11:59 11:59 Intake Total 3202 / 3202 1116.29 / 1116.29 250 / 250 2450 / 2450 Output Total 1330 / 1330 1800 / 1800 470 / 470 0 / 0 Balance 1872 / 1872 -683.71 / -683.71 -220 / -220 2450 / 2450 Weight 210 lb 8 oz 212 lb 3.119 oz 198 lb 200 lb 3.004 oz Microbiology Reports for the Last 24 Hours: Microbiology 09/12/24 22:55 Blood Blood Culture - Final NO GROWTH AFTER 5 DAYS 09/12/24 22:40 Blood Blood Culture - Final NO GROWTH AFTER 5 DAYS *Routine Abdominal Exam Abdominal: Present distended Progress Note: A&P Assessment and plan (1) Bowel perforation: Status: Acute (2) Tubular adenoma of colon: Status: Acute (3) CAD (coronary artery disease): Status: Chronic (4) Gastroesophageal reflux disease: Status: Chronic (5) HLD (hyperlipidemia): Status: Chronic (6) HTN (hypertension): Status: Chronic (7) Anemia: Problem details: Postoperative blood loss Status: Acute (8) Thrombocytopenia: Status: Acute (9) Hypokalemia: Status: Acute Assessment and Plan Assessment and Plan for All Diagnoses:: Still with findings consistent with ileus. Recommend encourage ambulation. Try to limit IV narcotic pain medication and encourage oral pain medication. This may contribute to his ileus. Some of his ileus and right flank pain likely secondary to retroperitoneal hematoma. Hemoglobin has been stable.
[2024-09-18] MEDS: PANTOPRAZOLE 40MG TABLET 40 MG PO ×2 (10:22→20:25)
[2024-09-18] MEDS: IRBESARTAN 75MG TABLET 75 MG PO (10:22)
[2024-09-18] MEDS: POTASSIUM CHLORIDE 10MEQ CAPSULE.ER 10 MEQ PO ×2 (10:23→20:25)
[2024-09-18 12:00] VITALS: BP 155/75; PULSE 79; RESP 18; TEMP 36.8; O2SAT 98
--- NOTE | 2024-09-18 15:12 | PC.NURSE ---
Pt A&O x4. Has complained of abdominal discomfort, more on the right side. Pt has had only PO pain medication x2 this shift. No IV dilaudid needed thus far. He has ambulated in room and in hallway. Pt has walked over 250 ft today. He plans to walk another lap around floor after his comes back this evening. Pt is Tolerating his diet. No BM but has passed gas and has belched today. No concerns noted at this time. Call light within reach.
[2024-09-18 16:00] VITALS: BP 156/77; PULSE 64; RESP 18; TEMP 36.8; O2SAT 96
[2024-09-18] MEDS: ONDANSETRON 4MG/2ML VIAL 4 MG IV (17:36)
[2024-09-18 20:00] VITALS: BP 136/72; PULSE 80; RESP 17; TEMP 36.9; O2SAT 92
[2024-09-18] MEDS: ATORVASTATIN 40MG TABLET 40 MG PO (20:25)
[2024-09-19] VITALS: BP 147/68; PULSE 79; RESP 16; TEMP 36.7; O2SAT 90
[2024-09-19] MEDS: LACTATED RINGERS 1000ML 1,000 ML 75 ML IV (00:45)
--- NOTE | 2024-09-19 03:40 | PC.NURSE ---
Patient is alert and oriented x4. He was observed to be resting with eyes closed, respirations even and unlabored, and no apparent distress throughout the majority of the night. Nasal cannula (2 L of oxygen) was placed after midnight during his resting periods due to decreasing oxygen saturations in the upper 80s; oxygen saturations have remained > 90% since application. Midline abdominal incision was assessed this shift; kim remain intact, incision remains open to air. Abdomen is soft, puffy, and tender upon palpation. [place] was given for abdominal pain complaint per MAR. Other scheduled medications were administered as appropriately per MAR as well. Lactated Ringers continue to infuse at 75 mL/hr. Upon assessment, the patient stated that he continues to pass gas + belch, but (and thus far this shift) he has not had a bowel movement yet. Auscultation of his heart, lungs, and bowels were within normal findings. He continues to tolerate a liquid diet; he has not had any further complaints of nausea this shift as well. Incentive spirometer usage at the bedside. He ambulates independently in his room/to the bathroom with standby assistance as needed without any difficulties. At this time, the patient is resting in bed without any further complaints. No new needs at this time. Call light within reach.
[2024-09-19 04:00] VITALS: BP 156/70; PULSE 75; RESP 18; TEMP 36.8; O2SAT 97; BMI 30.5
[2024-09-19] MEDS: PIPERCILLIN/TAZO 3.375 GM in 0.9 % SODIUM CHLORIDE 50 ML IV ×3 (04:28→15:33)
[2024-09-19] MEDS: LEVOTHYROXINE 50MCG (0.05MG) TAB 50 MCG PO (06:07)
[2024-09-19 06:42] LABS: Basophils % 0.3 % (0.1-2.0); Eosinophils % 1.4 % (0.1-12.0); Hematocrit 22.3 % (42.0-52.0); Hemoglobin 7.5 g/dL (14.1-18.0); Immature Granulocytes # 0.06 10^3uL; Immature Granulocytes % 2.1 %; Lymphocytes # 0.5 K/mm3 (0.7-4.5); Lymphocytes % 15.5 % (10-50); Mean Corpuscular HGB Conc 33.6 g/dL (31.8-35.4); Mean Corpuscular Hemoglobin 35.7 pg (27.0-31.2); Mean Corpuscular Volume 106.2 fl (80-94); Mean Platelet Volume 10.4 fl (7.4-10.4); Monocytes # 0.3 K/mm3 (0.1-1.0); Neutrophils # 2.1 K/mm3 (1.8-7.8); Neutrophils % 70.7 % (37.0-80.0); Nucleated Red Blood Cells # 0.04 10^3/uL; Nucleated Red Blood Cells % 1.4 %; Platelet Count 108 K/mm3 (142-424); Red Cell Distribution Width 15.7 % (11.5-17.5); Red Cell Distribution Width-SD 58.2 fL; White Blood Count 2.9 K/mm3 (4.8-10.8)
[2024-09-19 06:56] LABS: Alanine Aminotransferase 64 U/L (12-78); Albumin Level 3.3 g/dl (3.5-5.0); Albumin/Globulin Ratio 1.6 (1.1-1.8); Alkaline Phosphatase 88 U/L (38-126); Anion Gap 7.5 mEq/L (5-15); Aspartate Amino Transferase 66 U/L (17-59); Bilirubin,Total 1.8 mg/dl (0.2-1.3); Blood Urea Nitrogen 11 mg/dl (9-20); Carbon Dioxide 25 mmol/L (22.0-30.0); Chloride 108 mmol/L (98-107); Creatinine Clearance Estimated 94 mL/min (50-200); Estimated Glomerular Filt Rate 83 ml/min (>60); GFR (African American) 101 ML/MIN (>60); Globulin 2.1 g/dL (1.3-3.2); Glucose 96 mg/dl (74-100); Potassium 3.5 mmoL/L (3.5-5.1); Sodium 137 mmol/L (136-145); Total Protein,Serum 5.4 g/dl (6.3-8.2)
[2024-09-19 07:02] LABS: MANUAL DIFFERENTIAL MANUAL DIFFERENTIAL (MANUAL DIFF)
[2024-09-19 08:00] VITALS: BP 115/58; PULSE 91; RESP 20; TEMP 37.1; O2SAT 90
[2024-09-19 08:11] LABS: Lymphocytes % 24 % (10-50); Macrocytosis 1+; Monocytes % 3 % (2-9); Neutrophils % 73 % (42-76); Platelet Estimate Slight Decrease; Total Cells Counted 100
[2024-09-19] MEDS: IRBESARTAN 75MG TABLET 75 MG PO (08:28)
[2024-09-19] MEDS: POTASSIUM CHLORIDE 10MEQ CAPSULE.ER 10 MEQ PO (08:28)
[2024-09-19] MEDS: PANTOPRAZOLE 40MG TABLET 40 MG PO (08:28)
--- NOTE | 2024-09-19 08:46 | P.PN_ITS ---
Subjective *Date: 09/19/24 *Time: 08:46 Interval history: Patient with no new complaints today, was able to ambulate several times yesterday, still with some right sided abd pain, no bowel movememnt. Medical Exam Vital signs and Labs for Last 24 Hours: Vital Signs Temp Pulse Resp BP Pulse Ox O2 Del Method O2 Flow Rate 09/19/24 08:00 98.8 F 91 H 20 115/58 L 90 L Room Air 09/19/24 06:35 Room Air 09/19/24 05:00 Room Air 09/19/24 04:00 98.3 F 75 18 156/70 H 97 Nasal Cannula 2 09/19/24 03:00 Nasal Cannula 2 09/19/24 01:00 Nasal Cannula 2 09/19/24 00:00 98.0 F 79 16 147/68 H 90 L Nasal Cannula 2 09/18/24 23:00 Room Air 09/18/24 21:00 Room Air 09/18/24 20:00 80 17 92 L Room Air 09/18/24 20:00 98.4 F 80 17 136/72 92 L Room Air 09/18/24 18:34 Room Air 09/18/24 16:56 Room Air 09/18/24 16:00 98.2 F 64 18 156/77 H 96 Room Air 09/18/24 14:47 Room Air 09/18/24 13:00 Room Air 09/18/24 12:00 98.3 F 79 18 155/75 H 98 Room Air 09/18/24 11:00 Room Air 09/18/24 09:00 Room Air Intake and Output 09/18/24 09/19/24 09/19/24 23:59 07:59 15:59 Intake Total 600 / 4581 801 / 1121 320 / 1121 Output Total 0 / 0 0 / 0 0 / 0 Balance 600 / 4581 801 / 1121 320 / 1121 Intake: Intake, Oral Amount 354 / 674 320 / 674 Intake, Total IV Amount 600 / 2780 Lactated Ringers 1000ML 1,000 500 / 2680 ml @ 75 mls/hr IV .[id number] [facility] Rx#:[id number] Pipercillin/Tazo 3.375 gm In 0. 100 / 100 9 % Sodium Chloride 50 ml @ 100 mls/hr IV Q6H [facility] Rx#:[id number] Infusion Intake 447 / 447 Lactated Ringers 1000ML 1,000 397 / 397 ml @ 75 mls/hr IV .[id number] [facility] Rx#:[id number] Pipercillin/Tazo 3.375 gm In 0. 50 / 50 9 % Sodium Chloride 50 ml @ 100 mls/hr IV Q6H [facility] Rx#:[id number] Output: Output, Urine Amount 0 / 0 0 / 0 0 / 0 Other: Number of Unmeasured Voids 1 1 1 Number of Bowel Movements 1 Weight 213 lb 6.4 oz Patient Weight 09/19/24 23:59 Weight 213 lb 6.4 oz Laboratory Results - last 24 hr 09/19/24 05:58: WBC 2.9 L, RBC 2.10 L, Hgb 7.5 L, Hct 22.3 L, MCV 106.2 H, MCH 35.7 H, MCHC 33.6, RDW 15.7, Plt Count 108 L, MPV 10.4, Neut % (Auto) 70.7, Lymph % (Auto) 15.5, [place] % (Auto) 10.0 H, Eos % (Auto) 1.4, Baso % (Auto) 0.3, Neut # (Auto) 2.1, Lymph # (Auto) 0.5 L, [place] # (Auto) 0.3, Eos # (Auto) 0.0, Baso # (Auto) 0.0, Total Counted 100, Neutrophils % (Manual) 73, Lymphocytes % (Manual) 24, Monocytes % (Manual) 3, Platelet Estimate Slight decrease, Macrocytosis 1+, Sodium 137, Potassium 3.5, Chloride 108 H, Carbon Dioxide 25, Anion Gap 7.5, BUN 11 D, Creatinine 0.90, Estimated Creat Clear 94, Estimated GFR 83, Est GFR ( Amer) 101, Glucose 96, Calcium 8.0 L, Total Bilirubin 1.8 H, AST 66 H, ALT 64, Alkaline Phosphatase 88, Total Protein 5.4 L, Albumin 3.3 L, Globulin 2.1, Albumin/Globulin Ratio 1.6 I & O for Labs for Last 24 Hours: Intake & Output 09/16/24 09/17/24 09/18/24 09/19/24 23:59 23:59 23:59 23:59 Intake Total 250 / 250 270 / 270 3780 / 4581 1121 / 1121 Output Total 970 / 1220 350 / 350 0 / 0 0 / 0 Balance -720 / -970 -80 / -80 3780 / 4581 1121 / 1121 Weight 212 lb 3.119 oz 198 lb 200 lb 3.004 oz 213 lb 6.4 oz Constitutional: Present no acute distress Respiratory: Present normal respiratory effort Cardiac: Present Reg Rate and Rhythm GI: Present soft, tenderness (right side of the abdomen) and normal bowel sounds; Absent distention Extremities: Present normal inspection and full ROM Skin: Present intact; Absent erythema Neuro: Present Grossly Intact and moves all extremities Assessment and Plan *Assessment and plan (1) Bowel perforation: Status: Acute Category: Medical Code(s): K63.1 - Perforation of intestine (nontraumatic) (2) Tubular adenoma of colon: Status: Acute Category: Medical Code(s): D12.6 - Benign neoplasm of colon, unspecified (3) CAD (coronary artery disease): Status: Chronic Qualifiers: Coronary Disease-Associated Artery/Lesion type: [place] artery [place] vs. transplanted heart: [place] heart Associated angina: without angina Qualified Code(s): I25.10 - Atherosclerotic heart disease of [place] coronary artery without angina pectoris Category: Medical Code(s): I25.10 - Atherosclerotic heart disease of [place] coronary artery without angina pectoris (4) Gastroesophageal reflux disease: Status: Chronic Qualifiers: Esophagitis presence: esophagitis presence not specified Qualified Code(s): K21.9 - Gastro-esophageal reflux disease without esophagitis Category: Medical Code(s): K21.9 - Gastro-esophageal reflux disease without esophagitis (5) HLD (hyperlipidemia): Status: Chronic Qualifiers: Hyperlipidemia type: mixed hyperlipidemia Qualified Code(s): E78.2 - Mixed hyperlipidemia Category: Medical Code(s): E78.5 - Hyperlipidemia, unspecified (6) HTN (hypertension): Status: Chronic Qualifiers: Hypertension type: essential hypertension Qualified Code(s): I10 - Essential (primary) hypertension Category: Medical Code(s): I10 - Essential (primary) hypertension (7) Anemia: Problem Comment: Postoperative blood loss Status: Acute Category: Medical Code(s): D64.9 - Anemia, unspecified (8) Thrombocytopenia: Status: Acute Category: Medical Code(s): D69.6 - Thrombocytopenia, unspecified (9) Hypokalemia: Status: Acute Category: Medical Code(s): E87.6 - Hypokalemia Plan Slowly improving, patient would like to advance diet, will defer to surgery, continue routine post op care.
[2024-09-19] MEDS: HYDROCODONE/APAP 5/325 MG TABLET 1 TAB PO (10:14)
[2024-09-19 12:00] VITALS: BP 120/60; PULSE 87; RESP 20; TEMP 37; O2SAT 92
--- NOTE | 2024-09-19 15:33 | P.PN_ITS ---
Subjective Narrative: Patient has been tolerating full liquid diet. He has had no nausea. He has had right flank pain and tenderness. He states that this afternoon he had a very large bowel movement. Exam Data for Last 24 hours Vital signs and Labs for Last 24 Hours: Temp Pulse Resp BP Pulse Ox O2 Del Method O2 Flow Rate 98.6 F 87 20 120/60 92 L Room Air 2 09/19/24 12:00 09/19/24 12:00 09/19/24 12:00 09/19/24 12:00 09/19/24 12:00 09/19/24 14:45 09/19/24 04:00 Laboratory Results - last 24 hr 09/19/24 05:58: WBC 2.9 L, RBC 2.10 L, Hgb 7.5 L, Hct 22.3 L, MCV 106.2 H, MCH 35.7 H, MCHC 33.6, RDW 15.7, Plt Count 108 L, MPV 10.4, Neut % (Auto) 70.7, Lymph % (Auto) 15.5, [place] % (Auto) 10.0 H, Eos % (Auto) 1.4, Baso % (Auto) 0.3, Neut # (Auto) 2.1, Lymph # (Auto) 0.5 L, [place] # (Auto) 0.3, Eos # (Auto) 0.0, Baso # (Auto) 0.0, Total Counted 100, Neutrophils % (Manual) 73, Lymphocytes % (Manual) 24, Monocytes % (Manual) 3, Platelet Estimate Slight decrease, Macrocytosis 1+, Sodium 137, Potassium 3.5, Chloride 108 H, Carbon Dioxide 25, Anion Gap 7.5, BUN 11 D, Creatinine 0.90, Estimated Creat Clear 94, Estimated GFR 83, Est GFR ( Amer) 101, Glucose 96, Calcium 8.0 L, Total Bilirubin 1.8 H, AST 66 H, ALT 64, Alkaline Phosphatase 88, Total Protein 5.4 L, Albumin 3.3 L, Globulin 2.1, Albumin/Globulin Ratio 1.6 I & O for Last 24 hours: Intake & Output 09/17/24 09/18/24 09/19/24 09/20/24 11:59 11:59 11:59 11:59 Intake Total 250 / 250 2930 / 2930 2241 / 2241 Output Total 470 / 470 0 / 0 0 / 0 0 / 0 Balance -220 / -220 2930 / 2930 2240 / 2240 0 / 0 Weight 198 lb 200 lb 3.004 oz 213 lb 6.4 oz *Routine Abdominal Exam Abdominal: Present distended Comments: Significant bruising of right flank. Slowly resolving Progress Note: A&P Assessment and plan (1) Bowel perforation: Status: Acute (2) Tubular adenoma of colon: Status: Acute (3) CAD (coronary artery disease): Status: Chronic (4) Gastroesophageal reflux disease: Status: Chronic (5) HLD (hyperlipidemia): Status: Chronic (6) HTN (hypertension): Status: Chronic (7) Anemia: Problem details: Postoperative blood loss Status: Acute (8) Thrombocytopenia: Status: Acute (9) Hypokalemia: Status: Acute Assessment and Plan Assessment and Plan for All Diagnoses:: Hemoglobin been mostly stable with some slight decrease today to 7.5. Likely equilibration. No evidence of any active bleeding. Bowel function returning. May be reasonable for discharge today with close outpatient follow-up
--- NOTE | 2024-09-22 10:52 | SW/DCPLANNER ---
Spoke with patient on the phone. Patient stated that he is doing good. Patient stated that he is aware of his upcoming appiontments. Patient stated that he was able to get his medicine picked up from clinic pharmacy. Patient stated that he has no concerns or questions at this time. Esperanza Carmona
--- NOTE | 2024-10-01 08:39 | P.DS_ITS ---
General Admission date:: 09/13/24 Discharge date: 09/19/24 HPI HPI HPI: Patient is a 69-year-old male. I had seen him in the past for previous appendectomy. He had colonoscopy which I performed on 01/18/2016 at which time he had a periappendiceal tubular adenoma which required complex polypectomy as well as a tubular adenoma in the sigmoid colon. Colonoscopy performed on 05/26/2020 revealed a 10 mm tubular adenoma in the transverse colon and minuscule polyp unable to be retrieved as well as a distal rectal tubular adenoma. After his colonoscopy on 05/26/2020 I recommended follow-up colonoscopy in 2 to 3 y ears. He present for colonoscopy which was performed this morning on 09/12/2024. In the ascending colon just distal to the cecum there was a moderate adenomatous polyp removed with cold snare. However, most notable was a moderate sessile adenomatous polyp measuring up to about 10 mm which required removal with hot snare. Initially postprocedure patient was doing well. However later in the afternoon he began to develop right lower quadrant pain. This became progressively severe and he presented to the emergency department. He was found to have findings consistent with peritonitis on exam. He had a white blood cell count of 12,800. He underwent CT scan which revealed moderate peritoneal free air with suspected site in the anterior cecum where there was localized wall thickening. Surgical consultation was obtained. Hospital Course Hospital Course Hospital Course: The patient was admitted and surgery was consulted. Dr. Villegas took the patient to the OR and performed an exploratory laparotomy with right hemicolectomy with ileocolic anastomosis. The patient tolerated the procedure well and had an NG tube postsurgery. His pain was controlled with Dilaudid and his ORGAN FIXER pump was discontinued. He was continued on Zosyn. He did begin passing some gas. His NG tube was able to be removed. His H&H dropped and he was given 1 unit of packed red blood cells. His potassium was low and he had to be given a round of potassium. He was also started on Protonix. His diet was advanced and he tolerated well. He had a large bowel movement on 09/19/2024 and was stable to be discharged home. He will follow-up with surgery. Exam Data for Last 24 hours Vital signs and Labs for Last 24 Hours: Temp Pulse Resp BP Pulse Ox O2 Del Method O2 Flow Rate 98.6 F 87 20 120/60 92 L Room Air 2 09/19/24 12:00 09/19/24 12:00 09/19/24 12:00 09/19/24 12:00 09/19/24 12:00 09/19/24 17:00 09/19/24 04:00 Narrative: Constitutional Constitutional: no acute distress *Routine HEENT Exam Head: Present normocephalic Eye: Present EOMI and PERRL ENT: Present mucous membranes moist *Routine Neck Exam Neck: Present supple; Absent lymphadenopathy *Routine Respiratory Exam Respiratory: Present CTA bilaterally *Routine Cardiovascular Exam Cardiovascular: Present RRR *Routine Abdominal Exam Abdominal: Present normoactive bowel sounds, tenderness (RLQ), distended and guarding *Routine Rectal Exam Rectal:: deferred *Routine Genitalia Exam Genitalia:: deferred *Routine Extremities Exam Extremities: Absent cyanosis, clubbing or edema *Routine Skin Exam Skin: Present warm; Absent rash *Routine Neurological Exam Neurological: Present alert and oriented X3 DS: Diagnosis Discharge Diagnosis (1) Bowel perforation: Status: Acute Code(s): K63.1 - Perforation of intestine (nontraumatic) (2) Tubular adenoma of colon: Status: Acute Code(s): D12.6 - Benign neoplasm of colon, unspecified (3) CAD (coronary artery disease): Status: Chronic Code(s): I25.10 - Atherosclerotic heart disease of [place] coronary artery without angina pectoris Qualifiers: Coronary Disease-Associated Artery/Lesion type: [place] artery [place] vs. transplanted heart: [place] heart Associated angina: without angina Qualified Code(s): I25.10 - Atherosclerotic heart disease of [place] coronary artery without angina pectoris (4) Gastroesophageal reflux disease: Status: Chronic Code(s): K21.9 - Gastro-esophageal reflux disease without esophagitis Qualifiers: Esophagitis presence: esophagitis presence not specified Qualified Code(s): K21.9 - Gastro-esophageal reflux disease without esophagitis (5) HLD (hyperlipidemia): Status: Chronic Code(s): E78.5 - Hyperlipidemia, unspecified Qualifiers: Hyperlipidemia type: mixed hyperlipidemia Qualified Code(s): E78.2 - Mixed hyperlipidemia (6) HTN (hypertension): Status: Chronic Code(s): I10 - Essential (primary) hypertension Qualifiers: Hypertension type: essential hypertension Qualified Code(s): I10 - Essential (primary) hypertension (7) Anemia: Status: Acute Code(s): D64.9 - Anemia, unspecified Problem details: Postoperative blood loss (8) Thrombocytopenia: Status: Acute Code(s): D69.6 - Thrombocytopenia, unspecified (9) Hypokalemia: Status: Acute Code(s): E87.6 - Hypokalemia Meds Home Medications and Allergies Home Medications ?Medication ?Instructions ?Recorded ?Confirmed ?Type aspirin 81 mg tablet,delayed 81 mg PO DAILY 04/28/23 09/30/24 History release omeprazole 40 mg capsule,delayed 40 mg PO DAILY 90 days #90 caps 07/24/23 09/30/24 Rx release folic acid 1 mg tablet 1 mg PO DAILY 03/18/24 09/30/24 History bisoprolol fumarate 10 mg tablet 10 mg PO DAILY #90 tabs 05/21/24 09/30/24 Rx irbesartan 300 1 tab PO DAILY #90 tabs 05/21/24 09/30/24 Rx mg-hydrochlorothiazide 12.5 mg tablet prasugrel HCl 10 mg tablet 10 mg PO DAILY #90 tabs 05/21/24 09/30/24 Rx (Effient) levothyroxine 50 mcg tablet 50 mcg PO DAILY 06/25/24 09/30/24 History sarilumab 200 mg/1.14 mL 200 mg SQ Q2W 06/25/24 09/30/24 History subcutaneous syringe (Kevzara) prednisone 5 mg tablet 5 mg PO DAILY 09/09/24 09/30/24 History rosuvastatin 20 mg tablet 20 mg PO HS 09/13/24 09/30/24 History Bifidobacterium longum 10 million 1 cell (0 x 10 million cell) PO 09/19/24 09/30/24 Rx cell capsule (Align (B.longum)) DAILY #1 cap hydrocodone 5 mg-acetaminophen 325 1 - 2 tab PO Q6H PRN Pain #21 tabs 09/19/24 09/30/24 Rx mg tablet iron polysaccharide complex-iron 1 tab PO DAILY #30 tabs 09/19/24 09/30/24 Rx heme polypeptide 28 mg tablet (Feosol Bifera) New Prescriptions to Start Prescriptions: Bifidobacterium longum [Align (B.longum)] [place] hydrocodone-acetaminophen Luis Villegas iron polysac-iron heme polypep [Feosol Bifera] Jr Guevara Allergies Allergy/AdvReac Type Severity Reaction Status Date / Time No Known Allergies Allergy Verified 09/30/24 10:32 Discharge Plan Disposition Patient Disposition: Home, Self-Care Condition: Fair Discharge Order Discharge Orders: Discharge Order (Routine); Ordered 09/19/24 Ordered By: Jr Guevara Follow up Plan Follow up with: Jr Guevara MD [Primary Care Provider] - 09/26/24 (please call for appointment) Luis Villegas MD [Staff Physician] - 09/22/24 9:00 am Prescriptions/Medication Reconciliation: New hydrocodone-acetaminophen 5-325 mg Tablet 1 - 2 tab PO Q6H PRN (Reason: Pain) Qty: 21 0RF Align (B.longum) 10 million cell capsule 1 cell PO DAILY Qty: 1 0RF Feosol Bifera 28 mg tablet 1 tab PO DAILY Qty: 30 0RF Continued folic acid 1 mg tablet 1 mg PO DAILY Patient Comments: TAKE ONE TABLET BY MOUTH EVERY DAY prasugrel HCl [Effient] 10 mg tablet 10 mg PO DAILY Qty: 90 3RF bisoprolol fumarate 10 mg tablet 10 mg PO DAILY Qty: 90 3RF irbesartan-hydrochlorothiazide 300-12.5 mg tablet 1 tab PO DAILY Qty: 90 3RF levothyroxine 50 mcg tablet 50 mcg PO DAILY Patient Comments: TAKE ONE TABLET BY MOUTH EVERY DAY Kevzara 200 mg/1.14 mL syringe 200 mg SQ Q2W Patient Comments: inject 200 MG SUBCUTANEOUSLY every 2 WEEKS omeprazole 40 mg capsule,delayed release(DR/EC) 40 mg PO DAILY 90 Days Qty: 90 3RF rosuvastatin 20 mg tablet 20 mg PO HS Rx Instructions: TAKE ONE TABLET BY MOUTH EVERY DAY aspirin 81 mg tablet,delayed release (DR/EC) 81 mg PO DAILY Rx Instructions: TAKE ONE TABLET BY MOUTH EVERY DAY prednisone 5 mg tablet 5 mg PO DAILY Problem Reconciliation Problems Reviewed?: Yes Patient Discharge Instructions ACTIVITY: Limited activity and No heavy lifting DIET: continue same diet and other Patient Instructions: DI for Surgical Site Infection, DI for Colon Perforation Print Language: Occitan Providers Primary Care Provider: Jr Guevara Admit Provider: Jr Guevara Attending Provider: Jr Guevara
== END 2024-09-19 17:33 | disposition home or self-care (01) | DRG 330 ==
LOC: ER 22:54 → 2ND 23:30
PROVIDERS: Nurse Practitioner Family; Surgery; Admitting Provider Family Medicine; Emergency Provider Emergency Medicine; PCP Family Medicine; Visit Provider Family Medicine
PROC: 0DTF0ZZ Resection of Right Large Intestine, Open Approach (ICD-10-PCS; CPT 49000; principal; 2024-09-13 01:00)
DX: K63.1 Perforation of intestine (nontraumatic) (principal); D62 Acute posthemorrhagic anemia; K56.7 Ileus, unspecified; K91.89 Other postprocedural complications and disorders of digestive system; I25.10 Atherosclerotic heart disease of native coronary artery without angina pectoris; K21.9 Gastro-esophageal reflux disease without esophagitis; E78.2 Mixed hyperlipidemia; I10 Essential (primary) hypertension; E87.6 Hypokalemia; D12.4 Benign neoplasm of descending colon; D12.5 Benign neoplasm of sigmoid colon; D12.2 Benign neoplasm of ascending colon; Z86.0101 Personal history of adenomatous and serrated colon polyps; Z79.899 Other long term (current) drug therapy; Z12.11 Encounter for screening for malignant neoplasm of colon; Q27.33 Arteriovenous malformation of digestive system vessel; K57.30 Diverticulosis of large intestine without perforation or abscess without bleeding; K63.5 Polyp of colon
CPT/HCPCS: 45380; 45385; 36415; 74018; 74177; 80048; 80053; 81001; 82272; 82803; 83690; 84484; 85007; 85014; 85018; 85025; 85610; 85730; 86803; 86850; 87040; 87389; 99291; G0328; J1100; J1171; J1885; J2003; J2270; J2405; J2470; J2543; J2704; J3010; J3480; J7120; P9016; Q9967

== ENCOUNTER 2024-09-22 10:11 | Outpatient (CLI) | payer MEDICARE, OTHER, SELFPAY ==
--- OUTSIDE RECORDS SUMMARY | 2024-09-22 10:14 | XMS_ITS | Data Portability ---
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 Date Assessment Date Assessment LastModified [...] yte sedimenta tion rate), blood 2024 025 [facility], [address] [place] [address], [id number], 07/22/2024 11:14:57 Mycobacte rium tuberculo sis stimulate d gamma interfero n, qual, blood 2024 025 [facility], [address] [place] [address], [id number], 07/24/2024 14:18:28 CBC w/ auto diff 2024 025 [facility], [address] [place] [address], [id number], 07/22/2024 11:36:43 CBC w/ auto diff 2024 025 [facility], [address] [place] [address], [id number], 06/03/2024 10:54:54 ESR (erythroc yte sedimenta tion rate), blood 2024 025 [facility], [address] [place] [address], [id number], 06/03/2024 11:08:29 ALT (alanine aminotran sferase), serum or plasma 2024 025 [facility], [address] [place] [address], [address], 06/03/2024 10:26:23 AST/SGOT (aspartat e aminotran sferase), serum or plasma 2024 025 [facility], [address] [place] [address], [id number], 06/03/2024 10:26:22 ESR (erythroc yte sedimenta tion rate), blood 2023 024 [facility], [address] [place] [address], [id number], 02/19/2024 11:56:58 CBC w/ auto diff 2023 024 [facility], [address] [place] [address], [id number], 02/19/2024 11:02:43 hepatic function panel, serum 2023 024 [facility], [address] [place] [address], [address], 02/19/2024 10:59:09 hepatitis (A+B+C) panel, serum 2023 024 [facility], [address] [place] [address], [id number], 02/19/2024 11:01:33 C reactive protein, QN, serum or plasma 2023 024 [facility], [address] [place] [address], [address], 01/02/2024 10:11:59 CBC w/ auto diff 2023 024 [facility], [address] [place] [address], [address], 01/02/2024 10:20:26 ESR (erythroc yte sedimenta tion rate), blood 2023 [facility], [address] [place] [address], [address], 01/02/2024 12:19:58 hepatic function panel, serum 2023 [facility], [address] [place] [address], [id number], 01/02/2024 10:12:01 ccp (cyclic citrullin ated peptide) iga+igg, serum 2023 [facility], [address] [place] [address], [address], 01/04/2024 19:21:58 Referral None recorded. Procedures None recorded. Surgeries None recorded. Imaging XR, hand, 3 or more view 2023 [facility], [address] [place] [address], [address], 03/28/2024 09:52:18 XR, chest, 2 view 2023 [facility], [address] [place] [address], [address], 02/19/2024 10:03:55 Medication Orders prednison e 5 mg tablet 2023 [facility], [address] [place] [address] [address] [place], [place], [id number], 03/28/2024 14:44:26 prednison e 5 mg tablet 2023 [facility], [address] [place] [address] [address], [place], [place], [id number], 02/19/2024 11:48:34 Kevzara 200 mg/1.14 mL subcutane ous pen injector [address] [facility], [address] [place] [address] [place], [phone], 06/03/2024 09:14:52 methotrex ate sodium 2.5 mg tablet 2023 024 [facility], [address] [place] [address] [place], [id number], 04/19/2024 11:53:35 folic acid 1 mg tablet 2023 [facility], [address] [place] [address] [place], [id number], 07/17/2024 09:50:20 Patient TargetsNo targets recorded. Patient InstructionsNo instructions recorded. Reason for Referral None Reported. Results Created Date Observation Date Name Description Value Unit Range Abnormal Flag Note LastModifiedBy Organization Detail LastModifiedTime 01/02/2001/02/2024 C REACT DENAE PROTE IN C reactive protein 0.22 mg/dL 0.00-0 .49 normal Not Available [facility] [address] [place] [address], [id number], 01/02/2024 10:11:59 01/02/20 24 01/02/2024 HEPAT IC (LIVE R) PANEL AST 31 U/L 0-40 normal Not Available [facility] [address] [place] [address], [address], 01/02/2024 10:12:01 01/02/20 24 01/02/2024 HEPAT IC (LIVE R) PANEL ALT 32 U/L 0-41 normal Not Available [facility] [address] [place] [address], [address], 01/02/2024 10:12:01 01/02/20 24 01/02/2024 HEPAT IC (LIVE R) PANEL alkaline phosphatase 68 U/L 40-129 normal Not Available [facility] [address] [place] [address], [address], 01/02/2024 10:12:01 01/02/20 24 01/02/2024 HEPAT IC (LIVE R) PANEL total protein 7.7 g/dL 6.4-8. 3 normal Not Available [facility] [address] [place] [address], [address], 01/02/2024 10:12:01 01/02/20 24 01/02/2024 HEPAT IC (LIVE R) PANEL albumin 4.5 g/dL 3.5-5. 2 normal Not Available [facility] [address] [place] [address], [address], 01/02/2024 10:12:01 01/02/20 24 01/02/2024 HEPAT IC (LIVE R) PANEL bilirubin, total 0.6 mg/dL 0.1-1. 2 normal Not Available [facility] [address] [place] [address], [address], 01/02/2024 10:12:01 01/02/20 24 01/02/2024 HEPAT IC (LIVE R) PANEL bilirubin, direct 0.2 mg/dL 0.0-0. 3 normal Not Available [facility] [address] [place] [address], [address], 01/02/2024 10:12:01 01/02/20 24 01/02/2024 HEPAT IC (LIVE R) PANEL bilirubin, indirect 0.4 mg/dL _(mark c) 0.0-1. 0 normal Not Available [facility] [address] [place] [address], [address], 01/02/2024 10:12:01 01/02/20 24 01/02/2024 COMPL ETE BLOOD COUNT white blood cells 8.0 10*3/ uL 3.8-10 .8 normal Not Available [facility] [address] [place] [address], [address], 01/02/2024 10:20:26 01/02/20 24 01/02/2024 COMPL ETE BLOOD COUNT red blood cells 3.95 10*6/ uL 4.20-5 .80 low Not Available [facility] [address] [place] [address], [address], 01/02/2024 10:20:26 01/02/20 24 01/02/2024 COMPL ETE BLOOD COUNT hemoglobin 13.9 g/dL 14.0-1 8.0 low Not Available [facility] [address] [place] [address], [address], 01/02/2024 10:20:26 01/02/20 24 01/02/2024 COMPL ETE BLOOD COUNT hematocrit 39.4 % 40.0-5 2.0 low Not Available [facility] [address] [place] [address], [address], 01/02/2024 10:20:26 01/02/20 24 01/02/2024 COMPL ETE BLOOD COUNT MCV 100 fL 80-100 normal Not Available [facility] [address] [place] [address], [address], 01/02/2024 10:20:26 01/02/20 24 01/02/2024 COMPL ETE BLOOD COUNT MCH 35 pg 26-35 normal Not Available [facility] [address] [place] [address], [address], 01/02/2024 10:20:26 01/02/20 24 01/02/2024 COMPL ETE BLOOD COUNT MCHC 35 g/dL 32-36 normal Not Available [facility] [address] [place], [address], 01/02/2024 10:20:26 01/02/20 24 01/02/2024 COMPL ETE BLOOD COUNT RDW 15.5 % 11.0-1 5.0 high Not Available [facility] [address] [place] [address], [address], 01/02/2024 10:20:26 01/02/20 24 01/02/2024 COMPL ETE BLOOD COUNT MPV 8.7 fL 6.2-10 .5 normal Not Available [facility] [address] [place] [address], [address], 01/02/2024 10:20:26 01/02/20 24 01/02/2024 COMPL ETE BLOOD COUNT platelet count 189 10*3/ uL 150-40 0 normal Not Available [facility] [address] [place] [address], [address], 01/02/2024 10:20:26 01/02/20 24 01/02/2024 COMPL ETE BLOOD COUNT neutrophil,a bsolute 6.7 10*3/ uL 1.6-8. 4 normal Not Available [facility] [address] [place] [address], [address], 01/02/2024 10:20:26 01/02/20 24 01/02/2024 COMPL ETE BLOOD COUNT lymphocyte,a bsolute 0.9 10*3/ uL 0.4-5. 1 normal Not Available [facility] [address] [place] [address], [address], 01/02/2024 10:20:26 01/02/20 24 01/02/2024 COMPL ETE BLOOD COUNT monocyte,abs olute 0.4 10*3/ uL 0.0-1. 2 normal Not Available [facility] [address] [place] [address], [address], 01/02/2024 10:20:26 01/02/20 24 01/02/2024 COMPL ETE BLOOD COUNT eosinophil,a bsolute 0.0 10*3/ uL 0.0-0. 8 normal Not Available [facility] [address] [place] [address], [address], 01/02/2024 10:20:26 01/02/20 24 01/02/2024 COMPL ETE BLOOD COUNT basophil,abs olute 0.0 10*3/ uL 0.0-0. 3 normal Not Available [facility] [address] [place] [address], [address], 01/02/2024 10:20:26 01/02/20 24 01/02/2024 COMPL ETE BLOOD COUNT % neutrophils 82.8 % 42.0-7 8.0 high Not Available [facility] [address] [place] [address], [address], 01/02/2024 10:20:26 01/02/20 24 01/02/2024 COMPL ETE BLOOD COUNT % lymphocytes 11.2 % 11.0-4 7.0 normal Not Available [facility] [address] [place] [address], [address], 01/02/2024 10:20:26 01/02/20 24 01/02/2024 COMPL ETE BLOOD COUNT % monocytes 5.2 % 0.0-11 .0 normal Not Available [facility] [address] [place] [address], [address], 01/02/2024 10:20:26 01/02/20 24 01/02/2024 COMPL ETE BLOOD COUNT % eosinophils 0.4 % 0.0-7. 0 normal Not Available [facility] [address] [place] [address], [address], 01/02/2024 10:20:26 01/02/20 24 01/02/2024 COMPL ETE BLOOD COUNT % basophils 0.4 % 0.0-3. 0 normal Not Available [facility] [address] [place] [address], [address], 01/02/2024 10:20:26 01/02/20 24 01/02/2024 COMPL ETE BLOOD COUNT nucleated red cells 0.0 % 0.0-0. 9 normal Not Available [facility] [address] [place] [address], [address], 01/02/2024 10:20:26 01/02/20 24 01/02/2024 COMPL ETE BLOOD COUNT nucleated RBCs, absolute 0.00 10*3/ uL not estab. normal Not Available [facility] [address] [place] [address], [address], 01/02/2024 10:20:26 01/02/20 24 01/02/2024 ESR, AUTOM ATED ESR, automated 13 mm 0-19 normal Not Available [facility] [address] [place] [address], [address], 01/02/2024 12:19:58 01/02/20 24 01/04/2024 ANTI- CCP anti-ccp <16 units normal Refer ence Range Negat denae: <20 Weak Posit denae: 20-39 Moder ate Posit denae: 40-59 Stron g Posit denae: >59 Not Available [facility] [address] [place] [address], [address], 01/04/2024 19:21:58 02/19/20 24 02/19/2024 HEPAT IC (LIVE R) PANEL AST 34 U/L 0-40 normal Not Available [facility] [address] [place] [address], [address], 02/19/2024 10:59:08 02/19/20 24 02/19/2024 HEPAT IC (LIVE R) PANEL ALT 35 U/L 0-41 normal Not Available [facility] [address] [place] [address], [address], 02/19/2024 10:59:08 02/19/20 24 02/19/2024 HEPAT IC (LIVE R) PANEL alkaline phosphatase 60 U/L 40-129 normal Not Available [facility] [address] [place] [address], [address], 02/19/2024 10:59:08 02/19/20 24 02/19/2024 HEPAT IC (LIVE R) PANEL total protein 7.0 g/dL 6.4-8. 3 normal Not Available [facility] [address] [place] [address], [address], 02/19/2024 10:59:08 02/19/20 24 02/19/2024 HEPAT IC (LIVE R) PANEL albumin 4.4 g/dL 3.5-5. 2 normal Not Available [facility] [address] [place] [address], [address], 02/19/2024 10:59:08 02/19/20 24 02/19/2024 HEPAT IC (LIVE R) PANEL bilirubin, total 0.7 mg/dL 0.1-1. 2 normal Not Available [facility] [address] [place] [address], [address], 02/19/2024 10:59:08 02/19/20 24 02/19/2024 HEPAT IC (LIVE R) PANEL bilirubin, direct 0.2 mg/dL 0.0-0. 3 normal Not Available [facility] [address] [place] [address], [address], 02/19/2024 10:59:08 02/19/20 24 02/19/2024 HEPAT IC (LIVE R) PANEL bilirubin, indirect 0.5 mg/dL _(mark c) 0.0-1. 0 normal Not Available [facility] [address] [place] [address], [address], 02/19/2024 10:59:08 02/19/20 24 02/19/2024 HEPAT ITIS PANEL hepatitis A Ab, IgM NONREA CTIVE nonrea ctive normal Not Available [facility] [address] [place] [address], [address], 02/19/2024 11:01:33 02/19/2002/19/2024 HEPAT ITIS PANEL hepatitis B surface Ag NONREA CTIVE nonrea ctive normal Not Available [facility] [address] [place] [address], [address], 02/19/2024 11:01:33 02/19/2002/19/2024 HEPAT ITIS PANEL hepatitis B core Ab,IgM NONREA CTIVE nonrea ctive normal Not Available [facility] [address] [place] [address], [address], 02/19/2024 11:01:33 02/19/20 24 02/19/2024 HEPAT ITIS PANEL hcab, reflex viral RNA qt NONREA CTIVE nonrea ctive normal Antib odies to HCV were not detec hue; does not exclu de the possi bilit y of expos ure to HCV. Not Available [facility] [address] [place] [address], [address], 02/19/2024 11:01:33 02/19/20 24 02/19/2024 COMPL ETE BLOOD COUNT white blood cells 7.4 10*3/ uL 3.8-10 .8 normal RESUL TS RECHE CKED Hemog hayley obtai heike after warmi ng to 37 C. Not Available [facility] [address] [place] [address], [address], 02/19/2024 11:02:43 02/19/20 24 02/19/2024 COMPL ETE BLOOD COUNT red blood cells 3.28 10*6/ uL 4.20-5 .80 low Not Available [facility] [address] [place] [address], [address], 02/19/2024 11:02:43 02/19/20 24 02/19/2024 COMPL ETE BLOOD COUNT hemoglobin 12.4 g/dL 14.0-1 8.0 low Not Available [facility] [address] [place] [address], [address], 02/19/2024 11:02:43 02/19/20 24 02/19/2024 COMPL ETE BLOOD COUNT hematocrit 34.2 % 40.0-5 2.0 low Not Available [facility] [address] [place] [address], [address], 02/19/2024 11:02:43 02/19/20 24 02/19/2024 COMPL ETE BLOOD COUNT MCV 104 fL 80-100 high Not Available [facility] [address] [place] [address], [address], 02/19/2024 11:02:43 02/19/2002/19/2024 COMPL ETE BLOOD COUNT MCH 38 pg 26-35 high Not Available [facility] [address] [place] [address], [address], 02/19/2024 11:02:43 02/19/2002/19/2024 COMPL ETE BLOOD COUNT MCHC 36 g/dL 32-36 normal Not Available [facility] [address] [place] [address], [address], 02/19/2024 11:02:43 02/19/2002/19/2024 COMPL ETE BLOOD COUNT RDW 16.5 % 11.0-1 5.0 high Not Available [facility] [address] [place] [address], [address], 02/19/2024 11:02:43 02/19/2002/19/2024 COMPL ETE BLOOD COUNT MPV 7.7 fL 6.2-10 .5 normal Not Available [facility] [address] [place] [address], [address], 02/19/2024 11:02:43 02/19/2002/19/2024 COMPL ETE BLOOD COUNT platelet count 149 10*3/ uL 150-40 0 low Not Available [facility] [address] [place] [address], [address], 02/19/2024 11:02:43 02/19/2002/19/2024 COMPL ETE BLOOD COUNT neutrophil,a bsolute 6.4 10*3/ uL 1.6-8. 4 normal Not Available [facility] [address] [place] [address], [address], 02/19/2024 11:02:43 02/19/20 24 02/19/2024 COMPL ETE BLOOD COUNT lymphocyte,a bsolute 0.6 10*3/ uL 0.4-5. 1 normal Not Available [facility] [address] [place] [address], [address], 02/19/2024 11:02:43 02/19/20 24 02/19/2024 COMPL ETE BLOOD COUNT monocyte,abs olute 0.4 10*3/ uL 0.0-1. 2 normal Not Available [facility] [address] [place] [address], [address], 02/19/2024 11:02:43 02/19/2002/19/2024 COMPL ETE BLOOD COUNT eosinophil,a bsolute 0.0 10*3/ uL 0.0-0. 8 normal Not Available [facility] [address] [place] [address], [address], 02/19/2024 11:02:43 02/19/20 24 02/19/2024 COMPL ETE BLOOD COUNT basophil,abs olute 0.0 10*3/ uL 0.0-0. 3 normal Not Available [facility] [address] [place] [address], [address], 02/19/2024 11:02:43 02/19/20 24 02/19/2024 COMPL ETE BLOOD COUNT % neutrophils 86.4 % 42.0-7 8.0 high Not Available [facility] [address] [place] [address], [address], 02/19/2024 11:02:43 02/19/20 24 02/19/2024 COMPL ETE BLOOD COUNT % lymphocytes 8.1 % 11.0-4 7.0 low Not Available [facility] [address] [place] [address], [address], 02/19/2024 11:02:43 02/19/20 24 02/19/2024 COMPL ETE BLOOD COUNT % monocytes 5.0 % 0.0-11 .0 normal Not Available [facility] [address] [place] [address], [address], 02/19/2024 11:02:43 02/19/20 24 02/19/2024 COMPL ETE BLOOD COUNT % eosinophils 0.2 % 0.0-7. 0 normal Not Available [facility] [address] [place] [address], [address], 02/19/2024 11:02:43 02/19/20 24 02/19/2024 COMPL ETE BLOOD COUNT % basophils 0.3 % 0.0-3. 0 normal Not Available [facility] [address] [place] [address], [address], 02/19/2024 11:02:43 02/19/2002/19/2024 COMPL ETE BLOOD COUNT nucleated red cells 0.0 % 0.0-0. 9 normal Not Available [facility] [address] [place] [address], [address], 02/19/2024 11:02:43 02/19/20 24 02/19/2024 COMPL ETE BLOOD COUNT nucleated RBCs, absolute 0.00 10*3/ uL not estab. normal Not Available [facility] [address] [place] [address], [address], 02/19/2024 11:02:43 02/19/2002/19/2024 MORPH OLOGY platelet morphology NORMAL normal Not Available [facility] [address] [place] [address], [address], 02/19/2024 11:02:45 02/19/2002/19/2024 MORPH OLOGY anisocytosis MODERA TE abnormal Not Available [facility] [address] [place] [address], [address], 02/19/2024 11:02:45 02/19/20 24 02/19/2024 MORPH OLOGY macrocytosis SLIGHT abnormal Not Available [facility] [address] [place] [address], [address], 02/19/2024 11:02:45 02/19/20 24 02/19/2024 ESR, AUTOM ATED ESR, automated 10 mm 0-19 normal Not Available [facility] [address] [place] [address], [address], 02/19/2024 11:56:58 06/03/19 25 06/03/2024 AST AST 28 U/L 0-40 normal Not Available [facility] [address] [place] [address], [address], 06/03/2024 10:26:21 06/03/19 25 06/03/2024 ALT ALT 35 U/L 0-41 normal Not Available [facility] [address] [place] [address], [address], 06/03/2024 10:26:23 06/03/19 25 06/03/2024 COMPL ETE BLOOD COUNT white blood cells 13.0 10*3/ uL 3.8-10 .8 high Not Available [facility] [address] [place] [address], [address], 06/03/2024 10:54:54 06/03/19 25 06/03/2024 COMPL ETE BLOOD COUNT red blood cells 3.82 10*6/ uL 4.20-5 .80 low Not Available [facility] [address] [place] [address], [address], 06/03/2024 10:54:54 06/03/19 25 06/03/2024 COMPL ETE BLOOD COUNT hemoglobin 13.9 g/dL 14.0-1 8.0 low Not Available [facility] [address] [place] [address], [address], 06/03/2024 10:54:54 06/03/19 25 06/03/2024 COMPL ETE BLOOD COUNT hematocrit 39.5 % 40.0-5 2.0 low Not Available [facility] [address] [place] [address], [address], 06/03/2024 10:54:54 06/03/19 25 06/03/2024 COMPL ETE BLOOD COUNT MCV 103 fL 80-100 high Not Available [facility] [address] [place] [address], [address], 06/03/2024 10:54:54 06/03/19 25 06/03/2024 COMPL ETE BLOOD COUNT MCH 36 pg 26-35 high Not Available [facility] [address] [place] [address], [address], 06/03/2024 10:54:54 06/03/19 25 06/03/2024 COMPL ETE BLOOD COUNT MCHC 35 g/dL 32-36 normal Not Available [facility] [address] [place] [address], [address], 06/03/2024 10:54:54 06/03/19 25 06/03/2024 COMPL ETE BLOOD COUNT RDW 14.3 % 11.0-1 5.0 normal Not Available [facility] [address] [place] [address], [address], 06/03/2024 10:54:54 06/03/19 25 06/03/2024 COMPL ETE BLOOD COUNT MPV 9.0 fL 6.2-10 .5 normal Not Available [facility] [address] [place] [address], [address], 06/03/2024 10:54:54 06/03/19 25 06/03/2024 COMPL ETE BLOOD COUNT platelet count 180 10*3/ uL 150-40 0 normal Not Available [facility] [address] [place] [address], [address], 06/03/2024 10:54:54 06/03/19 25 06/03/2024 COMPL ETE BLOOD COUNT neutrophil,a bsolute 11.3 10*3/ uL 1.6-8. 4 high Not Available [facility] [address] [place] [address], [address], 06/03/2024 10:54:54 06/03/19 25 06/03/2024 COMPL ETE BLOOD COUNT lymphocyte,a bsolute 1.2 10*3/ uL 0.4-5. 1 normal Not Available [facility] [address] [place] [address], [address], 06/03/2024 10:54:54 06/03/19 25 06/03/2024 COMPL ETE BLOOD COUNT monocyte,abs olute 0.4 10*3/ uL 0.0-1. 2 normal Not Available [facility] [address] [place] [address], [address], 06/03/2024 10:54:54 06/03/19 25 06/03/2024 COMPL ETE BLOOD COUNT eosinophil,a bsolute 0.1 10*3/ uL 0.0-0. 8 normal Not Available [facility] [address] [place] [address], [address], 06/03/2024 10:54:54 06/03/19 25 06/03/2024 COMPL ETE BLOOD COUNT basophil,abs olute 0.0 10*3/ uL 0.0-0. 3 normal Not Available [facility] [address] [place] [address], [address], 06/03/2024 10:54:54 06/03/19 25 06/03/2024 COMPL ETE BLOOD COUNT % neutrophils 75.0 % 42.0-7 8.0 normal Not Available [facility] [address] [place] [address], [phone], 06/03/2024 10:54:54 06/03/19 25 06/03/2024 COMPL ETE BLOOD COUNT % lymphocytes 9.0 % 11.0-4 7.0 low Not Available [facility] [address] [place] [address], [address], 06/03/2024 10:54:54 06/03/19 25 06/03/2024 COMPL ETE BLOOD COUNT % monocytes 3.0 % 0.0-11 .0 normal Not Available [facility] [address] [place] [address], [address], 06/03/2024 10:54:54 06/03/19 25 06/03/2024 COMPL ETE BLOOD COUNT % eosinophils 1.0 % 0.0-7. 0 normal Not Available [facility] [address] [place] [address], [address], 06/03/2024 10:54:54 06/03/19 25 06/03/2024 COMPL ETE BLOOD COUNT % basophils 0.0 % 0.0-3. 0 normal Not Available [facility] [address] [place] [address], [address], 06/03/2024 10:54:54 06/03/19 25 06/03/2024 COMPL ETE BLOOD COUNT nucleated red cells 0.1 % 0.0-0. 9 normal Not Available [facility] [address] [place] [address], [address], 06/03/2024 10:54:54 06/03/19 25 06/03/2024 COMPL ETE BLOOD COUNT nucleated RBCs, absolute 0.01 10*3/ uL not estab. normal Not Available [facility] [address] [place] [address], [address], 06/03/2024 10:54:54 06/03/19 25 06/03/2024 MANUA L DIFFE RENTI AL % band neutrophils 12.0 % 0.0-7. 0 high Not Available [facility] [address] [place] [address], [address], 06/03/2024 10:54:56 06/03/19 25 06/03/2024 MANUA L DIFFE RENTI AL % atypical lymphocytes 0 % 0-1 normal Not Available [facility] [address] [place] [address], [address], 06/03/2024 10:54:56 06/03/19 25 06/03/2024 MANUA L DIFFE RENTI AL % metamyelocyt es 0 % 0-1 normal Not Available [facility] [address] [place] [address], [address], 06/03/2024 10:54:56 06/03/19 25 06/03/2024 MANUA L DIFFE RENTI AL % myelocytes 0 % 0-1 normal Not Available [facility] [address] [place] [address], [address], 06/03/2024 10:54:56 06/03/19 25 06/03/2024 MANUA L DIFFE RENTI AL % promyelocyte s 0 % 0 normal Not Available [facility] [address] [place] [address], [address], 06/03/2024 10:54:56 06/03/19 25 06/03/2024 MANUA L DIFFE RENTI AL % blast 0 % 0 normal Not Available [facility] [address] [place] [address], [address], 06/03/2024 10:54:56 06/03/19 25 06/03/2024 MANUA L DIFFE RENTI AL nucleated red cells 0 /100{ WBC} 0-1 normal Not Available [facility] [address] [place] [address], [address], 06/03/2024 10:54:56 06/03/19 25 06/03/2024 MANUA L DIFFE RENTI AL smudge cells 0 /100{ WBC} 0 normal Not Available [facility] [address] [place] [address], [address], 06/03/2024 10:54:56 06/03/19 25 06/03/2024 MANUA L DIFFE RENTI AL platelet morphology NORMAL normal Not Available [facility] [address] [place] [address], [address], 06/03/2024 10:54:56 06/03/19 25 06/03/2024 MANUA L DIFFE RENTI AL macrocytosis SLIGHT abnormal Not Available [facility] [address] [place] [address], [address], 06/03/2024 10:54:56 06/03/19 25 06/03/2024 MANUA L DIFFE RENTI AL polychromasi a SLIGHT abnormal Not Available [facility] [address] [place] [address], [address], 06/03/2024 10:54:56 06/03/19 25 06/03/2024 MANUA L DIFFE RENTI AL stomatocytes SLIGHT abnormal Not Available [facility] [address] [place] [address], [address], 06/03/2024 10:54:56 06/03/19 25 06/03/2024 ESR, AUTOM ATED ESR, automated 9 mm 0-19 normal Not Available [facility] [address] [place] [address], [address], 06/03/2024 11:08:29 07/23/19 25 07/22/2024 ESR, AUTOM ATED ESR, automated <1 mm 0-19 normal RESUL TS RECHE CKED Not Available [facility] [address] [place] [address], [address], 07/22/2024 11:14:57 07/23/19 25 07/22/2024 COMPL ETE BLOOD COUNT white blood cells 4.3 10*3/ uL 3.8-10 .8 normal RESUL TS RECHE CKED Hemog hayley obtai heike after warmi ng to 37 C. Not Available [facility] [address] [place] [address], [address], 07/22/2024 11:36:43 07/23/19 25 07/22/2024 COMPL ETE BLOOD COUNT red blood cells 3.59 10*6/ uL 4.20-5 .80 low Not Available [facility] [address] [place] [address], [address], 07/22/2024 11:36:43 07/23/19 25 07/22/2024 COMPL ETE BLOOD COUNT hemoglobin 13.0 g/dL 14.0-1 8.0 low Not Available [facility] [address] [place] [address], [address], 07/22/2024 11:36:43 07/23/19 25 07/22/2024 COMPL ETE BLOOD COUNT hematocrit 37.2 % 40.0-5 2.0 low Not Available [facility] [address] [place] [address], [address], 07/22/2024 11:36:43 07/23/19 25 07/22/2024 COMPL ETE BLOOD COUNT MCV 103 fL 80-100 high Not Available [facility] [address] [place] [address], [address], 07/22/2024 11:36:43 07/23/19 25 07/22/2024 COMPL ETE BLOOD COUNT MCH 36 pg 26-35 high Not Available [facility] [address] [place] [address], [address], 07/22/2024 11:36:43 07/23/19 25 07/22/2024 COMPL ETE BLOOD COUNT MCHC 35 g/dL 32-36 normal Not Available [facility] [address] [place] [address], [address], 07/22/2024 11:36:43 07/23/19 25 07/22/2024 COMPL ETE BLOOD COUNT RDW 14.3 % 11.0-1 5.0 normal Not Available [facility] [address] [place] [address], [address], 07/22/2024 11:36:43 07/23/19 25 07/22/2024 COMPL ETE BLOOD COUNT MPV 9.8 fL 6.2-10 .5 normal Not Available [facility] [address] [place] [address], [address], 07/22/2024 11:36:43 07/23/19 25 07/22/2024 COMPL ETE BLOOD COUNT platelet count 150 10*3/ uL 150-40 0 normal Not Available [facility] [address] [place] [address], [address], 07/22/2024 11:36:43 07/23/19 25 07/22/2024 COMPL ETE BLOOD COUNT neutrophil,a bsolute 3.0 10*3/ uL 1.6-8. 4 normal Not Available [facility] [address] [place] [address], [address], 07/22/2024 11:36:43 07/23/19 25 07/22/2024 COMPL ETE BLOOD COUNT lymphocyte,a bsolute 0.7 10*3/ uL 0.4-5. 1 normal Not Available [facility] [address] [place] [address], [address], 07/22/2024 11:36:43 07/23/19 25 07/22/2024 COMPL ETE BLOOD COUNT monocyte,abs olute 0.5 10*3/ uL 0.0-1. 2 normal Not Available [facility] [address] [place] [address], [address], 07/22/2024 11:36:43 07/23/19 25 07/22/2024 COMPL ETE BLOOD COUNT eosinophil,a bsolute 0.0 10*3/ uL 0.0-0. 8 normal Not Available [facility] [address] [place] [address], [address], 07/22/2024 11:36:43 07/23/19 25 07/22/2024 COMPL ETE BLOOD COUNT basophil,abs olute 0.0 10*3/ uL 0.0-0. 3 normal Smear revie wed to confi rm cell morph ology . Not Available [facility] [address] [place] [address], [address], 07/22/2024 11:36:43 07/23/19 25 07/22/2024 COMPL ETE BLOOD COUNT % neutrophils 70.7 % 42.0-7 8.0 normal Not Available [facility] [address] [place] [address], [address], 07/22/2024 11:36:43 07/23/19 25 07/22/2024 COMPL ETE BLOOD COUNT % lymphocytes 17.4 % 11.0-4 7.0 normal Not Available [facility] [address] [place] [address], [address], 07/22/2024 11:36:43 07/23/19 25 07/22/2024 COMPL ETE BLOOD COUNT % monocytes 10.5 % 0.0-11 .0 normal Not Available [facility] [address] [place] [address], [address], 07/22/2024 11:36:43 07/23/19 25 07/22/2024 COMPL ETE BLOOD COUNT % eosinophils 0.8 % 0.0-7. 0 normal Not Available [facility] [address] [place] [address], [address], 07/22/2024 11:36:43 07/23/19 25 07/22/2024 COMPL ETE BLOOD COUNT % basophils 0.6 % 0.0-3. 0 normal Not Available [facility] [address] [place] [address], [address], 07/22/2024 11:36:43 07/23/19 25 07/22/2024 COMPL ETE BLOOD COUNT nucleated red cells 0.2 % 0.0-0. 9 normal Not Available [facility] [address] [place] [address], [address], 07/22/2024 11:36:43 07/23/19 25 07/22/2024 COMPL ETE BLOOD COUNT nucleated RBCs, absolute 0.01 10*3/ uL not estab. normal Not Available [facility] [address] [place] [address], [address], 07/22/2024 11:36:43 07/23/19 25 07/22/2024 MORPH OLOGY platelet morphology NORMAL normal Not Available [facility] [address] [place] [address], [address], 07/22/2024 11:36:45 07/23/19 25 07/22/2024 MORPH OLOGY macrocytosis SLIGHT abnormal Not Available [facility] [address] [place] [address], [address], 07/22/2024 11:36:45 07/23/19 25 07/22/2024 MORPH OLOGY polychromasi a SLIGHT abnormal Not Available [facility] [address] [place] [address], [address], 07/22/2024 11:36:45 07/23/19 25 07/22/2024 MORPH OLOGY dacryocytes SLIGHT abnormal Not Available [facility] [address] [place] [address], [address], 07/22/2024 11:36:45 07/23/19 25 07/24/2024 QUANT IFERO N TB GOLD qtb gold NEGATI VE negati ve normal Negat denae test resul t. M. tuber culos is compl ex infec tion unlik pinky. Not Available [facility] [address] [place] [address], [address], 07/24/2024 14:18:28 07/23/19 25 07/24/2024 QUANT IFERO N TB GOLD nil 0.01 IU/mL normal Not Available [facility] [address] [place] [address], [address], 07/24/2024 14:18:28 07/23/19 25 07/24/2024 QUANT IFERO N TB GOLD mitogen nil 3.55 IU/mL normal Not Available [facility] [address] [place], [address], 07/24/2024 14:18:28 07/23/19 25 07/24/2024 QUANT IFERO N TB GOLD TB1 nil 0.00 IU/mL normal Not Available [facility] [address] [place], [address], 07/24/2024 14:18:28 07/23/19 25 07/24/2024 QUANT IFERO [...] refer to https ://ed alyxati on.qu rebecca [employer]. com/f aq/FA Q204 (This link is being provi ded for infor carisa hartman/ educa bianca l purpo ses only. ) Not Available [facility] [address] [place], [address], 07/24/2024 14:18:28 10/15/20 24 02/19/2024 XR, chest , 2 view [place] [address] [place] [address] Misty melendez Name: TRUE melendez : [id number] [...] Enrique esquivel MD on 2023 9:58 AM [facility] [address] [place], [address], 02/19/2024 16:27:26 03/28/20 24 03/28/2024 [facility], [facility], 3 [facility] [address] [place] [address] Misty melendez Name: TRUE melendez : 89 Misty melendez Orderi ng Provid er: [facility] EXAM DATE: 2023 EXAM: XR ZACH HANDS [...] s of both hands. Interp reted By: Carmen villanueva MD Electr onical ly Signed By: Carmen villanueva MD on 2023 9:47 AM [facility] [address] [place], [address], 03/28/2024 15:43:56 Result Notes None recorded. Problems Name Problem SNOMED Code Status Onset Date Resolution Date Notes Provider Name and Address Organization Details Recorded Time Pain of joint 75377731 Active 2014 From Automated Load;Provi lori: Sanchez, Traci;Stat us: Active Not Available [facility] 6 04:55:54 High antibody titer 281621089 Active 2014 From Automated Load;Provi lori: Sanchez, Traci;Stat us: Active Not Available [facility] 6 04:55:54 Idiopathi c osteoarth ritis 688234550 Active 2014 From Automated Load;Provi lori: Sanchez, Traci;Stat us: Active Not Available [facility] 6 04:55:54 Radial styloid tenosynov itis 94061064 Active 2014 From Automated Load;Provi lori: Sanchez, Traci;Stat us: Active Not Available [facility] 6 04:56:32 Synovitis /tenosyno vitis - wrist 085297549 Active 2014 From Automated Load;Provi lori: Sanchez, Traci;Stat us: Active Not Available [facility] 6 04:56:32 Problem Notes None recorded. Procedures Surgical History Date Name Laterality Status Provider Name and Address Organization Details Recorded Time 05/14/19 25 placement of stent in pulmonary artery completed Nic Mercado [facility] 06/03/2024 09:13:18 07/08/19 22 Dupuytren's Contracture Manipulation completed JUAN MATHIS MD [address] [place], [address], [facility] 07/07/2021 18:22:27 07/06/19 Xiaflex/Dupuytre n's Contracture Injection completed Sofi Cannon [facility] 07/19/2021 16:23:51 05/27/19 22 Injection Joint/Bursa, Interm completed JUAN MATHIS MD [address] [place], [address], [facility] 05/27/2021 12:01:33 Appendectomy completed Larisa Trung [facility] 11/15/2023 07:55:33 Imaging Results Imaging Date Name Status LastModified by Organiz ation Details LastModified Time 02/19/2024 XR, chest, 2 view completed [facility] [address] [place], [address], 02/19/2024 16:27:26 03/28/2024 XR, hand, 3 or more view completed [facility] [address] [place], [address], 03/28/2024 15:43:56 Procedure Notes None recorded. Medical [...] Available vitamin E active Not Available Not Allisno ilable Not Available vitamin B complex active [...] Updated DateTime 4 177.8 cm 28.6 kg/m2 87004.2 8 g 16 /min 71 /min 97 % 97 % 121 mm[Hg] 72 mm[Hg] Larisa Nino [facility] 4 08:40:07 Date Recorded Body height Body mass index (BMI) Body weight Heart rate Respiratory rate Oxygen saturation Oxygen saturation in Arterial blood by Pulse oximetry Systolic blood pressure Diastolic blood pressure Provider Name and Address Organization Details Last Updated DateTime 4 177.8 cm 29.4 kg/m2 86123.4 4 g 78 /min 16 /min 97 % 97 % 124 mm[Hg] 72 mm[Hg] Nic [facility] 4 09:19:35 Date Recorded Body height Respiratory rate Body mass index (BMI) Body weight Heart rate Oxygen saturation Oxygen saturation in Arterial blood by Pulse oximetry Systolic blood pressure Diastolic blood pressure Provider Name and Address Organization Details Last Updated DateTime 4 177.8 cm 16 /min 29.4 kg/m2 77043.4 4 g 78 /min 97 % 97 % 118 mm[Hg] 72 mm[Hg] Nic [facility] 4 09:06:50 Date Recorded Body height Respiratory rate Body mass index (BMI) Body weight Heart rate Oxygen saturation Oxygen saturation in Arterial blood by Pulse oximetry Systolic blood pressure Diastolic blood pressure Provider Name and Address Organization Details Last Updated DateTime 5 177.8 cm 16 /min 29.4 kg/m2 88175.4 4 g 68 /min 98 % 98 % 118 mm[Hg] 74 mm[Hg] Nic [facility] 5 09:15:50 Date Recorded Body height Respiratory rate Body mass index (BMI) Body weight Heart rate Oxygen saturation Oxygen saturation in Arterial blood by Pulse oximetry Systolic blood pressure Diastolic blood pressure Provider Name and Address Organization Details Last Updated DateTime 5 177.8 cm 16 /min 28.4 kg/m2 83357.2 9 g 63 /min 98 % 98 % 118 mm[Hg] 72 mm[Hg] Nic Mercado [facility] 09:00:09 Social History Question Answer Notes LastModified by Organizat ion Details LastModified Time Tobacco Smoking Status Former Smoker Larisa Nino null, [facility] 11/15/2023 07:55:19 What Was The Date Of Your Most Recent Tobacco Screening? 07/22/2024 [email or web address] Information not available 07/22/2024 Sex: Male Functional Status Question Answer Note LastModified by Organization D etails LastModified Time What is your level of alcohol consumption? Moderate [email or web address] Information not available 11/15/2023 Mental Status None recorded. Family History Nothing Reported. Medical History Condition Response Emphysema N COPD N Arthritis Y Acid Reflux (GERD) N Rheumatoid Arthritis N Bleeding Disorder N Asthma N Diabetes N Hypertension N Past Encounters Encounter ID Performer Location Encounter Start Date Encounter Closed Date Diagnosis/Indication Diagnosis SNOMED-CT Code Diagnosis ICD10 Code Diagnosis Note [id number] JUAN MATHIS MD [facility] [address] [place] [address] 05/27/2021 10:30:10 05/27/2021 14:02:47 Osteoarthritis of wrist 902880513 M19.032 Left stage III SLAC wrist with severe erosive arthritic changes throughout the radioscaph oid joint space (CSI: 05/27/2021) Dupuytren' s disease of palm and finger, with contracture 490362435 M72.0 Left small finger: 60?? MP contractur e [id number] JUAN MATHIS MD [facility] [address] [place] [address] 07/05/2021 10:26:19 07/05/2021 12:56:11 Osteoarthritis of wrist 145922383 M19.032 Left stage III SLAC wrist with severe erosive arthritic changes throughout the radioscaph oid joint space (CSI: 05/27/2021) Dupuytren' s disease of palm and finger, with contracture 060407802 M72.0 Left small finger: 60?? MP contractur e [id number] JUAN MATHIS MD [facility] [address] [place] [address] 07/07/2021 10:55:46 07/07/2021 13:01:41 Dupuytren's disease of palm and finger, with contracture 611294251 M72.0 Left small finger: 60?? MP contractur e Osteoarthr itis of wrist 522902075 M19.032 Left stage III SLAC wrist with severe erosive arthritic changes throughout the radioscaph oid joint space (CSI: 05/27/2021) [id number] [facility] [address] [place] [address] 09/06/2021 10:40:34 09/06/2021 13:01:38 Dupuytren's disease of palm and finger, with contracture 106589880 M72.0 Left small finger (status post Xiaflex manipulati on on 07/07/2021): 60?? MP contractur e - corrected to 0?? Osteoarthr itis of wrist 407946073 M19.032 Left stage III SLAC wrist with severe erosive arthritic changes throughout the radioscaph oid joint space (CSI: 05/27/2021) [id number] PARMINDER PEÑA MD [facility] [address] [place] [address] 11/15/2023 07:29:36 11/16/2023 04:30:00 Dupuytren's contracture of finger 335325347 M72.0 Does have chronic Dupuytren contractur es involving ring and middle fingers. Hopefully once the acute inflammato ry process is under control, we will start him on the occupation al therapy program. 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 Suggested trial of prednisone 15 [...] making Long-term current use of immunosuppressive drug 975799297 Z79.60 I have talked about the methotrexa te and is monitoring . He will follow-up with the labs initially every 4 to 6 weeks or by every 3 months. tary modificati ons reviewed. Alcohol avoidance discussed. Polymyalgi a rheumatica 13963149 M35.3 Clinical features of PMR in associatio n with RS3PEA low positive rheumatoid factor can be seen in patients with PMR/RS3PE. He does not have any evidence of rheumatoid arthritis. Details as above. Trial of the combinatio n of prednisone along with methotrexa te. He is comfortabl e with the discussion . 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 For [...] High risk decision making Polymyalgi a rheumatica 49122877 M35.3 Clinical features of PMR in associatio [...] markers today Dupuytren' s contracture of finger 676586696 M72.0 Does have chronic Dupuytren contractur es involving ring and middle fingers. Hopefully once the acute inflammato ry process is under control, we will start him on the occupation al therapy program. Long-term current use of immunosuppressive drug 972168623 Z79.60 I have talked about the methotrexa te and is monitoring . We also talked about alcohol use and methotrexa te. Increased risk of liver failure and cytopenias discussed. Repeated the CBC and LFTs today. 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 For [...] the country for 2 weeks.f/u mid march.H igh risk decision making Polymyalgi a rheumatica 19861178 M35.3 Currently on the combinatio n of [...] markers today Dupuytren' s contracture of finger 263539091 M72.0 Does have chronic Dupuytren contractur es involving ring and middle fingers.Co ntinue with range of motion exercises Long-term current use of immunosuppressive drug 287227224 Z79.60 I have talked about the methotrexa te and is monitoring . We also talked about alcohol use and methotrexa te. Increased risk of liver failure and cytopenias discussed. 01/02/24 labsESR, CRP normalCBC normalLFT normal. Long-term drug therapy 191620040 Z79.891 In anticipati on of systemic immunosupp ressive therapy chest x-ray obtained Malaise and fatigue 2717 41514 R53.81 R53.83 Rather nonspecifi c.Chronic without any clinical evidence of infectious or malignancy . 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 For [...] weeks.High risk decision making Polymyalgi a rheumatica 93987857 M35.3 Currently on the combinatio n of methotrexa te and prednisone . Prednisone is now at 5mg once a day.Shaneevbeth r clinically he remains symptomati c , pain [...] 4 weeks. Dupuytren' s contracture of finger 712614381 M72.0 Does have chronic Dupuytren contractur es involving ring and middle fingers.ch ronic.Cont inue with range of motion exercisesc an consider hand surgery eval, if symptoms get worse. Long-term current use of immunosuppressive drug 955594798 Z79.60 I have talked about the methotrexa te and is monitoring . We also talked about alcohol use and methotrexa te. Increased risk of liver failure and cytopenias discussed. 01/02/24 labsESR, CRP normalCBC normalLFT normal. Labs 02/19/24 reviewed.H igh risk medication steroids and MTX. normal LFTS and normal Hep panel. 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 For [...] weeks.High risk decision making Polymyalgi a rheumatica 69191521 M35.3 Currently on the combinatio n of methotrexa te and prednisone . Prednisone is now at 10mg once a day.Howeve r clinically he remains symptomati c , pain [...] discussion . Dupuytren' s contracture of finger 868291833 M72.0 Does have chronic Dupuytren contractur es involving ring and middle fingers.ch ronic.Cont inue with range of motion exercisesc an consider hand surgery eval, if symptoms get worse. Long-term current use of immunosuppressive drug 152744570 Z79.60 I have talked about the methotrexa [...] will require a consult with hematology . 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 For [...] weeks.High risk decision making Polymyalgi a rheumatica [id number] M35.3 Currently on the combinatio n of [...] in october Dupuytren' s contracture of finger [id number] M72.0 Does have chronic Dupuytren contractur es involving ring and middle fingers.ch ronic.Cont inue with range of motion exercisesc an consider hand surgery eval, if symptoms get worse. Long-term current use of immunosuppressive drug [id number] Z79.60 I have talked about the methotrexa [...] consult with hematology . Tuberculos is screening [id number] Z11.7 Follow-up on TB screening every 12 months Health Concerns Section Related Observation LastModified by Organization Detai ls LastModified Time None Recorded Concern Status LastModified by Organization Details LastModified Time None Recorded Advance Directives Directive None Recorded Payers Insurance Date Sequence Insurance Name Policy Number Policy Muller Covered Member ID Muller Member ID Guarantor Name 05/27/2021 1 [place] [id number] True Conkliney [id number] True Keys Shaneka 07/29/2024 2 [employer] (MEDICARE SUPPLEMENT) True Keys Shaneka [id number] True Keys Shaneka 07/19/2024 1 [place] True Conkliney [id number] True [place] Notes Date Note Type [...] accompanied by his . PARMINDER PEÑA MD [facility] [place], [address], [facility] 01/02/2024 09:23:13 02/19/2024 text/html True [...] accompanied by his . PARMINDER PEÑA MD [address] [place] [address], [phone], [facility] 02/19/2024 10:03:07 03/28/2024 text/html True [...] accompanied by his . PARMINDER PEÑA MD [address] [place] [address], [phone], [facility] 03/30/2024 18:24:02 06/03/2024 text/html True [...] his . PARMINDER PEÑA MD [address] [place], [address], [facility] 06/03/2024 11:03:54 07/22/2024 text/html True [...] his . PARMINDER PEÑA MD [address] [place], [phone], [facility] 07/23/2024 11:25:05
[2024-09-22 10:41] LABS: Basophils % 0.3 % (0.1-2.0); Eosinophils % 0.6 % (0.1-12.0); Hemoglobin 9.4 g/dL (14.1-18.0); Immature Granulocytes # 0.09 10^3uL; Immature Granulocytes % 1.4 %; Lymphocytes # 0.6 K/mm3 (0.7-4.5); Lymphocytes % 9.2 % (10-50); Mean Corpuscular HGB Conc 34.3 g/dL (31.8-35.4); Mean Corpuscular Hemoglobin 37.2 pg (27.0-31.2); Mean Corpuscular Volume 108.3 fl (80-94); Monocytes # 0.5 K/mm3 (0.1-1.0); Neutrophils # 5.4 K/mm3 (1.8-7.8); Neutrophils % 80.5 % (37.0-80.0); Nucleated Red Blood Cells # 0.03 10^3/uL; Nucleated Red Blood Cells % 0.5 %; Platelet Count 172 K/mm3 (142-424); Red Blood Count 2.53 M/mm3 (4.60-6.20); Red Cell Distribution Width 18.6 % (11.5-17.5); Red Cell Distribution Width-SD 69.1 fL; White Blood Count 6.7 K/mm3 (4.8-10.8)
[2024-09-22 11:22] LABS: Hematocrit 27.4 % (42.0-52.0)
== END 2024-09-22 23:59 | disposition home or self-care (01) ==
LOC: LAB 10:12
PROVIDERS: PCP Family Medicine; Visit Provider Surgery
DX: I10 Essential (primary) hypertension (principal)
CPT/HCPCS: 36415; 85025

== ENCOUNTER 2024-10-03 10:43 | Outpatient (CLI) | payer MEDICARE, OTHER, SELFPAY ==
--- OUTSIDE RECORDS SUMMARY | 2024-10-03 10:45 | XMS_ITS | Data Portability ---
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, [address] [place] [address], [id number], 07/22/2024 11:14:57 Mycobacte rium tuberculo sis stimulate d gamma interfero n, qual, blood [address] [facility], [address] [place] [address], [id number], 07/24/2024 14:18:28 CBC w/ auto diff [address] [facility], [address] [place] [address], [id number], 07/22/2024 11:36:43 CBC w/ auto diff [address] [facility], [address] [place] [address], [id number], 06/03/2024 10:54:54 ESR (erythroc yte sedimenta tion rate), blood [address] [facility], [address] [place] [address], [id number], 06/03/2024 11:08:29 ALT (alanine aminotran sferase), serum or plasma [address] [facility], [address] [place] [address], [id number], 06/03/2024 10:26:23 AST/SGOT (aspartat e aminotran sferase), serum or plasma [address] [facility], [address] [place] [address], [id number], 06/03/2024 10:26:22 ESR (erythroc yte sedimenta tion rate), blood [address] [facility], [address] [place] [address], [address], 02/19/2024 11:56:58 CBC w/ auto diff [address] [facility], [address] [place] [address], [id number], 02/19/2024 11:02:43 hepatic function panel, serum [address] [facility], [address] [place] [address], [address], 02/19/2024 10:59:09 hepatitis (A+B+C) panel, serum [address] [facility], [address] [place] [address], [id number], 02/19/2024 11:01:33 C reactive protein, QN, serum or plasma [address] [facility], [address] [place] [address], [address], 01/02/2024 10:11:59 CBC w/ auto diff [address] [facility], [address] [place] [address], [address], 01/02/2024 10:20:26 ESR (erythroc yte sedimenta tion rate), blood [address] [facility], [address] [place] [address], [address], 01/02/2024 12:19:58 hepatic function panel, serum [address] [facility], [address] [place] [address], [address], 01/02/2024 10:12:01 ccp (cyclic citrullin ated peptide) iga+igg, serum [address] [facility], [address] [place] [address], [id number], 01/04/2024 19:21:58 Referral None recorded. Procedures None recorded. Surgeries None recorded. Imaging XR, hand, 3 or more view [address] [facility], [address] [place] [address], [id number], 03/28/2024 09:52:18 XR, chest, 2 view [address] [facility], [address] [place] [address], [address], 02/19/2024 10:03:55 Medication Orders prednison e 5 mg tablet 2023 [facility], [address] [place] [address] [address] [place], [place], [id number], 03/28/2024 14:44:26 prednison e 5 mg tablet 2023 [facility], [address] [place] [address] [address], [place], [place], [id number], 02/19/2024 11:48:34 Kevzara 200 mg/1.14 mL subcutane ous pen injector [address] [facility], [address] [place] [address] [place], [id number], 06/03/2024 09:14:52 methotrex ate sodium 2.5 mg tablet 2023 024 [facility], [address] [place] [address] [place]s [place], [id number], 04/19/2024 11:53:35 folic acid 1 mg tablet 2023 [facility], [address] [place] [address] [place] Marlys Saleh[place], [id number], 07/17/2024 09:50:20 Patient TargetsNo targets recorded. Patient InstructionsNo instructions recorded. Reason for Referral None Reported. Results Created Date Observation Date Name Description Value Unit Range Abnormal Flag Note LastModifiedBy Organization Detail LastModifiedTime 01/02/2001/02/2024 C REACT DENAE PROTE IN C reactive protein 0.22 mg/dL 0.00-0 .49 normal Not Available [facility] [address] [place] [address], [id number], 01/02/2024 10:11:59 01/02/20 24 01/02/2024 HEPAT IC (LIVE R) PANEL AST 31 U/L 0-40 normal Not Available [facility] [address] [place] [address], [address], 01/02/2024 10:12:01 01/02/20 24 01/02/2024 HEPAT IC (LIVE R) PANEL ALT 32 U/L 0-41 normal Not Available [facility] [address] [place] [address], [address], 01/02/2024 10:12:01 01/02/20 24 01/02/2024 HEPAT IC (LIVE R) PANEL alkaline phosphatase 68 U/L 40-129 normal Not Available [facility] [address] [place] [address], [address], 01/02/2024 10:12:01 01/02/20 24 01/02/2024 HEPAT IC (LIVE R) PANEL total protein 7.7 g/dL 6.4-8. 3 normal Not Available [facility] [address] [place] [address], [address], 01/02/2024 10:12:01 01/02/20 24 01/02/2024 HEPAT IC (LIVE R) PANEL albumin 4.5 g/dL 3.5-5. 2 normal Not Available [facility] [address] [place] [address], [address], 01/02/2024 10:12:01 01/02/20 24 01/02/2024 HEPAT IC (LIVE R) PANEL bilirubin, total 0.6 mg/dL 0.1-1. 2 normal Not Available [facility] [address] [place] [address], [address], 01/02/2024 10:12:01 01/02/20 24 01/02/2024 HEPAT IC (LIVE R) PANEL bilirubin, direct 0.2 mg/dL 0.0-0. 3 normal Not Available [facility] [address] [place] [address], [address], 01/02/2024 10:12:01 01/02/20 24 01/02/2024 HEPAT IC (LIVE R) PANEL bilirubin, indirect 0.4 mg/dL _(mark c) 0.0-1. 0 normal Not Available [facility] [address] [place] [address], [address], 01/02/2024 10:12:01 01/02/20 24 01/02/2024 COMPL ETE BLOOD COUNT white blood cells 8.0 10*3/ uL 3.8-10 .8 normal Not Available [facility] [address] [place] [address], [address], 01/02/2024 10:20:26 01/02/20 24 01/02/2024 COMPL ETE BLOOD COUNT red blood cells 3.95 10*6/ uL 4.20-5 .80 low Not Available [facility] [address] [place] [address], [address], 01/02/2024 10:20:26 01/02/20 24 01/02/2024 COMPL ETE BLOOD COUNT hemoglobin 13.9 g/dL 14.0-1 8.0 low Not Available [facility] [address] [place] [address], [address], 01/02/2024 10:20:26 01/02/20 24 01/02/2024 COMPL ETE BLOOD COUNT hematocrit 39.4 % 40.0-5 2.0 low Not Available [facility] [address] [place] [address], [address], 01/02/2024 10:20:26 01/02/20 24 01/02/2024 COMPL ETE BLOOD COUNT MCV 100 fL 80-100 normal Not Available [facility] [address] [place] [address], [address], 01/02/2024 10:20:26 01/02/20 24 01/02/2024 COMPL ETE BLOOD COUNT MCH 35 pg 26-35 normal Not Available [facility] [address] [place] [address], [address], 01/02/2024 10:20:26 01/02/20 24 01/02/2024 COMPL ETE BLOOD COUNT MCHC 35 g/dL 32-36 normal Not Available [facility] [address] [place], [address], 01/02/2024 10:20:26 01/02/20 24 01/02/2024 COMPL ETE BLOOD COUNT RDW 15.5 % 11.0-1 5.0 high Not Available [facility] [address] [place] [address], [address], 01/02/2024 10:20:26 01/02/20 24 01/02/2024 COMPL ETE BLOOD COUNT MPV 8.7 fL 6.2-10 .5 normal Not Available [facility] [address] [place] [address], [address], 01/02/2024 10:20:26 01/02/20 24 01/02/2024 COMPL ETE BLOOD COUNT platelet count 189 10*3/ uL 150-40 0 normal Not Available [facility] [address] [place] [address], [address], 01/02/2024 10:20:26 01/02/20 24 01/02/2024 COMPL ETE BLOOD COUNT neutrophil,a bsolute 6.7 10*3/ uL 1.6-8. 4 normal Not Available [facility] [address] [place] [address], [address], 01/02/2024 10:20:26 01/02/20 24 01/02/2024 COMPL ETE BLOOD COUNT lymphocyte,a bsolute 0.9 10*3/ uL 0.4-5. 1 normal Not Available [facility] [address] [place] [address], [address], 01/02/2024 10:20:26 01/02/20 24 01/02/2024 COMPL ETE BLOOD COUNT monocyte,abs olute 0.4 10*3/ uL 0.0-1. 2 normal Not Available [facility] [address] [place] [address], [address], 01/02/2024 10:20:26 01/02/20 24 01/02/2024 COMPL ETE BLOOD COUNT eosinophil,a bsolute 0.0 10*3/ uL 0.0-0. 8 normal Not Available [facility] [address] [place] [address], [address], 01/02/2024 10:20:26 01/02/20 24 01/02/2024 COMPL ETE BLOOD COUNT basophil,abs olute 0.0 10*3/ uL 0.0-0. 3 normal Not Available [facility] [address] [place] [address], [address], 01/02/2024 10:20:26 01/02/20 24 01/02/2024 COMPL ETE BLOOD COUNT % neutrophils 82.8 % 42.0-7 8.0 high Not Available [facility] [address] [place] [address], [address], 01/02/2024 10:20:26 01/02/20 24 01/02/2024 COMPL ETE BLOOD COUNT % lymphocytes 11.2 % 11.0-4 7.0 normal Not Available [facility] [address] [place] [address], [address], 01/02/2024 10:20:26 01/02/20 24 01/02/2024 COMPL ETE BLOOD COUNT % monocytes 5.2 % 0.0-11 .0 normal Not Available [facility] [address] [place] [address], [address], 01/02/2024 10:20:26 01/02/20 24 01/02/2024 COMPL ETE BLOOD COUNT % eosinophils 0.4 % 0.0-7. 0 normal Not Available [facility] [address] [place] [address], [address], 01/02/2024 10:20:26 01/02/20 24 01/02/2024 COMPL ETE BLOOD COUNT % basophils 0.4 % 0.0-3. 0 normal Not Available [facility] [address] [place] [address], [address], 01/02/2024 10:20:26 01/02/20 24 01/02/2024 COMPL ETE BLOOD COUNT nucleated red cells 0.0 % 0.0-0. 9 normal Not Available [facility] [address] [place] [address], [address], 01/02/2024 10:20:26 01/02/20 24 01/02/2024 COMPL ETE BLOOD COUNT nucleated RBCs, absolute 0.00 10*3/ uL not estab. normal Not Available [facility] [address] [place] [address], [address], 01/02/2024 10:20:26 01/02/20 24 01/02/2024 ESR, AUTOM ATED ESR, automated 13 mm 0-19 normal Not Available [facility] [address] [place] [address], [address], 01/02/2024 12:19:58 01/02/20 24 01/04/2024 ANTI- CCP anti-ccp <16 units normal Refer ence Range Negat denae: <20 Weak Posit denae: 20-39 Moder ate Posit denae: 40-59 Stron g Posit denae: >59 Not Available [facility] [address] [place] [address], [address], 01/04/2024 19:21:58 02/19/20 24 02/19/2024 HEPAT IC (LIVE R) PANEL AST 34 U/L 0-40 normal Not Available [facility] [address] [place] [address], [address], 02/19/2024 10:59:08 02/19/20 24 02/19/2024 HEPAT IC (LIVE R) PANEL ALT 35 U/L 0-41 normal Not Available [facility] [address] [place] [address], [address], 02/19/2024 10:59:08 02/19/20 24 02/19/2024 HEPAT IC (LIVE R) PANEL alkaline phosphatase 60 U/L 40-129 normal Not Available [facility] [address] [place] [address], [address], 02/19/2024 10:59:08 02/19/20 24 02/19/2024 HEPAT IC (LIVE R) PANEL total protein 7.0 g/dL 6.4-8. 3 normal Not Available [facility] [address] [place] [address], [address], 02/19/2024 10:59:08 02/19/20 24 02/19/2024 HEPAT IC (LIVE R) PANEL albumin 4.4 g/dL 3.5-5. 2 normal Not Available [facility] [address] [place] [address], [address], 02/19/2024 10:59:08 02/19/20 24 02/19/2024 HEPAT IC (LIVE R) PANEL bilirubin, total 0.7 mg/dL 0.1-1. 2 normal Not Available [facility] [address] [place] [address], [address], 02/19/2024 10:59:08 02/19/20 24 02/19/2024 HEPAT IC (LIVE R) PANEL bilirubin, direct 0.2 mg/dL 0.0-0. 3 normal Not Available [facility] [address] [place] [address], [address], 02/19/2024 10:59:08 02/19/20 24 02/19/2024 HEPAT IC (LIVE R) PANEL bilirubin, indirect 0.5 mg/dL _(mark c) 0.0-1. 0 normal Not Available [facility] [address] [place] [address], [address], 02/19/2024 10:59:08 02/19/20 24 02/19/2024 HEPAT ITIS PANEL hepatitis A Ab, IgM NONREA CTIVE nonrea ctive normal Not Available [facility] [address] [place] [address], [address], 02/19/2024 11:01:33 02/19/2002/19/2024 HEPAT ITIS PANEL hepatitis B surface Ag NONREA CTIVE nonrea ctive normal Not Available [facility] [address] [place] [address], [address], 02/19/2024 11:01:33 02/19/2002/19/2024 HEPAT ITIS PANEL hepatitis B core Ab,IgM NONREA CTIVE nonrea ctive normal Not Available [facility] [address] [place] [address], [address], 02/19/2024 11:01:33 02/19/20 24 02/19/2024 HEPAT ITIS PANEL hcab, reflex viral RNA qt NONREA CTIVE nonrea ctive normal Antib odies to HCV were not detec hue; does not exclu de the possi bilit y of expos ure to HCV. Not Available [facility] [address] [place] [address], [address], 02/19/2024 11:01:33 02/19/20 24 02/19/2024 COMPL ETE BLOOD COUNT white blood cells 7.4 10*3/ uL 3.8-10 .8 normal RESUL TS RECHE CKED Hemog hayley obtai heike after warmi ng to 37 C. Not Available [facility] [address] [place] [address], [address], 02/19/2024 11:02:43 02/19/20 24 02/19/2024 COMPL ETE BLOOD COUNT red blood cells 3.28 10*6/ uL 4.20-5 .80 low Not Available [facility] [address] [place] [address], [address], 02/19/2024 11:02:43 02/19/20 24 02/19/2024 COMPL ETE BLOOD COUNT hemoglobin 12.4 g/dL 14.0-1 8.0 low Not Available [facility] [address] [place] [address], [address], 02/19/2024 11:02:43 02/19/20 24 02/19/2024 COMPL ETE BLOOD COUNT hematocrit 34.2 % 40.0-5 2.0 low Not Available [facility] [address] [place] [address], [address], 02/19/2024 11:02:43 02/19/20 24 02/19/2024 COMPL ETE BLOOD COUNT MCV 104 fL 80-100 high Not Available [facility] [address] [place] [address], [address], 02/19/2024 11:02:43 02/19/2002/19/2024 COMPL ETE BLOOD COUNT MCH 38 pg 26-35 high Not Available [facility] [address] [place] [address], [address], 02/19/2024 11:02:43 02/19/2002/19/2024 COMPL ETE BLOOD COUNT MCHC 36 g/dL 32-36 normal Not Available [facility] [address] [place] [address], [address], 02/19/2024 11:02:43 02/19/2002/19/2024 COMPL ETE BLOOD COUNT RDW 16.5 % 11.0-1 5.0 high Not Available [facility] [address] [place] [address], [address], 02/19/2024 11:02:43 02/19/2002/19/2024 COMPL ETE BLOOD COUNT MPV 7.7 fL 6.2-10 .5 normal Not Available [facility] [address] [place] [address], [address], 02/19/2024 11:02:43 02/19/2002/19/2024 COMPL ETE BLOOD COUNT platelet count 149 10*3/ uL 150-40 0 low Not Available [facility] [address] [place] [address], [address], 02/19/2024 11:02:43 02/19/2002/19/2024 COMPL ETE BLOOD COUNT neutrophil,a bsolute 6.4 10*3/ uL 1.6-8. 4 normal Not Available [facility] [address] [place] [address], [address], 02/19/2024 11:02:43 02/19/20 24 02/19/2024 COMPL ETE BLOOD COUNT lymphocyte,a bsolute 0.6 10*3/ uL 0.4-5. 1 normal Not Available [facility] [address] [place] [address], [address], 02/19/2024 11:02:43 02/19/20 24 02/19/2024 COMPL ETE BLOOD COUNT monocyte,abs olute 0.4 10*3/ uL 0.0-1. 2 normal Not Available [facility] [address] [place] [address], [address], 02/19/2024 11:02:43 02/19/2002/19/2024 COMPL ETE BLOOD COUNT eosinophil,a bsolute 0.0 10*3/ uL 0.0-0. 8 normal Not Available [facility] [address] [place] [address], [address], 02/19/2024 11:02:43 02/19/20 24 02/19/2024 COMPL ETE BLOOD COUNT basophil,abs olute 0.0 10*3/ uL 0.0-0. 3 normal Not Available [facility] [address] [place] [address], [address], 02/19/2024 11:02:43 02/19/20 24 02/19/2024 COMPL ETE BLOOD COUNT % neutrophils 86.4 % 42.0-7 8.0 high Not Available [facility] [address] [place] [address], [address], 02/19/2024 11:02:43 02/19/20 24 02/19/2024 COMPL ETE BLOOD COUNT % lymphocytes 8.1 % 11.0-4 7.0 low Not Available [facility] [address] [place] [address], [address], 02/19/2024 11:02:43 02/19/20 24 02/19/2024 COMPL ETE BLOOD COUNT % monocytes 5.0 % 0.0-11 .0 normal Not Available [facility] [address] [place] [address], [address], 02/19/2024 11:02:43 02/19/20 24 02/19/2024 COMPL ETE BLOOD COUNT % eosinophils 0.2 % 0.0-7. 0 normal Not Available [facility] [address] [place] [address], [address], 02/19/2024 11:02:43 02/19/20 24 02/19/2024 COMPL ETE BLOOD COUNT % basophils 0.3 % 0.0-3. 0 normal Not Available [facility] [address] [place] [address], [address], 02/19/2024 11:02:43 02/19/2002/19/2024 COMPL ETE BLOOD COUNT nucleated red cells 0.0 % 0.0-0. 9 normal Not Available [facility] [address] [place] [address], [address], 02/19/2024 11:02:43 02/19/20 24 02/19/2024 COMPL ETE BLOOD COUNT nucleated RBCs, absolute 0.00 10*3/ uL not estab. normal Not Available [facility] [address] [place] [address], [address], 02/19/2024 11:02:43 02/19/2002/19/2024 MORPH OLOGY platelet morphology NORMAL normal Not Available [facility] [address] [place] [address], [address], 02/19/2024 11:02:45 02/19/2002/19/2024 MORPH OLOGY anisocytosis MODERA TE abnormal Not Available [facility] [address] [place] [address], [address], 02/19/2024 11:02:45 02/19/20 24 02/19/2024 MORPH OLOGY macrocytosis SLIGHT abnormal Not Available [facility] [address] [place] [address], [address], 02/19/2024 11:02:45 02/19/20 24 02/19/2024 ESR, AUTOM ATED ESR, automated 10 mm 0-19 normal Not Available [facility] [address] [place] [address], [address], 02/19/2024 11:56:58 06/03/19 25 06/03/2024 AST AST 28 U/L 0-40 normal Not Available [facility] [address] [place] [address], [address], 06/03/2024 10:26:21 06/03/19 25 06/03/2024 ALT ALT 35 U/L 0-41 normal Not Available [facility] [address] [place] [address], [address], 06/03/2024 10:26:23 06/03/19 25 06/03/2024 COMPL ETE BLOOD COUNT white blood cells 13.0 10*3/ uL 3.8-10 .8 high Not Available [facility] [address] [place] [address], [address], 06/03/2024 10:54:54 06/03/19 25 06/03/2024 COMPL ETE BLOOD COUNT red blood cells 3.82 10*6/ uL 4.20-5 .80 low Not Available [facility] [address] [place] [address], [address], 06/03/2024 10:54:54 06/03/19 25 06/03/2024 COMPL ETE BLOOD COUNT hemoglobin 13.9 g/dL 14.0-1 8.0 low Not Available [facility] [address] [place] [address], [address], 06/03/2024 10:54:54 06/03/19 25 06/03/2024 COMPL ETE BLOOD COUNT hematocrit 39.5 % 40.0-5 2.0 low Not Available [facility] [address] [place] [address], [address], 06/03/2024 10:54:54 06/03/19 25 06/03/2024 COMPL ETE BLOOD COUNT MCV 103 fL 80-100 high Not Available [facility] [address] [place] [address], [address], 06/03/2024 10:54:54 06/03/19 25 06/03/2024 COMPL ETE BLOOD COUNT MCH 36 pg 26-35 high Not Available [facility] [address] [place] [address], [address], 06/03/2024 10:54:54 06/03/19 25 06/03/2024 COMPL ETE BLOOD COUNT MCHC 35 g/dL 32-36 normal Not Available [facility] [address] [place] [address], [address], 06/03/2024 10:54:54 06/03/19 25 06/03/2024 COMPL ETE BLOOD COUNT RDW 14.3 % 11.0-1 5.0 normal Not Available [facility] [address] [place] [address], [address], 06/03/2024 10:54:54 06/03/19 25 06/03/2024 COMPL ETE BLOOD COUNT MPV 9.0 fL 6.2-10 .5 normal Not Available [facility] [address] [place] [address], [address], 06/03/2024 10:54:54 06/03/19 25 06/03/2024 COMPL ETE BLOOD COUNT platelet count 180 10*3/ uL 150-40 0 normal Not Available [facility] [address] [place] [address], [address], 06/03/2024 10:54:54 06/03/19 25 06/03/2024 COMPL ETE BLOOD COUNT neutrophil,a bsolute 11.3 10*3/ uL 1.6-8. 4 high Not Available [facility] [address] [place] [address], [address], 06/03/2024 10:54:54 06/03/19 25 06/03/2024 COMPL ETE BLOOD COUNT lymphocyte,a bsolute 1.2 10*3/ uL 0.4-5. 1 normal Not Available [facility] [address] [place] [address], [address], 06/03/2024 10:54:54 06/03/19 25 06/03/2024 COMPL ETE BLOOD COUNT monocyte,abs olute 0.4 10*3/ uL 0.0-1. 2 normal Not Available [facility] [address] [place] [address], [address], 06/03/2024 10:54:54 06/03/19 25 06/03/2024 COMPL ETE BLOOD COUNT eosinophil,a bsolute 0.1 10*3/ uL 0.0-0. 8 normal Not Available [facility] [address] [place] [address], [address], 06/03/2024 10:54:54 06/03/19 25 06/03/2024 COMPL ETE BLOOD COUNT basophil,abs olute 0.0 10*3/ uL 0.0-0. 3 normal Not Available [facility] [address] [place] [address], [address], 06/03/2024 10:54:54 06/03/19 25 06/03/2024 COMPL ETE BLOOD COUNT % neutrophils 75.0 % 42.0-7 8.0 normal Not Available [facility] [address] [place] [address], [address], 06/03/2024 10:54:54 06/03/19 25 06/03/2024 COMPL ETE BLOOD COUNT % lymphocytes 9.0 % 11.0-4 7.0 low Not Available [facility] [address] [place] [address], [address], 06/03/2024 10:54:54 06/03/19 25 06/03/2024 COMPL ETE BLOOD COUNT % monocytes 3.0 % 0.0-11 .0 normal Not Available [facility] [address] [place] [address], [address], 06/03/2024 10:54:54 06/03/19 25 06/03/2024 COMPL ETE BLOOD COUNT % eosinophils 1.0 % 0.0-7. 0 normal Not Available [facility] [address] [place] [address], [address], 06/03/2024 10:54:54 06/03/19 25 06/03/2024 COMPL ETE BLOOD COUNT % basophils 0.0 % 0.0-3. 0 normal Not Available [facility] [address] [place] [address], [address], 06/03/2024 10:54:54 06/03/19 25 06/03/2024 COMPL ETE BLOOD COUNT nucleated red cells 0.1 % 0.0-0. 9 normal Not Available [facility] [address] [place] [address], [phone], 06/03/2024 10:54:54 06/03/19 25 06/03/2024 COMPL ETE BLOOD COUNT nucleated RBCs, absolute 0.01 10*3/ uL not estab. normal Not Available [facility] [address] [place] [address], [id number], 06/03/2024 10:54:54 06/03/19 25 06/03/2024 MANUA L DIFFE RENTI AL % band neutrophils 12.0 % 0.0-7. 0 high Not Available [facility] [address] [place] [address], [address], 06/03/2024 10:54:56 06/03/19 25 06/03/2024 MANUA L DIFFE RENTI AL % atypical lymphocytes 0 % 0-1 normal Not Available [facility] [address] [place] [address], [address], 06/03/2024 10:54:56 06/03/19 25 06/03/2024 MANUA L DIFFE RENTI AL % metamyelocyt es 0 % 0-1 normal Not Available [facility] [address] [place] [address], [address], 06/03/2024 10:54:56 06/03/19 25 06/03/2024 MANUA L DIFFE RENTI AL % myelocytes 0 % 0-1 normal Not Available [facility] [address] [place] [address], [address], 06/03/2024 10:54:56 06/03/19 25 06/03/2024 MANUA L DIFFE RENTI AL % promyelocyte s 0 % 0 normal Not Available [facility] [address] [place] [address], [address], 06/03/2024 10:54:56 06/03/19 25 06/03/2024 MANUA L DIFFE RENTI AL % blast 0 % 0 normal Not Available [facility] [address] [place] [address], [address], 06/03/2024 10:54:56 06/03/19 25 06/03/2024 MANUA L DIFFE RENTI AL nucleated red cells 0 /100{ WBC} 0-1 normal Not Available [facility] [address] [place] [address], [address], 06/03/2024 10:54:56 06/03/19 25 06/03/2024 MANUA L DIFFE RENTI AL smudge cells 0 /100{ WBC} 0 normal Not Available [facility] [address] [place] [address], [address], 06/03/2024 10:54:56 06/03/19 25 06/03/2024 MANUA L DIFFE RENTI AL platelet morphology NORMAL normal Not Available [facility] [address] [place] [address], [address], 06/03/2024 10:54:56 06/03/19 25 06/03/2024 MANUA L DIFFE RENTI AL macrocytosis SLIGHT abnormal Not Available [facility] [address] [place] [address], [address], 06/03/2024 10:54:56 06/03/19 25 06/03/2024 MANUA L DIFFE RENTI AL polychromasi a SLIGHT abnormal Not Available [facility] [address] [place] [address], [address], 06/03/2024 10:54:56 06/03/19 25 06/03/2024 MANUA L DIFFE RENTI AL stomatocytes SLIGHT abnormal Not Available [facility] [address] [place] [address], [address], 06/03/2024 10:54:56 06/03/19 25 06/03/2024 ESR, AUTOM ATED ESR, automated 9 mm 0-19 normal Not Available [facility] [address] [place] [address], [address], 06/03/2024 11:08:29 07/23/19 25 07/22/2024 ESR, AUTOM ATED ESR, automated <1 mm 0-19 normal RESUL TS RECHE CKED Not Available [facility] [address] [place] [address], [address], 07/22/2024 11:14:57 07/23/19 25 07/22/2024 COMPL ETE BLOOD COUNT white blood cells 4.3 10*3/ uL 3.8-10 .8 normal RESUL TS RECHE CKED Hemog hayley obtai heike after warmi ng to 37 C. Not Available [facility] [address] [place] [address], [address], 07/22/2024 11:36:43 07/23/19 25 07/22/2024 COMPL ETE BLOOD COUNT red blood cells 3.59 10*6/ uL 4.20-5 .80 low Not Available [facility] [address] [place] [address], [address], 07/22/2024 11:36:43 07/23/19 25 07/22/2024 COMPL ETE BLOOD COUNT hemoglobin 13.0 g/dL 14.0-1 8.0 low Not Available [facility] [address] [place] [address], [address], 07/22/2024 11:36:43 07/23/19 25 07/22/2024 COMPL ETE BLOOD COUNT hematocrit 37.2 % 40.0-5 2.0 low Not Available [facility] [address] [place] [address], [address], 07/22/2024 11:36:43 07/23/19 25 07/22/2024 COMPL ETE BLOOD COUNT MCV 103 fL 80-100 high Not Available [facility] [address] [place] [address], [address], 07/22/2024 11:36:43 07/23/19 25 07/22/2024 COMPL ETE BLOOD COUNT MCH 36 pg 26-35 high Not Available [facility] [address] [place] [address], [address], 07/22/2024 11:36:43 07/23/19 25 07/22/2024 COMPL ETE BLOOD COUNT MCHC 35 g/dL 32-36 normal Not Available [facility] [address] [place] [address], [address], 07/22/2024 11:36:43 07/23/19 25 07/22/2024 COMPL ETE BLOOD COUNT RDW 14.3 % 11.0-1 5.0 normal Not Available [facility] [address] [place] [address], [address], 07/22/2024 11:36:43 07/23/19 25 07/22/2024 COMPL ETE BLOOD COUNT MPV 9.8 fL 6.2-10 .5 normal Not Available [facility] [address] [place] [address], [address], 07/22/2024 11:36:43 07/23/19 25 07/22/2024 COMPL ETE BLOOD COUNT platelet count 150 10*3/ uL 150-40 0 normal Not Available [facility] [address] [place] [address], [address], 07/22/2024 11:36:43 07/23/19 25 07/22/2024 COMPL ETE BLOOD COUNT neutrophil,a bsolute 3.0 10*3/ uL 1.6-8. 4 normal Not Available [facility] [address] [place] [address], [address], 07/22/2024 11:36:43 07/23/19 25 07/22/2024 COMPL ETE BLOOD COUNT lymphocyte,a bsolute 0.7 10*3/ uL 0.4-5. 1 normal Not Available [facility] [address] [place] [address], [address], 07/22/2024 11:36:43 07/23/19 25 07/22/2024 COMPL ETE BLOOD COUNT monocyte,abs olute 0.5 10*3/ uL 0.0-1. 2 normal Not Available [facility] [address] [place] [address], [address], 07/22/2024 11:36:43 07/23/19 25 07/22/2024 COMPL ETE BLOOD COUNT eosinophil,a bsolute 0.0 10*3/ uL 0.0-0. 8 normal Not Available [facility] [address] [place] [address], [address], 07/22/2024 11:36:43 07/23/19 25 07/22/2024 COMPL ETE BLOOD COUNT basophil,abs olute 0.0 10*3/ uL 0.0-0. 3 normal Smear revie wed to confi rm cell morph ology . Not Available [facility] [address] [place] [address], [address], 07/22/2024 11:36:43 07/23/19 25 07/22/2024 COMPL ETE BLOOD COUNT % neutrophils 70.7 % 42.0-7 8.0 normal Not Available [facility] [address] [place] [address], [address], 07/22/2024 11:36:43 07/23/19 25 07/22/2024 COMPL ETE BLOOD COUNT % lymphocytes 17.4 % 11.0-4 7.0 normal Not Available [facility] [address] [place] [address], [address], 07/22/2024 11:36:43 07/23/19 25 07/22/2024 COMPL ETE BLOOD COUNT % monocytes 10.5 % 0.0-11 .0 normal Not Available [facility] [address] [place] [address], [address], 07/22/2024 11:36:43 07/23/19 25 07/22/2024 COMPL ETE BLOOD COUNT % eosinophils 0.8 % 0.0-7. 0 normal Not Available [facility] [address] [place] [address], [address], 07/22/2024 11:36:43 07/23/19 25 07/22/2024 COMPL ETE BLOOD COUNT % basophils 0.6 % 0.0-3. 0 normal Not Available [facility] [address] [place] [address], [address], 07/22/2024 11:36:43 07/23/19 25 07/22/2024 COMPL ETE BLOOD COUNT nucleated red cells 0.2 % 0.0-0. 9 normal Not Available [facility] [address] [place] [address], [address], 07/22/2024 11:36:43 07/23/19 25 07/22/2024 COMPL ETE BLOOD COUNT nucleated RBCs, absolute 0.01 10*3/ uL not estab. normal Not Available [facility] [address] [place] [address], [address], 07/22/2024 11:36:43 07/23/19 25 07/22/2024 MORPH OLOGY platelet morphology NORMAL normal Not Available [facility] [address] [place] [address], [address], 07/22/2024 11:36:45 07/23/19 25 07/22/2024 MORPH OLOGY macrocytosis SLIGHT abnormal Not Available [facility] [address] [place] [address], [address], 07/22/2024 11:36:45 07/23/19 25 07/22/2024 MORPH OLOGY polychromasi a SLIGHT abnormal Not Available [facility] [address] [place] [address], [address], 07/22/2024 11:36:45 07/23/19 25 07/22/2024 MORPH OLOGY dacryocytes SLIGHT abnormal Not Available [facility] [address] [place] [address], [address], 07/22/2024 11:36:45 07/23/19 25 07/24/2024 QUANT IFERO N TB GOLD qtb gold NEGATI VE negati ve normal Negat denae test resul t. M. tuber culos is compl ex infec tion unlik pinky. Not Available [facility] [address] [place] [address], [address], 07/24/2024 14:18:28 07/23/19 25 07/24/2024 QUANT IFERO N TB GOLD nil 0.01 IU/mL normal Not Available [facility] [address] [place] [address], [address], 07/24/2024 14:18:28 07/23/19 25 07/24/2024 QUANT IFERO N TB GOLD mitogen nil 3.55 IU/mL normal Not Available [facility] [address] [place], [address], 07/24/2024 14:18:28 07/23/19 25 07/24/2024 QUANT IFERO N TB GOLD TB1 nil 0.00 IU/mL normal Not Available [facility] [address] [place], [address], 07/24/2024 14:18:28 07/23/19 25 07/24/2024 QUANT IFERO [...] refer to https ://ed alyxati on.qu rebecca [employer]. com/f aq/FA Q204 (This link is being provi ded for infor carisa hartman/ educa bianca l purpo ses only. ) Not Available [facility] [address] [place], [address], 07/24/2024 14:18:28 10/15/20 24 02/19/2024 XR, chest , 2 view [place] [address] [place] [address] Misty melendez Name: TRUE melendez : [phone] [...] Enrique esquivel MD on 2023 9:[address] [facility] Radiology [facility] [address] [place], [address], 02/19/2024 16:27:26 03/28/20 24 03/28/2024 XR, hand, 3 or [facility] [address] [place] [address] Misty melendez Name: TRUE melendez : [phone] Misty emlendez Orderi ng Provid er: [facility] EXAM DATE: 2023 EXAM: [...] Carmen villanueva MD on 2023 9:[address] [facility] [address] [place], [address], 03/28/2024 15:43:56 Result Notes None recorded. Problems Name Problem SNOMED Code Status Onset Date Resolution Date Notes Provider Name and Address Organization Details Recorded Time Pain of joint 98431036 Active 2014 From Automated Load;Provi lori: Sanchez, Traci;Stat us: Active Not Available [facility] 6 04:55:54 High antibody titer 043298774 Active 2014 From Automated Load;Provi lori: Sanchez, Traci;Stat us: Active Not Available [facility] 6 04:55:54 Idiopathi c osteoarth ritis 179771456 Active 2014 From Automated Load;Provi lori: Sanchez, Traci;Stat us: Active Not Available [facility] 6 04:55:54 Radial styloid tenosynov itis 81775841 Active 2014 From Automated Load;Provi lori: Sanchez, Traci;Stat us: Active Not Available [facility] 6 04:56:32 Synovitis /tenosyno vitis - wrist 981413007 Active 2014 From Automated Load;Provi lori: Sanchez, Traci;Stat us: Active Not Available [facility] 6 04:56:32 Problem Notes None recorded. Procedures Surgical History Date Name Laterality Status Provider Name and Address Organization Details Recorded Time 05/14/19 25 placement of stent in pulmonary artery completed Nic Mercado [facility] 06/03/2024 09:13:18 07/08/19 22 Dupuytren's Contracture Manipulation completed JUAN MATHIS MD [address] [place], [address], [facility] 07/07/2021 18:22:27 07/06/19 22 Xiaflex/Dupuytre n's Contracture Injection completed Sofi Cannon [facility] 07/19/2021 16:23:51 05/27/19 22 Injection Joint/Bursa, Interm completed JUAN MATHIS MD [address] [place], [address], [facility] 05/27/2021 12:01:33 Appendectomy completed Larisa Nino [facility] 11/15/2023 07:55:33 Imaging Results None recorded. [...] 5 177.8 cm 16 /min 29.4 kg/m2 63128.4 4 g 68 /min 98 % 98 % 118 mm[Hg] 74 mm[Hg] Nic Mercado [facility] 5 09:15:50 Date Recorded Body height Respiratory rate Body mass index (BMI) Body weight Heart rate Oxygen saturation Oxygen saturation in Arterial blood by Pulse oximetry Systolic blood pressure Diastolic blood pressure Provider Name and Address Organization Details Last Updated DateTime 5 177.8 cm 16 /min 28.4 kg/m2 82804.2 9 g 63 /min 98 % 98 % 118 mm[Hg] 72 mm[Hg] Nic [facility] 5 09:00:09 Date Recorded Body height Body mass index (BMI) Body weight Respiratory rate Heart rate Oxygen saturation Oxygen saturation in Arterial blood by Pulse oximetry Systolic blood pressure Diastolic blood pressure Provider Name and Address Organization Details Last Updated DateTime 4 177.8 cm 28.6 kg/m2 03376.2 8 g 16 /min 71 /min 97 % 97 % 121 mm[Hg] 72 mm[Hg] Larisa Trung [facility] 4 08:40:07 Date Recorded Body height Body mass index (BMI) Body weight Heart rate Respiratory rate Oxygen saturation Oxygen saturation in Arterial blood by Pulse oximetry Systolic blood pressure Diastolic blood pressure Provider Name and Address Organization Details Last Updated DateTime 4 177.8 cm 29.4 kg/m2 50494.4 4 g 78 /min 16 /min 97 % 97 % 124 mm[Hg] 72 mm[Hg] [facility] 4 09:19:35 Date Recorded Body height Respiratory rate Body mass index (BMI) Body weight Heart rate Oxygen saturation Oxygen saturation in Arterial blood by Pulse oximetry Systolic blood pressure Diastolic blood pressure Provider Name and Address Organization Details Last Updated DateTime 4 177.8 cm 16 /min 29.4 kg/m2 72417.4 4 g 78 /min 97 % 97 % 118 mm[Hg] 72 mm[Hg] Nic [facility] 4 09:06:50 Social History Question Answer Notes LastModified by Organizat ion Details LastModified Time Tobacco Smoking Status Former Smoker Larisa Trung [facility] 11/15/2023 07:55:19 What Was The Date Of Your Most Recent Tobacco Screening? 07/22/2024 [email or web address] Information not available 07/22/2024 Sex: Male Functional Status Question Answer Note LastModified by Organization D etails LastModified Time What is your level of alcohol consumption? Moderate [email or web address] Information not available 11/15/2023 Mental Status None recorded. Family History Nothing Reported. Medical History Condition Response Emphysema N COPD N Arthritis Y Acid Reflux (GERD) N Rheumatoid Arthritis N Bleeding Disorder N Asthma N Diabetes N Hypertension N Past Encounters Encounter ID Performer Location Encounter Start Date Encounter Closed Date Diagnosis/Indication Diagnosis SNOMED-CT Code Diagnosis ICD10 Code Diagnosis Note [id number] JUAN MATHIS MD [facility] [address] [place] [address] 05/27/2021 10:30:10 05/27/2021 14:02:47 Osteoarthritis of wrist 061645105 M19.032 Left stage III SLAC wrist with severe erosive arthritic changes throughout the radioscaph oid joint space (CSI: 05/27/2021) Dupuytren' s disease of palm and finger, with contracture 807172567 M72.0 Left small finger: 60 MP contractur e [id number] JUAN MATHIS MD [facility] [address] [place] [address] 07/05/2021 10:26:19 07/05/2021 12:56:11 Osteoarthritis of wrist 414055683 M19.032 Left stage III SLAC wrist with severe erosive arthritic changes throughout the radioscaph oid joint space (CSI: 05/27/2021) Dupuytren' s disease of palm and finger, with contracture 845730601 M72.0 Left small finger: 60 MP contractur e [id number] JUAN MATHIS MD [facility] [address] [place] [address] 07/07/2021 10:55:46 07/07/2021 13:01:41 Dupuytren's disease of palm and finger, with contracture 481904194 M72.0 Left small finger: 60 MP contractur e Osteoarthr itis of wrist 397523600 M19.032 Left stage III SLAC wrist with severe erosive arthritic changes throughout the radioscaph oid joint space (CSI: 05/27/2021) [id number] JUAN MATHIS MD [facility]I [facility] [address] [place] [address] 09/06/2021 10:40:34 09/06/2021 13:01:38 Dupuytren's disease of palm and finger, with contracture 035198876 M72.0 Left small finger (status post Xiaflex manipulati on on 07/07/2021): 60 MP contractur e - corrected to 0 Osteoarthr itis of wrist 143516779 M19.032 Left stage III SLAC wrist with severe erosive arthritic changes throughout the radioscaph oid joint space (CSI: 05/27/2021) [id number] PARMINDER PEÑA MD [facility] [address] [place] [address] 11/15/2023 07:29:36 11/16/2023 04:30:00 Dupuytren's contracture of finger 930564906 M72.0 Does have chronic Dupuytren contractur es involving ring and middle fingers. Hopefully once the acute inflammato ry process is under control, we will start him on the occupation al therapy program. 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 Suggested trial of prednisone 15 [...] making Long-term current use of immunosuppressive drug 240881635 Z79.60 I have talked about the methotrexa te and is monitoring . He will follow-up with the labs initially every 4 to 6 weeks or by every 3 months. tary modificati ons reviewed. Alcohol avoidance discussed. Polymyalgi a rheumatica 84914997 M35.3 Clinical features of PMR in associatio n with RS3PEA low positive rheumatoid factor can be seen in patients with PMR/RS3PE. He does not have any evidence of rheumatoid arthritis. Details as above. Trial of the combinatio n of prednisone along with methotrexa te. He is comfortabl e with the discussion . 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 For [...] High risk decision making Polymyalgi a rheumatica 93610092 M35.3 Clinical features of PMR in associatio [...] markers today Dupuytren' s contracture of finger 408613375 M72.0 Does have chronic Dupuytren contractur es involving ring and middle fingers. Hopefully once the acute inflammato ry process is under control, we will start him on the occupation al therapy program. Long-term current use of immunosuppressive drug 996873510 Z79.60 I have talked about the methotrexa te and is monitoring . We also talked about alcohol use and methotrexa te. Increased risk of liver failure and cytopenias discussed. Repeated the CBC and LFTs today. 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 For [...] igh risk decision making Polymyalgi a rheumatica 71644719 M35.3 Currently on the combinatio n of [...] markers today Dupuytren' s contracture of finger 715091860 M72.0 Does have chronic Dupuytren contractur es involving ring and middle fingers.Co ntinue with range of motion exercises Long-term current use of immunosuppressive drug 056981891 Z79.60 I have talked about the methotrexa te and is monitoring . We also talked about alcohol use and methotrexa te. Increased risk of liver failure and cytopenias discussed. 01/02/24 labsESR, CRP normalCBC normalLFT normal. Long-term drug therapy 892815037 Z79.891 In anticipati on of systemic immunosupp ressive therapy chest x-ray obtained Malaise and fatigue 2710 37620 R53.81 R53.83 Rather nonspecifi c.Chronic without any clinical evidence of infectious or malignancy . 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 For [...] weeks.High risk decision making Polymyalgi a rheumatica 46541901 M35.3 Currently on the combinatio n of [...] 4 weeks. Dupuytren' s contracture of finger 028975603 M72.0 Does have chronic Dupuytren contractur es involving ring and middle fingers.ch ronic.Cont inue with range of motion exercisesc an consider hand surgery eval, if symptoms get worse. Long-term current use of immunosuppressive drug 726115774 Z79.60 I have talked about the methotrexa te and is monitoring . We also talked about alcohol use and methotrexa te. Increased risk of liver failure and cytopenias discussed. 01/02/24 labsESR, CRP normalCBC normalLFT normal. Labs 02/19/24 reviewed.H igh risk medication steroids and MTX. normal LFTS and normal Hep panel. 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 For [...] weeks.High risk decision making Polymyalgi a rheumatica 30139850 M35.3 Currently on the combinatio n of [...] discussion . Dupuytren' s contracture of finger 301046008 M72.0 Does have chronic Dupuytren contractur es involving ring and middle fingers.ch ronic.Cont inue with range of motion exercisesc an consider hand surgery eval, if symptoms get worse. Long-term current use of immunosuppressive drug 094511194 Z79.60 I have talked about the methotrexa [...] will require a consult with hematology . 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 For [...] which is currently investigat ed by his PCP.Nica pitts is scheduled for September. Encouraged to follow-up with the colonoscop y. on account of his cardiac issues, we will work on lowering his prednisone . Do not increase the steroids without discussion with me Side effect profile reviewed in detail. f/u in 6 weeks.High risk decision making Polymyalgi a rheumatica 42098286 M35.3 Currently on the combinatio n of [...] in october Dupuytren' s contracture of finger 133797265 M72.0 Does have chronic Dupuytren contractur es involving ring and middle fingers.ch ronic.Cont inue with range of motion exercisesc an consider hand surgery eval, if symptoms get worse. Long-term current use of immunosuppressive drug 347902231 Z79.60 I have talked about the methotrexa [...] consult with hematology . Tuberculos is screening 566544355 Z11.7 Follow-up on TB screening every 12 months Health Concerns Section Related Observation LastModified by Organization Detai ls LastModified Time None Recorded Concern Status LastModified by Organization Details LastModified Time None Recorded Advance Directives Directive None Recorded Payers Insurance Date Sequence Insurance Name Policy Number Policy Muller Covered Member ID Muller Member ID Guarantor Name 05/27/2021 1 [place] [id number] True Munroe [id number] True Munroe 07/29/2024 2 [employer] (MEDICARE SUPPLEMENT) True Munroe [id number] True Munroe 07/19/2024 1 [place] True Munroe [id number] True Munroe Notes Date Note Type [...] accompanied by his . PARMINDER PEÑA MD [address] [place] [address], [address], [facility] 01/02/2024 09:23:13 02/19/2024 text/html True is [...] accompanied by his . [facility]INDER [facility] [place], [address], [facility] 02/19/2024 10:03:07 03/28/2024 text/html True is [...] accompanied by his . PARMINDER PEÑA MD [facility] [place], [address], [facility] 03/30/2024 18:24:02 06/03/2024 text/html True is [...] accompanied by his . PARMINDER PEÑA MD [facility] [place], [address], [facility] 06/03/2024 11:03:54 07/22/2024 text/html True is [...] accompanied by his . PARMINDER PEÑA MD [facility] [place], [address], [facility] 07/23/2024 11:25:05
[2024-10-03] MEDS: SODIUM CHLORIDE 0.9% 10ML SYR (RAD ONLY) 10 ML IV (11:03)
[2024-10-03] MEDS: BARIUM SULFATE(READI-CAT2);450ML BOTTLE 450 ML PO (11:03)
[2024-10-03] MEDS: IOPAMIDOL-370 (76%);100ML BOTTLE 75 ML IV (11:03)
--- NOTE | 2024-10-03 11:15 | CT_ITS ---
FINAL REPORT TECHNIQUE: After the administration of oral and intravenous contrast, axial images were obtained through the abdomen and pelvis by computed tomography. The study was performed with techniques to keep radiation dose as low as reasonably achievable, (ALARA). Individual dose reduction techniques using automated exposure control or adjustment of mA and/or kV according to the patient's size were employed. CLINICAL HISTORY: Right upper quad pain COMPARISON: CT of the abdomen and pelvis dated 09/13/2024 FINDINGS: CT ABDOMEN PELVIS WITH CONTRAST: Abdomen: In the interval since the prior CT of 09/13/2024, the patient has by history undergone a bowel resection for a perforated appendix. Bibasilar atelectasis is present in the lung bases. Moderate fatty infiltration of the liver is noted. The gallbladder is present and distended. The spleen, pancreas, adrenals and kidneys appear unremarkable. The aorta is normal in caliber. In the right lateral abdomen, there is a complex fluid collection measuring 5.4 x 3.0 cm in size in the AP and transverse dimensions, contiguous with bowel, with stranding in the adjacent fat. This is best seen on image #68 of series 2. This may represent an abscess or contained bowel leak. No definite free air is visualized in the abdomen or pelvis. Pelvis: The appendix is not identified. There is moderate diverticulosis of the descending and sigmoid portions of the colon without acute inflammatory change. The urinary bladder is unremarkable. There is moderate free fluid in the surgical bed, with a mean attenuation value of 16 Hounsfield units indicating complex fluid. IMPRESSION: Extensive inflammatory reaction and a localized fluid collection in the lateral right abdomen, developing abscess versus contained bowel leak, new since the prior CT of 09/13/2024. Reviewed, Interpreted and Dictated by Arturo Minor MD Transcribed by Odalys Foley Authenticated and [facility]
== END 2024-10-03 23:59 | disposition home or self-care (01) ==
LOC: RAD 10:44
PROVIDERS: PCP Family Medicine; Visit Provider Surgery
DX: K52.9 Noninfective gastroenteritis and colitis, unspecified (principal); R60.0 Localized edema; K63.1 Perforation of intestine (nontraumatic)
CPT/HCPCS: 74177; Q9967

== ENCOUNTER 2024-10-16 10:48 | Outpatient (CLI) | payer MEDICARE, OTHER, SELFPAY ==
[2024-10-16 10:54] VITALS: BP 109/72; PULSE 86; RESP 20; TEMP 36.6; O2SAT 99
[2024-10-16] MEDS: KETOROLAC 30MG/ML VIAL 15 MG IM (10:54)
--- OUTSIDE RECORDS SUMMARY | 2024-10-16 12:59 | XMS_ITS | Clinical Summary ---
Author Organization [facility] Address [address] [place] [address] Care Team Providers Care Therapy Aide Name Role Phone Jr Guevara MD Primary Care Provider [phone] Allergies No known active allergies Medications Kevzara 200 MG/1.14ML solution prefilled syringe Inject 200 mg under the skin every 14 (fourteen) days. 05/23/2024 Active predniSONE (Deltasone) 10 MG tablet Take 1 tablet (10 mg) by mouth daily. 05/13/2024 Active levothyroxine (Synthroid, Levoxyl) 50 MCG tablet Take 1 tablet (50 mcg) by mouth daily. Active prasugrel (Effient) 10 MG tablet Take 1 tablet (10 mg) by mouth daily. 05/14/2024 Active rosuvastatin (Crestor) 20 MG tablet Take 1 tablet (20 mg) by mouth daily. Active irbesartan-hydr oCHLOROthiazide (Avalide) 300-12.5 MG tablet Take 1 tablet by mouth daily. Active bisoprolol (Zebeta) 10 MG tablet Take 1 tablet (10 mg) by mouth daily. 05/21/2024 Active aspirin 81 MG EC tablet Take 1 tablet (81 mg) by mouth Daily. Active B Complex Vitamins (vitamin B complex) tablet Take 1 tablet by mouth daily. 11/05/2017 Active omeprazole (PriLOSEC) [address] capsule Take 1 capsule (40 mg) by mouth daily. Active omega-3 (Fish Oil) 1200 MG capsule Take 1 capsule (1,200 mg) by mouth daily. Active psyllium (Metamucil Smooth Texture) 58.6 % powder Take 1 packet by mouth daily. Active multivitamin-ir im-ysikdvru-kjn ic acid (Centrum Silver, geriatric,) tablet Take 1 tablet by mouth Daily. Active folic acid (Folvite) 1 MG tablet Take 1 tablet (1,000 mcg) by mouth daily. Active alpha tocopherol (Vitamin E) 400 units capsule Take 1 capsule (400 Units) by mouth daily. Active sildenafil (Revatio) 20 MG tablet Take 1 tablet (20 mg) by mouth daily as needed. Active Active Problems Problem Noted Date Diagnosed Date Polymyalgia rheumatica syndrome 06/26/2024 Hypothyroid 06/26/2024 HTN (hypertension) 06/26/2024 Ascending aortic aneurysm 06/26/2024 HLD (hyperlipidemia) 06/26/2024 GERD (gastroesophageal reflux disease) Knee osteoarthritis 11/09/2017 Osteoarthritis, hand 11/09/2017 Raynaud's phenomenon 11/09/2017 Family History Medical History Relation Name Comments Hypertension Brother Heart disease Father Hypertension Father Stroke Father Cancer Mother Hypertension Mother Hypertension Sister Relation Name Status Comments Brother Father Mother Sister Social History Tobacco Use Types Packs/Day Years Used Date Smoking Tobacco: Never Smokeless Tobacco: Never Tobacco Cessation:Counseling Given: Not Answered Alcohol Use Standard Drinks/Week Comments Yes 2 (1 standard drink = 0.6 oz pure alcohol) Alcoholic Drinks/day: Occasional alcohol use Sex and Gender Information Value Date Recorded Sex Assigned at Not on file Legal Sex Male 6:55 PM EDT Gender Identity Not on file Sexual Orientation Not on file Last Filed Vital Signs Vital Sign Reading Time Taken Comments Blood Pressure 141/75 06/26/2024 9:54 AM EST Pulse 60 06/26/2024 9:54 AM EST Temperature 36.8 C (98.2 F) 02/05/2018 1:14 PM EDT Respiratory Rate 14 11/09/2017 12:20 PM EDT Oxygen Saturation 94% 06/26/2024 9:54 AM EST Inhaled Oxygen Concentration - - Weight 92.6 kg (204 lb 2.3 oz) 06/26/2024 9:54 A M EST Height 177.8 cm (5' 10 ) 06/26/2024 9:54 AM EST Body Mass Index 29.29 06/26/2024 9:54 AM EST Plan of Treatment Health Maintenance Due Date Last Done Comments [facility]-Depression Screening 1954 [facility]-/Child/Adol SDOH Screenings 1955 [facility]- SDOH Screenings 1972 [facility]-Adult SDOH Screenings 1972 [facility]-DTaP,Tdap,and Td Vaccines (1 - Tdap) 1973 CT Colonography 08/30/1999 Colonoscopy 08/30/1999 FIT-DNA 08/30/1999 FIT 08/30/1999 FOBT 08/30/1999 Sigmoidoscopy 08/30/1999 [facility]-Colorectal Cancer Screening 08/30/1999 [facility]-Pneumococcal Vaccine: 50+ Years (1 of 1 - PCV) 2004 [facility]-Zoster Vaccines (1 of 2) 2004 [id number] Vaccine ( season) 2024 02/11/2024, 03/26/2023, 09/20/2022, Additional history exists [facility]-Influenza Vaccine (Season Ended) 2025 [facility]-RSV Vaccine: 60+ Years or (1 - 1-dose 75+ series) 2029 HPV Vaccines Aged Out No longer eligi ble based on patient's age to complete this topic [facility]-HIB Vaccines Aged Out No longer e ligible based on patient's age to complete this topic [facility]-Hepatitis A Vaccines Aged Out No longer eligible based on patient's age to complete this topic UKY-IPV Vaccines Aged Out No longer e ligible based on patient's age to complete this topic UKY-Rotavirus Vaccines Aged Out No lo nger eligible based on patient's age to complete this topic Insurance MEDICARE HUMANA Care Teams Therapy Aide Relationship Specialty Start Date End Date Jr Guevara MD [facility] [address] [address] PCP - General 09/17/20
--- OUTSIDE RECORDS SUMMARY | 2024-10-16 13:00 | XMS_ITS | Encounter Summary ---
Author Organization [facility] Address [address] [place] [address] Care Team Providers Care Extract Operator Name Role Phone Jr Guevara MD Primary Care Provider [phone] Encounter Details Date Type Department Care Team ([facility] st Contact Info) Description 04/01/2024 Orders Only External Location [address] [place] [address] Angel Hope PA [address] [place] [address] Social History Tobacco Use Types Packs/Day Years Used Date Smoking Tobacco: Never Alcohol Use Standard Drinks/Week Comments Yes 0 (1 standard drink = 0.6 oz pure alcohol) Alcoholic Drinks/day: Occasional alcohol use Sex and Gender Information Value Date Recorded Sex Assigned at Not on file Legal Sex Male 6:55 PM EDT Gender Identity Not on file Sexual Orientation Not on file documented as of this encounter Plan of Treatment Not on file documented as of this encounter Procedures Procedure Name Priority Date/Time Associated Diagnosis Comments CT OUTSIDE IMAGES 04/01/2024 10:01 AM EST documented in this encounter Results * CT OUTSIDE IMAGES (04/01/2024 10:01 AM EST) Anatomical Region Laterality Modality Computed Tomogra phy 04/01/2024 10:0 1 AM EST [address] D[address] CT PROCEDURES Final Result documented in this encounter Visit Diagnoses Not on filedocumented in this encounter Care Teams Extract Operator Relationship Specialty Start Date End Date Jr Guevara MD [facility], [id number] [id number] PCP - General 09/17/20 documented as of this encounter
--- OUTSIDE RECORDS SUMMARY | 2024-10-16 13:00 | XMS_ITS | Encounter Summary ---
Author Organization [facility] Address [address] [place] [address] Care Team Providers Care Finisher Map And Chart Name Role Phone Jr Guevara MD Primary Care Provider [phone] Encounter Details Date Type Department Care Team ([facility] st Contact Info) Description 04/01/2024 Orders Only External Location [address] [place] [address] Jr Guevara MD [address] [place] [address] Social History Tobacco Use Types Packs/Day Years [...] Associated Diagnosis Comments CT OUTSIDE IMAGES 04/01/2024 10:09 AM EST documented in this encounter Results * CT OUTSIDE IMAGES (04/01/2024 10:09 AM EST) Anatomical Region Laterality Modality Computed Tomogra phy 04/01/2024 10:0 9 AM EST Jr Guevara MD IMG CT PROCEDURES Final Resu lt documented in this encounter Visit Diagnoses Not on filedocumented in this encounter Care Teams Finisher Map And Chart Relationship Specialty Start Date End Date Jr Guevara MD [address] [place] [id number] PCP - General 09/17/20 documented as of this encounter
== END 2024-10-16 11:13 | disposition home or self-care (01) ==
LOC: INF 10:51
PROVIDERS: PCP Family Medicine; Visit Provider Surgery
DX: K63.1 Perforation of intestine (nontraumatic) (principal)
CPT/HCPCS: 96372; J1885

== ENCOUNTER 2025-01-12 09:19 | Outpatient (CLI) | payer MEDICARE, OTHER, SELFPAY ==
--- OUTSIDE RECORDS SUMMARY | 2025-01-12 09:26 | XMS_ITS | Clinical Summary ---
Author Organization [facility] Address [address] [place] [address] Care Team Providers Care Nutrition Services Associate Name Role Phone Unavailable Primary Care Provider Unavailabl e Social History Tobacco Use Types Packs/Day Years Used Date Smoking Tobacco: Never Assessed Sex and Gender Information Value Date Recorded Sex Assigned at Not on file Legal Sex Male 2:02 PM EDT Gender Identity Not on file Sexual Orientation Not on file Plan of Treatment Not on file
--- OUTSIDE RECORDS SUMMARY | 2025-01-12 09:26 | XMS_ITS | Encounter Summary ---
Author Organization [facility] Address [address] [place] [address] Care Team Providers Care Virologist Name Role Phone Jr Guevara MD Primary Care Provider [phone] Encounter Details Date Type Department Care Team ([facility] st Contact Info) Description 04/01/2024 Orders Only External Location [address] [place] [address] Angel Hope PA [address] [place] [address] Social History Tobacco Use Types Packs/Day Years [...] on filedocumented in this encounter Care Teams Virologist Relationship Specialty Start Date End Date Jr Guevara MD [facility] [address] [id number] PCP - General 09/17/20 documented as of this encounter
--- OUTSIDE RECORDS SUMMARY | 2025-01-12 09:26 | XMS_ITS | Clinical Summary ---
Author Organization [facility] Address [address] [place] [address] Care Team Providers Care Edger Machine Setter Name Role Phone Jr Guevara MD Primary Care Provider [phone] Allergies No known active allergies Medications Kevzara [...] 1 packet by mouth daily. Active multivitamin-ir eu-zebvewmr-yhz ic acid (Centrum Silver, geriatric,) tablet Take [...] 2004 [facility]-Zoster Vaccines (1 of 2) 2004 [id number] Vaccine ( season) 2025 02/11/2024, 03/26/2023, 09/20/2022, Additional history exists [facility]-Influenza Vaccine (#1) 2025 [facility]-RSV Vaccine: 60+ Years or (1 [...] this topic Insurance MEDICARE HU[employer] Care Teams Edger Machine Setter Relationship Specialty Start Date End Date Jr Guevara MD [facility] [address] [address] PCP - General 09/17/20
--- OUTSIDE RECORDS SUMMARY | 2025-01-12 09:26 | XMS_ITS | Encounter Summary ---
Author Organization [facility] Address [address] [place] [address] Care Team Providers Care Paint Trimmer Pipe Bowls Name Role Phone Jr Guevara MD Primary Care Provider [phone] Encounter Details Date Type Department Care Team ([facility] st Contact Info) Description 04/01/2024 Orders Only External Location [address] [place] [address] Jr Guevara MD [address] [place] [address] Social History Tobacco Use Types Packs/Day Years [...] on filedocumented in this encounter Care Teams Paint Trimmer Pipe Bowls Relationship Specialty Start Date End Date Jr Guevara MD [address] [place] [id number] PCP - General 09/17/20 documented as of this encounter
--- NOTE | 2025-01-12 09:30 | CT_ITS ---
FINAL REPORT TECHNIQUE: Thin section axial images were obtained from the lung apices through the upper abdomen without contrast. This study was performed with techniques to keep radiation doses as low as reasonably achievable (ALARA). Individualized dose reduction techniques using automated exposure control or adjustment of mA and/or kV according to the patient's size were employed. CLINICAL HISTORY: Aortic root aneurysm monitoring COMPARISON: 06/24/2024 FINDINGS: There is no mediastinal, hilar, or axillary lymphadenopathy. A few small mediastinal nodes are stable in appearance. There is an ascending aortic aneurysm measuring 46 mm in diameter, was previously 45 mm, the difference likely secondary to slice selection. Prominent coronary artery calcifications are present. There is a new small left pleural effusion. Changes of emphysema are present. There are linear opacities in the left lower lobe, that likely represent atelectasis. Limited, unenhanced evaluation of the upper abdomen is without acute abnormality. There is no acute osseous abnormality. IMPRESSION: Ascending aortic aneurysm measures 46 mm on the current exam, was previously 45 mm. The 1 mm of difference is likely secondary to slice selection. New small left pleural effusion and left lower lobe linear opacities, likely atelectasis. Reviewed, Interpreted and Dictated by Carmelina Perez MD Transcribed by Odalys Foley Authenticated and [facility]
== END 2025-01-12 23:59 | disposition home or self-care (01) ==
LOC: RAD 09:20
PROVIDERS: PCP Family Medicine; Visit Provider Physician Assistant
DX: I71.21 Aneurysm of the ascending aorta, without rupture (principal); J90 Pleural effusion, not elsewhere classified; R91.8 Other nonspecific abnormal finding of lung field
CPT/HCPCS: 71250

== ENCOUNTER 2025-02-12 12:00 | Outpatient (CLI) | payer MEDICARE, OTHER, SELFPAY ==
--- NOTE | 2025-02-12 12:05 | XR_ITS ---
FINAL REPORT CLINICAL HISTORY: BRONCHITIS COMPARISON: None FINDINGS: CHEST 2 VIEWS The heart is normal in size. The mediastinum is unremarkable. There is left lower lobe atelectasis. There is no pneumothorax. Osseous structures unremarkable. IMPRESSION: Atelectasis as above. Continued follow-up recommended. Reviewed, Interpreted and Dictated by Lalo Gonzalez MD Transcribed by Dali Cameron Authenticated and . [facility]
== END 2025-02-12 23:59 | disposition home or self-care (01) ==
LOC: RAD 12:02
PROVIDERS: PCP Family Medicine; Visit Provider Physician Assistant
DX: J98.11 Atelectasis (principal); J40 Bronchitis, not specified as acute or chronic
CPT/HCPCS: 71046

== ENCOUNTER 2025-03-30 12:34 | Outpatient (CLI) | payer MEDICARE, OTHER, SELFPAY ==
--- OUTSIDE RECORDS SUMMARY | 2025-03-30 12:37 | XMS_ITS | Clinical Summary ---
Author Organization [facility] Address [address] [place] [address] Care Team Providers Care Hogshead Salvage Name Role Phone Unavailable Primary Care Provider [...]
--- OUTSIDE RECORDS SUMMARY | 2025-03-30 12:37 | XMS_ITS | Encounter Summary ---
Author Organization [facility] Address [address] [place] [address] Care Team Providers Care Lathing Supervisor Name Role Phone Jr Guevara MD Primary Care Provider [phone] Encounter Details Date Type Department Care Team ([facility] st Contact Info) Description 04/01/2024 Orders Only External Location [address] [place] [address] Angel Hope PA [address] [email or web address] [address] Social History Tobacco Use Types Packs/Day Years [...] on filedocumented in this encounter Care Teams Lathing Supervisor Relationship Specialty Start Date End Date Jr Guevara MD [facility] [address] [id number] PCP - General 09/17/20 documented as of this encounter
--- OUTSIDE RECORDS SUMMARY | 2025-03-30 12:37 | XMS_ITS | Encounter Summary ---
Author Organization [facility] Address [address] [place] [address] Care Team Providers Care Test Architect Name Role Phone Jr Guevara MD Primary Care Provider [phone] Encounter Details Date Type Department Care Team ([facility] st Contact Info) Description 04/01/2024 Orders Only External Location [address] [place] [address] Jr Guevara MD [address] [place] [address] Social History Tobacco Use Types Packs/Day Years [...] on filedocumented in this encounter Care Teams Test Architect Relationship Specialty Start Date End Date Jr Guevara MD [address] [place] [phone] PCP - General 09/17/20 documented as of this encounter
--- OUTSIDE RECORDS SUMMARY | 2025-03-30 12:37 | XMS_ITS | Encounter Summary ---
Author Organization [facility] Address [address] [place] [address] Care Team Providers Care Bottom Turning Lathe Tender Name Role Phone Jr Guevara MD Primary Care Provider [phone] Encounter Details Date Type Department Care Team (Late st Contact Info) Description 02/16/2025 [facility] [place] [address] [place] [address] Loly Cisneros RN [facility] - 6 [facility] None Social History Tobacco Use Types Packs/Day Years Used Date Smoking Tobacco: Never Smokeless Tobacco: Never Alcohol Use Standard Drinks/Week Comments Yes 2 [...] on file documented as of this encounter Visit Diagnoses Not on filedocumented in this encounter Additional Health Concerns Assessment Noted Time A fall risk assessment has been complete d for the patient 06/26/2024 10:10 AM EST A Body Mass Index follow-up plan has been documented for the patient 06/26/2024 2:23 PM EST documented as of this encounter Care Teams Bottom Turning Lathe Tender Relationship Specialty Start Date End Date Jr Guevara MD [address] [place] [address] PCP - General 09/17/20 documented as of this encounter
--- OUTSIDE RECORDS SUMMARY | 2025-03-30 12:37 | XMS_ITS | Clinical Summary ---
Author Organization [facility] Address [address] [place] [address] Care Team Providers Care Panel Assembler Name Role Phone Jr Guevara MD Primary Care Provider [phone] Allergies No known active allergies Medications Kevzara [...] 1 packet by mouth daily. Active multivitamin-ir du-omwvkwzo-jij ic acid (Centrum Silver, geriatric,) tablet Take [...] 11/09/2017 Osteoarthritis, hand 11/09/2017 Raynaud's phenomenon 11/09/2017 Encounters Date Type Department Care Team Description 02/16/2025 [facility] [place] [address] [place] [address] Loly Cisneros, RN 01/13/2025 [facility] [place] [address] [facility] [place] [address] Loly Cisneros, RN from Last 3 Months Family History Medical History Relation Name Comments [...] Date Last Done Comments [facility]-Depression Screening 1954 [facility]-Infant/Child/Adol SDOH Screenings 1955 [facility]- SDOH Screenings 1972 [facility]-Adult SDOH Screenings 1972 [facility]-DTaP,Tdap,and Td Vaccines (1 - Tdap) 1973 CT Colonography 08/30/1999 Colonoscopy 08/30/1999 FIT-DNA 08/30/1999 FIT 08/30/1999 FOBT 08/30/1999 Sigmoidoscopy 08/30/1999 [facility]-Colorectal Cancer Screening 08/30/1999 [facility]-Pneumococcal Vaccine: 50+ Years (1 of 1 - PCV) 2004 [facility]-Zoster Vaccines (1 of 2) 2004 [id number] Vaccine (2024- season) 2025 02/11/2024, 03/26/2023, 09/20/2022, Additional history [...] this topic Insurance MEDICARE HU[employer] Care Teams Panel Assembler Relationship Specialty Start Date End Date Jr Guevara MD [address] [place] [address] [address], [place] [address] PCP - General 09/17/20
[2025-03-30 13:40] VITALS: PULSE 69; PULSE 75
[2025-03-30] MEDS: ALBUTEROL 0.083% 2.5 MG/3 ML NEB IH (13:40)
== END 2025-03-30 23:59 | disposition home or self-care (01) ==
LOC: RT 12:35
PROVIDERS: PCP Family Medicine; Visit Provider Internal Medicine Pulmonary Disease
DX: J44.9 Chronic obstructive pulmonary disease, unspecified (principal); R94.2 Abnormal results of pulmonary function studies
CPT/HCPCS: 94060; 94618; 94640; 94726; 94729

== ENCOUNTER 2025-04-01 13:26 | Outpatient (CLI) | payer MEDICARE, OTHER, SELFPAY ==
--- OUTSIDE RECORDS SUMMARY | 2025-04-01 13:29 | XMS_ITS | Encounter Summary ---
Author Organization [facility] Address [address] [place] [address] Care Team Providers Care Wool Sorter Name Role Phone Jr Guevara MD Primary Care Provider [phone] Encounter Details Date Type Department Care Team ([facility] st Contact Info) Description 04/01/2024 Orders Only External Location [address] [place] [address] Angel Hope PA [address] [place] [address] Social History Tobacco Use Types Packs/Day Years [...] on filedocumented in this encounter Care Teams Wool Sorter Relationship Specialty Start Date End Date Jr Guevara MD [facility] [address] [id number] PCP - General 09/17/20 documented as of this encounter
--- OUTSIDE RECORDS SUMMARY | 2025-04-01 13:29 | XMS_ITS | Data Portability ---
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 Currently being treated for polymyalgia rheumatica and inflammatory arthritis RS3PE. He is on Kevzara since June 2024 and Prednisone 10 mg alternate with 5 mg once a day. Interval colonoscopy followed by partial colectomy. Has recovered well. Further history significant for coronary artery disease is post coronary stents x 4. Doing good. No chest pain or shortness of breath. My impression plan as follows: Not available 12/16/2024 13:03:42 03/24/2025 03/24/2025 69-year-old gentleman seen today for follow-up visit. Seen today as a follow-up on polymyalgia rheumatica and inflammatory arthritis RS3PE. He is on Kevzara 200 mg every 2 week since June 2024 and Prednisone 5 mg once a day. He is post partial colectomy recovered well. September 2024 Further history significant for coronary artery disease is post coronary stents x 4. Doing good. No chest pain or shortness of breath. My impression plan as follows: Not available 03/24/2025 09:56:25 Plan of Treatment Reminders Order Date Submit Date Provider Last Modified By Organization Details Last Modified Time Details Appointments RHEUM RECHECK 2025 09:00A M PARMINDER PEÑA MD Not available Not available Not available Lab ESR (erythroc yte sedimenta tion rate), blood 2024 025 [facility], [address] [place] [address], [id number], 03/24/2025 12:19:38 C reactive protein, QN, serum or plasma 2024 025 [facility], [address] [place] [address], [id number], 03/24/2025 10:57:07 CBC w/ auto diff 2024 025 [facility], [address] [place] [address], [id number], 03/24/2025 11:31:26 hepatic function panel, serum 2024 025 [facility], [address] [place] [address], [id number], 03/24/2025 10:57:06 ESR (erythroc yte sedimenta tion rate), blood 2024 025 [facility], [address] [place] [address], [id number], 12/16/2024 12:22:56 C reactive protein, QN, serum or plasma 2024 025 [facility], [address] [place] [address], [id number], 12/16/2024 12:04:21 CBC w/ auto diff 2024 025 [facility], [address] [place] [address], [id number], 12/16/2024 10:44:46 ESR (erythroc yte sedimenta tion rate), blood 2024 025 [facility], [address] [place] [address], [id number], 07/22/2024 11:14:57 Mycobacte rium tuberculo sis stimulate d gamma interfero n, qual, blood 2024 025 [facility], [address] [place] [address], [id number], 07/24/2024 14:18:28 CBC w/ auto diff 2024 025 [facility], [address] [place] [address], [id number], 07/22/2024 11:36:43 CBC w/ auto diff 2024 025 [facility], [address] [place] [address], [id number], 06/03/2024 10:54:54 ESR (erythroc yte sedimenta tion rate), blood 2024 025 [facility], [address] [place] [address], [id number], 06/03/2024 11:08:29 ALT (alanine aminotran sferase), serum or plasma 2024 025 [facility], [address] [place] [address], [id number], 06/03/2024 10:26:23 AST/SGOT (aspartat e aminotran sferase), serum or plasma 2024 025 [facility], [address] [place] [address], [id number], 06/03/2024 10:26:22 Referral None recorded. Procedures None recorded. Surgeries None recorded. Imaging XR, hand, 3 or more view 2023 024 [facility], [address] [place] [address], [id number], 03/28/2024 09:52:18 Medication Orders prednison e 2.5 mg tablet 2024 025 [facility], [address] [place] [address], [id number], 03/26/2025 15:00:35 prednison e 5 mg tablet 2023 024 [facility], [address] [place] [address], [id number], 03/28/2024 14:44:26 Patient TargetsNo targets recorded. Patient InstructionsNo instructions recorded. Reason for Referral None Reported. Results Created Date Observation Date Name Description Value Unit Range Abnormal Flag Note LastModifiedBy Organization Detail LastModifiedTime 06/03/1906/03/2024 AST AST 28 U/L 0-40 normal Not Available [facility] [address] [place] [address], [id number], 06/03/2024 10:26:21 06/03/19 25 06/03/2024 ALT ALT 35 U/L 0-41 normal Not Available [facility] [address] [place] [address], [address], 06/03/2024 10:26:23 06/03/19 25 06/03/2024 COMPL ETE BLOOD COUNT white blood cells 13.0 10*3/ uL 3.8-10 .8 high Not Available [facility] [address] [place] [address], [address], 06/03/2024 10:54:54 06/03/19 25 06/03/2024 COMPL ETE BLOOD COUNT red blood cells 3.82 10*6/ uL 4.20-5 .80 low Not Available [facility] [address] [place] [address], [address], 06/03/2024 10:54:54 06/03/19 25 06/03/2024 COMPL ETE BLOOD COUNT hemoglobin 13.9 g/dL 14.0-1 8.0 low Not Available [facility] [address] [place] [address], [address], 06/03/2024 10:54:54 06/03/19 25 06/03/2024 COMPL ETE BLOOD COUNT hematocrit 39.5 % 40.0-5 2.0 low Not Available [facility] [address] [place] [address], [address], 06/03/2024 10:54:54 06/03/19 25 06/03/2024 COMPL ETE BLOOD COUNT MCV 103 fL 80-100 high Not Available [facility] [address] [place] [address], [address], 06/03/2024 10:54:54 06/03/19 25 06/03/2024 COMPL ETE BLOOD COUNT MCH 36 pg 26-35 high Not Available [facility] [address] [place] [address], [address], 06/03/2024 10:54:54 06/03/19 25 06/03/2024 COMPL ETE BLOOD COUNT MCHC 35 g/dL 32-36 normal Not Available [facility] [address] [place] [address], [address], 06/03/2024 10:54:54 06/03/19 25 06/03/2024 COMPL ETE BLOOD COUNT RDW 14.3 % 11.0-1 5.0 normal Not Available [facility] [address] [place] [address], [address], 06/03/2024 10:54:54 06/03/19 25 06/03/2024 COMPL ETE BLOOD COUNT MPV 9.0 fL 6.2-10 .5 normal Not Available [facility] [address] [place] [address], [address], 06/03/2024 10:54:54 06/03/19 25 06/03/2024 COMPL ETE BLOOD COUNT platelet count 180 10*3/ uL 150-40 0 normal Not Available [facility] [address] [place] [address], [address], 06/03/2024 10:54:54 06/03/19 25 06/03/2024 COMPL ETE BLOOD COUNT neutrophil,a bsolute 11.3 10*3/ uL 1.6-8. 4 high Not Available [facility] [address] [place] [address], [address], 06/03/2024 10:54:54 06/03/19 25 06/03/2024 COMPL ETE BLOOD COUNT lymphocyte,a bsolute 1.2 10*3/ uL 0.4-5. 1 normal Not Available [facility] [address] [place] [address], [address], 06/03/2024 10:54:54 06/03/19 25 06/03/2024 COMPL ETE BLOOD COUNT monocyte,abs olute 0.4 10*3/ uL 0.0-1. 2 normal Not Available [facility] [address] [place] [address], [address], 06/03/2024 10:54:54 06/03/19 25 06/03/2024 COMPL ETE BLOOD COUNT eosinophil,a bsolute 0.1 10*3/ uL 0.0-0. 8 normal Not Available [facility] [address] [place] [address], [address], 06/03/2024 10:54:54 06/03/19 25 06/03/2024 COMPL ETE BLOOD COUNT basophil,abs olute 0.0 10*3/ uL 0.0-0. 3 normal Not Available [facility] [address] [place] [address], [address], 06/03/2024 10:54:54 06/03/19 25 06/03/2024 COMPL ETE BLOOD COUNT % neutrophils 75.0 % 42.0-7 8.0 normal Not Available [facility] [address] [place] [address], [address], 06/03/2024 10:54:54 06/03/19 25 06/03/2024 COMPL ETE BLOOD COUNT % lymphocytes 9.0 % 11.0-4 7.0 low Not Available [facility] [address] [place] [address], [address], 06/03/2024 10:54:54 06/03/19 25 06/03/2024 COMPL ETE BLOOD COUNT % monocytes 3.0 % 0.0-11 .0 normal Not Available [facility] [address] [place] [address], [address], 06/03/2024 10:54:54 06/03/19 25 06/03/2024 COMPL ETE BLOOD COUNT % eosinophils 1.0 % 0.0-7. 0 normal Not Available [facility] [address] [place] [address], [address], 06/03/2024 10:54:54 06/03/19 25 06/03/2024 COMPL ETE BLOOD COUNT % basophils 0.0 % 0.0-3. 0 normal Not Available [facility] [address] [place] [address], [address], 06/03/2024 10:54:54 06/03/19 25 06/03/2024 COMPL ETE BLOOD COUNT nucleated red cells 0.1 % 0.0-0. 9 normal Not Available [facility] [address] [place] [address], [id number], 06/03/2024 10:54:54 06/03/19 25 06/03/2024 COMPL ETE BLOOD COUNT nucleated RBCs, absolute 0.01 10*3/ uL not estab. normal Not Available [facility] [address] [place] [address], [address], 06/03/2024 10:54:54 06/03/19 25 06/03/2024 MANUA L DIFFE RENTI AL % band neutrophils 12.0 % 0.0-7. 0 high Not Available [facility] [address] [place] [address], [address], 06/03/2024 10:54:56 06/03/19 25 06/03/2024 MANUA L DIFFE RENTI AL % atypical lymphocytes 0 % 0-1 normal Not Available [facility] [address] [place] [address], [address], 06/03/2024 10:54:56 06/03/19 25 06/03/2024 MANUA L DIFFE RENTI AL % metamyelocyt es 0 % 0-1 normal Not Available [facility] [address] [place] [address], [address], 06/03/2024 10:54:56 06/03/19 25 06/03/2024 MANUA L DIFFE RENTI AL % myelocytes 0 % 0-1 normal Not Available [facility] [address] [place] [address], [address], 06/03/2024 10:54:56 06/03/19 25 06/03/2024 MANUA L DIFFE RENTI AL % promyelocyte s 0 % 0 normal Not Available [facility] [address] [place] [address], [address], 06/03/2024 10:54:56 06/03/19 25 06/03/2024 MANUA L DIFFE RENTI AL % blast 0 % 0 normal Not Available [facility] [address] [place] [address], [address], 06/03/2024 10:54:56 06/03/19 25 06/03/2024 MANUA L DIFFE RENTI AL nucleated red cells 0 /100{ WBC} 0-1 normal Not Available [facility] [address] [place] [address], [address], 06/03/2024 10:54:56 06/03/19 25 06/03/2024 MANUA L DIFFE RENTI AL smudge cells 0 /100{ WBC} 0 normal Not Available [facility] [address] [place] [address], [address], 06/03/2024 10:54:56 06/03/19 25 06/03/2024 MANUA L DIFFE RENTI AL platelet morphology NORMAL normal Not Available [facility] [address] [place] [address], [address], 06/03/2024 10:54:56 06/03/19 25 06/03/2024 MANUA L DIFFE RENTI AL macrocytosis SLIGHT abnormal Not Available [facility] [address] [place] [address], [address], 06/03/2024 10:54:56 06/03/19 25 06/03/2024 MANUA L DIFFE RENTI AL polychromasi a SLIGHT abnormal Not Available [facility] [address] [place] [address], [address], 06/03/2024 10:54:56 06/03/19 25 06/03/2024 KELSEY GOETZTI AL stomatocytes SLIGHT abnormal Not Available [facility] [address] [place] [address], [address], 06/03/2024 10:54:56 06/03/19 25 06/03/2024 ESR, AUTOM ATED ESR, automated 9 mm 0-19 normal Not Available [facility] [address] [place] [address], [address], 06/03/2024 11:08:29 07/23/19 25 07/22/2024 ESR, AUTOM ATED ESR, automated <1 mm 0-19 normal RESUL TS RECHE CKED Not Available [facility] [address] [place] [address], [address], 07/22/2024 11:14:57 07/23/19 25 07/22/2024 COMPL ETE BLOOD COUNT white blood cells 4.3 10*3/ uL 3.8-10 .8 normal RESUL TS RECHE CKED Hemog hayley obtai heike after warmi ng to 37 C. Not Available [facility] [address] [place] [address], [address], 07/22/2024 11:36:43 07/23/19 25 07/22/2024 COMPL ETE BLOOD COUNT red blood cells 3.59 10*6/ uL 4.20-5 .80 low Not Available [facility] [address] [place] [address], [address], 07/22/2024 11:36:43 07/23/19 25 07/22/2024 COMPL ETE BLOOD COUNT hemoglobin 13.0 g/dL 14.0-1 8.0 low Not Available [facility] [address] [place] [address], [address], 07/22/2024 11:36:43 07/23/19 25 07/22/2024 COMPL ETE BLOOD COUNT hematocrit 37.2 % 40.0-5 2.0 low Not Available [facility] [address] [place] [address], [address], 07/22/2024 11:36:43 07/23/19 25 07/22/2024 COMPL ETE BLOOD COUNT MCV 103 fL 80-100 high Not Available [facility] [address] [place] [address], [address], 07/22/2024 11:36:43 07/23/19 25 07/22/2024 COMPL ETE BLOOD COUNT MCH 36 pg 26-35 high Not Available [facility] [address] [place] [address], [address], 07/22/2024 11:36:43 07/23/19 25 07/22/2024 COMPL ETE BLOOD COUNT MCHC 35 g/dL 32-36 normal Not Available [facility] [address] [place] [address], [address], 07/22/2024 11:36:43 07/23/19 25 07/22/2024 COMPL ETE BLOOD COUNT RDW 14.3 % 11.0-1 5.0 normal Not Available [facility] [address] [place] [address], [address], 07/22/2024 11:36:43 07/23/19 25 07/22/2024 COMPL ETE BLOOD COUNT MPV 9.8 fL 6.2-10 .5 normal Not Available [facility] [address] [place] [address], [address], 07/22/2024 11:36:43 07/23/19 25 07/22/2024 COMPL ETE BLOOD COUNT platelet count 150 10*3/ uL 150-40 0 normal Not Available [facility] [address] [place] [address], [address], 07/22/2024 11:36:43 07/23/19 25 07/22/2024 COMPL ETE BLOOD COUNT neutrophil,a bsolute 3.0 10*3/ uL 1.6-8. 4 normal Not Available [facility] [address] [place] [address], [address], 07/22/2024 11:36:43 07/23/19 25 07/22/2024 COMPL ETE BLOOD COUNT lymphocyte,a bsolute 0.7 10*3/ uL 0.4-5. 1 normal Not Available [facility] [address] [place] [address], [address], 07/22/2024 11:36:43 07/23/19 25 07/22/2024 COMPL ETE BLOOD COUNT monocyte,abs olute 0.5 10*3/ uL 0.0-1. 2 normal Not Available [facility] [address] [place] [address], [address], 07/22/2024 11:36:43 07/23/19 25 07/22/2024 COMPL ETE BLOOD COUNT eosinophil,a bsolute 0.0 10*3/ uL 0.0-0. 8 normal Not Available [facility] [address] [place] [address], [address], 07/22/2024 11:36:43 07/23/19 25 07/22/2024 COMPL ETE BLOOD COUNT basophil,abs olute 0.0 10*3/ uL 0.0-0. 3 normal Smear revie wed to confi rm cell morph ology . Not Available [facility] [address] [place] [address], [address], 07/22/2024 11:36:43 07/23/19 25 07/22/2024 COMPL ETE BLOOD COUNT % neutrophils 70.7 % 42.0-7 8.0 normal Not Available [facility] [address] [place] [address], [address], 07/22/2024 11:36:43 03/18/20 25 07/22/2024 COMPL ETE BLOOD COUNT % lymphocytes 17.4 % 11.0-4 7.0 normal Not Available [facility] [address] [place] [address], [address], 07/22/2024 11:36:43 07/23/19 25 07/22/2024 COMPL ETE BLOOD COUNT % monocytes 10.5 % 0.0-11 .0 normal Not Available [facility] [address] [place] [address], [address], 07/22/2024 11:36:43 07/23/19 25 07/22/2024 COMPL ETE BLOOD COUNT % eosinophils 0.8 % 0.0-7. 0 normal Not Available [facility] [address] [place] [address], [address], 07/22/2024 11:36:43 07/23/19 25 07/22/2024 COMPL ETE BLOOD COUNT % basophils 0.6 % 0.0-3. 0 normal Not Available [facility] [address] [place] [address], [address], 07/22/2024 11:36:43 07/23/19 25 07/22/2024 COMPL ETE BLOOD COUNT nucleated red cells 0.2 % 0.0-0. 9 normal Not Available [facility] [address] [place] [address], [address], 07/22/2024 11:36:43 07/23/19 25 07/22/2024 COMPL ETE BLOOD COUNT nucleated RBCs, absolute 0.01 10*3/ uL not estab. normal Not Available [facility] [address] [place] [address], [address], 07/22/2024 11:36:43 07/23/19 25 07/22/2024 MORPH OLOGY platelet morphology NORMAL normal Not Available [facility] [address] [place] [address], [address], 07/22/2024 11:36:45 07/23/19 25 07/22/2024 MORPH OLOGY macrocytosis SLIGHT abnormal Not Available [facility] [address] [place] [address], [address], 07/22/2024 11:36:45 07/23/19 25 07/22/2024 MORPH OLOGY polychromasi a SLIGHT abnormal Not Available [facility] [address] [place] [address], [address], 07/22/2024 11:36:45 07/23/19 25 07/22/2024 MORPH OLOGY dacryocytes SLIGHT abnormal Not Available [facility] [address] [place] [address], [address], 07/22/2024 11:36:45 07/23/19 25 07/24/2024 QUANT IFERO N TB GOLD qtb gold NEGATI VE negati ve normal Negat denae test resul t. M. tuber culos is compl ex infec tion unlik pinky. Not Available [facility] [address] [place] [address], [address], 07/24/2024 14:18:28 07/23/19 25 07/24/2024 QUANT IFERO N TB GOLD nil 0.01 IU/mL normal Not Available [facility] [address] [place] [address], [address], 07/24/2024 14:18:28 07/23/19 25 07/24/2024 QUANT IFERO N TB GOLD mitogen nil 3.55 IU/mL normal Not Available [facility] [address] [place] [address], [address], 07/24/2024 14:18:28 07/23/19 25 07/24/2024 QUANT IFERO N TB GOLD TB1 nil 0.00 IU/mL normal Not Available [facility] [address] [place] [address], [address], 07/24/2024 14:18:28 07/23/19 25 07/24/2024 QUANT IFERO [...] holly xiong e refer to https ://ed dianelys on.qu rebecca [employer]/f aq/FA Q204 (This link is being provi ded for infor carisa hartman/ tono adamson purpo ses only. ) Not Available [facility] [address] [place], [address], 07/24/2024 14:18:28 12/17/19 25 12/16/2024 COMPL ETE BLOOD COUNT white blood cells 4.3 10*3/ uL 3.8-10 .8 normal Not Available [facility] [address] [place], [address], 12/16/2024 10:44:45 12/17/19 25 12/16/2024 COMPL ETE BLOOD COUNT red blood cells 3.76 10*6/ uL 4.20-5 .80 low Not Available [facility] [address] [place] [address], [address], 12/16/2024 10:44:45 12/17/19 25 12/16/2024 COMPL ETE BLOOD COUNT hemoglobin 13.3 g/dL 14.0-1 8.0 low Not Available [facility] [address] [place] [address], [address], 12/16/2024 10:44:45 12/17/19 25 12/16/2024 COMPL ETE BLOOD COUNT hematocrit 38.3 % 40.0-5 2.0 low Not Available [facility] [address] [place] [address], [address], 12/16/2024 10:44:45 12/17/19 25 12/16/2024 COMPL ETE BLOOD COUNT MCV 102 fL 80-100 high Not Available [facility] [address] [place] [address], [address], 12/16/2024 10:44:45 12/17/19 25 12/16/2024 COMPL ETE BLOOD COUNT MCH 35 pg 26-35 normal Not Available [facility] [address] [place] [address], [address], 12/16/2024 10:44:45 12/17/19 25 12/16/2024 COMPL ETE BLOOD COUNT MCHC 35 g/dL 32-36 normal Not Available [facility] [address] [place] [address], [address], 12/16/2024 10:44:45 12/17/19 25 12/16/2024 COMPL ETE BLOOD COUNT RDW 16.3 % 11.0-1 5.0 high Not Available [facility] [address] [place] [address], [address], 12/16/2024 10:44:45 12/17/19 25 12/16/2024 COMPL ETE BLOOD COUNT MPV 9.2 fL 6.2-10 .5 normal Not Available [facility] [address] [place] [address], [address], 12/16/2024 10:44:45 12/17/19 25 12/16/2024 COMPL ETE BLOOD COUNT platelet count 129 10*3/ uL 150-40 0 low Not Available [facility] [address] [place] [address], [address], 12/16/2024 10:44:45 12/17/19 25 12/16/2024 COMPL ETE BLOOD COUNT neutrophil,a bsolute 2.7 10*3/ uL 1.6-8. 4 normal Not Available [facility] [address] [place] [address], [address], 12/16/2024 10:44:45 12/17/19 25 12/16/2024 COMPL ETE BLOOD COUNT lymphocyte,a bsolute 1.0 10*3/ uL 0.4-5. 1 normal Not Available [facility] [address] [place] [address], [address], 12/16/2024 10:44:45 12/17/19 25 12/16/2024 COMPL ETE BLOOD COUNT monocyte,abs olute 0.5 10*3/ uL 0.0-1. 2 normal Not Available [facility] [address] [place] [address], [address], 12/16/2024 10:44:45 12/17/19 25 12/16/2024 COMPL ETE BLOOD COUNT eosinophil,a bsolute 0.1 10*3/ uL 0.0-0. 8 normal Not Available [facility] [address] [place] [address], [address], 12/16/2024 10:44:45 12/17/19 25 12/16/2024 COMPL ETE BLOOD COUNT basophil,abs olute 0.0 10*3/ uL 0.0-0. 3 normal Not Available [facility] [address] [place] [address], [address], 12/16/2024 10:44:45 12/17/19 25 12/16/2024 COMPL ETE BLOOD COUNT % neutrophils 62.1 % 42.0-7 8.0 normal Not Available [facility] [address] [place] [address], [address], 12/16/2024 10:44:45 12/17/19 25 12/16/2024 COMPL ETE BLOOD COUNT % lymphocytes 23.5 % 11.0-4 7.0 normal Not Available [facility] [address] [place] [address], [address], 12/16/2024 10:44:45 12/17/19 25 12/16/2024 COMPL ETE BLOOD COUNT % monocytes 12.2 % 0.0-11 .0 high Not Available [facility] [address] [place] [address], [address], 12/16/2024 10:44:45 12/17/19 25 12/16/2024 COMPL ETE BLOOD COUNT % eosinophils 1.4 % 0.0-7. 0 normal Not Available [facility] [address] [place] [address], [address], 12/16/2024 10:44:45 12/17/19 25 12/16/2024 COMPL ETE BLOOD COUNT % basophils 0.8 % 0.0-3. 0 normal Not Available [facility] [address] [place] [address], [address], 12/16/2024 10:44:45 12/17/19 25 12/16/2024 COMPL ETE BLOOD COUNT nucleated red cells 0.0 % 0.0-0. 9 normal Not Available [facility] [address] [place] [address], [address], 12/16/2024 10:44:45 12/17/19 25 12/16/2024 COMPL ETE BLOOD COUNT nucleated RBCs, absolute 0.00 10*3/ uL not estab. normal Not Available [facility] [address] [place] [address], [address], 12/16/2024 10:44:45 12/17/19 25 12/16/2024 C REACT DENAE PROTE IN C reactive protein <0.06 mg/dL 0.00-0 .49 normal Not Available [facility] [address] [place] [address], [address], 12/16/2024 12:04:21 12/17/19 25 12/16/2024 ESR, AUTOM ATED ESR, automated 1 mm 0-19 normal Not Available [facility] [facility] [address] [place] [address], [phone], 12/16/2024 12:22:56 03/24/20 25 03/24/2025 HEPAT IC (LIVE R) PANEL AST 39 U/L 0-40 normal Not Available [facility] [address] [place] [address], [phone], 03/24/2025 10:57:06 03/24/20 25 03/24/2025 HEPAT IC (LIVE R) PANEL ALT 53 U/L 0-41 high Not Available [facility] [address] [place] [address], [address], 03/24/2025 10:57:06 03/24/20 25 03/24/2025 HEPAT IC (LIVE R) PANEL alkaline phosphatase 51 U/L 40-129 normal Not Available [facility] [address] [place] [address], [address], 03/24/2025 10:57:06 03/24/20 25 03/24/2025 HEPAT IC (LIVE R) PANEL total protein 7.0 g/dL 6.4-8. 3 normal Not Available [facility] [address] [place] [address], [address], 03/24/2025 10:57:06 03/24/20 25 03/24/2025 HEPAT IC (LIVE R) PANEL albumin 4.8 g/dL 3.5-5. 2 normal Not Available [facility] [address] [place] [address], [address], 03/24/2025 10:57:06 03/24/20 25 03/24/2025 HEPAT IC (LIVE R) PANEL bilirubin, total 1.1 mg/dL 0.1-1. 0 high NOTE: New refer ence range . Not Available [facility] [address] [place] [address], [address], 03/24/2025 10:57:06 03/24/20 25 03/24/2025 HEPAT IC (LIVE R) PANEL bilirubin, direct 0.3 mg/dL 0.0-0. 3 normal Not Available [facility] [address] [place] [address], [address], 03/24/2025 10:57:06 03/24/20 25 03/24/2025 HEPAT IC (LIVE R) PANEL bilirubin, indirect 0.8 mg/dL _(mark c) 0.0-1. 0 normal Not Available [facility] [address] [place] [address], [address], 03/24/2025 10:57:06 03/24/20 25 03/24/2025 C REACT DENAE PROTE IN C reactive protein <0.06 mg/dL 0.00-0 .49 normal Not Available [facility] [address] [place] [address], [address], 03/24/2025 10:57:07 03/24/20 25 03/24/2025 COMPL ETE BLOOD COUNT white blood cells 4.5 10*3/ uL 3.8-10 .8 normal Not Available [facility] [address] [place] [address], [address], 03/24/2025 11:31:26 03/24/20 25 03/24/2025 COMPL ETE BLOOD COUNT red blood cells 3.50 10*6/ uL 4.20-5 .80 low Not Available [facility] [address] [place] [address], [phone], 03/24/2025 11:31:26 03/24/20 25 03/24/2025 COMPL ETE BLOOD COUNT hemoglobin 13.6 g/dL 14.0-1 8.0 low Not Available [facility] [address] [place] [address], [address], 03/24/2025 11:31:26 03/24/20 25 03/24/2025 COMPL ETE BLOOD COUNT hematocrit 38.3 % 40.0-5 2.0 low Not Available [facility] [address] [place] [address], [address], 03/24/2025 11:31:26 03/24/20 25 03/24/2025 COMPL ETE BLOOD COUNT MCV 109 fL 80-100 high Not Available [facility] [address] [place] [address], [address], 03/24/2025 11:31:26 03/24/20 25 03/24/2025 COMPL ETE BLOOD COUNT MCH 39 pg 26-35 high Not Available [facility] [address] [place] [address], [address], 03/24/2025 11:31:26 03/24/20 25 03/24/2025 COMPL ETE BLOOD COUNT MCHC 35 g/dL 32-36 normal Not Available [facility] [address] [place] [address], [address], 03/24/2025 11:31:26 03/24/20 25 03/24/2025 COMPL ETE BLOOD COUNT RDW 13.5 % 11.0-1 5.0 normal Not Available [facility] [address] [place] [address], [address], 03/24/2025 11:31:26 03/24/20 25 03/24/2025 COMPL ETE BLOOD COUNT MPV 9.2 fL 6.2-10 .5 normal Not Available [facility] [address] [place] [address], [address], 03/24/2025 11:31:26 03/24/20 25 03/24/2025 COMPL ETE BLOOD COUNT platelet count 142 10*3/ uL 150-40 0 low Not Available [facility] [address] [place] [address], [address], 03/24/2025 11:31:26 03/24/20 25 03/24/2025 COMPL ETE BLOOD COUNT neutrophil,a bsolute 3.3 10*3/ uL 1.6-8. 4 normal Not Available [facility] [address] [place] [address], [address], 03/24/2025 11:31:26 03/24/20 25 03/24/2025 COMPL ETE BLOOD COUNT lymphocyte,a bsolute 0.6 10*3/ uL 0.4-5. 1 normal Not Available [facility] [address] [place] [address], [address], 03/24/2025 11:31:26 03/24/20 25 03/24/2025 COMPL ETE BLOOD COUNT monocyte,abs olute 0.5 10*3/ uL 0.0-1. 2 normal Not Available [facility] [address] [place] [address], [address], 03/24/2025 11:31:26 03/24/20 25 03/24/2025 COMPL ETE BLOOD COUNT eosinophil,a bsolute 0.0 10*3/ uL 0.0-0. 8 normal Not Available [facility] [address] [place] [address], [address], 03/24/2025 11:31:26 03/24/20 25 03/24/2025 COMPL ETE BLOOD COUNT basophil,abs olute 0.0 10*3/ uL 0.0-0. 3 normal Smear revie wed to confi rm cell morph ology . Not Available [facility] [address] [place] [address], [address], 03/24/2025 11:31:26 03/24/20 25 03/24/2025 COMPL ETE BLOOD COUNT % neutrophils 74.4 % 42.0-7 8.0 normal Not Available [facility] [address] [place] [address], [address], 03/24/2025 11:31:26 03/24/20 25 03/24/2025 COMPL ETE BLOOD COUNT % lymphocytes 14.3 % 11.0-4 7.0 normal Not Available [facility] [address] [place] [address], [address], 03/24/2025 11:31:26 03/24/20 25 03/24/2025 COMPL ETE BLOOD COUNT % monocytes 10.1 % 0.0-11 .0 normal Not Available [facility] [address] [place] [address], [address], 03/24/2025 11:31:26 03/24/20 25 03/24/2025 COMPL ETE BLOOD COUNT % eosinophils 0.6 % 0.0-7. 0 normal Not Available [facility] [address] [place] [address], [address], 03/24/2025 11:31:26 03/24/20 25 03/24/2025 COMPL ETE BLOOD COUNT % basophils 0.6 % 0.0-3. 0 normal Not Available [facility] [address] [place] [address], [address], 03/24/2025 11:31:26 03/24/20 25 03/24/2025 COMPL ETE BLOOD COUNT nucleated red cells 0.1 % 0.0-0. 9 normal Not Available [facility] [address] [place] [address], [address], 03/24/2025 11:31:26 03/24/20 25 03/24/2025 COMPL ETE BLOOD COUNT nucleated RBCs, absolute 0.00 10*3/ uL not estab. normal Not Available [facility] [address] [place], [address], 03/24/2025 11:31:26 03/24/20 25 03/24/2025 MORPH OLOGY platelet morphology NORMAL normal Not Available [facility] [address] [place] [address], [address], 03/24/2025 11:31:27 03/24/20 25 03/24/2025 MORPH OLOGY anisocytosis MODERA TE abnormal Not Available [facility] [address] [place], [address], 03/24/2025 11:31:27 03/24/20 25 03/24/2025 MORPH OLOGY spherocytes SLIGHT abnormal Not Available [facility] [address] [place], [address], 03/24/2025 11:31:27 03/24/20 25 03/24/2025 ESR, AUTOM ATED ESR, automated <1 mm 0-19 normal RESUL TS RECHE CKED Not Available [facility] [address] [place] [address], [address], 03/24/2025 12:19:38 03/28/20 24 03/28/2024 XR, hand, 3 or more view [facility] [address] [place] [address], [place] [address] Misty melendez Name: TRUE melendez : 954 Misty melendez [facility] ng Provid er: NANY PEÑA EXAM DATE: 2023 EXAM: XR ZACH HANDS [...] Carmen villanueva MD on 2023 9:47 AM [facility]iology [facility] [address] [place], [address], 03/28/2024 15:43:56 Result Notes Documentation Provider Name and Address Organization Details Recorded Time Xr, Hand, 3 Or More View : [facility] [address] [place] [address] Patient Name: TRUE MUNROE Patient : 1955 Patient Ordering Provider: NANY PEÑA EXAM DATE: 03/28/2024 EXAM: XR ZACH HANDS 3VWS HISTORY: Bilateral hand pain COMPARISON: 03/23/2015 FINDINGS: There are severe degenerative changes in both hands. There are moderate to severe degenerative changes in the interphalangeal joints and metacarpophalangeal joints. There are severe degenerative changes in the first carpometacarpal joint bilaterally. There are moderate degenerative changes in the triscaphe joints. There are severe degenerative changes in the left radiocarpal joint with remodeling of the articular surfaces, and moderate to severe degenerative changes in the distal radioulnar joint on the left. No fracture is identified. IMPRESSION: 1. There are severe degenerative changes of both hands. Interpreted By: Dada Saavedra MD INDER PEÑA MD [address] [place], [address], [facility] 03/28/2024 12:38:56 Problems Name Problem SNOMED Code Status Onset Date Resolution Date Notes Provider Name and Address Organization Details Recorded Time Pain of joint 93121580 Active 2014 From Automated Load;Provi lori: Sanchez, Traci;Stat us: Active Not Available [facility] 6 04:55:54 High antibody titer 328672153 Active 2014 From Automated Load;Provi lori: Sanchez, Traci;Stat us: Active Not Available [facility] 6 04:55:54 Idiopathi c osteoarth ritis 604270145 Active 2014 From Automated Load;Provi lori: Sanchez, Traci;Stat us: Active Not Available [facility] 6 04:55:54 Radial styloid tenosynov itis 47203126 Active 2014 From Automated Load;Provi lori: Sanchez, Traci;Stat us: Active Not Available [facility] 6 04:56:32 Synovitis /tenosyno vitis - wrist 709299375 Active 2014 From Automated Load;Provi lori: Sanchez, Traci;Stat us: Active Not Available [facility] 6 04:56:32 Problem Notes None recorded. Procedures Surgical History Date Name Laterality Status Provider Name and Address Organization Details Recorded Time 05/14/19 25 placement of stent in pulmonary artery completed Nic Mercado [facility] 06/03/2024 09:13:18 07/08/19 22 Dupuytren's Contracture Manipulation completed JUAN MATHIS MD [facility] [place], [address], [facility] 07/07/2021 18:22:27 07/06/19 22 Xiaflex/Dupuytre n's Contracture Injection completed Sofi Cannon [facility] 07/19/2021 16:23:51 05/27/19 22 Injection - Joint/Bursa, Interm completed JUAN MATHIS MD [address] [place], [address], [facility] 05/27/2021 12:01:33 Appendectomy completed Larisa Nino [facility] 11/15/2023 07:55:33 Imaging Results None recorded. Procedure [...] Not Available prednison e 5 mg tablet TAKE TWO TABLETS BY MOUTH EVERY DAY 2024 active Not Available Not Available Not [...] Not Available Not Available No t Available prednison e 2.5 mg tablet Take 1 tablet every day by oral route for 90 days. 2024 active Not Available Not Available Not Avai lable irbesarta n 300 mg-hydroc hlorothia zide 12.5 mg tablet Take 1 tablet every day by oral route. active Not Available Not Available No t Available folic acid 1 mg tablet TAKE ONE TABLET BY MOUTH EVERY DAY 2024 active Not Available Not Available Not [...] Not Available Not Available No t Available Pracasil TM-Plus 12/16 completed Not Available Not Available Not Available Kevzara 200 mg/1.14 mL subcutane ous syringe INJECT 200MG SUBCUTAN EOUSLY EVERY 2 WEEKS 2024 active Not Available Not Available Not Avai lable Kevzara 200 mg/1.14 mL subcutane ous pen injector Inject 1.14 mL every 2 weeks by subcutan eous route for 30 days. 2024 active approved from 02/19/24 until further notice Not Available Not Available Not Available Glucosami ne Chondroit in 1000mg/8 00mg active Not Available Not Available No t Available aspirin 81 mg capsule Take by oral route. active Not Available Not Available No t Available Probitoic Digestive Support (6 strain) 10 billion cell-100 mg capsule Take by oral route. active Not Available Not Available No t Available Vitals Date Recorded Body height Respiratory rate Body mass index (BMI) Body weight Heart rate Oxygen saturation Systolic And Diastolic Provider Name and Address Organization Details Last Updated DateTime 5 177.8 cm 16 /min 29.4 kg/m2 92977.4 4 g 68 /min 98 % 118/74 mm[Hg] Nic [facility] 5 09:15:50 Date Recorded Body height Respiratory rate Body mass index (BMI) Body weight Heart rate Oxygen saturation Systolic And Diastolic Provider Name and Address Organization Details Last Updated DateTime 5 177.8 cm 16 /min 28.4 kg/m2 74147.2 9 g 63 /min 98 % 118/72 mm[Hg] Nic [facility] 5 09:00:09 Date Recorded Body height Respiratory rate Body mass index (BMI) Body weight Heart rate Oxygen saturation Systolic And Diastolic Provider Name and Address Organization Details Last Updated DateTime 5 177.8 cm 16 /min 27.3 kg/m2 38123.5 5 g 68 /min 98 % 118/74 mm[Hg] [facility] 5 09:22:58 Date Recorded Body height Respiratory rate Body mass index (BMI) Body weight Oxygen saturation Heart rate Systolic And Diastolic Provider Name and Address Organization Details Last Updated DateTime 5 177.8 cm 16 /min 27.3 kg/m2 48972.5 5 g 98 % 70 /min 114/74 mm[Hg] [facility] 5 08:59:03 Date Recorded Body height Respiratory rate Body mass index (BMI) Body weight Heart rate Oxygen saturation Systolic And Diastolic Provider Name and Address Organization Details Last Updated DateTime 4 177.8 cm 16 /min 29.4 kg/m2 51938.4 4 g 78 /min 97 % 118/72 mm[Hg] [facility] 4 09:06:50 Social History Question Answer Notes LastModified by Organizat ion Details LastModified Time Tobacco Smoking Status Former Smoker Larisa Trung [facility] 11/15/2023 07:55:19 What Was The Date Of Your Most Recent Tobacco Screening? 03/24/2025 [email or web address] Information not available 03/24/2025 Sex: Male Functional Status Question Answer Note LastModified by Organization D etails LastModified Time What is your level of alcohol consumption? Moderate [email or web address] Information not available 11/15/2023 Mental Status None recorded. Family History Nothing Reported. Medical History Condition Response Diabetes N Bleeding Disorder N Arthritis Y Emphysema N Acid Reflux (GERD) N COPD N Asthma N Rheumatoid Arthritis N Hypertension N Immunizations Vaccine Type Date Status Note Provider Nam e and Address Organization Details Recorded Time Hep A, adult 8 completed Not Available [facility] 03/24/2025 08:52:31 Hep B, adult 8 completed Not Available [facility] 03/24/2025 08:52:31 Hep B, adult 8 completed Not Available [facility] 03/24/2025 08:52:31 Hep A, adult 9 completed Not Available [facility] 03/24/2025 08:52:31 Hep B, adult 9 completed Not Available [facility] 03/24/2025 08:52:31 Influenza, split virus, quadrivalent, preservative 8 completed Not Available [facility] 03/24/2025 08:52:31 Influenza, split virus, quadrivalent, PF 8 completed Not Available [facility] 03/24/2025 08:52:31 Influenza, recombinant, quadrivalent, PF 9 completed Not Available [facility] 03/24/2025 08:52:31 Influenza, high-dose, quadrivalent, PF 0 completed Not Available [facility] 03/24/2025 08:52:31 Pneumococcal conjugate PCV 13 0 completed Not Available [facility] 03/24/2025 08:52:31 COVID-19, mRNA, LNP-S, PF, 30 mcg/0.3 mL dose 1 completed Not Available [facility] 03/24/2025 08:52:31 COVID-19, mRNA, LNP-S, PF, 30 mcg/0.3 mL dose 1 completed Not Available [facility] 03/24/2025 08:52:31 Influenza, high-dose, quadrivalent, PF 1 completed Not Available [facility] 03/24/2025 08:52:31 COVID-19, mRNA, LNP-S, PF, 30 mcg/0.3 mL dose 1 completed Not Available [facility] 03/24/2025 08:52:31 COVID-19, mRNA, LNP-S, PF, 30 mcg/0.3 mL dose, randi-sucrose 2 completed Not Available [facility] 03/24/2025 08:52:31 Influenza, adjuvanted, quadrivalent, PF 2 completed Not Available [facility] 03/24/2025 08:52:31 COVID-19, mRNA, LNP-S, bivalent, PF, 30 mcg/0.3 mL dose 2 completed Not Available [facility] 03/24/2025 08:52:31 COVID-19, mRNA, LNP-S, bivalent, PF, 30 mcg/0.3 mL dose 3 completed Not Available [facility] 03/24/2025 08:52:31 COVID-19, mRNA, LNP-S, PF, randi-sucrose, 30 mcg/0.3 mL 3 completed Not Available [facility] 03/24/2025 08:52:31 Influenza, adjuvanted, quadrivalent, PF 4 completed Not Available [facility] 03/24/2025 08:52:31 COVID-19, mRNA, LNP-S, PF, randi-sucrose, 30 mcg/0.3 mL 4 completed Not Available [facility] 03/24/2025 08:52:31 Influenza, high-dose, trivalent, PF 4 completed Not Available [facility] 03/24/2025 08:52:31 Td (adult) 5 completed Not Available [facility] 03/24/2025 08:52:31 Pneumococcal conjugate PCV20, polysaccharide [id number] conjugate, adjuvant, PF 5 completed Not Available [facility] 03/24/2025 08:52:31 Influenza, high-dose, quadrivalent, PF 5 completed Not Available [facility] 03/24/2025 08:52:31 COVID-19, mRNA, LNP-S, PF, randi-sucrose, 30 mcg/0.3 mL 5 completed Not Available [facility] 03/24/2025 08:52:31 Past Encounters Encounter ID Performer Location Encounter Start Date Encounter Closed Date Diagnosis/Indication Diagnosis SNOMED-CT Code Diagnosis ICD10 Code Diagnosis IMO Codes Diagnosis Note [id number] JUAN MATHIS MD [facility] [address] [place] [address] 05/27/2021 10:30:10 05/27/2021 14:02:47 Osteoarthritis of wrist 188778478 M19.032 Left stage III SLAC wrist with severe erosive arthritic changes throughout the radioscaph oid joint space (CSI: 05/27/2021) Dupuytren' s disease of palm and finger, with contracture 771058473 M72.0 Left small finger: 60 MP contractur e [id number] JUAN MATHIS MD [facility] [address] [place] [address] 07/05/2021 10:26:19 07/05/2021 12:56:11 Osteoarthritis of wrist 418470744 M19.032 Left stage III SLAC wrist with severe erosive arthritic changes throughout the radioscaph oid joint space (CSI: 05/27/2021) Dupuytren' s disease of palm and finger, with contracture 569681049 M72.0 Left small finger: 60 MP contractur e [id number] JUAN MATHIS MD [facility] [address] [place] [address] 07/07/2021 10:55:46 07/07/2021 13:01:41 Dupuytren's disease of palm and finger, with contracture 101994464 M72.0 Left small finger: 60 MP contractur e Osteoarthr itis of wrist 626342709 M19.032 Left stage III SLAC wrist with severe erosive arthritic changes throughout the radioscaph oid joint space (CSI: 05/27/2021) [id number] JUAN MATHIS MD [facility] [address] [address] 09/06/2021 10:40:34 09/06/2021 13:01:38 Dupuytren's disease of palm and finger, with contracture 597257874 M72.0 Left small finger (status post Xiaflex manipulati on on 07/07/2021): 60 MP contractur e - corrected to 0 Osteoarthr itis of wrist 933257990 M19.032 Left stage III SLAC wrist with severe erosive arthritic changes throughout the radioscaph oid joint space (CSI: 05/27/2021) [id number] PARMINDER PEÑA MD [facility] [address] [place] [address] 11/15/2023 07:29:36 11/16/2023 04:30:00 Dupuytren's contracture of finger 923767792 M72.0 Does have chronic Dupuytren contractur es involving ring and middle fingers. Hopefully once the acute inflammato ry process is under control, we will start him on the occupation al therapy program. 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 It can be seen as a primary process or in associatio n with polymyalgi a rheumatica . Needs to be watched for any paraneopla stic process. Discussed with the patient and his Sharifa who was on the phone from [place] in detail. Suggested trial of prednisone 15 [...] making Long-term current use of immunosuppressive drug 537372040 Z79.60 I have talked about the methotrexa te and is monitoring . He will follow-up with the labs initially every 4 to 6 weeks or by every 3 months. tary modificati ons reviewed. Alcohol avoidance discussed. Polymyalgi a rheumatica 01453932 M35.3 Clinical features of PMR in associatio n with RS3PEA low positive rheumatoid factor can be seen in patients with PMR/RS3PE. He does not have any evidence of rheumatoid arthritis. Details as above. Trial of the combinatio n of prednisone along with methotrexa te. He is comfortabl e with the discussion . 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 For [...] High risk decision making Polymyalgi a rheumatica 28076221 M35.3 Clinical features of PMR in associatio [...] markers today Dupuytren' s contracture of finger 484819536 M72.0 Does have chronic Dupuytren contractur es involving ring and middle fingers. Hopefully once the acute inflammato ry process is under control, we will start him on the occupation al therapy program. Long-term current use of immunosuppressive drug 640583799 Z79.60 I have talked about the methotrexa te and is monitoring . We also talked about alcohol use and methotrexa te. Increased risk of liver failure and cytopenias discussed. Repeated the CBC and LFTs today. 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 For [...] igh risk decision making Polymyalgi a rheumatica 05796073 M35.3 Currently on the combinatio n of [...] markers today Dupuytren' s contracture of finger 571018184 M72.0 Does have chronic Dupuytren contractur es involving ring and middle fingers.Co ntinue with range of motion exercises Long-term current use of immunosuppressive drug 578065364 Z79.60 I have talked about the methotrexa te and is monitoring . We also talked about alcohol use and methotrexa te. Increased risk of liver failure and cytopenias discussed. 01/02/24 labsESR, CRP normalCBC normalLFT normal. Long-term drug therapy 351964615 Z79.891 In anticipati on of systemic immunosupp ressive therapy chest x-ray obtained Malaise and fatigue 2717 [address]8021 R53.81 R53.83 Rather nonspecifi c.Chronic without any clinical evidence of infectious or malignancy . 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 For [...] weeks.High risk decision making Polymyalgi a rheumatica 13071141 M35.3 Currently on the combinatio n of methotrexa te and prednisone . Prednisone is now at 5mg once a day.Howeve r clinically he remains [...] 4 weeks. Dupuytren' s contracture of finger 701529836 M72.0 Does have chronic Dupuytren contractur es involving ring and middle fingers.ch ronic.Cont inue with range of motion exercisesc an consider hand surgery eval, if symptoms get worse. Long-term current use of immunosuppressive drug 623734760 Z79.60 I have talked about the methotrexa te and is monitoring . We also talked about alcohol use and methotrexa te. Increased risk of liver failure and cytopenias discussed. 01/02/24 labsESR, CRP normalCBC normalLFT normal. Labs 02/19/24 reviewed.H igh risk medication steroids and MTX. normal LFTS and normal Hep panel. 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 For [...] weeks.High risk decision making Polymyalgi a rheumatica [id number] M35.3 Currently on the combinatio n of [...] discussion . Dupuytren' s contracture of finger [id number] M72.0 Does have chronic Dupuytren contractur es involving ring and middle fingers.ch ronic.Cont inue with range of motion exercisesc an consider hand surgery eval, if symptoms get worse. Long-term current use of immunosuppressive drug [id number] Z79.60 I have talked about the methotrexa [...] will require a consult with hematology . 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 For [...] weeks.High risk decision making Polymyalgi a rheumatica [id number] M35.3 Currently on the combinatio n of [...] in october Dupuytren' s contracture of finger [id number] M72.0 Does have chronic Dupuytren contractur es involving ring and middle fingers.ch ronic.Cont inue with range of motion exercisesc an consider hand surgery eval, if symptoms get worse. Long-term current use of immunosuppressive drug [id number] Z79.60 I have talked about the methotrexa [...] consult with hematology . 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 For details please see initial consultati on dated 11/15/2023. Currently doing very well. Does not have any active synovitis or effusion. In particular no swelling or edema noted in his hands. 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 Doing very well since starting Kevzara. I suggested him to maintain the current combinatio n of Kevzara 200mg q. 2 weeks, start date Jun 07 2024I want him to reduce the dose of prednisone to 5 mg once a day. Prednisone start date 11/15/2023. He is off methotrexa te. He does have anemia and thrombocyt openiaHe is post colonoscop y followed by complicati on in the form of colon leak and infection requiring partial colectomy. Has recovered well Repeat labs today f/u in march. Polymyalgi a rheumatica [id number] M35.3 He is doing very well. Fairly stable exam Range of motion is intact. Strength is physiologi c The peripheral synovitis, edema involving extremitie s has resolved I want him to reduce the dose of prednisone to 5 mg once a day.He will maintain the Kevzara 200 mg subcu every 2 weeks as a steroid sparing drug As mentioned before, low positive rheumatoid factor can be seen in patients with PMR/RS3PE. He does not have any clear evidence of rheumatoid arthritis. The anti-CCP antibodies were negative October 30, 2023 I have repeated the inflammato ry markers today Dupuytren' s contracture of finger 087916645 M72.0 Does have chronic Dupuytren contractur es involving ring and middle fingers.ch ronic.Cont inue with range of motion exercisesc an consider hand surgery eval, if symptoms get worse. Long-term current use of immunosuppressive drug [id number] Z79.60 I have talked about the methotrexa te and is monitoring . We also talked about alcohol use and methotrexa te. Increased risk of liver failure and cytopenias discussed. Repeat labs today. Lab studies from 07/22/2024 reviewed. 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 For details please see initial consultati on dated 11/15/2023. Currently doing very well. Does not have any active synovitis or effusion. In particular no swelling or edema noted in his hands. 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 Doing very well since starting Kevzara. I suggested him to maintain the current combinatio n of Kevzara 200mg q. 2 weeks, start date Jun 07 2024I want him to reduce the dose of prednisone to 2.5 mg once a day. Prednisone start date 11/15/2023. He is off methotrexa te. He does have modest anemia and thrombocyt openia, most recent platelet count 129K.He is post colonoscop y followed by complicati on in the form of colon leak and infection requiring partial colectomy. September 2024. Has recovered well Repeat labs today f/u in march. Polymyalgi a rheumatica [id number] M35.3 Fairly stable exam Range of motion is intact. Strength is physiologi c Normal pulses. The peripheral synovitis, edema involving extremitie s has resolved As discussed above as he is doing well reduce prednisone to 2.5 mg once a dayHe will maintain the Kevzara 200 mg subcu every 2 weeks as a steroid sparing drug As mentioned before, low positive rheumatoid factor can be seen in patients with PMR/RS3PE. He does not have any clear evidence of rheumatoid arthritis. The anti-CCP antibodies were negative October 30, 2023 I have repeated the inflammato ry markers today Dupuytren' s contracture of finger [id number] M72.0 Does have chronic Dupuytren contractur es involving ring and middle fingers.ch ronic.Cont inue with range of motion exercises Long-term current use of immunosuppressive drug [id number] Z79.60 Lab studies 12/16/2024, ESR and CRP normal CBC hemoglobin 13.3, platelet count 129 and white cell count 4.3. MCV 102 RDW 16.3.He has a plan to see hematologi , Dr. Garth Issa in hematology in [place]. Repeat labs today Tuberculos is screening [id number] Z11.7 Follow-up on TB screening every 12 months, next TB test due July 2025 Health Concerns Section Related Observation LastModified by Organization Detai ls LastModified Time None Recorded Concern Status LastModified by Organization Details LastModified Time None Recorded Advance Directives Directive None Recorded Payers Insurance Date Sequence Insurance Name Policy Number Policy Muller Covered Member ID Muller Member ID Guarantor Name 05/27/2021 1 [place] [id number] True [place] [id number] True [place] 03/30/2025 2 [employer] (MEDICARE SUPPLEMENT) True [place] [id number] True [place] 03/21/2025 1 [place] True [place] [id number] True [place] Notes Date Note Type Note Provider Name and Address Organization Details Recorded Time 03/28/2024 text/html ROS as noted in the HPI True is a 68yr old male here [...] accompanied by his . PARMINDER PEÑA MD [address] [place] [address] [place], [address], [facility] 03/30/2024 18:24:02 06/03/2024 text/html ROS as noted in the HPI True is a 68yr old male here [...] accompanied by his . PARMINDER PE[facility], [address], [facility] 06/03/2024 11:03:54 07/22/2024 text/html ROS as noted in the HPI True is a 68yr old male here [...] accompanied by his . PARMINDER PEÑA MD [address] [place] [address] [place], [address], [facility] 07/23/2024 11:25:05 12/16/2024 text/html ROS as noted in the HPI True is a 69yr old male here in our rheumatology clinic for a follow up. He was last seen on 07/22/24. 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 Is on Kevzara, has done very well since the addition. post Colonoscopy in September followed by surgery partial bowel resection. Denies side effects of the medicine He is accompanied by his . PARMINDER PEÑA MD [address] [place] [address], [phone], [facility] 12/16/2024 13:06:26 03/24/2025 text/html ROS as noted in the HPI True is a 69yr old male here in our rheumatology clinic for a follow up. He was last seen on 12/16/2024. 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 On IL-6 antagonist, Kevzara 200 mg every 2 weeks is a steroid sparing drug. He has modest anemia along with modest thrombocytopenia platelet count 129K. He has easy skin bruising. He is status post colonoscopy September 2024 followed by partial bowel resection Did have an episode of bronchitis with blood-tinged sputum. According to him was seen by pulmonary medicine workup was negative. His breathing is much better now. He is scheduled to see Dr. Garth Issa in hematology His most recent ESR CRP 12/16/2024 is normal PARMINDER PEÑA MD [address] [place], [address], [facility] 03/24/2025 09:59:14
--- OUTSIDE RECORDS SUMMARY | 2025-04-01 13:29 | XMS_ITS | Encounter Summary ---
Author Organization Healthcare Address [address] [place] [address] Care Team Providers Care Planning And Analysis Manager Name Role Phone Jr Guevara MD Primary Care Provider [phone] Encounter Details Date Type Department Care Team ([facility] st Contact Info) Description 04/01/2024 Orders Only External Location [address] [place] [address] Jr Guevara MD [address] [place] [address] Social History Tobacco Use Types Packs/Day Years [...] on filedocumented in this encounter Care Teams Planning And Analysis Manager Relationship Specialty Start Date End Date Jr Guevara MD [address] [place] [id number] PCP - General 09/17/20 documented as of this encounter
--- OUTSIDE RECORDS SUMMARY | 2025-04-01 13:29 | XMS_ITS | Encounter Summary ---
Author Organization Healthcare Address [address] [place] [address] Care Team Providers Care Manager Plan Name Role Phone Jr Guevara MD Primary Care Provider [phone] Encounter Details Date Type Department Care Team (Late st Contact Info) Description 02/16/2025 Abstract [facility] [address] [place] [address] Loly Cisneros RN [facility] None Social History Tobacco Use Types Packs/Day [...] documented as of this encounter Care Teams Manager Plan Relationship Specialty Start Date End Date Jr Guevara MD [address] [place] [address] PCP - General 09/17/20 documented as of this encounter
--- OUTSIDE RECORDS SUMMARY | 2025-04-01 13:29 | XMS_ITS | Continuity of Care Document ---
Author Organization [facility] [place] Address [address] [place] [id number] Care Team Providers Care Clinical Laboratory Aides Teacher Name Role Phone JORDON RUSSO Primary Care Provider [phone] PARMNIDER PEÑA Lead Customer Service Representative Assessment Encounter Date Assessment Date Assessment LastModified by Organization Details LastModified Time 03/24/2025 03/24/2025 69-year-old gentleman seen today for [...] impression plan as follows: [email or web address] Not available 03/24/2025 09:56:25 Plan of Treatment Reminders Order Date Submit Date Provider Last Modified By Organization Details Last Modified Time Details Appointments RHEUM RECHECK 2025 09:00A M PARMINDER PEÑA MD Not available Not available Not available Lab ESR (erythroc yte sedimenta tion rate), blood 2024 025 [facility], [address] [place] [address], [phone], 03/24/2025 12:19:38 C reactive protein, QN, serum or plasma 2024 025 [facility], [address] [place] [address], [phone], 03/24/2025 10:57:07 CBC w/ auto diff 2024 025 [facility], [address] [place] [address], [address], 03/24/2025 11:31:26 hepatic function panel, serum 2024 025 [facility], [address] [place] [address], [address], 03/24/2025 10:57:06 Referral None recorded. Procedures None recorded. Surgeries None recorded. Imaging None recorded. Medication Orders prednison e 2.5 mg tablet 2024 [facility], [address] [place] [address], [phone], 03/26/2025 15:00:35 Patient TargetsNo targets recorded. Patient InstructionsNo instructions recorded. Reason for Referral None Reported. Results Created Date Observation Date Name Description Value Unit Range Abnormal Flag Note LastModifiedBy Organization Detail LastModifiedTime 03/24/2003/24/2025 HEPAT IC (LIVE R) PANEL AST 39 U/L 0-40 normal Not Available [facility] [address] [place] [address], [address], 03/24/2025 10:57:06 03/24/20 25 03/24/2025 HEPAT IC (LIVE R) PANEL ALT 53 U/L 0-41 high Not Available [facility] [address] [place] [address], [address], 03/24/2025 10:57:06 03/24/20 25 03/24/2025 HEPAT IC (LIVE R) PANEL alkaline phosphatase 51 U/L 40-129 normal Not Available [facility] [address] [place] [address], [address], 03/24/2025 10:57:06 03/24/20 25 03/24/2025 HEPAT IC (LIVE R) PANEL total protein 7.0 g/dL 6.4-8. 3 normal Not Available [facility] [address] [place] [address], [address], 03/24/2025 10:57:06 03/24/20 25 03/24/2025 HEPAT IC (LIVE R) PANEL albumin 4.8 g/dL 3.5-5. 2 normal Not Available [facility] [address] [place] [address], [address], 03/24/2025 10:57:06 03/24/20 25 03/24/2025 HEPAT IC (LIVE R) PANEL bilirubin, total 1.1 mg/dL 0.1-1. 0 high NOTE: New refer ence range . Not Available [facility] [address] [place] [address], [address], 03/24/2025 10:57:06 03/24/20 25 03/24/2025 HEPAT IC (LIVE R) PANEL bilirubin, direct 0.3 mg/dL 0.0-0. 3 normal Not Available [facility] [address] [place] [address], [address], 03/24/2025 10:57:06 03/24/20 25 03/24/2025 HEPAT IC (LIVE R) PANEL bilirubin, indirect 0.8 mg/dL _(mark c) 0.0-1. 0 normal Not Available [facility] [address] [place] [address], [address], 03/24/2025 10:57:06 03/24/20 25 03/24/2025 C REACT DENAE PROTE IN C reactive protein <0.06 mg/dL 0.00-0 .49 normal Not Available [facility] [address] [place] [address], [address], 03/24/2025 10:57:07 03/24/20 25 03/24/2025 COMPL ETE BLOOD COUNT white blood cells 4.5 10*3/ uL 3.8-10 .8 normal Not Available [facility] [address] [place] [address], [address], 03/24/2025 11:31:26 03/24/20 25 03/24/2025 COMPL ETE BLOOD COUNT red blood cells 3.50 10*6/ uL 4.20-5 .80 low Not Available [facility] [address] [place] [address], [address], 03/24/2025 11:31:26 03/24/20 25 03/24/2025 COMPL ETE BLOOD COUNT hemoglobin 13.6 g/dL 14.0-1 8.0 low Not Available [facility] [address] [place] [address], [address], 03/24/2025 11:31:26 03/24/20 25 03/24/2025 COMPL ETE BLOOD COUNT hematocrit 38.3 % 40.0-5 2.0 low Not Available [facility] [address] [place] [address], [address], 03/24/2025 11:31:26 03/24/20 25 03/24/2025 COMPL ETE BLOOD COUNT MCV 109 fL 80-100 high Not Available [facility] [address] [place] [address], [address], 03/24/2025 11:31:26 03/24/20 25 03/24/2025 COMPL ETE BLOOD COUNT MCH 39 pg 26-35 high Not Available [facility] [address] [place] [address], [address], 03/24/2025 11:31:26 03/24/20 25 03/24/2025 COMPL ETE BLOOD COUNT MCHC 35 g/dL 32-36 normal Not Available [facility] [address] [place] [address], [address], 03/24/2025 11:31:26 03/24/20 25 03/24/2025 COMPL ETE BLOOD COUNT RDW 13.5 % 11.0-1 5.0 normal Not Available [facility] [address] [place] [address], [address], 03/24/2025 11:31:26 03/24/20 25 03/24/2025 COMPL ETE BLOOD COUNT MPV 9.2 fL 6.2-10 .5 normal Not Available [facility] [address] [place] [address], [address], 03/24/2025 11:31:26 03/24/20 25 03/24/2025 COMPL ETE BLOOD COUNT platelet count 142 10*3/ uL 150-40 0 low Not Available [facility] [address] [place] [address], [address], 03/24/2025 11:31:26 03/24/20 25 03/24/2025 COMPL ETE BLOOD COUNT neutrophil,a bsolute 3.3 10*3/ uL 1.6-8. 4 normal Not Available [facility] [address] [place] [address], [address], 03/24/2025 11:31:26 03/24/20 25 03/24/2025 COMPL ETE BLOOD COUNT lymphocyte,a bsolute 0.6 10*3/ uL 0.4-5. 1 normal Not Available [facility] [address] [place] [address], [address], 03/24/2025 11:31:26 03/24/20 25 03/24/2025 COMPL ETE BLOOD COUNT monocyte,abs olute 0.5 10*3/ uL 0.0-1. 2 normal Not Available [facility] [address] [place] [address], [address], 03/24/2025 11:31:26 03/24/20 25 03/24/2025 COMPL ETE BLOOD COUNT eosinophil,a bsolute 0.0 10*3/ uL 0.0-0. 8 normal Not Available [facility] [address] [place] [address], [address], 03/24/2025 11:31:26 03/24/20 25 03/24/2025 COMPL ETE BLOOD COUNT basophil,abs olute 0.0 10*3/ uL 0.0-0. 3 normal Smear revie wed to confi rm cell morph ology . Not Available [facility] [address] [place] [address], [address], 03/24/2025 11:31:26 03/24/20 25 03/24/2025 COMPL ETE BLOOD COUNT % neutrophils 74.4 % 42.0-7 8.0 normal Not Available [facility] [address] [place] [address], [address], 03/24/2025 11:31:26 03/24/20 25 03/24/2025 COMPL ETE BLOOD COUNT % lymphocytes 14.3 % 11.0-4 7.0 normal Not Available [facility] [address] [place] [address], [address], 03/24/2025 11:31:26 03/24/20 25 03/24/2025 COMPL ETE BLOOD COUNT % monocytes 10.1 % 0.0-11 .0 normal Not Available [facility] [address] [place] [address], [address], 03/24/2025 11:31:26 03/24/20 25 03/24/2025 COMPL ETE BLOOD COUNT % eosinophils 0.6 % 0.0-7. 0 normal Not Available [facility] [address] [place] [address], [address], 03/24/2025 11:31:26 03/24/20 25 03/24/2025 COMPL ETE BLOOD COUNT % basophils 0.6 % 0.0-3. 0 normal Not Available [facility] [address] [place] [address], [address], 03/24/2025 11:31:26 03/24/20 25 03/24/2025 COMPL ETE BLOOD COUNT nucleated red cells 0.1 % 0.0-0. 9 normal Not Available [facility] [address] [place], [address], 03/24/2025 11:31:26 03/24/20 25 03/24/2025 COMPL ETE BLOOD COUNT nucleated RBCs, absolute 0.00 10*3/ uL not estab. normal Not Available [facility] [address] [place], [address], 03/24/2025 11:31:26 03/24/20 25 03/24/2025 MORPH OLOGY platelet morphology NORMAL normal Not Available [facility] [address] [place] [address], [address], 03/24/2025 11:31:27 03/24/20 25 03/24/2025 MORPH OLOGY anisocytosis MODERA TE abnormal Not Available [facility] [address] [place] [address], [address], 03/24/2025 11:31:27 03/24/20 25 03/24/2025 MORPH OLOGY spherocytes SLIGHT abnormal Not Available [facility] [address] [place], [address], 03/24/2025 11:31:27 03/24/20 25 03/24/2025 ESR, AUTOM ATED ESR, automated <1 mm 0-19 normal RESUL TS RECHE CKED Not Available [facility] [address] [place], [address], 03/24/2025 12:19:38 Result Notes None recorded. Problems Name Problem SNOMED Code Status Onset Date Resolution Date Notes Provider Name and Address Organization Details Recorded Time Pain of joint 59645172 Active 2014 From Automated Load;Provi lori: Traci Sanchez;Stat us: Active Not Available [facility] 6 04:55:54 High antibody titer 054793054 Active 2014 From Automated Load;Provi lori: Traci Sanchez;Stat us: Active Not Available [facility] 6 04:55:54 Idiopathi c osteoarth ritis 539230662 Active 2014 From Automated Load;Provi lori: Sanchez, Traci;Stat us: Active Not Available [facility] 6 04:55:54 Radial styloid tenosynov itis 58493594 Active 2014 From Automated Load;Provi lori: Sanchez, Traci;Stat us: Active Not Available [facility] 6 04:56:32 Synovitis /tenosyno vitis - wrist 991428200 Active 2014 From Automated Load;Provi lori: Sanchez, Traci;Stat us: Active Not Available [facility] 6 04:56:32 Problem Notes None recorded. Procedures Surgical History Date Name Laterality Status Provider Name and Address Organization Details Recorded Time 05/14/19 25 placement of stent in pulmonary artery completed Nic Mercado [facility] 06/03/2024 09:13:18 07/08/19 22 Dupuytren's Contracture Manipulation completed JUAN MATHIS MD [address] [place], [address], [facility] 07/07/2021 18:22:27 07/06/19 22 Xiaflex/Dupuytre n's Contracture Injection completed Sofi Cannon [facility] 07/19/2021 16:23:51 05/27/19 22 Injection - Joint/Bursa, Interm completed JUAN MATHIS MD [address] [place], [address], [facility] 05/27/2021 12:01:33 Appendectomy completed Larisa Nino [facility] 11/15/2023 07:55:33 Imaging Results None [...] 5 177.8 cm 16 /min 27.3 kg/m2 89876.5 5 g 98 % 70 /min 114/74 mm[Hg] Nic Meracdo [facility] 5 08:59:03 Social History Question Answer Notes LastModified by Organizat ion Details LastModified Time Tobacco Smoking Status Former Smoker Larisa arana, [facility] 11/15/2023 07:55:19 What Was The Date Of Your Most Recent Tobacco Screening? 03/24/2025 [email or web address] Information not available 03/24/2025 Sex: Male Functional Status Question Answer Note LastModified by Organization D etails LastModified Time What is your level of alcohol consumption? Moderate Information not available 11/15/2023 Mental Status None recorded. Family History Nothing Reported. Medical History Condition Response Diabetes N Bleeding Disorder N Arthritis Y Emphysema N Acid Reflux (GERD) N Rheumatoid Arthritis N Hypertension N COPD N Asthma N Immunizations Vaccine Type Date Status Note Provider Nam e and Address Organization Details Recorded Time Hep A, adult 8 completed Not Available [facility] 03/24/2025 08:52:31 Hep B, adult 8 completed Not Available [facility] 03/24/2025 08:52:31 Hep B, adult 8 completed Not Available [facility] 03/24/2025 08:52:31 Hep A, adult 9 completed Not Available [facility] 03/24/2025 08:52:31 Hep B, adult 9 completed Not Available [facility] 03/24/2025 08:52:31 Influenza, split virus, quadrivalent, preservative 8 completed Not Available [facility] 03/24/2025 08:52:31 Influenza, split virus, quadrivalent, PF 8 completed Not Available [facility] 03/24/2025 08:52:31 Influenza, recombinant, quadrivalent, PF 9 completed Not Available [facility] 03/24/2025 08:52:31 Influenza, high-dose, quadrivalent, PF 0 completed Not Available [facility] 03/24/2025 08:52:31 Pneumococcal conjugate PCV 13 0 completed Not Available [facility] 03/24/2025 08:52:31 COVID-19, mRNA, LNP-S, PF, 30 mcg/0.3 mL dose 1 completed Not Available [facility] 03/24/2025 08:52:31 COVID-19, mRNA, LNP-S, PF, 30 mcg/0.3 mL dose 1 completed Not Available [facility] 03/24/2025 08:52:31 Influenza, high-dose, quadrivalent, PF 1 completed Not Available [facility] 03/24/2025 08:52:31 COVID-19, mRNA, LNP-S, PF, 30 mcg/0.3 mL dose 1 completed Not Available [facility] 03/24/2025 08:52:31 COVID-19, mRNA, LNP-S, PF, 30 mcg/0.3 mL dose, randi-sucrose 2 completed Not Available [facility] 03/24/2025 08:52:31 Influenza, adjuvanted, quadrivalent, PF 2 completed Not Available [facility] 03/24/2025 08:52:31 COVID-19, mRNA, LNP-S, bivalent, PF, 30 mcg/0.3 mL dose 2 completed Not Available [facility] 03/24/2025 08:52:31 COVID-19, mRNA, LNP-S, bivalent, PF, 30 mcg/0.3 mL dose 3 completed Not Available [facility] 03/24/2025 08:52:31 COVID-19, mRNA, LNP-S, PF, randi-sucrose, 30 mcg/0.3 mL 3 completed Not Available [facility] 03/24/2025 08:52:31 Influenza, adjuvanted, quadrivalent, PF 4 completed Not Available [facility] 03/24/2025 08:52:31 COVID-19, mRNA, LNP-S, PF, randi-sucrose, 30 mcg/0.3 mL 4 completed Not Available [facility] 03/24/2025 08:52:31 Influenza, high-dose, trivalent, PF 4 completed Not Available [facility] 03/24/2025 08:52:31 Td (adult) 5 completed Not Available [facility] 03/24/2025 08:52:31 Pneumococcal conjugate PCV20, polysaccharide [id number] conjugate, adjuvant, PF 5 completed Not Available [facility] 03/24/2025 08:52:31 Influenza, high-dose, quadrivalent, PF 5 completed Not Available [facility] 03/24/2025 08:52:31 COVID-19, mRNA, LNP-S, PF, randi-sucrose, 30 mcg/0.3 mL 5 completed Not Available [facility] 03/24/2025 08:52:31 Past Encounters Encounter ID Performer Location Encounter Start Date Encounter Closed Date Diagnosis/Indication Diagnosis SNOMED-CT Code Diagnosis ICD10 Code Diagnosis IMO Codes Diagnosis Note [id number] PARMINDER PEÑA MD [facility] [address] [place] [address] 03/24/2025 08:50:53 03/30/2025 09:28:33 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 For details please see initial consultati on dated 11/15/2023. Currently doing very well. Does not have any active synovitis or effusion. In particular no swelling or edema noted in his hands. 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 Polymyalgi a rheumatica 18977090 M35.3 Fairly stable exam Range of motion [...] markers today Dupuytren' s contracture of finger 409457274 M72.0 Does have chronic Dupuytren contractur es involving ring and middle fingers.ch ronic.Cont inue with range of motion exercises Long-term current use of immunosuppressive drug 522895416 Z79.60 Lab studies 12/16/2024, ESR and CRP normal CBC hemoglobin 13.3, platelet count 129 and white cell count 4.3. MCV 102 RDW 16.3.He has a plan to see hematologi stDr. Garth in hematology in [place]. Repeat labs today Tuberculos is screening 492193811 Z11.7 Follow-up on TB screening every 12 months, next TB test due July 2025 Health Concerns Section Related Observation LastModified by Organization Detai ls LastModified Time None Recorded Concern Status LastModified by Organization Details LastModified Time None Recorded Payers Encounter Date Sequence Insurance Name Policy Number Policy Muller Covered Member ID Muller Member ID Guarantor Name 03/24/2025 1 [place] Rishi Munroe [id number] Rishi Munroe 03/24/2025 2 [employer] (MEDICARE SUPPLEMENT) Rishi Munroe [id number] Rishi Munroe Notes Date Note Type Note Provider Name and Address Organization Details Recorded Time 03/24/2025 text/html ROS as noted in the HPI Rishi is a 69yr old male here in [...] CRP 12/16/2024 is normal PARMINDER PEÑA MD [facility] [place], [address], [facility] 03/24/2025 09:59:14
--- OUTSIDE RECORDS SUMMARY | 2025-04-01 13:29 | XMS_ITS | Clinical Summary ---
Author Organization [facility] Address [address] [place] [address] Care Team Providers Care Dress Finisher Name Role Phone Unavailable Primary Care Provider [...]
--- OUTSIDE RECORDS SUMMARY | 2025-04-01 13:29 | XMS_ITS | Clinical Summary ---
Author Organization [facility] Address [address] [place] [address] Care Team Providers Care Field Administrative Assistant Name Role Phone Jr Guevara MD Primary Care Provider [phone] Allergies No known active allergies Medications Kevzara [...] 1 packet by mouth daily. Active multivitamin-ir ei-itoceswp-sqr ic acid (Centrum Silver, geriatric,) tablet Take [...] Type Department Care Team Description 02/16/2025 Abstract [facility] [address] [place] [address] Loly Cisneros, RN 01/13/2025 Abstract [facility] [place] [address] [facility] [place] [address] Loly Cisneros, RN from Last 3 Months [...] 2004 UKY-Zoster Vaccines (1 of 2) 2004 [id number] Vaccine (2024- season) 2025 02/11/2024, 03/26/2023, 09/20/2022, [...] this topic Insurance MEDICARE [employer] Care Teams Field Administrative Assistant Relationship Specialty Start Date End Date Jr Guevara MD [address] [place] [address] [address] [address] PCP - General 09/17/20
[2025-04-01 14:12] LABS: Iron 155 ug/dL (49-181)
[2025-04-01 14:23] LABS: Total Iron Binding Capacity 209 ug/dL (261-462)
[2025-04-01 15:03] LABS: Vitamin B12 824 pg/mL (239-931)
[2025-04-01 15:23] LABS: Folate > 20.00 ng/mL
== END 2025-04-01 23:59 | disposition home or self-care (01) ==
LOC: LAB 13:26
PROVIDERS: PCP Family Medicine; Visit Provider Internal Medicine Medical Oncology
DX: D64.9 Anemia, unspecified (principal)
CPT/HCPCS: 36415; 82607; 82746; 83540; 83550

== ENCOUNTER 2025-04-07 10:46 | Outpatient (CLI) | payer MEDICARE, OTHER, SELFPAY ==
[2025-04-07 08:48] VITALS: BMI 27.8
--- OUTSIDE RECORDS SUMMARY | 2025-04-07 10:49 | XMS_ITS | Encounter Summary ---
Author Organization Healthcare Address [address] [place] [address] Care Team Providers Care Mechanical Technologist Name Role Phone Jr Guevara MD Primary Care Provider [phone] Encounter Details Date Type Department Care Team ([facility] st Contact Info) Description 04/01/2024 Orders Only External Location [address] [place] [address] Jr Guevara MD [address] [place] [address] Social History Tobacco Use Types Packs/Day Years [...] on filedocumented in this encounter Care Teams Mechanical Technologist Relationship Specialty Start Date End Date rJ Guevara MD [address] [place] [id number] PCP - General 09/17/20 documented as of this encounter
--- OUTSIDE RECORDS SUMMARY | 2025-04-07 10:49 | XMS_ITS | Continuity of Care Document ---
Author Organization [facility], RHEUMATOLOGY [place] Address [address] [place] [id number] Care Team Providers Care Sample Room Supervisor Name Role Phone JORDON RUSSO Primary Care Provider [phone] PARMINDER PEÑA Monitoring Specialist Assessment Encounter Date Assessment Date Assessment LastModified [...] yte sedimenta tion rate), blood 2024 025 [facility], [address] [place] [address], [phone], 03/24/2025 12:19:38 C reactive protein, QN, serum or plasma 2024 025 [facility], [address] [place] [address], [id number], 03/24/2025 10:57:07 CBC w/ auto diff 2024 025 [facility], [address] [place] [address], [id number], 03/24/2025 11:31:26 hepatic function panel, serum 2024 025 [facility], [address] [place] [address], [id number], 03/24/2025 10:57:06 Referral None recorded. Procedures None recorded. Surgeries None recorded. Imaging None recorded. Medication Orders prednison e 2.5 mg tablet 2024 [facility], [address] [place] [address], [phone], 03/26/2025 15:00:35 Patient TargetsNo targets recorded. Patient InstructionsNo instructions recorded. Reason for Referral None Reported. Results Created Date Observation Date Name Description Value Unit Range Abnormal Flag Note LastModifiedBy Organization Detail LastModifiedTime 03/24/2003/24/2025 HEPAT IC (LIVE R) PANEL AST 39 U/L 0-40 normal Not Available [facility] [address] [place] [address], [phone], 03/24/2025 10:57:06 03/24/20 25 03/24/2025 HEPAT IC (LIVE R) PANEL ALT 53 U/L 0-41 high Not Available [facility] [address] [place] [address], [address], 03/24/2025 10:57:06 03/24/20 25 03/24/2025 HEPAT IC (LIVE R) PANEL alkaline phosphatase 51 U/L 40-129 normal Not Available [facility] [address] [place] [address], [phone], 03/24/2025 10:57:06 03/24/20 25 03/24/2025 HEPAT IC (LIVE R) PANEL total protein 7.0 g/dL 6.4-8. 3 normal Not Available [facility] [address] [place] [address], [address], 03/24/2025 10:57:06 03/24/20 25 03/24/2025 HEPAT IC (LIVE R) PANEL albumin 4.8 g/dL 3.5-5. 2 normal Not Available [facility] [address] [place] [address], [address], 03/24/2025 10:57:06 03/24/20 25 03/24/2025 HEPAT IC (LIVE R) PANEL bilirubin, total 1.1 mg/dL 0.1-1. 0 high NOTE: New refer ence range . Not Available [facility] [address] [place] [address], [phone], 03/24/2025 10:57:06 03/24/20 25 03/24/2025 HEPAT IC (LIVE R) PANEL bilirubin, direct 0.3 mg/dL 0.0-0. 3 normal Not Available [facility] [address] [place] [address], [id number], 03/24/2025 10:57:06 03/24/20 25 03/24/2025 HEPAT IC (LIVE R) PANEL bilirubin, indirect 0.8 mg/dL _(mark c) 0.0-1. 0 normal Not Available [facility] [address] [place] [address], [phone], 03/24/2025 10:57:06 03/24/20 25 03/24/2025 C REACT DENAE PROTE IN C reactive protein <0.06 mg/dL 0.00-0 .49 normal Not Available [facility] [address] [place] [address], [id number], 03/24/2025 10:57:07 03/24/20 25 03/24/2025 COMPL ETE BLOOD COUNT white blood cells 4.5 10*3/ uL 3.8-10 .8 normal Not Available [facility] [address] [place] [address], [phone], 03/24/2025 11:31:26 03/24/20 25 03/24/2025 COMPL ETE BLOOD COUNT red blood cells 3.50 10*6/ uL 4.20-5 .80 low Not Available [facility] [address] [place] [address], [address], 03/24/2025 11:31:26 03/24/20 25 03/24/2025 COMPL ETE BLOOD COUNT hemoglobin 13.6 g/dL 14.0-1 8.0 low Not Available [facility] [address] [place] [address], [address], 03/24/2025 11:31:26 03/24/20 25 03/24/2025 COMPL ETE BLOOD COUNT hematocrit 38.3 % 40.0-5 2.0 low Not Available [facility] [address] [place] [address], [address], 03/24/2025 11:31:26 03/24/20 25 03/24/2025 COMPL ETE BLOOD COUNT MCV 109 fL 80-100 high Not Available [facility] [address] [place] [address], [address], 03/24/2025 11:31:26 03/24/20 25 03/24/2025 COMPL ETE BLOOD COUNT MCH 39 pg 26-35 high Not Available [facility] [address] [place] [address], [address], 03/24/2025 11:31:26 03/24/20 25 03/24/2025 COMPL ETE BLOOD COUNT MCHC 35 g/dL 32-36 normal Not Available [facility] [address] [place] [address], [address], 03/24/2025 11:31:26 03/24/20 25 03/24/2025 COMPL ETE BLOOD COUNT RDW 13.5 % 11.0-1 5.0 normal Not Available [facility] [address] [place] [address], [address], 03/24/2025 11:31:26 03/24/20 25 03/24/2025 COMPL ETE BLOOD COUNT MPV 9.2 fL 6.2-10 .5 normal Not Available [facility] [address] [place] [address], [address], 03/24/2025 11:31:26 03/24/20 25 03/24/2025 COMPL ETE BLOOD COUNT platelet count 142 10*3/ uL 150-40 0 low Not Available [facility] [address] [place] [address], [address], 03/24/2025 11:31:26 03/24/20 25 03/24/2025 COMPL ETE BLOOD COUNT neutrophil,a bsolute 3.3 10*3/ uL 1.6-8. 4 normal Not Available [facility] [address] [place] [address], [address], 03/24/2025 11:31:26 03/24/20 25 03/24/2025 COMPL ETE BLOOD COUNT lymphocyte,a bsolute 0.6 10*3/ uL 0.4-5. 1 normal Not Available [facility] [address] [place] [address], [address], 03/24/2025 11:31:26 03/24/20 25 03/24/2025 COMPL ETE BLOOD COUNT monocyte,abs olute 0.5 10*3/ uL 0.0-1. 2 normal Not Available [facility] [address] [place] [address], [address], 03/24/2025 11:31:26 03/24/20 25 03/24/2025 COMPL ETE BLOOD COUNT eosinophil,a bsolute 0.0 10*3/ uL 0.0-0. 8 normal Not Available [facility] [address] [place] [address], [address], 03/24/2025 11:31:26 03/24/20 25 03/24/2025 COMPL ETE BLOOD COUNT basophil,abs olute 0.0 10*3/ uL 0.0-0. 3 normal Smear revie wed to confi rm cell morph ology . Not Available [facility] [address] [place] [address], [address], 03/24/2025 11:31:26 03/24/20 25 03/24/2025 COMPL ETE BLOOD COUNT % neutrophils 74.4 % 42.0-7 8.0 normal Not Available [facility] [address] [place] [address], [address], 03/24/2025 11:31:26 03/24/20 25 03/24/2025 COMPL ETE BLOOD COUNT % lymphocytes 14.3 % 11.0-4 7.0 normal Not Available [facility] [address] [place] [address], [address], 03/24/2025 11:31:26 03/24/20 25 03/24/2025 COMPL ETE BLOOD COUNT % monocytes 10.1 % 0.0-11 .0 normal Not Available [facility] [address] [place] [address], [address], 03/24/2025 11:31:26 03/24/20 25 03/24/2025 COMPL ETE BLOOD COUNT % eosinophils 0.6 % 0.0-7. 0 normal Not Available [facility] [address] [place] [address], [address], 03/24/2025 11:31:26 03/24/20 25 03/24/2025 COMPL ETE BLOOD COUNT % basophils 0.6 % 0.0-3. 0 normal Not Available [facility] [address] [place] [address], [address], 03/24/2025 11:31:26 03/24/20 25 03/24/2025 COMPL ETE BLOOD COUNT nucleated red cells 0.1 % 0.0-0. 9 normal Not Available [facility] [address] [place], [address], 03/24/2025 11:31:26 03/24/20 25 03/24/2025 COMPL ETE BLOOD COUNT nucleated RBCs, absolute 0.00 10*3/ uL not estab. normal Not Available [facility] [address] [place], [address], 03/24/2025 11:31:26 03/24/20 25 03/24/2025 MORPH OLOGY platelet morphology NORMAL normal Not Available [facility] [address] [place] [address], [address], 03/24/2025 11:31:27 03/24/20 25 03/24/2025 MORPH OLOGY anisocytosis MODERA TE abnormal Not Available [facility] [address] [place] [address], [address], 03/24/2025 11:31:27 03/24/20 25 03/24/2025 MORPH OLOGY spherocytes SLIGHT abnormal Not Available [facility] [address] [place], [address], 03/24/2025 11:31:27 03/24/20 25 03/24/2025 ESR, AUTOM ATED ESR, automated <1 mm 0-19 normal RESUL TS RECHE CKED Not Available [facility] [address] [place], [address], 03/24/2025 12:19:38 Result Notes None recorded. Problems Name Problem SNOMED Code Status Onset Date Resolution Date Notes Provider Name and Address Organization Details Recorded Time Pain of joint 59997090 Active 2014 From Automated Load;Provi lori: Traci Sanchez;Stat us: Active Not Available [facility] 6 04:55:54 High antibody titer 399830842 Active 2014 From Automated Load;Provi lori: Traci Sanchez;Stat us: Active Not Available [facility] 6 04:55:54 Idiopathi c osteoarth ritis 525395826 Active 2014 From Automated Load;Provi lori: Sanchez, Traci;Stat us: Active Not Available [facility] 6 04:55:54 Radial styloid tenosynov itis 21666242 Active 2014 From Automated Load;Provi lori: Sanchez, Traci;Stat us: Active Not Available [facility] 6 04:56:32 Synovitis /tenosyno vitis - wrist 045785424 Active 2014 From Automated Load;Provi lori: Sanchez, Traci;Stat us: Active Not Available [facility] 6 04:56:32 Problem Notes None recorded. Procedures Surgical History Date Name Laterality Status Provider Name and Address Organization Details Recorded Time 05/14/19 25 placement of stent in pulmonary artery completed Nic Mercado [facility] 06/03/2024 09:13:18 07/08/19 22 Dupuytren's Contracture Manipulation completed JUAN MATHIS MD [address] [place], [address], [facility] 07/07/2021 18:22:27 07/06/19 22 Xiaflex/Dupuytre n's Contracture Injection completed Sofi Cannon [facility] 07/19/2021 16:23:51 05/27/19 22 Injection - Joint/Bursa, Interm completed JUAN MATHIS MD [address] [place], [address], [facility] 05/27/2021 12:01:33 Appendectomy completed Larisa Nino [facility] 11/15/2023 07:55:33 Imaging Results None [...] 5 177.8 cm 16 /min 27.3 kg/m2 62156.5 5 g 98 % 70 /min 114/74 mm[Hg] Nic Mercado [facility] 5 08:59:03 Social History Question Answer Notes LastModified by Organizat ion Details LastModified Time Tobacco Smoking Status Former Smoker Larisa arana, [facility] 11/15/2023 07:55:19 What Was The Date Of Your Most Recent Tobacco Screening? 03/24/2025 [id number] Information not available 03/24/2025 Sex: Male Functional [...] Hep B, adult 8 completed Not Available [facility] 03/24/2025 08:52:31 Hep B, adult 8 completed Not Available [facility] 03/24/2025 08:52:31 Hep A, adult 9 completed Not Available [facility] 03/24/2025 08:52:31 Hep B, adult 9 completed Not Available [facility] 03/24/2025 08:52:31 Influenza, split virus, quadrivalent, preservative 8 completed Not Available [facility] 03/24/2025 08:52:31 Influenza, split virus, quadrivalent, PF 8 completed Not Available [facility] 03/24/2025 08:52:31 Influenza, recombinant, quadrivalent, PF 9 completed Not Available [facility] 03/24/2025 08:52:31 Influenza, high-dose, quadrivalent, PF 0 completed Not Available [facility] 03/24/2025 08:52:31 Pneumococcal conjugate PCV 13 0 completed Not Available [facility] 03/24/2025 08:52:31 COVID-19, mRNA, LNP-S, PF, 30 mcg/0.3 mL dose 1 completed Not Available [facility] 03/24/2025 08:52:31 COVID-19, mRNA, LNP-S, PF, 30 mcg/0.3 mL dose 1 completed Not Available [facility] 03/24/2025 08:52:31 Influenza, high-dose, quadrivalent, PF 1 completed Not Available [facility] 03/24/2025 08:52:31 COVID-19, mRNA, LNP-S, PF, 30 mcg/0.3 mL dose 1 completed Not Available [facility] 03/24/2025 08:52:31 COVID-19, mRNA, LNP-S, PF, 30 mcg/0.3 mL dose, randi-sucrose 2 completed Not Available [facility] 03/24/2025 08:52:31 Influenza, adjuvanted, quadrivalent, PF 2 completed Not Available [facility] 03/24/2025 08:52:31 COVID-19, mRNA, LNP-S, bivalent, PF, 30 mcg/0.3 mL dose 2 completed Not Available [facility] 03/24/2025 08:52:31 COVID-19, mRNA, LNP-S, bivalent, PF, 30 mcg/0.3 mL dose 3 completed Not Available [facility] 03/24/2025 08:52:31 COVID-19, mRNA, LNP-S, PF, randi-sucrose, 30 mcg/0.3 mL 3 completed Not Available [facility] 03/24/2025 08:52:31 Influenza, adjuvanted, quadrivalent, PF 4 completed Not Available [facility] 03/24/2025 08:52:31 COVID-19, mRNA, LNP-S, PF, randi-sucrose, 30 mcg/0.3 mL 4 completed Not Available [facility] 03/24/2025 08:52:31 Influenza, high-dose, trivalent, PF 4 completed Not Available [facility] 03/24/2025 08:52:31 Td (adult) 5 completed Not Available [facility] 03/24/2025 08:52:31 Pneumococcal conjugate PCV20, polysaccharide KIE147 conjugate, adjuvant, PF 5 completed Not Available [facility] 03/24/2025 08:52:31 Influenza, high-dose, quadrivalent, PF 5 completed Not Available [facility] 03/24/2025 08:52:31 COVID-19, mRNA, LNP-S, PF, randi-sucrose, 30 mcg/0.3 mL 5 completed Not Available [facility] 03/24/2025 08:52:31 Past Encounters Encounter ID Performer Location Encounter Start Date Encounter Closed Date Diagnosis/Indication Diagnosis SNOMED-CT Code Diagnosis ICD10 Code Diagnosis IMO Codes Diagnosis Note [id number] PARMINDER PEÑA MD [facility] [address] [place] [address] 03/24/2025 08:50:53 03/30/2025 09:28:33 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 For details please see initial consultati on dated 11/15/2023. Currently doing very well. Does not have any active synovitis or effusion. In particular no swelling or edema noted in his hands. Has a good maintenance leader strength Currently on the combinatio n of [...] today f/u in march. Polymyalgi a rheumatica 06378823 M35.3 Fairly stable exam Range of motion [...] markers today Dupuytren' s contracture of finger 889593751 M72.0 Does have chronic Dupuytren contractur es involving ring and middle fingers.ch ronic.Cont inue with range of motion exercises Long-term current use of immunosuppressive drug 410030742 Z79.60 Lab studies 12/16/2024, ESR and CRP normal CBC hemoglobin 13.3, platelet count 129 and white cell count 4.3. MCV 102 RDW 16.3.He has a plan to see hematologi stDr. Garth in hematology in [place]. Repeat labs today Tuberculos is screening 405955647 Z11.7 Follow-up on TB screening every 12 months, next TB test due July 2025 Health Concerns Section Related Observation LastModified by Organization Detai ls LastModified Time None Recorded Concern Status LastModified by Organization Details LastModified Time None Recorded Payers Encounter Date Sequence Insurance Name Policy Number Policy Muller Covered Member ID Muller Member ID Guarantor Name 03/24/2025 1 [place]ARE[place] Rishi Munroe [id number] Rishi Munroe 03/24/2025 2 [employer] (MEDICARE SUPPLEMENT) Rsihi Munroe [id number] Rishi Munroe Notes Date Note Type Note [...] CRP 12/16/2024 is normal PARMINDER PEÑA MD [facility] [place], [address], [facility] 03/24/2025 09:59:14
--- OUTSIDE RECORDS SUMMARY | 2025-04-07 10:49 | XMS_ITS | Clinical Summary ---
Author Organization [facility] Address [address] [place] [address] Care Team Providers Care Rn Medicare Name Role Phone Jr Guevara MD Primary Care Provider [phone] Allergies No known active allergies Medications Kevzara [...] 1 packet by mouth daily. Active multivitamin-ir ku-asmziekk-pos ic acid (Centrum Silver, geriatric,) tablet Take [...] Type Department Care Team Description 02/16/2025 Abstract [facility] [address] [place] [address] Loly Cisneros, RN 01/13/2025 Abstract [facility] [address] [facility] [place] [address] Loly Cisneros, RN from Last 3 Months [...] 2004 UKY-Zoster Vaccines (1 of 2) 2004 [id number] Vaccine (2024- season) 2025 02/11/2024, 03/26/2023, 09/20/2022, [...] this topic Insurance MEDICARE [employer] Care Teams Rn Medicare Relationship Specialty Start Date End Date Jr Guevara MD [address] [place] [address] [address] [address] PCP - General 09/17/20
--- OUTSIDE RECORDS SUMMARY | 2025-04-07 10:49 | XMS_ITS | Encounter Summary ---
Author Organization Healthcare Address [address] [place] [address] Care Team Providers Care Rotary Soil Stabilizer Operator Name Role Phone Jr Guevara MD Primary Care Provider [phone] Encounter Details Date Type Department Care Team ([facility] st Contact Info) Description 04/01/2024 Orders Only External Location [address] [place] [address] Angel Hope PA [address] [place] [address] Social History Tobacco Use Types Packs/Day Years [...] on filedocumented in this encounter Care Teams Rotary Soil Stabilizer Operator Relationship Specialty Start Date End Date Jr Guevara MD [facility] [address] [id number] PCP - General 09/17/20 documented as of this encounter
--- OUTSIDE RECORDS SUMMARY | 2025-04-07 10:49 | XMS_ITS | Encounter Summary ---
Author Organization Healthcare Address [address] [place] [address] Care Team Providers Care Commercial Assistant Name Role Phone Jr Guevara MD Primary Care Provider [phone] Encounter Details Date Type Department Care Team (Late st Contact Info) Description 02/16/2025 Abstract [facility] [address] [place] [address] Loly Cisneros RN [facility] - [facility] None Social History Tobacco Use [...] documented as of this encounter Care Teams Commercial Assistant Relationship Specialty Start Date End Date Jr Guevara MD [address] [place] [address] PCP - General 09/17/20 documented as of this encounter
--- OUTSIDE RECORDS SUMMARY | 2025-04-07 10:49 | XMS_ITS | Data Portability ---
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 Assessment Encounter Date Assessment Date Assessment LastModified [...] blood 2024 025 [facility], [address] [place] [address], [id number], 03/24/2025 12:19:38 C reactive protein, QN, serum or plasma 2024 025 [facility], [address] [place] [address], [address], 03/24/2025 10:57:07 CBC w/ auto diff 2024 025 [facility], [address] [place] [address], [address], 03/24/2025 11:31:26 hepatic function panel, serum 2024 025 [facility], [address] [place] [address], [address], 03/24/2025 10:57:06 ESR (erythroc yte sedimenta tion rate), blood 2024 025 [facility], [address] [place] [address], [address], 12/16/2024 12:22:56 C reactive protein, QN, serum or plasma 2024 025 [facility], [address] [place] [address], [address], 12/16/2024 12:04:21 CBC w/ auto diff 2024 025 [facility], [address] [place] [address], [address], 12/16/2024 10:44:46 ESR (erythroc yte sedimenta tion rate), blood 2024 025 [facility], [address] [place] [address], [address], 07/22/2024 11:14:57 Mycobacte rium tuberculo sis stimulate d gamma interfero n, qual, blood 2024 025 [facility], [address] [place] [address], [address], 07/24/2024 14:18:28 CBC w/ auto diff 2024 025 [facility], [address] [place] [address], [address], 07/22/2024 11:36:43 CBC w/ auto diff 2024 025 [facility], [address] [place] [address], [address], 06/03/2024 10:54:54 ESR (erythroc yte sedimenta tion rate), blood 2024 025 [facility], [address] [place] [address], [address], 06/03/2024 11:08:29 ALT (alanine aminotran sferase), serum or plasma 2024 025 [facility], [address] [place] [address], [address], 06/03/2024 10:26:23 AST/SGOT (aspartat e aminotran sferase), serum or plasma 2024 025 [facility], [address] [place] [address], [address], 06/03/2024 10:26:22 Referral None recorded. Procedures None recorded. Surgeries None recorded. Imaging XR, hand, 3 or more view 2023 024 [facility], [address] [place] [address], [address], 03/28/2024 09:52:18 Medication Orders prednison e 2.5 mg tablet 2024 025 [facility], [address] [place] [address], [id number], 03/26/2025 15:00:35 prednison e 5 mg tablet 2023 024 [facility], [address] [place] [address], [id number], 03/28/2024 14:44:26 Patient TargetsNo targets recorded. Patient InstructionsNo instructions recorded. Reason for Referral None Reported. Results Created Date Observation Date Name Description Value Unit Range Abnormal Flag Note LastModifiedBy Organization Detail LastModifiedTime 06/03/1906/03/2024 AST AST 28 U/L 0-40 normal Not Available [facility] [address] [place] [address], [address], 06/03/2024 10:26:21 06/03/19 25 06/03/2024 ALT ALT 35 U/L 0-41 normal Not Available [facility] [address] [place] [address], [address], 06/03/2024 10:26:23 06/03/19 25 06/03/2024 COMPL ETE BLOOD COUNT white blood cells 13.0 10*3/ uL 3.8-10 .8 high Not Available [facility] [address] [place] [address], [address], 06/03/2024 10:54:54 06/03/19 25 06/03/2024 COMPL ETE BLOOD COUNT red blood cells 3.82 10*6/ uL 4.20-5 .80 low Not Available [facility] [address] [place] [address], [address], 06/03/2024 10:54:54 06/03/19 25 06/03/2024 COMPL ETE BLOOD COUNT hemoglobin 13.9 g/dL 14.0-1 8.0 low Not Available [facility] [address] [place] [address], [address], 06/03/2024 10:54:54 06/03/19 25 06/03/2024 COMPL ETE BLOOD COUNT hematocrit 39.5 % 40.0-5 2.0 low Not Available [facility] [address] [place] [address], [address], 06/03/2024 10:54:54 06/03/19 25 06/03/2024 COMPL ETE BLOOD COUNT MCV 103 fL 80-100 high Not Available [facility] [address] [place] [address], [address], 06/03/2024 10:54:54 06/03/19 25 06/03/2024 COMPL ETE BLOOD COUNT MCH 36 pg 26-35 high Not Available [facility] [address] [place] [address], [address], 06/03/2024 10:54:54 06/03/19 25 06/03/2024 COMPL ETE BLOOD COUNT MCHC 35 g/dL 32-36 normal Not Available [facility] [address] [place] [address], [address], 06/03/2024 10:54:54 06/03/19 25 06/03/2024 COMPL ETE BLOOD COUNT RDW 14.3 % 11.0-1 5.0 normal Not Available [facility] [address] [place] [address], [address], 06/03/2024 10:54:54 06/03/19 25 06/03/2024 COMPL ETE BLOOD COUNT MPV 9.0 fL 6.2-10 .5 normal Not Available [facility] [address] [place] [address], [address], 06/03/2024 10:54:54 06/03/19 25 06/03/2024 COMPL ETE BLOOD COUNT platelet count 180 10*3/ uL 150-40 0 normal Not Available [facility] [address] [place] [address], [address], 06/03/2024 10:54:54 06/03/19 25 06/03/2024 COMPL ETE BLOOD COUNT neutrophil,a bsolute 11.3 10*3/ uL 1.6-8. 4 high Not Available [facility] [address] [place] [address], [address], 06/03/2024 10:54:54 06/03/19 25 06/03/2024 COMPL ETE BLOOD COUNT lymphocyte,a bsolute 1.2 10*3/ uL 0.4-5. 1 normal Not Available [facility] [address] [place] [address], [address], 06/03/2024 10:54:54 06/03/19 25 06/03/2024 COMPL ETE BLOOD COUNT monocyte,abs olute 0.4 10*3/ uL 0.0-1. 2 normal Not Available [facility] [address] [place] [address], [address], 06/03/2024 10:54:54 06/03/19 25 06/03/2024 COMPL ETE BLOOD COUNT eosinophil,a bsolute 0.1 10*3/ uL 0.0-0. 8 normal Not Available [facility] [address] [place] [address], [address], 06/03/2024 10:54:54 06/03/19 25 06/03/2024 COMPL ETE BLOOD COUNT basophil,abs olute 0.0 10*3/ uL 0.0-0. 3 normal Not Available [facility] [address] [place] [address], [address], 06/03/2024 10:54:54 06/03/19 25 06/03/2024 COMPL ETE BLOOD COUNT % neutrophils 75.0 % 42.0-7 8.0 normal Not Available [facility] [address] [place] [address], [address], 06/03/2024 10:54:54 06/03/19 25 06/03/2024 COMPL ETE BLOOD COUNT % lymphocytes 9.0 % 11.0-4 7.0 low Not Available [facility] [address] [place] [address], [address], 06/03/2024 10:54:54 06/03/19 25 06/03/2024 COMPL ETE BLOOD COUNT % monocytes 3.0 % 0.0-11 .0 normal Not Available [facility] [address] [place] [address], [address], 06/03/2024 10:54:54 06/03/19 25 06/03/2024 COMPL ETE BLOOD COUNT % eosinophils 1.0 % 0.0-7. 0 normal Not Available [facility] [address] [place] [address], [address], 06/03/2024 10:54:54 06/03/19 25 06/03/2024 COMPL ETE BLOOD COUNT % basophils 0.0 % 0.0-3. 0 normal Not Available [facility] [address] [place] [address], [address], 06/03/2024 10:54:54 06/03/19 25 06/03/2024 COMPL ETE BLOOD COUNT nucleated red cells 0.1 % 0.0-0. 9 normal Not Available [facility] [address] [place] [address], [address], 06/03/2024 10:54:54 06/03/19 25 06/03/2024 COMPL ETE BLOOD COUNT nucleated RBCs, absolute 0.01 10*3/ uL not estab. normal Not Available [facility] [address] [place] [address], [address], 06/03/2024 10:54:54 06/03/19 25 06/03/2024 MANUA L DIFFE RENTI AL % band neutrophils 12.0 % 0.0-7. 0 high Not Available [facility] [address] [place] [address], [address], 06/03/2024 10:54:56 06/03/19 25 06/03/2024 MANUA L DIFFE RENTI AL % atypical lymphocytes 0 % 0-1 normal Not Available [facility] [address] [place] [address], [address], 06/03/2024 10:54:56 06/03/19 25 06/03/2024 MANUA L DIFFE RENTI AL % metamyelocyt es 0 % 0-1 normal Not Available [facility] [address] [place] [address], [address], 06/03/2024 10:54:56 06/03/19 25 06/03/2024 MANUA L DIFFE RENTI AL % myelocytes 0 % 0-1 normal Not Available [facility] [address] [place] [address], [address], 06/03/2024 10:54:56 06/03/19 25 06/03/2024 MANUA L DIFFE RENTI AL % promyelocyte s 0 % 0 normal Not Available [facility] [address] [place] [address], [address], 06/03/2024 10:54:56 06/03/19 25 06/03/2024 MANUA L DIFFE RENTI AL % blast 0 % 0 normal Not Available [facility] [address] [place] [address], [address], 06/03/2024 10:54:56 06/03/19 25 06/03/2024 MANUA L DIFFE RENTI AL nucleated red cells 0 /100{ WBC} 0-1 normal Not Available [facility] [address] [place] [address], [address], 06/03/2024 10:54:56 06/03/19 25 06/03/2024 MANUA L DIFFE RENTI AL smudge cells 0 /100{ WBC} 0 normal Not Available [facility] [address] [place] [address], [address], 06/03/2024 10:54:56 06/03/19 25 06/03/2024 MANUA L DIFFE RENTI AL platelet morphology NORMAL normal Not Available [facility] [address] [place] [address], [address], 06/03/2024 10:54:56 06/03/19 25 06/03/2024 MANUA L DIFFE RENTI AL macrocytosis SLIGHT abnormal Not Available [facility] [address] [place] [address], [address], 06/03/2024 10:54:56 06/03/19 25 06/03/2024 MANUA L DIFFE RENTI AL polychromasi a SLIGHT abnormal Not Available [facility] [address] [place] [address], [address], 06/03/2024 10:54:56 06/03/19 25 06/03/2024 KELSEY GOETZTI AL stomatocytes SLIGHT abnormal Not Available [facility] [address] [place] [address], [address], 06/03/2024 10:54:56 06/03/19 25 06/03/2024 ESR, AUTOM ATED ESR, automated 9 mm 0-19 normal Not Available [facility] [address] [place] [address], [address], 06/03/2024 11:08:29 07/23/19 25 07/22/2024 ESR, AUTOM ATED ESR, automated <1 mm 0-19 normal RESUL TS RECHE CKED Not Available [facility] [address] [place] [address], [address], 07/22/2024 11:14:57 07/23/19 25 07/22/2024 COMPL ETE BLOOD COUNT white blood cells 4.3 10*3/ uL 3.8-10 .8 normal RESUL TS RECHE CKED Hemog hayley obtai heike after warmi ng to 37 C. Not Available [facility] [address] [place] [address], [address], 07/22/2024 11:36:43 07/23/19 25 07/22/2024 COMPL ETE BLOOD COUNT red blood cells 3.59 10*6/ uL 4.20-5 .80 low Not Available [facility] [address] [place] [address], [address], 07/22/2024 11:36:43 07/23/19 25 07/22/2024 COMPL ETE BLOOD COUNT hemoglobin 13.0 g/dL 14.0-1 8.0 low Not Available [facility] [address] [place] [address], [address], 07/22/2024 11:36:43 07/23/19 25 07/22/2024 COMPL ETE BLOOD COUNT hematocrit 37.2 % 40.0-5 2.0 low Not Available [facility] [address] [place] [address], [address], 07/22/2024 11:36:43 07/23/19 25 07/22/2024 COMPL ETE BLOOD COUNT MCV 103 fL 80-100 high Not Available [facility] [address] [place] [address], [address], 07/22/2024 11:36:43 07/23/19 25 07/22/2024 COMPL ETE BLOOD COUNT MCH 36 pg 26-35 high Not Available [facility] [address] [place] [address], [address], 07/22/2024 11:36:43 07/23/19 25 07/22/2024 COMPL ETE BLOOD COUNT MCHC 35 g/dL 32-36 normal Not Available [facility] [address] [place] [address], [address], 07/22/2024 11:36:43 07/23/19 25 07/22/2024 COMPL ETE BLOOD COUNT RDW 14.3 % 11.0-1 5.0 normal Not Available [facility] [address] [place] [address], [address], 07/22/2024 11:36:43 07/23/19 25 07/22/2024 COMPL ETE BLOOD COUNT MPV 9.8 fL 6.2-10 .5 normal Not Available [facility] [address] [place] [address], [address], 07/22/2024 11:36:43 07/23/19 25 07/22/2024 COMPL ETE BLOOD COUNT platelet count 150 10*3/ uL 150-40 0 normal Not Available [facility] [address] [place] [address], [address], 07/22/2024 11:36:43 07/23/19 25 07/22/2024 COMPL ETE BLOOD COUNT neutrophil,a bsolute 3.0 10*3/ uL 1.6-8. 4 normal Not Available [facility] [address] [place] [address], [address], 07/22/2024 11:36:43 07/23/19 25 07/22/2024 COMPL ETE BLOOD COUNT lymphocyte,a bsolute 0.7 10*3/ uL 0.4-5. 1 normal Not Available [facility] [address] [place] [address], [address], 07/22/2024 11:36:43 07/23/19 25 07/22/2024 COMPL ETE BLOOD COUNT monocyte,abs olute 0.5 10*3/ uL 0.0-1. 2 normal Not Available [facility] [address] [place] [address], [address], 07/22/2024 11:36:43 07/23/19 25 07/22/2024 COMPL ETE BLOOD COUNT eosinophil,a bsolute 0.0 10*3/ uL 0.0-0. 8 normal Not Available [facility] [address] [place] [address], [address], 07/22/2024 11:36:43 07/23/19 25 07/22/2024 COMPL ETE BLOOD COUNT basophil,abs olute 0.0 10*3/ uL 0.0-0. 3 normal Smear revie wed to confi rm cell morph ology . Not Available [facility] [address] [place] [address], [address], 07/22/2024 11:36:43 07/23/19 25 07/22/2024 COMPL ETE BLOOD COUNT % neutrophils 70.7 % 42.0-7 8.0 normal Not Available [facility] [address] [place] [address], [address], 07/22/2024 11:36:43 03/18/20 25 07/22/2024 COMPL ETE BLOOD COUNT % lymphocytes 17.4 % 11.0-4 7.0 normal Not Available [facility] [address] [place] [address], [address], 07/22/2024 11:36:43 07/23/19 25 07/22/2024 COMPL ETE BLOOD COUNT % monocytes 10.5 % 0.0-11 .0 normal Not Available [facility] [address] [place] [address], [address], 07/22/2024 11:36:43 07/23/19 25 07/22/2024 COMPL ETE BLOOD COUNT % eosinophils 0.8 % 0.0-7. 0 normal Not Available [facility] [address] [place] [address], [address], 07/22/2024 11:36:43 07/23/19 25 07/22/2024 COMPL ETE BLOOD COUNT % basophils 0.6 % 0.0-3. 0 normal Not Available [facility] [address] [place] [address], [address], 07/22/2024 11:36:43 07/23/19 25 07/22/2024 COMPL ETE BLOOD COUNT nucleated red cells 0.2 % 0.0-0. 9 normal Not Available [facility] [address] [place] [address], [address], 07/22/2024 11:36:43 07/23/19 25 07/22/2024 COMPL ETE BLOOD COUNT nucleated RBCs, absolute 0.01 10*3/ uL not estab. normal Not Available [facility] [address] [place] [address], [address], 07/22/2024 11:36:43 07/23/19 25 07/22/2024 MORPH OLOGY platelet morphology NORMAL normal Not Available [facility] [address] [place] [address], [address], 07/22/2024 11:36:45 07/23/19 25 07/22/2024 MORPH OLOGY macrocytosis SLIGHT abnormal Not Available [facility] [address] [place] [address], [address], 07/22/2024 11:36:45 07/23/19 25 07/22/2024 MORPH OLOGY polychromasi a SLIGHT abnormal Not Available [facility] [address] [place] [address], [address], 07/22/2024 11:36:45 07/23/19 25 07/22/2024 MORPH OLOGY dacryocytes SLIGHT abnormal Not Available [facility] [address] [place] [address], [address], 07/22/2024 11:36:45 07/23/19 25 07/24/2024 QUANT IFERO N TB GOLD qtb gold NEGATI VE negati ve normal Negat denae test resul t. M. tuber culos is compl ex infec tion unlik pinky. Not Available [facility] [address] [place] [address], [address], 07/24/2024 14:18:28 07/23/19 25 07/24/2024 QUANT IFERO N TB GOLD nil 0.01 IU/mL normal Not Available [facility] [address] [place] [address], [address], 07/24/2024 14:18:28 07/23/19 25 07/24/2024 QUANT IFERO N TB GOLD mitogen nil 3.55 IU/mL normal Not Available [facility] [address] [place] [address], [address], 07/24/2024 14:18:28 07/23/19 25 07/24/2024 QUANT IFERO N TB GOLD TB1 nil 0.00 IU/mL normal Not Available [facility] [address] [place] [address], [address], 07/24/2024 14:18:28 07/23/19 25 07/24/2024 QUANT IFERO [...] refer to https ://ed dianelys on.qu rebecca Closely. [employer]/f aq/FA Q204 (This link is being provi ded for infor carisa hartman/ tono adamson purpo ses only. ) Not Available [facility] [address] [place], [address], 07/24/2024 14:18:28 12/17/19 25 12/16/2024 COMPL ETE BLOOD COUNT white blood cells 4.3 10*3/ uL 3.8-10 .8 normal Not Available [facility] [address] [place], [address], 12/16/2024 10:44:45 12/17/19 25 12/16/2024 COMPL ETE BLOOD COUNT red blood cells 3.76 10*6/ uL 4.20-5 .80 low Not Available [facility] [address] [place] [address], [address], 12/16/2024 10:44:45 12/17/19 25 12/16/2024 COMPL ETE BLOOD COUNT hemoglobin 13.3 g/dL 14.0-1 8.0 low Not Available [facility] [address] [place] [address], [address], 12/16/2024 10:44:45 12/17/19 25 12/16/2024 COMPL ETE BLOOD COUNT hematocrit 38.3 % 40.0-5 2.0 low Not Available [facility] [address] [place] [address], [address], 12/16/2024 10:44:45 12/17/19 25 12/16/2024 COMPL ETE BLOOD COUNT MCV 102 fL 80-100 high Not Available [facility] [address] [place] [address], [address], 12/16/2024 10:44:45 12/17/19 25 12/16/2024 COMPL ETE BLOOD COUNT MCH 35 pg 26-35 normal Not Available [facility] [address] [place] [address], [address], 12/16/2024 10:44:45 12/17/19 25 12/16/2024 COMPL ETE BLOOD COUNT MCHC 35 g/dL 32-36 normal Not Available [facility] [address] [place] [address], [address], 12/16/2024 10:44:45 12/17/19 25 12/16/2024 COMPL ETE BLOOD COUNT RDW 16.3 % 11.0-1 5.0 high Not Available [facility] [address] [place] [address], [address], 12/16/2024 10:44:45 12/17/19 25 12/16/2024 COMPL ETE BLOOD COUNT MPV 9.2 fL 6.2-10 .5 normal Not Available [facility] [address] [place] [address], [address], 12/16/2024 10:44:45 12/17/19 25 12/16/2024 COMPL ETE BLOOD COUNT platelet count 129 10*3/ uL 150-40 0 low Not Available [facility] [address] [place] [address], [address], 12/16/2024 10:44:45 12/17/19 25 12/16/2024 COMPL ETE BLOOD COUNT neutrophil,a bsolute 2.7 10*3/ uL 1.6-8. 4 normal Not Available [facility] [address] [place] [address], [address], 12/16/2024 10:44:45 12/17/19 25 12/16/2024 COMPL ETE BLOOD COUNT lymphocyte,a bsolute 1.0 10*3/ uL 0.4-5. 1 normal Not Available [facility] [address] [place] [address], [address], 12/16/2024 10:44:45 12/17/19 25 12/16/2024 COMPL ETE BLOOD COUNT monocyte,abs olute 0.5 10*3/ uL 0.0-1. 2 normal Not Available [facility] [address] [place] [address], [address], 12/16/2024 10:44:45 12/17/19 25 12/16/2024 COMPL ETE BLOOD COUNT eosinophil,a bsolute 0.1 10*3/ uL 0.0-0. 8 normal Not Available [facility] [address] [place] [address], [address], 12/16/2024 10:44:45 12/17/19 25 12/16/2024 COMPL ETE BLOOD COUNT basophil,abs olute 0.0 10*3/ uL 0.0-0. 3 normal Not Available [facility] [address] [place] [address], [address], 12/16/2024 10:44:45 12/17/19 25 12/16/2024 COMPL ETE BLOOD COUNT % neutrophils 62.1 % 42.0-7 8.0 normal Not Available [facility] [address] [place] [address], [address], 12/16/2024 10:44:45 12/17/19 25 12/16/2024 COMPL ETE BLOOD COUNT % lymphocytes 23.5 % 11.0-4 7.0 normal Not Available [facility] [address] [place] [address], [address], 12/16/2024 10:44:45 12/17/19 25 12/16/2024 COMPL ETE BLOOD COUNT % monocytes 12.2 % 0.0-11 .0 high Not Available [facility] [address] [place] [address], [address], 12/16/2024 10:44:45 12/17/19 25 12/16/2024 COMPL ETE BLOOD COUNT % eosinophils 1.4 % 0.0-7. 0 normal Not Available [facility] [address] [place] [address], [address], 12/16/2024 10:44:45 12/17/19 25 12/16/2024 COMPL ETE BLOOD COUNT % basophils 0.8 % 0.0-3. 0 normal Not Available [facility] [address] [place] [address], [address], 12/16/2024 10:44:45 12/17/19 25 12/16/2024 COMPL ETE BLOOD COUNT nucleated red cells 0.0 % 0.0-0. 9 normal Not Available [facility] [address] [place] [address], [address], 12/16/2024 10:44:45 12/17/19 25 12/16/2024 COMPL ETE BLOOD COUNT nucleated RBCs, absolute 0.00 10*3/ uL not estab. normal Not Available [facility] [address] [place] [address], [address], 12/16/2024 10:44:45 12/17/19 25 12/16/2024 C REACT DENAE PROTE IN C reactive protein <0.06 mg/dL 0.00-0 .49 normal Not Available [facility] [address] [place] [address], [address], 12/16/2024 12:04:21 12/17/19 25 12/16/2024 ESR, AUTOM ATED ESR, automated 1 mm 0-19 normal Not Available [facility] [address] [place] [address], [address], 12/16/2024 12:22:56 03/24/20 25 03/24/2025 HEPAT IC (LIVE R) PANEL AST 39 U/L 0-40 normal Not Available [facility] [address] [place] [address], [address], 03/24/2025 10:57:06 03/24/20 25 03/24/2025 HEPAT IC (LIVE R) PANEL ALT 53 U/L 0-41 high Not Available [facility] [address] [place] [address], [address], 03/24/2025 10:57:06 03/24/20 25 03/24/2025 HEPAT IC (LIVE R) PANEL alkaline phosphatase 51 U/L 40-129 normal Not Available [facility] [address] [place] [address], [address], 03/24/2025 10:57:06 03/24/20 25 03/24/2025 HEPAT IC (LIVE R) PANEL total protein 7.0 g/dL 6.4-8. 3 normal Not Available [facility] [address] [place] [address], [address], 03/24/2025 10:57:06 03/24/20 25 03/24/2025 HEPAT IC (LIVE R) PANEL albumin 4.8 g/dL 3.5-5. 2 normal Not Available [facility] [address] [place] [address], [address], 03/24/2025 10:57:06 03/24/20 25 03/24/2025 HEPAT IC (LIVE R) PANEL bilirubin, total 1.1 mg/dL 0.1-1. 0 high NOTE: New refer ence range . Not Available [facility] [address] [place] [address], [address], 03/24/2025 10:57:06 03/24/20 25 03/24/2025 HEPAT IC (LIVE R) PANEL bilirubin, direct 0.3 mg/dL 0.0-0. 3 normal Not Available [facility] [address] [place] [address], [address], 03/24/2025 10:57:06 03/24/20 25 03/24/2025 HEPAT IC (LIVE R) PANEL bilirubin, indirect 0.8 mg/dL _(mark c) 0.0-1. 0 normal Not Available [facility] [address] [place] [address], [address], 03/24/2025 10:57:06 03/24/20 25 03/24/2025 C REACT DENAE PROTE IN C reactive protein <0.06 mg/dL 0.00-0 .49 normal Not Available [facility] [address] [place] [address], [address], 03/24/2025 10:57:07 03/24/20 25 03/24/2025 COMPL ETE BLOOD COUNT white blood cells 4.5 10*3/ uL 3.8-10 .8 normal Not Available [facility] [address] [place] [address], [address], 03/24/2025 11:31:26 03/24/20 25 03/24/2025 COMPL ETE BLOOD COUNT red blood cells 3.50 10*6/ uL 4.20-5 .80 low Not Available [facility] [address] [place] [address], [address], 03/24/2025 11:31:26 03/24/20 25 03/24/2025 COMPL ETE BLOOD COUNT hemoglobin 13.6 g/dL 14.0-1 8.0 low Not Available [facility] [address] [place] [address], [address], 03/24/2025 11:31:26 03/24/20 25 03/24/2025 COMPL ETE BLOOD COUNT hematocrit 38.3 % 40.0-5 2.0 low Not Available [facility] [address] [place] [address], [address], 03/24/2025 11:31:26 03/24/20 25 03/24/2025 COMPL ETE BLOOD COUNT MCV 109 fL 80-100 high Not Available [facility] [address] [place] [address], [address], 03/24/2025 11:31:26 03/24/20 25 03/24/2025 COMPL ETE BLOOD COUNT MCH 39 pg 26-35 high Not Available [facility] [address] [place] [address], [address], 03/24/2025 11:31:26 03/24/20 25 03/24/2025 COMPL ETE BLOOD COUNT MCHC 35 g/dL 32-36 normal Not Available [facility] [address] [place] [address], [address], 03/24/2025 11:31:26 03/24/20 25 03/24/2025 COMPL ETE BLOOD COUNT RDW 13.5 % 11.0-1 5.0 normal Not Available [facility] [address] [place] [address], [address], 03/24/2025 11:31:26 03/24/20 25 03/24/2025 COMPL ETE BLOOD COUNT MPV 9.2 fL 6.2-10 .5 normal Not Available [facility] [address] [place] [address], [address], 03/24/2025 11:31:26 03/24/20 25 03/24/2025 COMPL ETE BLOOD COUNT platelet count 142 10*3/ uL 150-40 0 low Not Available [facility] [address] [place] [address], [address], 03/24/2025 11:31:26 03/24/20 25 03/24/2025 COMPL ETE BLOOD COUNT neutrophil,a bsolute 3.3 10*3/ uL 1.6-8. 4 normal Not Available [facility] [address] [place] [address], [address], 03/24/2025 11:31:26 03/24/20 25 03/24/2025 COMPL ETE BLOOD COUNT lymphocyte,a bsolute 0.6 10*3/ uL 0.4-5. 1 normal Not Available [facility] [address] [place] [address], [address], 03/24/2025 11:31:26 03/24/20 25 03/24/2025 COMPL ETE BLOOD COUNT monocyte,abs olute 0.5 10*3/ uL 0.0-1. 2 normal Not Available [facility] [address] [place] [address], [address], 03/24/2025 11:31:26 03/24/20 25 03/24/2025 COMPL ETE BLOOD COUNT eosinophil,a bsolute 0.0 10*3/ uL 0.0-0. 8 normal Not Available [facility] [address] [place] [address], [address], 03/24/2025 11:31:26 03/24/20 25 03/24/2025 COMPL ETE BLOOD COUNT basophil,abs olute 0.0 10*3/ uL 0.0-0. 3 normal Smear revie wed to confi rm cell morph ology . Not Available [facility] [address] [place] [address], [address], 03/24/2025 11:31:26 03/24/20 25 03/24/2025 COMPL ETE BLOOD COUNT % neutrophils 74.4 % 42.0-7 8.0 normal Not Available [facility] [address] [place] [address], [address], 03/24/2025 11:31:26 03/24/20 25 03/24/2025 COMPL ETE BLOOD COUNT % lymphocytes 14.3 % 11.0-4 7.0 normal Not Available [facility] [address] [place] [address], [address], 03/24/2025 11:31:26 03/24/20 25 03/24/2025 COMPL ETE BLOOD COUNT % monocytes 10.1 % 0.0-11 .0 normal Not Available [facility] [address] [place] [address], [address], 03/24/2025 11:31:26 03/24/20 25 03/24/2025 COMPL ETE BLOOD COUNT % eosinophils 0.6 % 0.0-7. 0 normal Not Available [facility] [address] [place] [address], [address], 03/24/2025 11:31:26 03/24/20 25 03/24/2025 COMPL ETE BLOOD COUNT % basophils 0.6 % 0.0-3. 0 normal Not Available [facility] [address] [place] [address], [address], 03/24/2025 11:31:26 03/24/20 25 03/24/2025 COMPL ETE BLOOD COUNT nucleated red cells 0.1 % 0.0-0. 9 normal Not Available [facility] [address] [place] [address], [address], 03/24/2025 11:31:26 03/24/20 25 03/24/2025 COMPL ETE BLOOD COUNT nucleated RBCs, absolute 0.00 10*3/ uL not estab. normal Not Available [facility] [address] [place], [address], 03/24/2025 11:31:26 03/24/20 25 03/24/2025 MORPH OLOGY platelet morphology NORMAL normal Not Available [facility] [address] [place] [address], [address], 03/24/2025 11:31:27 03/24/20 25 03/24/2025 MORPH OLOGY anisocytosis MODERA TE abnormal Not Available [facility] [address] [place], [address], 03/24/2025 11:31:27 03/24/20 25 03/24/2025 MORPH OLOGY spherocytes SLIGHT abnormal Not Available [facility] [address] [place], [address], 03/24/2025 11:31:27 03/24/20 25 03/24/2025 ESR, AUTOM ATED ESR, automated <1 mm 0-19 normal RESUL TS RECHE CKED Not Available [facility] [address] [place] [address], [address], 03/24/2025 12:19:38 03/28/20 24 03/28/2024 XR, hand, 3 or more view [facility] [address] [place] [address], [place] [address] Misty melendez Name: TRUE melendez : 955 Misty melendez [facility] ng Provid er: NANY PEÑA EXAM [...] Carmen villanueva MD on 2023 9:47 AM [facility] [address] [place], [address], 03/28/2024 15:43:56 Result Notes Documentation Provider Name and Address Organization Details Recorded Time Xr, Hand, 3 Or More View : [facility] [address] [place] [address] Patient Name: TRUE MUNROE Patient : 1955 [...] Dada Saavedra MD INDER PEÑA MD [address] [place], [address], [facility] 03/28/2024 12:38:56 Problems Name Problem SNOMED Code Status Onset Date Resolution Date Notes Provider Name and Address Organization Details Recorded Time Pain of joint 25611741 Active 2014 From Automated Load;Provi lori: Sanchez, Traci;Stat us: Active Not Available Count includes the [facility] 6 04:55:54 High antibody titer 161508619 Active 2014 From Automated Load;Provi lori: Sanchez, Traci;Stat us: Active Not Available [facility] 6 04:55:54 Idiopathi c osteoarth ritis 412640962 Active 2014 From Automated Load;Provi lori: Sanchez, Traci;Stat us: Active Not Available [facility] 6 04:55:54 Radial styloid tenosynov itis 65952361 Active 2014 From Automated Load;Provi lori: Sanchez, Traci;Stat us: Active Not Available Count includes the [facility] 6 04:56:32 Synovitis /tenosyno vitis - wrist 135082161 Active 2014 From Automated Load;Provi lori: Sanchez, Traci;Stat us: Active Not Available Count includes the [facility] 6 04:56:32 Problem Notes None recorded. Procedures Surgical History Date Name Laterality Status Provider Name and Address Organization Details Recorded Time 05/14/19 25 placement of stent in pulmonary artery completed Nic Mercado [facility] 06/03/2024 09:13:18 07/08/19 22 Dupuytren's Contracture Manipulation completed JUAN MATHIS MD [facility] [place], [address], [facility] 07/07/2021 18:22:27 07/06/19 22 Xiaflex/Dupuytre n's Contracture Injection completed Sofi Cannon [facility] 07/19/2021 16:23:51 05/27/19 22 Injection - Joint/Bursa, Interm completed JUAN MATHIS MD [address] [place], [address], [facility] 05/27/2021 12:01:33 Appendectomy completed Larisa Nino [facility] 11/15/2023 07:55:33 Imaging Results None recorded. [...] 5 177.8 cm 16 /min 29.4 kg/m2 96435.4 4 g 68 /min 98 % 118/74 mm[Hg] Nic [facility] 5 09:15:50 Date Recorded Body height Respiratory rate Body mass index (BMI) Body weight Heart rate Oxygen saturation Systolic And Diastolic Provider Name and Address Organization Details Last Updated DateTime 5 177.8 cm 16 /min 28.4 kg/m2 77061.2 9 g 63 /min 98 % 118/72 mm[Hg] Nic [facility] 5 09:00:09 Date Recorded Body height Respiratory rate Body mass index (BMI) Body weight Heart rate Oxygen saturation Systolic And Diastolic Provider Name and Address Organization Details Last Updated DateTime 5 177.8 cm 16 /min 27.3 kg/m2 86202.5 5 g 68 /min 98 % 118/74 mm[Hg] [facility] 5 09:22:58 Date Recorded Body height Respiratory rate Body mass index (BMI) Body weight Oxygen saturation Heart rate Systolic And Diastolic Provider Name and Address Organization Details Last Updated DateTime 5 177.8 cm 16 /min 27.3 kg/m2 73832.5 5 g 98 % 70 /min 114/74 mm[Hg] [facility] 5 08:59:03 Date Recorded Body height Respiratory rate Body mass index (BMI) Body weight Heart rate Oxygen saturation Systolic And Diastolic Provider Name and Address Organization Details Last Updated DateTime 4 177.8 cm 16 /min 29.4 kg/m2 99176.4 4 g 78 /min 97 % 118/72 mm[Hg] [facility] 4 09:06:50 Social History Question Answer Notes LastModified by Organizat ion Details LastModified Time Tobacco Smoking Status Former Smoker Larisa Nino [facility] 11/15/2023 07:55:19 What Was The Date Of Your Most Recent Tobacco Screening? 03/24/2025 Information not available 03/24/2025 Sex: Male Functional Status Question Answer Note LastModified by Organization D etails LastModified Time What is your level of alcohol consumption? Moderate [email or web address] Information not available 11/15/2023 Mental Status None recorded. Family History Nothing Reported. Medical History Condition Response Diabetes N Bleeding Disorder N Arthritis Y Emphysema N Acid Reflux (GERD) N Rheumatoid Arthritis N Hypertension N COPD N Asthma N Immunizations Vaccine Type Date Status Note Provider Nam e and Address Organization Details Recorded Time Hep A, adult 8 completed Not Available [facility] 03/24/2025 08:52:31 Hep B, adult 8 completed Not Available [facility] 03/24/2025 08:52:31 Hep B, adult 8 completed Not Available [facility] 03/24/2025 08:52:31 Hep A, adult 9 completed Not Available [facility] 03/24/2025 08:52:31 Hep B, adult 9 completed Not Available [facility] 03/24/2025 08:52:31 Influenza, split virus, quadrivalent, preservative 8 completed Not Available [facility] 03/24/2025 08:52:31 Influenza, split virus, quadrivalent, PF 8 completed Not Available [facility] 03/24/2025 08:52:31 Influenza, recombinant, quadrivalent, PF 9 completed Not Available [facility] 03/24/2025 08:52:31 Influenza, high-dose, quadrivalent, PF 0 completed Not Available [facility] 03/24/2025 08:52:31 Pneumococcal conjugate PCV 13 0 completed Not Available [facility] includes the [facility] 03/24/2025 08:52:31 COVID-19, mRNA, LNP-S, PF, 30 mcg/0.3 mL dose 1 completed Not Available [facility] 03/24/2025 08:52:31 COVID-19, mRNA, LNP-S, PF, 30 mcg/0.3 mL dose 1 completed Not Available [facility] 03/24/2025 08:52:31 Influenza, high-dose, quadrivalent, PF 1 completed Not Available Count includes the [facility] 03/24/2025 08:52:31 COVID-19, mRNA, LNP-S, PF, 30 mcg/0.3 mL dose 1 completed Not Available [facility] 03/24/2025 08:52:31 COVID-19, mRNA, LNP-S, PF, 30 mcg/0.3 mL dose, randi-sucrose 2 completed Not Available [facility] 03/24/2025 08:52:31 Influenza, adjuvanted, quadrivalent, PF 2 completed Not Available [facility] 03/24/2025 08:52:31 COVID-19, mRNA, LNP-S, bivalent, PF, 30 mcg/0.3 mL dose 2 completed Not Available [facility] 03/24/2025 08:52:31 COVID-19, mRNA, LNP-S, bivalent, PF, 30 mcg/0.3 mL dose 3 completed Not Available Count includes the [facility] 03/24/2025 08:52:31 COVID-19, mRNA, LNP-S, PF, randi-sucrose, 30 mcg/0.3 mL 3 completed Not Available Count includes the [facility] 03/24/2025 08:52:31 Influenza, adjuvanted, quadrivalent, PF 4 completed Not Available Count includes the [facility] 03/24/2025 08:52:31 COVID-19, mRNA, LNP-S, PF, randi-sucrose, 30 mcg/0.3 mL 4 completed Not Available Count includes the [facility] 03/24/2025 08:52:31 Influenza, high-dose, trivalent, PF 4 completed Not Available Count includes the [facility] 03/24/2025 08:52:31 Td (adult) 5 completed Not Available Count includes the [facility] 03/24/2025 08:52:31 Pneumococcal conjugate PCV20, polysaccharide NHB919 conjugate, adjuvant, PF 5 completed Not Available Count includes the [facility] 03/24/2025 08:52:31 Influenza, high-dose, quadrivalent, PF 5 completed Not Available Count includes the [facility] 03/24/2025 08:52:31 COVID-19, mRNA, LNP-S, PF, randi-sucrose, 30 mcg/0.3 mL 5 completed Not Available Count includes the [facility] 03/24/2025 08:52:31 Past Encounters Encounter ID Performer Location Encounter Start Date Encounter Closed Date Diagnosis/Indication Diagnosis SNOMED-CT Code Diagnosis ICD10 Code Diagnosis IMO Codes Diagnosis Note [id number] JUAN MATHIS MD [facility]TH[facility] [address] [place] [address] 05/27/2021 10:30:10 05/27/2021 14:02:47 Osteoarthritis of wrist 723579549 M19.032 Left stage III SLAC wrist with severe erosive arthritic changes throughout the radioscaph oid joint space (CSI: 05/27/2021) Dupuytren' s disease of palm and finger, with contracture 384085448 M72.0 Left small finger: 60 MP contractur e [id number] JUAN MATHIS MD [facility] [address] [address] 07/05/2021 10:26:19 07/05/2021 12:56:11 Osteoarthritis of wrist 982668068 M19.032 Left stage III SLAC wrist with severe erosive arthritic changes throughout the radioscaph oid joint space (CSI: 05/27/2021) Dupuytren' s disease of palm and finger, with contracture 205283373 M72.0 Left small finger: 60 MP contractur e [id number] JUAN MATHIS MD [facility] [address] [place] [address] 07/07/2021 10:55:46 07/07/2021 13:01:41 Dupuytren's disease of palm and finger, with contracture 255587603 M72.0 Left small finger: 60 MP contractur e Osteoarthr itis of wrist 874087423 M19.032 Left stage III SLAC wrist with severe erosive arthritic changes throughout the radioscaph oid joint space (CSI: 05/27/2021) [id number] JUAN MATHIS MD [facility] [address] [place] [address] 09/06/2021 10:40:34 09/06/2021 13:01:38 Dupuytren's disease of palm and finger, with contracture 119102015 M72.0 Left small finger (status post Xiaflex manipulati on on 07/07/2021): 60 MP contractur e - corrected to 0 Osteoarthr itis of wrist 645584840 M19.032 Left stage III SLAC wrist with severe erosive arthritic changes throughout the radioscaph oid joint space (CSI: 05/27/2021) [id number] PARMINDER PEÑA MD [facility] [address] [place] [address] 11/15/2023 07:29:36 11/16/2023 04:30:00 Dupuytren's contracture of finger 717760039 M72.0 Does have chronic Dupuytren contractur es involving ring and middle fingers. Hopefully once the acute inflammato ry process is under control, we will start him on the occupation al therapy program. 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 Suggested trial of prednisone 15 [...] making Long-term current use of immunosuppressive drug 097652913 Z79.60 I have talked about the methotrexa te and is monitoring . He will follow-up with the labs initially every 4 to 6 weeks or by every 3 months. tary modificati ons reviewed. Alcohol avoidance discussed. Polymyalgi a rheumatica 62584657 M35.3 Clinical features of PMR in associatio n with RS3PEA low positive rheumatoid factor can be seen in patients with PMR/RS3PE. He does not have any evidence of rheumatoid arthritis. Details as above. Trial of the combinatio n of prednisone along with methotrexa te. He is comfortabl e with the discussion . 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 For [...] High risk decision making Polymyalgi a rheumatica 76083921 M35.3 Clinical features of PMR in associatio [...] markers today Dupuytren' s contracture of finger 956167406 M72.0 Does have chronic Dupuytren contractur es involving ring and middle fingers. Hopefully once the acute inflammato ry process is under control, we will start him on the occupation al therapy program. Long-term current use of immunosuppressive drug 038824441 Z79.60 I have talked about the methotrexa te and is monitoring . We also talked about alcohol use and methotrexa te. Increased risk of liver failure and cytopenias discussed. Repeated the CBC and LFTs today. 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 For [...] igh risk decision making Polymyalgi a rheumatica 71907679 M35.3 Currently on the combinatio n of [...] markers today Dupuytren' s contracture of finger 722550651 M72.0 Does have chronic Dupuytren contractur es involving ring and middle fingers.Co ntinue with range of motion exercises Long-term current use of immunosuppressive drug 987857030 Z79.60 I have talked about the methotrexa te and is monitoring . We also talked about alcohol use and methotrexa te. Increased risk of liver failure and cytopenias discussed. 01/02/24 labsESR, CRP normalCBC normalLFT normal. Long-term drug therapy 464716349 Z79.891 In anticipati on of systemic immunosupp ressive therapy chest x-ray obtained Malaise and fatigue 2717 32548 R53.81 R53.83 Rather nonspecifi c.Chronic without any clinical evidence of infectious or malignancy . 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 For [...] weeks.High risk decision making Polymyalgi a rheumatica 64492493 M35.3 Currently on the combinatio n of [...] 4 weeks. Dupuytren' s contracture of finger 981135992 M72.0 Does have chronic Dupuytren contractur es involving ring and middle fingers.ch ronic.Cont inue with range of motion exercisesc an consider hand surgery eval, if symptoms get worse. Long-term current use of immunosuppressive drug 776391733 Z79.60 I have talked about the methotrexa te and is monitoring . We also talked about alcohol use and methotrexa te. Increased risk of liver failure and cytopenias discussed. 01/02/24 labsESR, CRP normalCBC normalLFT normal. Labs 02/19/24 reviewed.H igh risk medication steroids and MTX. normal LFTS and normal Hep panel. 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 For [...] weeks.High risk decision making Polymyalgi a rheumatica 90638279 M35.3 Currently on the combinatio n of [...] discussion . Dupuytren' s contracture of finger 254446030 M72.0 Does have chronic Dupuytren contractur es involving ring and middle fingers.ch ronic.Cont inue with range of motion exercisesc an consider hand surgery eval, if symptoms get worse. Long-term current use of immunosuppressive drug 197637951 Z79.60 I have talked about the methotrexa [...] will require a consult with hematology . 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 For [...] weeks.High risk decision making Polymyalgi a rheumatica 37965731 M35.3 Currently on the combinatio n of [...] in october Dupuytren' s contracture of finger 694604401 M72.0 Does have chronic Dupuytren contractur es involving ring and middle fingers.ch ronic.Cont inue with range of motion exercisesc an consider hand surgery eval, if symptoms get worse. Long-term current use of immunosuppressive drug [id number] Z79.60 I have talked about the methotrexa [...] consult with hematology . 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 For details please see initial consultati on dated 11/15/2023. Currently doing very well. Does not have any active synovitis or effusion. In particular no swelling or edema noted in his hands. 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 Polymyalgi a rheumatica [id number] M35.3 He is doing very well. Fairly [...] markers today Dupuytren' s contracture of finger [id number] M72.0 Does have chronic Dupuytren contractur es involving ring and middle fingers.ch ronic.Cont inue with range of motion exercisesc an consider hand surgery eval, if symptoms get worse. Long-term current use of immunosuppressive drug [id number] Z79.60 I have talked about the methotrexa te and is monitoring . We also talked about alcohol use and methotrexa te. Increased risk of liver failure and cytopenias discussed. Repeat labs today. Lab studies from 07/22/2024 reviewed. 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 For details please see initial consultati on dated 11/15/2023. Currently doing very well. Does not have any active synovitis or effusion. In particular no swelling or edema noted in his hands. 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 Polymyalgi a rheumatica [id number] M35.3 Fairly stable exam Range of motion [...] markers today Dupuytren' s contracture of finger [id number] M72.0 Does have chronic Dupuytren contractur es involving ring and middle fingers.ch ronic.Cont inue with range of motion exercises Long-term current use of immunosuppressive drug [id number] Z79.60 Lab studies 12/16/2024, ESR and CRP normal CBC hemoglobin 13.3, platelet count 129 and white cell count 4.3. MCV 102 RDW 16.3.He has a plan to see hematologi , Dr. Garth Issa in hematology in [place]. Repeat labs today Tuberculos is screening [id number] Z11.7 Follow-up on TB screening every 12 [...] ID Guarantor Name 05/27/2021 1 [place] [id number] True Munroe [id number] True Munroe 03/30/2025 2 [employer] (MEDICARE SUPPLEMENT) True Munroe [id number] True Munroe 03/21/2025 1 [place] True Munroe [id number] True Munroe Notes Date Note Type [...] accompanied by his . PARMINDER PEÑA MD [address] [place] [address] [place], [address], [facility] 03/30/2024 18:24:02 06/03/2024 text/html ROS as noted [...] accompanied by his . PARMINDER PEÑA MD [facility] [place], [address], [facility] 06/03/2024 11:03:54 07/22/2024 text/html ROS as noted [...] accompanied by his . PARMINDER PEÑA MD [address] [place] [address] [place], [address], [facility] 07/23/2024 11:25:05 12/16/2024 text/html ROS as noted [...] accompanied by his . PARMINDER PEÑA MD [address] [place] [address], [phone], [facility] 12/16/2024 13:06:26 03/24/2025 text/html ROS [...] 12/16/2024 is normal PARMINDER PEÑA MD [address] [place], [address], [facility] 03/24/2025 09:59:14
--- OUTSIDE RECORDS SUMMARY | 2025-04-07 10:49 | XMS_ITS | Clinical Summary ---
Author Organization [facility] Address [address] [place] [address] Care Team Providers Care Beater Worker Helper Name Role Phone Unavailable Primary Care Provider [...]
[2025-04-07 11:20] LABS: Hematocrit 34.5 % (42.0-52.0); Hemoglobin 12.2 g/dL (14.1-18.0); Immature Granulocytes % 0.2 %; Mean Corpuscular HGB Conc 35.4 g/dL (31.8-35.4); Mean Corpuscular Hemoglobin 37.9 pg (27.0-31.2); Mean Corpuscular Volume 107.1 fl (80-94); Nucleated Red Blood Cells % 0 %; Platelet Count 144 K/mm3 (142-424); Red Blood Count 3.22 M/mm3 (4.60-6.20); Red Cell Distribution Width-SD 49.7 fL; White Blood Count 4.8 K/mm3 (4.8-10.8)
[2025-04-07 11:28] LABS: Albumin Level 4.6 g/dl (3.5-5.0); Chloride 104 mmol/L (98-107); Potassium 3.4 mmoL/L (3.5-5.1); Sodium 141 mmol/L (136-145)
[2025-04-07 11:31] LABS: Alanine Aminotransferase 62 U/L (12-78); Albumin/Globulin Ratio 1.9 (1.1-1.8); Alkaline Phosphatase 54 U/L (38-126); Anion Gap 15.4 mEq/L (5-15); Aspartate Amino Transferase 59 U/L (17-59); Bilirubin,Total 1.0 mg/dl (0.2-1.3); Blood Urea Nitrogen 20 mg/dl (9-20); Carbon Dioxide 25 mmol/L (22.0-30.0); Creatinine Clearance Estimated 86 mL/min (50-200); Creatinine,Serum 1.00 mg/dl (0.66-1.25); Estimated Glomerular Filt Rate 74 ml/min (>60); GFR (African American) 89 ML/MIN (>60); Globulin 2.4 g/dL (1.3-3.2); Total Protein,Serum 7.0 g/dl (6.3-8.2)
[2025-04-07 11:32] LABS: Calcium 8.9 mg/dl (8.4-10.2); Glucose 105 mg/dl (74-100)
== END 2025-04-07 23:59 | disposition home or self-care (01) ==
LOC: PREOP 10:46
PROVIDERS: PCP Family Medicine; Visit Provider Internal Medicine Pulmonary Disease
DX: Z01.818 Encounter for other preprocedural examination (principal); Z01.812 Encounter for preprocedural laboratory examination
CPT/HCPCS: 80053; 85025

== ENCOUNTER 2025-04-08 09:27 | Outpatient (CLI) | payer MEDICARE, OTHER, SELFPAY ==
--- OUTSIDE RECORDS SUMMARY | 2025-04-08 09:31 | XMS_ITS | Clinical Summary ---
Author Organization [facility] Address [address] [place] [address] Care Team Providers Care Basketball Assembler Name Role Phone Jr Guevara MD Primary Care Provider [phone] Allergies No known active allergies Medications Kevzara [...] 1 packet by mouth daily. Active multivitamin-ir be-rwntyfjk-cwf ic acid (Centrum Silver, geriatric,) tablet Take [...] Type Department Care Team Description 02/16/2025 Abstract [facility] [place] [address] [place] [address] Loly Cisneros, RN 01/13/2025 Abstract [facility] [place] [address] [facility] [place] [address] Loly Cisneros, RN from Last 3 Months [...] 2004 UKY-Zoster Vaccines (1 of 2) 2004 [id number] Vaccine (2024- season) 2025 02/11/2024, 03/26/2023, 09/20/2022, [...] to complete this topic Insurance MEDICARE [employer] Member Subscriber Plan / Payer (Ef fective 2019-Present) Name:Rishi Munroe Relation to Subscriber:Self Name:Rishi Munroe Payer ID:[facility] ([facility]) Type:Not on file Address: [address] [address] [place] [address] Care Teams Basketball Assembler Relationship Specialty Start Date End Date Jr Guevara MD [address] [place] [address] [address] [address] PCP - General 09/17/20
--- OUTSIDE RECORDS SUMMARY | 2025-04-08 09:31 | XMS_ITS | Encounter Summary ---
Author Organization [facility] Address [address] [place] [address] Care Team Providers Care Wound Care Rn Name Role Phone Jr Guevara MD Primary Care Provider [phone] Encounter Details Date Type Department Care Team ([facility] st Contact Info) Description 04/01/2024 Orders Only External Location [address] [place] [address] Jr Guevara MD [address] [place] [address] Social History Tobacco Use Types Packs/Day Years [...] phy 04/01/2024 10:0 9 AM EST Jr uGevara MD IMG CT PROCEDURES Final Resu lt documented in this encounter Visit Diagnoses Not on filedocumented in this encounter Care Teams Wound Care Rn Relationship Specialty Start Date End Date Jr Guevara MD [address] [place] [id number] PCP - General 09/17/20 documented as of this encounter
--- OUTSIDE RECORDS SUMMARY | 2025-04-08 09:31 | XMS_ITS | Encounter Summary ---
Author Organization [facility] Address [address] [place] [address] Care Team Providers Care Regional Business Manager Name Role Phone Jr Guevara MD Primary Care Provider [phone] Encounter Details Date Type Department Care Team ([facility] st Contact Info) Description 04/01/2024 Orders Only External Location [address] [place] [address] Angel Hope PA [address] [place] [address] Social History Tobacco Use Types Packs/Day Years [...] on filedocumented in this encounter Care Teams Regional Business Manager Relationship Specialty Start Date End Date Jr Guevara MD [facility] [address] [id number] PCP - General 09/17/20 documented as of this encounter
--- OUTSIDE RECORDS SUMMARY | 2025-04-08 09:31 | XMS_ITS | Encounter Summary ---
Author Organization [facility] Address [address] [place] [address] Care Team Providers Care Test Hole Driller Name Role Phone Jr Guevara MD Primary Care Provider [phone] Encounter Details Date Type Department Care Team (Late st Contact Info) Description 02/16/2025 Abstract [facility] [place] [address] [place] [address] Loly Cisneros RN [facility] None Social History Tobacco Use Types [...] documented as of this encounter Care Teams Test Hole Driller Relationship Specialty Start Date End Date Jr Guevara MD [address] [place] [address] PCP - General 09/17/20 documented as of this encounter
--- OUTSIDE RECORDS SUMMARY | 2025-04-08 09:31 | XMS_ITS | Clinical Summary ---
Author Organization [facility] Address [address] [place] [address] Care Team Providers Care Plug Cutting Machine Operator Name Role Phone Unavailable Primary Care Provider [...]
[2025-04-08 11:06] LABS: Ferritin 358 ng/ml (17.9-464)
== END 2025-04-08 23:59 | disposition home or self-care (01) ==
LOC: LAB 09:28
PROVIDERS: PCP Family Medicine; Visit Provider Internal Medicine Medical Oncology
DX: D64.9 Anemia, unspecified (principal)
CPT/HCPCS: 36415; 82728

== ENCOUNTER 2025-04-10 06:07 | Day surgery (SDC) | payer MEDICARE, OTHER, SELFPAY ==
[2025-04-07 13:24] VITALS: BMI 27.8
[2025-04-10] VITALS (14 sets, daily range): BP systolic 122–157; BP diastolic 52–95; PULSE 67–83; RESP 14–18; TEMP 36.1–36.4; O2SAT 92–99
[2025-04-10] MEDS: LACTATED RINGERS 1000ML 1,000 ML 25 ML IV (06:45)
--- NOTE | 2025-04-10 07:31 | XR_ITS ---
FINAL REPORT CLINICAL HISTORY: pre-bronch COMPARISON: 02/12/2025 FINDINGS: A portable view of the chest was obtained. Cardiac and mediastinal silhouettes are within normal limits. Low lung volumes are present. There is a left basilar opacity, similar to the prior exam, likely atelectasis. There is no pleural effusion or pneumothorax. IMPRESSION: No acute process on this portable exam. Left base opacity, similar to the prior exam, likely atelectasis. Reviewed, Interpreted and Dictated by Carmelina Perez MD Transcribed by Odalys Foley Authenticated and . [facility]
--- NOTE | 2025-04-10 08:31 | EXP.ANES.CKL ---
[facility] Disclaimer: The information contained in this section may have been updated after the patient was seen, as this information can be updated by other users. Medical History History of smoking 10-25 pack years History of rheumatoid arthritis Fibrosis of lung ILD (interstitial lung disease) Tubular adenoma of colon CAD (coronary artery disease) History of COVID-19 Hypothyroid Encounter for preoperative assessment Abnormal findings on diagnostic imaging of heart and coronary circulation Ascending aorta dilatation Renal artery stenosis Claudication Agatston coronary artery calcium score greater than 400 Raynaud disease Gastroesophageal reflux disease Elevated coronary artery calcium score Ex-smoker Carotid artery stenosis Abnormal EKG HLD (hyperlipidemia) HTN (hypertension) Surgical History History of bowel resection History of colonoscopy Hx of knee surgery left Hx of cardiac cath stents x4 History of appendectomy Family History Other Cancer Heart disease Social History (Updated 04/10/25 @ 06:35 by Keya Coulter RN) Smoking Status: Former smoker alcohol intake: current alcohol intake frequency: 3 or more drinks per day substance use type: denies use current occupational status: employed and retired Travel in the last 8 weeks?: None household members: spouse housing: house current occupational exposures/hazards: No caffeine: Yes Have you lived/traveled outside US in past 30 days?: No Contact w/someone who lives/traveled outside US past 30 days?: No Exposure to someone with infectious disease in past 14 days?: No Do you have a fever (greater than 100.4 F or 38 C)?: No Have you tested positive for COVID-19?: No Exposed to someone with COVID-19 in past 14 days?: No Do you have a sore throat?: No Do you have a cough?: No Do you have any weakness?: No Are you experiencing any nausea/vomitting?: No Do you have any diarrhea?: No Are you experiencing any unusual bleeding?: No Do you have any muscle aches/pain?: No Do you have any abdominal pain?: No Are you experiencing loss of taste or smell?: No [facility] Anesthesia Checklist Patient Identification Patient Identification: Verbal (Name & ) Structural Data Admitted From: Home Planned Operative Procedure/s: bronchoscopy Consent for Planned Operative Procedure(s) Verified: Yes NPO Status Verified Time NPO: 00:00 Additional verifications Anesthesia Reactions: No Hx Blood Transfusions: Yes Blood Transfusion Reaction: No Airway Assessment Mallampati Score:: Class II C-Spine Mobility Assessed: Yes TMJ Mobility Assessed: Yes Dentition: Dentures-good fit Neurological Assessment Level of Consciousness: Awake, Alert and Appropriate Anesthesia Plan Anesthesia Risk discussed: Yes Anesthesia Plan: Verified ASA Class: III Anesthesia Type: General
--- NOTE | 2025-04-10 09:16 | XR_ITS ---
FINAL REPORT CLINICAL HISTORY: BRONCH fluoro 88.2 s 21.45 mGy FINDINGS: FLUOROSCOPY LESS THAN 1 HOUR HISTORY: Fluoroscopy guidance. Fluoroscopic guidance was provided for bronchoscopy. A single spot film was obtained. A total of 88.2 seconds of fluoroscopy time were used. Total DAP: 21.45 mGy IMPRESSION: As above. Reviewed, Interpreted and Dictated by Carmelina Perez MD Transcribed by Nelia Miner Authenticated and [facility]
--- NOTE | 2025-04-10 09:24 | EXP.ANES.I ---
[facility] Anesthesia Record Part I Anesthesia Record I Intake, IV Amount: 1,000 Hydration: Adequate Estimated blood loss (mL): 20 Urine output (mL): 0 Blood Pressure: 140/78 SaO2: 96 Pulse Rate: 81 Airway Patency: Patent Respiratory Rate: 14 Temperature: 97.5 F Patient is:: Awake and Stable Stable to PACU at:: 09:25
--- NOTE | 2025-04-10 09:30 | XR_ITS ---
FINAL REPORT CLINICAL HISTORY: post bronchoscopy COMPARISON: 2 hours prior FINDINGS: A portable view of the chest was obtained. Cardiac and mediastinal silhouettes are within normal limits. There are low lung volumes with bibasilar airspace disease left greater than right favored represent atelectasis. There is no pleural effusion. No pneumothorax post bronchoscopy. IMPRESSION: No pneumothorax post bronchoscopy. Low lung volumes. Bibasilar airspace disease, favor atelectasis. Reviewed, Interpreted and Dictated by Carmelina Perez MD Transcribed by Nelia Miner Authenticated and [facility]
--- NOTE | 2025-04-10 09:52 | EXP.BRONCH.N ---
Procedure: Date: 04/10/25 Patient Date of :: 1955 Procedure Performed:: Bronchoscopy airway examination, bronchoalveolar lavage, endobronchial forceps biopsy and transbronchial forceps lung biopsy Indications:: Hemoptysis Performing Provider:: Tim Cano MD Referring Provider:: Angel VEGA Sedation:: General anesthesia Procedure:: Bronchoscopy airway examination, bronchoalveolar lavage, endobronchial forceps biopsy and transbronchial forceps lung biopsy: A clean diagnostic bronchoscopy was advanced through the ET tube and airways were examined up to subsegmental bronchi. Large endobronchial lesion with near complete obstruction of the left lower lobe bronchi noted with pinhole opening. Unable to advance bronchoscopy beyond the origin of left mainstem bronchi. Scant amount of fresh blood noted across the airways predominantly in the right lower and left mainstem lobe bronchi. No mucous plugging noted. Multiple endobronchial forceps biopsies were performed at the abnormal left lower lobe endobronchial lesion and were sent in formalin for cytopathologic examination. Bronchoalveolar lavage was performed in the LLL with instillation of 60 cc normal saline with return of 10cc back. BAL fluid was in CytoLyt for cytopathologic examination Transbronchial forceps lung biopsy was performed in the LLL with a total of 7 biopsies performed, 5 biopsy specimens were sent in formalin for cytopathologic examination. The other 2 biopsy samples, were sent one each in two separate normal saline specimen cups for bacterial fungal and AFB stain cultures. Special request was also made for the pathologist to evaluate for AFB and fungal organisms on the cytopathologic examination. Patient tolerated the procedure with no immediate acute complications. We will follow the patient in pulmonary clinic in 7 to 10 days. Findings:: Please see the procedure note Recommendations:: Postoperative bronchoscopy instructions Follow in pulmonary clinic in 5 to 7 days Complications:: No acute immediate complications. Estimated blood obtained (mL): 5
--- NOTE | 2025-04-10 09:53 | SUR.PHASEI ---
0925. Patient into PACU. Persistant cough. Humidified oxygen started. Pt complains of no pain. 0937- Radiology at bedside to do portable chest X.Ray. 0940- Water offered to help cough. Patient states he has no pain just cough. 0955- Pt VSS. No C/O pain. 0959- Transported to Post op via stretcher. 1000- Report given to Edison Astorga RN at bedside.
[2025-04-10] MEDS: IPRATROPIUM/ALBUTEROL 3 ML NEB IH (10:58)
--- NOTE | 2025-04-10 12:58 | EXP.ANES.II ---
[facility] Anesthesia Record Part II Anesthesia Record Part II Discharge Time: 10:45 Destination: Surgical Day Care (OP Surgery) PACU nurse assessment reviewed?: Yes Patient Condition:: Good Anesthesia Complications:: None Swallowing reflex intact?: Yes Airway Patency: Patent Cyanosis?: No Blood Pressure: 157/83 SaO2: 95 Respiratory Rate: 18 Pulse Rate: 75 Temperature: 97.0 F Mental Status: Alert & Oriented Pain level:: 0 Nausea and/or vomitting:: None Intake, IV Amount: 0 Hydration: Adequate
== END 2025-04-10 11:32 | disposition home or self-care (01) ==
PROVIDERS: PCP Family Medicine; Visit Provider Internal Medicine Pulmonary Disease
PROC: (CPT 31628; principal; 2025-04-10 07:30)
DX: C34.32 Malignant neoplasm of lower lobe, left bronchus or lung (principal); J84.10 Pulmonary fibrosis, unspecified; J84.9 Interstitial pulmonary disease, unspecified; M06.9 Rheumatoid arthritis, unspecified; M35.3 Polymyalgia rheumatica; E03.9 Hypothyroidism, unspecified; I70.1 Atherosclerosis of renal artery; I77.810 Thoracic aortic ectasia; I25.10 Atherosclerotic heart disease of native coronary artery without angina pectoris; I65.29 Occlusion and stenosis of unspecified carotid artery; E78.5 Hyperlipidemia, unspecified; I10 Essential (primary) hypertension; Z79.52 Long term (current) use of systemic steroids; Z87.891 Personal history of nicotine dependence; Z79.82 Long term (current) use of aspirin; Z79.890 Hormone replacement therapy; Z79.899 Other long term (current) drug therapy; Z95.5 Presence of coronary angioplasty implant and graft; Z86.2 Personal history of diseases of the blood and blood-forming organs and certain disorders involving the immune mechanism
CPT/HCPCS: 31624; 31625; 31628; 71045; 76000; 87070; 87101; 87116; 87186; 87205; 88112; 88305; 88341; 88342; 88360; 94640; J1100; J1596; J2003; J2250; J2405; J2704; J2710; J3010; J7120